=== PATIENT | female | born 1940 | race Caucasian/White ===

== ENCOUNTER → 2016-12-15 | Outpatient (CLI) | payer MEDICARE ==
[~2016-12-15] MED LIST: ALN10T PO; CALC1CAP5 PO; ENLP5T GT
--- OUTSIDE RECORDS SUMMARY | 2016-12-15 09:22 | XMS REPORT | Continuity of Care Document ---
Author Author [facility] Organization [facility] Address Unknown Phone Unavailable Allergies Active Description Code Type Severity Reaction Onset Reported/Identified Relationship to Patient Clinical Status Yes NKANo Known Allergies NKA Miscellaneous Allergy Unknown N/ A 08/23/2006 Medications Problems Date Dx Coded Attending Type Code Diagnosis Diagnosed By 09/18/2013 PAUL KNOX MD Ot 455.0 INT HEMORRHOID W/O COMPL 09/18/2013 PAUL KNOX MD Ot 562.10 DIVERTICULOSIS COLON (W/O MENT OF HEMORR 09/18/2013 PAUL KNOX MD Ot V12.72 PERSONAL HISTORY OF COLONIC POLYPS 06/11/2015 MIKE BRAN MD Ot V76.12 06/19/2015 MIKE BRAN MD Ot 793.80 06/25/2015 MIKE BRAN MD Ot 793.80 11/16/2015 Ot V76.12 11/16/2015 Ot 733.90 11/16/2015 Ot V82.81 11/16/2015 Ot V76.12 11/16/2015 Ot V76.12 11/16/2015 MIKE BRAN MD Ot 733.90 11/16/2015 PAUL KNOX MD Ot V72.84 11/16/2015 MIKE BRAN MD Ot 793.81 11/16/2015 MIKE BRAN MD Ot V76.12 11/16/2015 MIKE BRAN MD Ot 793.80 11/16/2015 MIKE BRAN MD Ot 793.89 11/16/2015 MIKE BRAN MD Ot V76.12 11/16/2015 MIKE BRAN MD Ot 793.80 02/03/2016 MIKE BRAN MD Ot R92.8 02/15/2016 MIKE BRAN MD Ot R92.8 02/17/2016 MIKE BRAN MD Ot R92.8 05/17/2016 MIKE BRAN MD Ot R92.1 MAMMOGRAPHIC CALCIFCN FOUND ON DIAGNOSTI 05/18/2016 MIKE BRAN MD Ot R92.1 MAMMOGRAPHIC CALCIFCN FOUND ON DIAGNOSTI 05/18/2016 MIKE BRAN MD Ot R92.1 MAMMOGRAPHIC CALCIFCN FOUND ON DIAGNOSTI 05/23/2016 MIKE BRAN MD Ot R92.1 MAMMOGRAPHIC CALCIFCN FOUND ON DIAGNOSTI 06/20/2016 MIKE BRAN MD Ot R92.1 MAMMOGRAPHIC CALCIFCN FOUND ON DIAGNOSTI 07/04/2016 MIKE BRAN MD Ot R92.1 MAMMOGRAPHIC CALCIFCN FOUND ON DIAGNOSTI 12/09/2016 Ot 733.90 BONE CARTILAGE DIS NOS 12/09/2016 Ot V82.81 SCREENING FOR OSTEOPOROSIS 12/09/2016 Ot V76.12 OTH SCREEN MAMMO-MALIGN NEOPLASM OF MAKSIM 12/09/2016 Ot V76.12 OTH SCREEN MAMMO-MALIGN NEOPLASM OF MAKSIM 12/09/2016 MIKE BRAN MD Ot 733.90 BONE CARTILAGE DIS NOS 12/09/2016 LISETTE SHANNON, PAUL Ot V72.84 EXAM PRE-OPERATIVE NOS 12/09/2016 MIKE BRAN MD Ot 793.81 MAMMOGRAPHIC MICROCLACIFICATION 12/09/2016 MIKE BRAN MD Ot V76.12 OTH SCREEN MAMMO-MALIGN NEOPLASM OF MAKSIM 12/09/2016 MIKE BRAN MD Ot 793.80 UNSPEC ABNORMAL MAMMOGRAM 12/09/2016 MIKE BRAN MD Ot 793.89 OTH (ABN) FINDINGS ON RADIOLOGICAL EXAMI 12/09/2016 MIKE BRAN MD Ot V76.12 OTH SCREEN MAMMO-MALIGN NEOPLASM OF MAKSIM 12/09/2016 MIKE BRAN MD Ot 793.80 UNSPEC ABNORMAL MAMMOGRAM 12/09/2016 MIKE BRAN MD Ot R92.8 OTH ABN AND INCONCLUSIVE FINDINGS ON DX 12/09/2016 MIKE BRAN MD, Ot R92.1 MAMMOGRAPHIC CALCIFCN FOUND ON DIAGNOSTI Procedures Results Encounters ACCT No. Visit Date/Time Discharge Status Pt. Type Provider Facility Loc./Unit Complaint [id number] 09/04/2015 16:38:00 2014 23:59:59 CLS Outpatient PHUONG ROSADO DO [facility] QUICK [id number] 05/28/2015 07:03:00 2014 23:59:59 CLS Outpatient MIKE BRAN MD [facility] RAD ABD MAMMO CALCIFICATIONS OF RT NIPPLE [id number] 05/21/2015 10:04:00 2014 23:59:59 CLS Outpatient MIKE BRAN MD [facility] RAD SCREENING [id number] 05/26/2014 08:20:00 2013 23:59:59 CLS Outpatient MIKE BRAN MD [facility] RAD RT BREAST DENSITY [id number] 11/26/2013 07:28:00 2013 23:59:59 CLS Outpatient MIKE BRAN MD [facility] RAD ABNORMAL MAMMO [id number] 11/13/2013 08:30:00 2013 23:59:59 CLS Outpatient MIKE BRAN MD [facility] RAD SCREENING [id number] 09/18/2013 08:50:00 2012 12:35:00 DIS Outpatient PAUL KNOX MD [facility] SDC HISTORY OF POLYPS [id number] 09/12/2013 07:17:00 2012 23:59:59 CLS Outpatient PAUL KNOX MD [facility] PREOP HISTORY OF POLYPS [id number] 08/16/2013 09:01:00 2012 23:59:59 CLS Outpatient MIKE BRAN MD [facility] RAD OSTEOPORSIS [id number] 04/01/2013 07:51:00 2012 23:59:59 CLS Outpatient [id number] 12/15/2016 10:00:00 PEN Preadmit MIKE BRAN MD [facility] RAD OSTEOPOROSIS [id number] 06/02/2016 09:42:00 ACT Outpatient NA DAVIS [facility] QUICK [id number] 05/17/2016 07:17:00 ACT Outpatient MIKE BRAN MD [facility] RAD CALCIFICATIONS R BREAST [id number] 11/16/2015 08:11:00 ACT Outpatient MIKE BRAN MD [facility] RAD ABNORMAL MAMMO [id number] 11/12/2012 11:17:00 Document Registration [id number] 11/10/2011 07:59:00 Document Registration [id number] 09/16/2011 09:45:00 Document Registration [id number] 11/10/2010 13:12:00 Document Registration
--- NOTE | 2016-12-15 14:44 | Diagnostic Imaging Report ---
EXAMINATION: DEXA scan. INDICATION: Osteopenia TECHNIQUE: Bone mineral density estimated based on dual energy radiography over the lumbar spine and femoral necks, was performed. FINDINGS: The lumbar spine T-score is -1.1. This is 4% increased density measurement compared to 2013 exam. T-score on the left femoral neck is -0.3 and on the right is -0.8, a 2.4% increased density measurement compared to 2013. IMPRESSION: Osteopenia. Dictated by: Dictated on workstation # [id number]
== END ==
LOC: RAD 09:19
PROVIDERS: ATTEND Family Medicine
DX: M81.0 Age-related osteoporosis without current pathological fracture (principal)
CPT/HCPCS: 77080

== ENCOUNTER → 2017-05-19 | Outpatient (CLI) | payer MEDICARE ==
--- NOTE | 2017-05-19 08:38 | Diagnostic Imaging Report ---
Bilateral diagnostic mammogram with 2-D and 3-D tomographic images performed. INDICATION: Followup calcifications. CAD is utilized. COMPARISON: 11/16/2015. FINDINGS: Breasts are composed of scattered fibroglandular densities, slightly more dense in the central and outer aspect of the right breast. There are benign-appearing calcifications seen including central right breast calcifications that demonstrate minimal change number operator multiple prior exams suggestive of benign etiology. No developing mass or architectural distortion is evident. Allowing for technique and positional differences, no suspicious change is seen. IMPRESSION: No significant change. ACR BI-RADS Category 2: Benign findings. Result letter will be mailed to the patient. Note: At least 10% of breast cancer is not imaged by mammography. Dictated by: Dictated on workstation # [id number]
== END ==
LOC: RAD 07:55
PROVIDERS: ATTEND Family Medicine
DX: R92.1 Mammographic calcification found on diagnostic imaging of breast (principal)
CPT/HCPCS: 77066

== ENCOUNTER → 2017-07-25 | Outpatient (CLI) | payer MEDICARE ==
--- NOTE | 2017-07-25 14:21 | Diagnostic Imaging Report ---
Three views of the lumbar spine. INDICATION: Back pain. FINDINGS: The alignment at the posterior spinal line is satisfactory. The vertebral body heights in the lumbar spine appear preserved. There is mild vertebral body height loss at the T11 vertebral body however. The disc heights are also preserved. Minimal anterior osteophytes are seen. Prominent facet arthropathy and sclerotic changes are noted in the lower lobar spine. Prominent atherosclerotic calcifications in the aorta are seen. IMPRESSION: Degenerative changes. Age-indeterminate compression fracture of T11 vertebral body. If there is history of injury and this matches the area of pain, then further evaluation with MRI of the thoracic spine would be helpful to assess if this is acute. Dictated by: Dictated on workstation # [id number]
== END ==
LOC: RAD 10:22
PROVIDERS: ATTEND Family Medicine
DX: M47.816 Spondylosis without myelopathy or radiculopathy, lumbar region (principal); M48.54XA Collapsed vertebra, not elsewhere classified, thoracic region, initial encounter for fracture
CPT/HCPCS: 72100

== ENCOUNTER → 2018-06-01 | Outpatient (CLI) | payer MEDICARE ==
--- NOTE | 2018-06-01 12:50 | Diagnostic Imaging Report ---
INDICATION: Digital mammogram bilateral screening with 3-D tomosynthesis. This study was compared to the prior exams of 05/19/17, 05/17/16 and 05/21/15. At this time, there are no current complaints. The current study was also evaluated with a Computer Aided Detection (CAD) system. FINDINGS: There are scattered fibroglandular densities in both breasts which could obscure a lesion. Overall, there does not appear to have been any significant change when compared to the prior exam. No primary or secondary sign of malignancy is noted. 3D tomographic images fail to show any sign of malignancy. IMPRESSION: There is no radiographic evidence for malignancy. ACR BI-RADS Category 1: Negative. Result letter will be mailed to the patient. Note: At least 10% of breast cancer is not imaged by mammography. Dictated by: Dictated on workstation # [id number]
== END ==
LOC: RAD 07:43
PROVIDERS: ATTEND Family Medicine
DX: Z12.31 Encounter for screening mammogram for malignant neoplasm of breast (principal)
CPT/HCPCS: 77067

== ENCOUNTER 2018-08-27 06:13 | Outpatient (CLI) | payer MEDICARE ==
[~2018-08-27] VITALS: Ht 157.5 cm; Wt 79.8 kg
[2018-08-27] MEDS ORDERED: ALEN10TA5 PO (15:33)
[2018-08-27] MEDS ORDERED: OMG1KC PO (15:33)
[2018-08-27] MEDS ORDERED: CALC-694 PO (15:33)
[2018-08-27] MEDS ORDERED: MULT-35 PO (15:33)
[2018-08-27] MEDS ORDERED: ENAL5TAB PO (15:33)
[2018-08-27] MEDS ORDERED: AMLO10TA6 PO (15:33)
== END 2018-08-27 15:37 | disposition home or self-care (01) ==
LOC: PREOP 06:13
PROVIDERS: ATTEND Surgery
DX: Z01.818 Encounter for other preprocedural examination (principal)

== ENCOUNTER 2018-08-29 09:43 | Day surgery (SDC) | payer MEDICARE ==
[~2018-08-29] VITALS: Ht 157.5 cm; Wt 79.8 kg
[~2018-08-29 09:43] MED LIST changes: +ALEN10TA5 PO; +AMLO10TA6 PO; +CALC-694 PO; +ENAL5TAB PO; +MULT-35 PO; +OMG1KC PO
[2018-08-29] MEDS ORDERED: NS IV 500 ML 500 ML ONE (09:51)
[2018-08-29] MEDS ORDERED: NS IV 500 ML 500 ML IV PRN (10:09)
[2018-08-29 10:11] VITALS: BP 179/95
[2018-08-29] MEDS ORDERED: MIDAZOLAM 2 MG/2 ML (VERSED) VIAL IVP ONE (10:15)
[2018-08-29] MEDS ORDERED: LIDOCAINE JELLY 2% 6 ML SYRINGE MM PRN (10:15)
[2018-08-29] MEDS ORDERED: fentaNYL INJECTION 100 MCG/2 ML AMP IVP ONE (10:15)
[2018-08-29] MEDS ORDERED: LIDOCAINE JELLY 2% 6 ML SYRINGE ONE (10:51)
[2018-08-29] MEDS ORDERED: MIDAZOLAM 2 MG/2 ML (VERSED) VIAL ONE ×3 (10:52)
[2018-08-29] MEDS ORDERED: fentaNYL INJECTION 100 MCG/2 ML AMP ONE ×2 (10:52)
--- NOTE | 2018-08-29 11:20 | Conscious Sedation/ASA ---
Conscious Sedation Pre-Proced Time 11:00 ASA Score 2 For ASA 3 and 4: Consider anesthesia and medical clearance. Also, for patients with a history of failed moderate sedation consider anesthesia. Airway Lungs Heart ASA score ASA 1: a normal healthy patient ASA 2: a patient with a mild systemic disease (mid diabetes, controlled hypertension, obesity ASA 3: a patient with a severe systemic disease that limits activity (angina , COPD, prior Myocardial infarction) ASA 4: a patient with an incapacitating disease that is a constant threat to life (CHF, renal failure) ASA 5: a moribund patient not expected to survive 24 hrs. (ruptured aneurysm) ASA 6: a declared brain patient whose organs are being harvested. For emergent operations, add the letter E after the classification Mallampati Classification Grade 2 Sedation Plan Analgesia, Amnesia, Plan communicated to team members, Discussed options with patient/fam, Discussed risks with patient/fam The patient is an appropriate candidate to undergo the planned procedure, sedation, and anesthesia. The patient immediately re-assessed prior to indication. PAUL KNOX MD Aug 29, 2018 11:20 am
--- NOTE | 2018-08-29 11:21 | Progress Note-Pre Operative ---
Pre-Operative Progress Note H&P Reviewed The H&P was reviewed, patient examined and no changes noted. Date Seen by Provider: Aug 29, 2018 Time Seen by Provider: 11:00 Date H&P Reviewed: Aug 29, 2018 Time H&P Reviewed: 11:00 Pre-Operative Diagnosis: hx polyp PAUL KNOX MD Aug 29, 2018 11:21 am
[2018-08-29] MEDS ORDERED: morphine INJ 10 MG/ML 1ML (SYR OR VIAL) IV PRN (11:30)
[2018-08-29] MEDS ORDERED: ACETAMINOPHEN 325 MG TABLET PO PRN (11:30)
[2018-08-29] MEDS ORDERED: HYDROcodone/APAP 5 MG/325 MG (LORTAB) TAB PO PRN (11:30)
[2018-08-29] MEDS ORDERED: ONDANSETRON 4 MG/2 ML (SDV) Z0FRAN IV PRN (11:30)
--- NOTE | 2018-08-29 12:11 | Progress Note-Post Operative ---
Post-Operative Progess Note Surgeon (s)/Apprentice Painter Hand (s) Surgeon PAUL KNOX MD Apprentice Painter Hand: none Pre-Operative Diagnosis hx polyp Post-Operative Diagnosis mild-moderate sigmoid diverticulosis, hepatic flexure polyp. Procedure & Operative Findings Date of Procedure 08/29/18 Procedure Performed/Findings Colonoscopy with bx. Anesthesia Type CS Estimated Blood Loss Estimated blood loss (mL): minimal Specimens/Packing Specimens Removed hepatic flexure polyp PAUL KNOX MD Aug 29, 2018 12:11 pm
--- NOTE | 2018-08-29 12:13 | Discharge Inst-Surgical ---
D/C Lap Instructions-LISETTE Will call for follow up Activity as tolerated High Fiber Diet 25g or more per day Avoid Alcohol, Caffeine, Spicy [place] and Acid foods. Drink 64 fluid oz or more of fluids per day. Symptoms to Report: Fever over 101 degree F, Nausea/Vomiting If any problems/questions: Contact your physician or go to Emergency Room PAUL KNOX MD Aug 29, 2018 12:13 pm
[2018-08-29 12:20] VITALS: BP 159/86
[2018-08-29 12:44] VITALS: BP 159/86
[2018-08-29 12:45] VITALS: BP 159/86
--- NOTE | 2018-08-29 15:39 | OPERATIVE REPORT ---
DATE OF SERVICE: 08/29/2018 ATTENDING PRIMARY CARE PHYSICIAN: Dr. Torres. PREOPERATIVE DIAGNOSIS: History of colon polyp. POSTOPERATIVE DIAGNOSIS: Mild sigmoid diverticulosis, small hyperplastic polyp at the hepatic flexure approximately 2 mm in size. PROCEDURE: Colonoscopy with biopsy. SURGEON: Paul Knox MD ANESTHESIA: Conscious sedation. ESTIMATED BLOOD LOSS: Minimal. FINDINGS: No significant hemorrhoids identified. Mild sigmoid diverticulosis, small hyperplastic polyp at the hepatic flexure approximately 2 mm in size. DISPOSITION: The patient tolerated the procedure well. INDICATIONS: The patient is a 78-year-old female known to us. She has had 2 colonoscopies in the past, one in 2004 as well as in 2007. In 2004, she did have 2 small descending colonic polyps, which were benign. In 2007, a rectal polyp was identified, biopsied and found to be a tubular adenoma. She was also found to have sigmoid diverticulosis. She is otherwise doing well and does not report any major issues of diarrhea nor constipation as well as no red blood per rectum nor any dark tarry stools. She also does not report any family history of colon cancer. DESCRIPTION OF PROCEDURE: The patient was brought to the endoscopy suite, laid in the left lateral decubitus position. After adequate IV pain and sedating medications and conscious sedation anesthesia, a digital rectal examination was performed. No significant hemorrhoids identified. Normal sphincter tone was felt and there are no palpable masses. The endoscope was then intubated to the anus and rectum gently insufflated. The endoscope was then advanced through the valves of Feng in the rectum with no polyps or any neoplasms identified. Through the sigmoid colon, mild to moderate sigmoid diverticulosis identified. There were no mucosal inflammatory changes to indicate any active diverticulitis. The endoscope was then advanced to the remainder of the descending and transverse colon. At the hepatic flexure, a small hyperplastic polyp identified approximately 2 mm in size. This was biopsied and destroyed using forceps and electrocautery with visualization of good hemostasis. The endoscope was then advanced through the remainder of the ascending colon into the cecum. These segments were normal. The endoscope was then slowly withdrawn while taking a second look and suctioning of residual air with no additional findings. The patient tolerated the procedure well. We will recommend a high fiber diet with at least 30 grams of fiber per day as well as copious amounts of water to promote soft stools on a daily basis. The polyp identified appears to be a benign hyperplastic polyp, which does not have any malignancy potential and if this is verified by pathology, she may wait 10 years; however, if this is an adenomatous polyp and shows any villous component, we will have her follow up in approximately 3 years. Job ID: [id number] DocumentID: [id number] Dictated Date: 08/29/2018 12:05:28 French Folder Date: 08/29/2018 15:38:12 Dictated By: PAUL KNOX MD
== END 2018-08-29 12:45 | disposition home or self-care (01) ==
LOC: ENDO 09:43
PROVIDERS: ATTEND Surgery
DX: Z12.11 Encounter for screening for malignant neoplasm of colon (principal); D12.3 Benign neoplasm of transverse colon; K57.30 Diverticulosis of large intestine without perforation or abscess without bleeding; I10 Essential (primary) hypertension; M85.80 Other specified disorders of bone density and structure, unspecified site; Z85.42 Personal history of malignant neoplasm of other parts of uterus; Z79.899 Other long term (current) drug therapy; Z90.79 Acquired absence of other genital organ(s)
CPT/HCPCS: 88305

== ENCOUNTER → 2019-06-11 | Outpatient (CLI) | payer MEDICARE ==
[~2019-06-11] MED LIST changes: -AMLO10TA6 PO; +AMLO10TA7 PO
--- NOTE | 2019-06-11 14:55 | Diagnostic Imaging Report ---
INDICATION: Routine screening. COMPARISON: 06/01/2018 and 05/19/2017. TECHNIQUE: 2D and 3D bilateral screening mammography was performed with CAD. FINDINGS: Scattered fibroglandular densities are identified bilaterally. Benign calcifications are again noted bilaterally. No mass or malignant appearing microcalcifications are seen. The axillae are unremarkable. IMPRESSION: No mammographic features suspicious for malignancy are identified. ACR BI-RADS Category 2: Benign findings. Result letter will be mailed to the patient. Note: At least 10% of breast cancer is not imaged by mammography. Dictated by: Dictated on workstation # [id number]
== END ==
LOC: RAD 09:21
PROVIDERS: ATTEND Family Medicine
DX: Z12.31 Encounter for screening mammogram for malignant neoplasm of breast (principal)
CPT/HCPCS: 77067

== ENCOUNTER 2019-08-23 09:50 | Outpatient (RCR) | payer MEDICARE ==
[2019-08-26] MEDS ORDERED: ENAL10TA PO (11:27)
[2019-08-26] MEDS ORDERED: AMLO5TAB9 PO (11:27)
[2019-08-26] MEDS ORDERED: MULT-178 PO (11:30)
[2019-08-26] MEDS ORDERED: ACET-77 PO (11:30)
[2019-08-26] MEDS ORDERED: IBUP-2185 PO (11:32)
[2019-08-27] MEDS ORDERED: AMLO5TAB9 PO (13:04)
== END 2019-08-30 13:13 | disposition home or self-care (01) ==
PROVIDERS: ATTEND Family Medicine
DX: M54.5 Low back pain (principal)

== ENCOUNTER 2019-08-25 13:31 | Inpatient (IN) | payer MEDICARE ==
[~2019-08-25] VITALS: Ht 157.5 cm; Wt 84.1 kg
[2019-08-25] MEDS ORDERED: fentaNYL INJECTION 100 MCG/2 ML AMP ONE (13:40)
--- NOTE | 2019-08-25 13:47 | ED Lower Extremity ---
General Chief Complaint: Lower Extremity Stated Complaint: FALL Source: patient, EMS Exam Limitations: no limitations History of Present Illness Date Seen by Provider: Aug 25, 2019 Time Seen by Provider: 13:45 Initial Comments This 79-year-old white female presents after she inadvertently fell sustaining an obvious closed fracture to her left femur shortly prior to presentation in the emergency department today. She is complaining of pain and deformity over t he midportion left femur. She denies loss of sensation or range of motion of the affected left lower extremity. She denies other injury or fall. Allergies and Home Medications Allergies Coded Allergies: No Known Drug Allergies (Verified , 08/29/18) Home Medications Alendronate Sodium 10 Mg Tablet, 10 MG PO DAILY, (Reported) Amlodipine Besylate 10 Mg Tablet, 10 MG PO DAILY, (Reported) Calcium Carbonate/Vitamin D3 1 Each Tablet, PO DAILY, (Reported) Enalapril Maleate 5 Mg Tablet, 5 MG PO DAILY, (Reported) Multivitamin 1 Each Tablet, 1 EACH PO DAILY, (Reported) [place] 3 Polyunsat Fatty Acids 1,000 Mg Cap, 1,000 MG PO DAILY, (Reported) Patient Home Medication List Home Medication List Reviewed: Yes Review of Systems Constitutional: No chills EENTM: No ear pain Respiratory: No cough Cardiovascular: No chest pain Gastrointestinal: No abdominal pain Genitourinary: No dysuria, No frequency Musculoskeletal: see HPI; No back pain; other (deformity of the left thigh) Skin: No change in color, No rash Psychiatric/Neurological: No Symptoms Reported Past Mwypwso-Argqmf-Mnojdy Hx Past Med/Social Hx: Reviewed Nursing Past Med/Soc Hx Patient Social History Recent Foreign Travel: No Contact w/Someone Who Travel: No Recent Hopitalizations: No Immunizations Up To Date Date of Influenza Vaccine: Aug 20, 2018 Seasonal Allergies Seasonal Allergies: Yes (MILD) Past Medical History Hysterectomy Hypertension Reproductive Disorders: No Sexually Transmitted Disease: No HIV/AIDS: No Loss of Vision: Bilateral Hearing Impairment: Denies Adverse Reaction/Blood Tranf: No (N/A) Physical Exam Vital Signs Vital Signs - First Documented 08/25/19 13:35 Temp 36.7 Pulse 94 Resp 18 B/P (MAP) 153/82 (105) Pulse Ox 98 O2 Delivery Room Air Capillary Refill : Height, Weight, BMI Height: 5'2.00" Weight: 176lbs. 0.0oz. 79.225104vx; 32.2 BMI Method: General Appearance: WD/WN, mild distress HEENT: normal ENT inspection Neck: full range of motion Cardiovascular: regular rate, rhythm Respiratory: lungs clear Gastrointestinal: normal bowel sounds Back: normal inspection Legs: left leg deformity (there is deformity of the left thigh with crepitus signifying a left femur fracture.) Progress/Results/Core Measures Results/Orders Lab Results Laboratory Tests Test 08/25/19 13:40 08/25/19 14:40 Range/Units White Blood Count 8.8 4.3-11.0 10^3/uL Red Blood Count 4.46 4.35-5.85 10^6/uL Hemoglobin 13.3 11.5-16.0 G/DL Hematocrit 41 35-52 % Mean Corpuscular Volume 92 80-99 FL Mean Corpuscular Hemoglobin 30 25-34 PG Mean Corpuscular Hemoglobin Concent 33 32-36 G/DL Red Cell Distribution Width 14.2 10.0-14.5 % Platelet Count 231 130-400 10^3/uL Mean Platelet Volume 10.2 7.4-10.4 FL Neutrophils (%) (Auto) 51 42-75 % Lymphocytes (%) (Auto) 30 12-44 % Monocytes (%) (Auto) 14 H 0-12 % Eosinophils (%) (Auto) 4 0-10 % Basophils (%) (Auto) 1 0-10 % Neutrophils # (Auto) 4.5 1.8-7.8 X 10^3 Lymphocytes # (Auto) 2.7 1.0-4.0 X 10^3 Monocytes # (Auto) 1.2 H 0.0-1.0 X 10^3 Eosinophils # (Auto) 0.4 H 0.0-0.3 10^3/uL Basophils # (Auto) 0.1 0.0-0.1 10^3/uL Sodium Level 139 135-145 MMOL/L Potassium Level 4.1 3.6-5.0 MMOL/L Chloride Level 104 98-107 MMOL/L Carbon Dioxide Level 25 21-32 MMOL/L Anion Gap 10 5-14 MMOL/L Blood Urea Nitrogen 28 H 7-18 MG/DL Creatinine 1.21 0.60-1.30 MG/DL Estimat Glomerular Filtration Rate 43 BUN/Creatinine Ratio 23 Glucose Level 119 H 70-105 MG/DL Calcium Level 9.8 8.5-10.1 MG/DL Corrected Calcium 9.9 8.5-10.1 MG/DL Total Bilirubin 0.5 0.1-1.0 MG/DL Aspartate Amino Transf (AST/SGOT) 19 5-34 U/L Alanine Aminotransferase (ALT/SGPT) 19 0-55 U/L Alkaline Phosphatase 45 40-136 U/L Total Protein 6.9 6.4-8.2 GM/DL Albumin 3.9 3.2-4.5 GM/DL My Orders Orders - VINICIO ROJAS MD Fentanyl Injection (Sublimaze Injection (08/25/19 13:40) Femur, Left, 2 Views (08/25/19 13:43) Chest 1 View, Ap/Pa Only (08/25/19 13:43) Cbc With Automated Diff (08/25/19 13:43) Comprehensive Metabolic Panel (08/25/19 13:43) Ua Culture If Indicated (08/25/19 13:43) Ekg Tracing (08/25/19 13:43) Type And Screen (08/25/19 14:02) Medications Given in ED Current Medications Medications Dose Ordered Sig/Tee Route Start Time Stop Time Status Last Admin Dose Admin Fentanyl Citrate 100 mcg STK-MED ONCE .ROUTE 08/25/19 13:40 08/25/19 13:42 DC 08/25/19 13:42 100 MCG Vital Signs/I&O 08/25/19 13:35 Temp 36.7 Pulse 94 Resp 18 B/P (MAP) 153/82 (105) Pulse Ox 98 O2 Delivery Room Air Progress Progress Note : Time: 14:48 Progress Note The patient's obvious left femur fracture was reduced and a long-leg posterior spell was applied with OCL. The patient's pain was significant improvement with 50 g of fentanyl IV. Drs. Olson and Rene were consulate and will present to evaluate the patient. Anesthesia will be prepared for the patient and at 5 p.m. today (2 hours). Preoperative labs, chest x-ray, and EKG were ordered. Departure Communication (Admissions) Time/Spoke to Admitting Phy: 14:50 Dr. Olson Time/Spoke to Consulting Phy: 14:50 Dr. López Impression Primary Impression: Fracture of left femur Disposition: 09 ADMITTED INPATIENT Condition: Improved Admissions Decision to Admit Reason: Admit from ER (Trauma) Decision to Admit/Date: Aug 25, 2019 Time/Decision to Admit Time: 14:51 Departure-Patient Inst. Referrals: MIKE BRAN MD (PCP) Primary Care Physician VINICIO ROJAS MD Aug 25, 2019 13:47
[2019-08-25 13:51] LABS: BASOPHILS # (AUTO) 0.1 10^3/uL (0.0-0.1); BASOPHILS % (AUTO) 1 % (0-10); EOSINOPHILS # (AUTO) 0.4 10^3/uL (0.0-0.3); EOSINOPHILS % (AUTO) 4 % (0-10); HEMATOCRIT 41 % (35-52); HEMOGLOBIN 13.3 G/DL (11.5-16.0); LYMPHOCYTES # (AUTO) 2.7 X 10^3 (1.0-4.0); LYMPHOCYTES % (AUTO) 30 % (12-44); MEAN CORPUSCULAR HEMOGLOBIN 30 PG (25-34); MEAN CORPUSCULAR HGB CONC 33 G/DL (32-36); MEAN CORPUSCULAR VOLUME 92 FL (80-99); MEAN PLATELET VOLUME 10.2 FL (7.4-10.4); MONOCYTES # (AUTO) 1.2 X 10^3 (0.0-1.0); MONOCYTES % (AUTO) 14 % (0-12); NEUTROPHILS # (AUTO) 4.5 X 10^3 (1.8-7.8); NEUTROPHILS % (AUTO) 51 % (42-75); PLATELET COUNT 231 10^3/uL (130-400); RED CELL DISTRIBUTION WIDTH 14.2 % (10.0-14.5); WHITE BLOOD COUNT 8.8 10^3/uL (4.3-11.0)
[2019-08-25 14:05] LABS: ALBUMIN 3.9 GM/DL (3.2-4.5); BILIRUBIN,TOTAL 0.5 MG/DL (0.1-1.0); CALCIUM 9.8 MG/DL (8.5-10.1); CREATININE SERUM 1.21 MG/DL (0.60-1.30); POTASSIUM 4.1 MMOL/L (3.6-5.0); TOTAL PROTEIN 6.9 GM/DL (6.4-8.2)
--- NOTE | 2019-08-25 14:30 | Diagnostic Imaging Report ---
EXAMINATION: Chest 1 view HISTORY: Leg pain. FINDINGS: No comparison available. The lungs are clear. No edema. No pneumonia. No pleural effusion. No pneumothorax. Heart is normal in size. IMPRESSION: 1. Clear lungs. Dictated by: Dictated on workstation # [id number]
--- NOTE | 2019-08-25 14:32 | Diagnostic Imaging Report ---
INDICATION: None given. TECHNIQUE: Four views of the left femur. FINDINGS: There is a largely transversely oriented midshaft fracture of the left femur. There is lateral apex angulation and approximately 2.7 cm of overriding of the fracture fragments. This fracture is also anteriorly angulated. There is no dislocation at the hip or malalignment at the knee. There are background features of left hip and left knee osteoarthritis. No suspicious lucencies are evident about the femoral shaft fracture to suggest a pathological fracture. IMPRESSION: 1. Overriding and angulated left femoral shaft fracture as described. There are no suspicious findings to suggest a pathological fracture. There is no dislocation at the hip or knee. Dictated by: Dictated on workstation # [id number]
--- NOTE | 2019-08-25 14:50 | NUR ---
Dr. Olson in room with pt.
[2019-08-25 14:51] LABS: BILIRUBIN,URINE NEGATIVE (NEGATIVE); CLARITY,URINE CLEAR; COLOR,URINE YELLOW; GLUCOSE, URINE (UA) NEGATIVE (NEGATIVE); KETONES,URINE NEGATIVE (NEGATIVE); LEUKOCYTE ESTERASE ,URINE NEGATIVE (NEGATIVE); NITRITE,URINE NEGATIVE (NEGATIVE); PH,URINE 5 (5-9); PROTEIN,URINE 1+ (NEGATIVE)
[2019-08-25 15:01] LABS: BACTERIA,URINE TRACE /HPF; WBC,URINE 0-2 /HPF
--- NOTE | 2019-08-25 15:01 | NUR ---
tank cleaning supervisor notified of planned surgery by Dr. López at 1700.
[2019-08-25 15:02] LABS: HYALINE CASTS, URINE 0-2 /LPF
--- NOTE | 2019-08-25 15:10 | History & Physical-Hospitalist ---
History of Present Illness HPI/Chief Complaint 79 yo wf tripped and fell striking left femur- Xray shows fracture left femur shaft. Pt without c/o other than pain Source: patient Exam Limitations: no limitations Date Seen 08/25/19 Time Seen by a Provider: 15:00 Attending Physician Adali Olson MD PCP Mike Bran MD Referring Physician Date of Admission Aug 25, 2019 at 15:01 Home Medications & Allergies Home Medications Reviewed patient Home Medication Reconciliation performed by pharmacy medication reconciliations electronic engineering technician and/or nursing. Patients Allergies have been reviewed. Allergies Allergies Coded Allergies No Known Drug Allergies ([id number]/24/18) Past [id number] Hx Past Med/Social Hx: Reviewed Nursing Past Med/Soc Hx Patient Social History Marrital Status: single Employed/Student: retired Alcohol Use: Denies Use Recreational Drug Use: No 2nd Hand Smoke Exposure: No Recent Foreign Travel: No Contact w/other who traveled: No Recent Hopitalizations: No Recent Infectious Disease Expo: No Immunizations Up To Date Date of Influenza Vaccine: Aug 20, 2018 Seasonal Allergies Seasonal Allergies: Yes (MILD) Past Medical History Surgeries: Hysterectomy Cardiac: Hypertension Reproductive: No Sexually Transmitted Disease: No HIV/AIDS: No Loss of Vision: Bilateral Hearing Impairment: Denies History of Blood Disorders: No Adverse Reaction to Blood [place]: No (N/A) Review of Systems Constitutional: no symptoms reported EENTM: no symptoms reported Respiratory: dyspnea on exertion Cardiovascular: no symptoms reported Gastrointestinal: no symptoms reported Genitourinary: no symptoms reported Musculoskeletal: other (left leg pain) Skin: no symptoms reported Psychiatric/Neurological: No Symptoms Reported Physical Exam Physical Exam Vital Signs Vital Signs - First Documented 08/25/19 13:35 Temp 36.7 Pulse 94 Resp 18 B/P (MAP) 153/82 (105) Pulse Ox 98 O2 Delivery Room Air Capillary Refill : Less Than 3 Seconds Height, Weight, BMI Height: 5'2.00" Weight: 176lbs. 0.0oz. [id number]; 30.00 BMI Method: General Appearance: No Apparent Distress, WD/WN HEENT: Normal ENT Inspection Neck: Full Range of Motion, Normal Inspection, Non Tender, Supple Respiratory: Chest Non Tender, Lungs Clear, Normal Breath Sounds, No Accessory Muscle Use, No Respiratory Distress Cardiovascular: Regular Rate, Rhythm, No Gallop, No JVD, No Murmur, Normal Peripheral Pulses Gastrointestinal: Normal Bowel Sounds, No Organomegaly, No Pulsatile Mass, Non Tender, Soft Rectal: Deferred Extremity: Normal Capillary Refill, No Calf Tenderness, No Pedal Edema, Other (left leg shortened) Neurologic/Psychiatric: Alert, Oriented x3, Normal Mood/Affect Skin: Normal Color, Warm/Dry Lymphatic: No Adenopathy Results Results/Procedures Labs Laboratory Tests 08/25/19 13:40 Patient resulted labs reviewed. Imaging: Reviewed Imaging Report Assessment/Plan Admission Diagnosis left femur shaft fracture htn - normal ekg hx of SOA - most likely secondary to deconditioning Pt need for repair outweighs small risk of cardiac event post -op. Would recommend telemetry post op , rehab after repair for strengthening Admission Status: Inpatient Order (span 2 midnights) Reason for Inpatient Admission: Surgery and PT Copy Copies To 1: MIKE BRAN MD, KATHLEEN M MD Aug 25, 2019 15:10
[2019-08-25] MEDS ORDERED: NS IV 1000 ML 1,000 ML ONE (15:59)
[2019-08-25] MEDS ORDERED: NS IV 1000 ML 1,000 ML IV SCH (16:15)
--- NOTE | 2019-08-25 16:24 | Consultation - Ortho ---
Consult - Ortho Subjective Date of Exam 08/25/19 Chief Complaint Fracture left femur HPI/Events since last exam Mrs. Newton is a 79-year-old white female who tripped when she caught her foot on a chair landing on the posterior aspect of her left side. She was brought to the emergency room and evaluated and x-rayed noted abdomen midshaft fracture left femur. She denies any previous problems with her left hip or knee. She is presently in physical therapy for strengthening due to a compression fracture and/or disc in her mid back. She has had some difficulty with ambulation due to the weakness and does use a cane and/or walker but is doing so well that she no longer needs them. She denies any other injuries. She denies any increase in back or neck pain. She states her foot and toes feel a little funny since the fall. No problems on the right side. Her only other orthopedic issue was a fracture of the left radius that required open reduction internal FIXATION by Dr. Burris [facility], Surgical History Reviewed and no additions or changes Social History Reviewed and no additions or changes. The patient does live by herself Family History Reviewed and no additions or changes Review of Systems Reviewed and no additions or changes Allergies: Coded Allergies: No Known Drug Allergies (Verified , 08/29/18) Home Meds Reported Medications Multivitamin (Daily Multiple Vitamin) 1 Each Tablet, 1 EACH PO DAILY, TAB 08/27/18 [place] 3 Polyunsat Fatty Acids (Fish Oil 1,000 mg Capsule) 1,000 Mg Cap, 1000 MG PO DAILY, CAP 08/27/18 Amlodipine Besylate (Amlodipine Besylate) 10 Mg Tablet, 10 MG PO DAILY, TAB 08/27/18 Calcium Carbonate/Vitamin D3 (Calcium 600 + Vit D Caplet) 1 Each Tablet, PO DAILY, TAB 08/27/18 Enalapril Maleate (Enalapril Maleate) 5 Mg Tablet, 5 MG PO DAILY, TAB 08/27/18 Alendronate Sodium (Alendronate Sodium) 10 Mg Tablet, 10 MG PO DAILY, TAB 08/27/18 Objective Exam Constitutional: [] HEENT: [] Neck: [No pain with palpation or range of motion] Cardiovascular: [] Respiratory: [] Gastrointestinal: [] Genitourinary: [] Skin: [] Back/Spine: No pain with palpation or range of motion [] Extremities:upper extremities-full range of motion. No crepitation. No defo rmity. Neurovascularly intact. No skin changes. Lower extremitiesfull motion of the right hip, knee and ankle without pain or deformity. No instability. She's neurovascularly intact the right lower extremity. The left lower extremity is in a posterior splint. She has no pain on palpation of the hip. No pain on palpation of the anterior knee. No pain with range of motion of the ankle. She has normal sensation to the foot and toes with good capillary refill. Her sensation is equal to the opposite side. Symmetrical pulses to the lower extremities. [] Neurologic: [] Grossly intact Psychiatric: [] Hematologic/lymphatic/immunologic: [] Vital Signs Vital Signs Date Time Temp Pulse Resp B/P (MAP) Pulse Ox O2 Delivery O2 Flow Rate FiO2 08/25/19 13:35 36.7 94 18 153/82 (105) 98 Room Air Lab Results Laboratory Tests 08/25/19 13:40: White Blood Count 8.8, Red Blood Count 4.46, Hemoglobin 13.3, Hematocrit 41, Mean Corpuscular Volume 92, Mean Corpuscular Hemoglobin 30, Mean Corpuscular Hemoglobin Concent 33, Red Cell Distribution Width 14.2, Platelet Count 231, Mean Platelet Volume 10.2, Neutrophils (%) (Auto) 51, Lymphocytes (%) (Auto) 30, Monocytes (%) (Auto) 14H, Eosinophils (%) (Auto) 4, Basophils (%) (Auto) 1, Neutrophils # (Auto) 4.5, Lymphocytes # (Auto) 2.7, Monocytes # (Auto) 1.2H, Eosinophils # (Auto) 0.4H, Basophils # (Auto) 0.1, Sodium Level 139, Potassium Level 4.1, Chloride Level 104, Carbon Dioxide Level 25, Anion Gap 10, Blood Urea Nitrogen 28H, Creatinine 1.21, Estimat Glomerular Filtration Rate 43, BUN/Creatinine Ratio 23, Glucose Level 119H, Calcium Level 9.8, Corrected Calcium 9.9, Total Bilirubin 0.5, Aspartate Amino Transf (AST/SGOT) 19, Alanine Aminotransferase (ALT/SGPT) 19, Alkaline Phosphatase 45, Total Protein 6.9, Albumin 3.9 08/25/19 14:40: Urine Color YELLOW, Urine Clarity CLEAR, Urine pH 5, Urine Specific [place] 1.025H, Urine Protein 1+H, Urine Glucose (UA) NEGATIVE, Urine Ketones NEGATIVE, Urine Nitrite NEGATIVE, Urine Bilirubin NEGATIVE, Urine Urobilinogen NORMAL, Urine Leukocyte Esterase NEGATIVE, Urine RBC (Auto) 1+H, Urine RBC NONE, Urine WBC 0-2, Urine Squamous Epithelial Cells 2-5, Urine Crystals NONE, Urine Bacteria TRACE, Urine Casts PRESENT, Urine Hyaline Casts 0-2H, Urine Mucus SM ALLH, Urine Culture Indicated NO Imaging X-rays were reviewed of the left femur which shows no fracture at the hip or knee. She has a fracture in the mid shaft left femur with no comminution. There is displacement and shortening. Assessment and Plan Assessment Midshaft fracture left femur Problem List Unchanged Plan Treatment options were discussed with the patient. Must proceed with surgery. I discussed open reduction internal fixation with an IM alida. Fixation proximally could be TFN or screws. Considering she is 79 years old it might be best to proceed with a TFN to avoid hip fracture with another injury or fall. She would like to proceed with that plan. Understands the procedure, risk complications. Blood loss and possible transfusion. Risk of thrombophlebitis and use of anti-coagulants postop. Neurovascular injury and infection. We'll use Ancef pre-and postop. He has not eaten since 9 a.m. and she is scheduled for surgery at approximately 1700 Final Diagonsis Midshaft fracture left femur-closed Level of the visit: Level 3 PEG BULLOCK MD Aug 25, 2019 16:24
[2019-08-25] MEDS ORDERED: PROPOFOL INJECTION 50 ML IV ONE (16:26)
[2019-08-25] MEDS ORDERED: ONDANSETRON 4 MG/2 ML (SDV) Z0FRAN ONE ×2 (16:26→17:36)
[2019-08-25] MEDS ORDERED: BUPIVACAINE 0.5% 30 ML (SENSORCAINE) VIAL ONE (16:26)
[2019-08-25] MEDS ORDERED: KETAMINE/NaCl 50 MG/5 ML SYRINGE ONE (16:26)
[2019-08-25] MEDS ORDERED: MIDAZOLAM 2 MG/2 ML (VERSED) VIAL ONE (16:27)
[2019-08-25] MEDS ORDERED: ceFAZolin 2 GM IV Premixed 50 ML IV ONE (16:30)
--- NOTE | 2019-08-25 16:50 | NUR ---
or to get ancef from pharmacy
[2019-08-25] MEDS ORDERED: ceFAZolin INJECTION 1,000 MG ONE ×2 (16:56→18:16)
[2019-08-25] MEDS ORDERED: morphine INJ 10 MG/ML 1ML (SYR OR VIAL) ONE (17:36)
[2019-08-25] MEDS ORDERED: LACTATED RINGERS 1,000 ML IV PRN (18:02)
[2019-08-25] MEDS ORDERED: proPOfol 200 MG/20 ML (DIPRIVAN) VIAL IV ONE (19:00)
[2019-08-25] MEDS ORDERED: NEO/POLY/BAC (NEOSPORIN) OINT 15 GM TUBE ONE (19:11)
[2019-08-25 19:37] VITALS: BP 98/46
[2019-08-25 19:50] VITALS: BP 99/60
[2019-08-25 20:00] VITALS: BP_SYST 111; BP_SYST 122; BP_DIAS 59
[2019-08-25] MEDS ORDERED: HYDROcodone/APAP 5 MG/325 MG (LORTAB) TAB PO PRN (20:00)
[2019-08-25] MEDS ORDERED: fentaNYL INJECTION 100 MCG/2 ML AMP IVP PRN ×2 (20:00)
[2019-08-25 20:10] VITALS: BP 115/62
--- NOTE | 2019-08-25 20:13 | Operative Report - Ortho ---
Operative Report Surgeon (s)/Research Associate Quality Control Qc (s) Surgeon PEG BULLOCK MD Research Associate Quality Control Qc n/a Pre-Operative Diagnosis displaced left femoral shaft fracture-closed Post-Operative Diagnosis same Operative Report Date of Procedure: Aug 25, 2019 Name of Procedure Performed: Long TFN left femoral shaft fracture 11 mm x 380 mm long femoral alida, 85 mm helical blade, 38 mm distal locking screw Description & Findings The patient was evaluated in the emergency room. The procedure, risks and complications were discussed with the patient. She would like proceed with surgical treatment. I recommended the long trochanteric fixation nail. Is given 2 g Ancef preoperatively. She was taken to the operating room and a s nikia was inserted. She was then placed on the fracture table and a peroneal post was inserted. The right leg was placed in the well-leg loera which was padded in the left foot and ankle were placed in the traction boot. The left leg was placed in adduction and internal rotation with traction bringing the fracture out to length. The fracture was reduced on AP view but still angulated on the lateral view. Timeout was then performed. The left hip and thigh and knee area were then prepped and draped in usual sterile manner. Incision was made just proximal to the tip of the greater trochanter. This was taken down through subcutaneous tissue and the gluteal fascia. The tip the greater trochanter was palpated and a guidewire was inserted just medial to the tip on the AP view and in line with the central aspect of the proximal femur in the lateral view. This was then overreamed. The guidewire was removed and a long beaded-tip guidewire was inserted into the proximal femur. Using a reduction device the guidewire was advanced across the fracture site into the distal femur. This was verified on both AP and lateral views. Guidewire was then measured and a 380 millimeter by 11 mm alida was selected. The femur was then reamed up to 12 mm. Good cortical reaming was noted proximal and distal to the fracture from about 10 mm up to 12 mm reaming in 0.5 mm increments. At this point the 380 mm x 11 mm alida was inserted over the guidewire to the fracture site. The fracture site was then held reduced as the alida was advanced distally. This was then tapped down distally to the level of the proximal patella. The fracture was anatomically reduced in both AP and lateral views. Traction was then taken off of the leg. No distraction was noted. Next the alida was aligned proximally for insertion of the helical blade. A guide wire was then placed through the lateral guide through a lateral incision with the guide down to the cortex. This was advanced to the central aspect of the neck and head in both AP and lateral views. This was then measured and an 85 mm helical blade was selected. The cortex was then opened laterally and then the helical blade was inserted over the guidewire. A helical blade was approximately 5-6 mm from the articular surface on both AP and lateral views. This was then locked into place. At this point the guide was removed. Good alignment and position was noted at the helical blade as well as the alida and again the fracture was anatomic with no distraction. At this point the leg was aligned for insertion of the distal locking screw. The image was brought in perpendicular to the leg and the lateral view and the proximal locking hole was identified. This was then drilled and measured and a 38 mm distal locking screw was inserted through the proximal round hole in the distal alida. This was verified on both AP and lateral views. This point due to the stability and orientation of fracture it was felt that no further distal locking screws were needed. all wounds were irrigated with normal saline. The fascia was closed with 0 Vicryl. The subcutaneous tissue was closed with 2-0 Vicryl. The skin was closed with skin clips. All wounds were dressed with antibiotic ointment, Adaptic and 4 x 4's and ABDs which were taped in position. The left foot and ankle were taken out of traction boot and the right leg was taken out of the well leg loera. Leg lengths were equal. Rotation was equal in external and internal rotation both legs. The patient had good capillary refill and symmetrical pulses. Anesthesia then inserted a femoral, obturator and fascial block. The patient was then transferred to her hospital bed and to recovery room in good condition, she tolerated the procedure well. n/a Anesthesia Type Spinal with 3 in 1 block Estimated Blood Loss 150 mL Replacementnone Drainsnone Packing none. Specimen(s) collected/removed none EPG BULLOCK MD Aug 25, 2019 20:13
[2019-08-25 20:20] VITALS: BP 104/62
--- NOTE | 2019-08-25 20:23 | Diagnostic Imaging Report ---
Clinical indication: Patient with fracture of the left femur. Exam: There is a total of 7 Limited intraoperative x-ray images of the left femur. Comparison: X-ray of the left femur dated 08/25/2019. Findings and impression: There is interval placement of a long intramedullary alida affixing the mid left femur fracture. Please see surgeon's report for more detail. Fluoroscopy was provided for surgeons and a total of 195.0 seconds and 26.55 mGy was provided. Dictated by: Dictated on workstation # [id number]
[2019-08-25] MEDS: LACTATED RINGERS 1,000 ML IV SCH (20:38)
[2019-08-25 21:53] VITALS: BP 122/59
[2019-08-26 00:39] VITALS: BP 153/74
[2019-08-26] MEDS: ceFAZolin 2 GM IV Premixed 50 ML IV SCH ×3 (01:56→15:30)
[2019-08-26 04:42] VITALS: BP 138/79
[2019-08-26] MEDS: LACTATED RINGERS 1,000 ML IV SCH ×3 (05:03→23:01)
--- NOTE | 2019-08-26 07:38 | Progress Note ---
Subjective Date Seen by a Provider: Aug 26, 2019 Time Seen by a Provider: 07:15 Subjective/Events-last exam Patient feeling fine. She is coherent and communicating well. No significant pain. S/P repair of mid L shaft femur fracture from 08/25. Objective Exam Vital Signs Date Time Temp Pulse Resp B/P (MAP) Pulse Ox O2 Delivery O2 Flow Rate FiO2 08/26/19 04:42 37.0 87 18 138/79 (98) 98 Room Air 08/26/19 00:39 36.4 82 20 153/74 (100) 97 Room Air 08/25/19 21:53 Room Air 08/25/19 21:53 35.5 66 18 122/59 100 Room Air 08/25/19 20:30 Room Air 08/25/19 20:20 Room Air 08/25/19 20:20 36.2 20 104/62 (76) 98 Room Air 08/25/19 20:15 Room Air 08/25/19 20:10 20 115/62 (79) 97 Room Air 08/25/19 20:00 20 111/59 (76) 99 OxyMask 3 08/25/19 20:00 OxyMask 3 08/25/19 20:00 35.5 66 18 122/59 (80) 100 Room Air 08/25/19 19:50 20 99/60 (73) 99 OxyMask 3 08/25/19 19:45 OxyMask 3 08/25/19 19:37 36.2 20 98/46 (63) 99 OxyMask 3 08/25/19 19:37 OxyMask 3 08/25/19 16:53 36.7 103 18 165/85 (105) 99 Room Air 08/25/19 13:35 36.7 94 18 153/82 (105) 98 Room Air I & O 08/26/19 07:00 Intake Total 5200 ml Output Total 1400 ml Balance 3800 ml Capillary Refill : Less Than 3 SecondsLess Than 3 Seconds General Appearance: No Apparent Distress Respiratory: Lungs Clear Cardiovascular: Regular Rate, Rhythm Extremity: Other (L thigh region wrapped) Results Lab Laboratory Tests 08/25/19 13:40: White Blood Count 8.8, Red Blood Count 4.46, Hemoglobin 13.3, Hematocrit 41, Mean Corpuscular Volume 92, Mean Corpuscular Hemoglobin 30, Mean Corpuscular Hemoglobin Concent 33, Red Cell Distribution Width 14.2, Platelet Count 231, Mean Platelet Volume 10.2, Neutrophils (%) (Auto) 51, Lymphocytes (%) (Auto) 30, Monocytes (%) (Auto) 14H, Eosinophils (%) (Auto) 4, Basophils (%) (Auto) 1, Neutrophils # (Auto) 4.5, Lymphocytes # (Auto) 2.7, Monocytes # (Auto) 1.2H, Eosinophils # (Auto) 0.4H, Basophils # (Auto) 0.1, Sodium Level 139, Potassium Level 4.1, Chloride Level 104, Carbon Dioxide Level 25, Anion Gap 10, Blood Urea Nitrogen 28H, Creatinine 1.21, Estimat Glomerular Filtration Rate 43, BUN/Creatinine Ratio 23, Glucose Level 119H, Calcium Level 9.8, Corrected Calcium 9.9, Total Bilirubin 0.5, Aspartate Amino Transf (AST/SGOT) 19, Alanine Aminotransferase (ALT/SGPT) 19, Alkaline Phosphatase 45, Total Protein 6.9, Albumin 3.9 08/25/19 14:40: Urine Color YELLOW, Urine Clarity CLEAR, Urine pH 5, Urine Specific [place] 1.025H, Urine Protein 1+H, Urine Glucose (UA) NEGATIVE, Urine Ketones NEGATIVE, Urine Nitrite NEGATIVE, Urine Bilirubin NEGATIVE, Urine Urobilinogen NORMAL, Urine Leukocyte Esterase NEGATIVE, Urine RBC (Auto) 1+H, Urine RBC NONE, Urine WBC 0-2, Urine Squamous Epithelial Cells 2-5, Urine Crystals NONE, Urine Bacteria TRACE, Urine Casts PRESENT, Urine Hyaline Casts 0-2H, Urine Mucus SMALLH, Urine Culture Indicated NO 08/26/19 05:00: Hemoglobin 11.0L, Hematocrit 34L Assessment/Plan Assessment/Plan Assess & Plan/Chief Complaint 1. L mid shaft fracture -under care of Dr López -suspect PT through 2nd floor or through [facility] 2. Hx/o hypertension -will restart her enalapril 10 -will begin amlodipine if necessary 3. Hx/o osteoporosis -She does take OTC calcium O/P. Also on fosamax. Will restart after acute care. Clinical Quality Measures DVT/VTE Risk/Contraindication: Risk Factor Score Per Nursin RFS Level Per Nursing on Admit: 4+=Very High MIKE BRAN MD Aug 26, 2019 07:38
[2019-08-26] MEDS: ENOXAPARIN 40 MG/0.4 ML (LOVENOX) SYR SC SCH (07:54)
[2019-08-26 08:00] VITALS: BP 147/78
--- NOTE | 2019-08-26 09:30 | Progress Note - Ortho ---
Progress Note Subjective Date of Exam 08/26/19 Chief Complaint POD#1 long TFN for midshaft fracture left femur HPI/Events since last exam Mrs. Newton is 1 day postop. When I saw her she was walking with a walker with therapy from her bed to the chair and putting probably about half her weight on her left leg. She stated she had a very good evening and only required IV pain medication once. He denies any nausea or vomiting. No significant pain in the left leg. She denies any numbness or tingling. Review of Systems Reviewed and no additions or changes Allergies: Coded Allergies: No Known Drug Allergies (Verified , 08/29/18) Home Meds Reported Medications Multivitamin (Daily Multiple Vitamin) 1 Each Tablet, 1 EACH PO DAILY, TAB 08/27/18 [place] 3 Polyunsat Fatty Acids (Fish Oil 1,000 mg Capsule) 1,000 Mg Cap, 1000 MG PO DAILY, CAP 08/27/18 Amlodipine Besylate (Amlodipine Besylate) 10 Mg Tablet, 10 MG PO DAILY, TAB 08/27/18 Calcium Carbonate/Vitamin D3 (Calcium 600 + Vit D Caplet) 1 Each Tablet, PO DAILY, TAB 08/27/18 Enalapril Maleate (Enalapril Maleate) 5 Mg Tablet, 5 MG PO DAILY, TAB 08/27/18 Alendronate Sodium (Alendronate Sodium) 10 Mg Tablet, 10 MG PO DAILY, TAB 08/27/18 Objective Exam Constitutional: [] HEENT: [] Neck: [] Cardiovascular: [] Respiratory: [] Gastrointestinal: [] Genitourinary: [] Skin: [] Back/Spine: [] Extremities: [] Dressings are intact to the left leg. She has mild pain with gentle range of motion of the left hip. No pain left knee. No effusion. No calf tenderness negative Homans. Neurovascularly intact left lower extremity. Neurologic: [] Psychiatric: [] Hematologic/lymphatic/immunologic: [] Vital Signs Vital Signs Date Time Temp Pulse Resp B/P (MAP) Pulse Ox O2 Delivery O2 Flow Rate FiO2 08/26/19 08:00 37.5 92 18 147/78 (101) 96 Room Air 08/26/19 04:42 37.0 87 18 138/79 (98) 98 Room Air 08/26/19 00:39 36.4 82 20 153/74 (100) 97 Room Air 08/25/19 21:53 Room Air 08/25/19 21:53 35.5 66 18 122/59 100 Room Air 08/25/19 20:30 Room Air 08/25/19 20:20 Room Air 08/25/19 20:20 36.2 20 104/62 (76) 98 Room Air 08/25/19 20:15 Room Air 08/25/19 20:10 20 115/62 (79) 97 Room Air 08/25/19 20:00 20 111/59 (76) 99 OxyMask 3 08/25/19 20:00 OxyMask 3 08/25/19 20:00 35.5 66 18 122/59 (80) 100 Room Air 08/25/19 19:50 20 99/60 (73) 99 OxyMask 3 08/25/19 19:45 OxyMask 3 08/25/19 19:37 36.2 20 98/46 (63) 99 OxyMask 3 08/25/19 19:37 OxyMask 3 08/25/19 16:53 36.7 103 18 165/85 (105) 99 Room Air 08/25/19 13:35 36.7 94 18 153/82 (105) 98 Room Air I & O 08/26/19 07:00 Intake Total 5200 ml Output Total 1400 ml Balance 3800 ml Lab Results Laboratory Tests 08/25/19 13:40: White Blood Count 8.8, Red Blood Count 4.46, Hemoglobin 13.3, Hematocrit 41, Mean Corpuscular Volume 92, Mean Corpuscular Hemoglobin 30, Mean Corpuscular Hemoglobin Concent 33, Red Cell Distribution Width 14.2, Platelet Count 231, Mean Platelet Volume 10.2, Neutrophils (%) (Auto) 51, Lymphocytes (%) (Auto) 30, Monocytes (%) (Auto) 14H, Eosinophils (%) (Auto) 4, Basophils (%) (Auto) 1, Neutrophils # (Auto) 4.5, Lymphocytes # (Auto) 2.7, Monocytes # (Auto) 1.2H, Eosinophils # (Auto) 0.4H, Basophils # (Auto) 0.1, Sodium Level 139, Potassium Level 4.1, Chloride Level 104, Carbon Dioxide Level 25, Anion Gap 10, Blood Urea Nitrogen 28H, Creatinine 1.21, Estimat Glomerular Filtration Rate 43, BUN/Creatinine Ratio 23, Glucose Level 119H, Calcium Level 9.8, Corrected Calcium 9.9, Total Bilirubin 0.5, Aspartate Amino Transf (AST/SGOT) 19, Alanine Aminotransferase (ALT/SGPT) 19, Alkaline Phosphatase 45, Total Protein 6.9, Albumin 3.9 08/25/19 14:40: Urine Color YELLOW, Urine Clarity CLEAR, Urine pH 5, Urine Specific [place] 1.025H, Urine Protein 1+H, Urine Glucose (UA) NEGATIVE, Urine Ketones NEGATIVE, Urine Nitrite NEGATIVE, Urine Bilirubin NEGATIVE, Urine Urobilinogen NORMAL, Urine Leukocyte Esterase NEGATIVE, Urine RBC (Auto) 1+H, Urine RBC NONE, Urine WBC 0-2, Urine Squamous Epithelial Cells 2-5, Urine Crystals NONE, Urine Bacteria TRACE, Urine Casts PRESENT, Urine Hyaline Casts 0-2H, Urine Mucus SMALLH, Urine Culture Indicated NO 08/26/19 05:00: Hemoglobin 11.0L, Hematocrit 34L Assessment and Plan Assessment Doing well first day postop Problem List Unchanged Plan Continue with physical therapy walker ambulation weightbearing as tolerated on the left. Probable rehabilitation in a day or 2 Final Diagonsis Midshaft fracture left femur status post long TFN Level of the visit: Level 3 Clinical Quality Measures DVT/VTE Risk/Contraindication: Risk Factor Score Per Nursin RFS Level Per Nursing on Admit: 4+=Very High PEG BULLOCK MD Aug 26, 2019 09:30
--- NOTE | 2019-08-26 09:47 | Physical Therapy Evaluation ---
PT Evaluation-General Medical Diagnosis Admission Date Aug 25, 2019 at 15:01 Medical Diagnosis: left femur fx; post repair Onset Date: Aug 25, 2019 Therapy Diagnosis Therapy Diagnosis: weakness; abn gait Height/Weight Height (Feet): 5 Height (Inches): 2.00 Weight (Pounds): 176 Weight (Ounces): 0.0 Precautions Precautions/Isolations: Fall Prevention, Standard Precautions Weight Bear Status Right Lower Extremity: Right Full Weight Bearing Left Lower Extremity: Left Weight Bearing/Tolerated WBAT Referral Physician: Emelina Reason for Referral: Evaluation/Treatment Medical History Pertinent Medical History: HTN Additional Medical History osteoporosis Current History Pt reports she was at a community event and thinks she tripped on a chair, sustaining a fall that resulted in a left hip fx; post TFN left; WBAT Reviewed History: Yes Social History Home: Single Level Current Living Status: Alone Entry Into Home: Stairs With Railing Prior Prior Level of Function SCALE: Activities may be completed with or without assistive devices. 3-Nrpfgmgsyr-jviqzbb completes the activity by him/herself with no assistance from a helper. 5-Set-up or Clean-up Assistance-helper sets up or cleans up; patient completes activity. [place] assists only prior to or following the activity. 4-Supervision or Touching Assistance-helper provides verbal cues and/or touching/steadying and/or contact guard assistance as patient completes activity. Assistance may be provided throughout the activity or intermittently. 3-Partial/Moderate Assistance-helper does LESS THAN HALF the effort. [place] lifts, holds or supports trunk or limbs, but provides less than half the effort. 2-Substantial/Maximal Assistance-helper does MORE THAN HALF the effort. [place] lifts or holds trunk or limbs and provides more than half the effort. 9-Mzegtdxfb-rshgel does ALL the effort. Patient does none of the effort to complete the activity. Or, the assistance of 2 or more helpers is required for the patient to complete the activity. If activity was not attempted, code reason: 7-Patient Refused. 9-Not Applicable-not attempted and the patient did not perform the activity before the current illness, exacerbation or injury. 10-Not Attempted due to Environmental Limitations-(lack of equipment, weather restraints, etc.). 88-Not Attempted due to Medical Conditions or Safety Concerns. Bed Mobility: 6 Transfers (B,C,W/C): 6 Gait: 6 Stairs: 6 Indoor Mobility (Ambulation): Independent Stairs: Independent Pt is indep with mobility and community ambulator; still drives; active. PT Evaluation-Current Subjective Pt agreeable to PT. Agreeable to sit up in the chair. Pain Numeric Pain Scale: 3 Location: Left Location Body Site: Hip Pain Description: Ache Pt/Family Goals Return home when able to care for herself Objective Patient Orientation: Person, Place, Time, Situation Problem Solving: Good Attachments: Mercer Catheter, IV ROM/Strength ROM Lower Extremities Right LE WFL; left LE grossly 3/5 Strength Lower Extremities WFL Integumentary/Posture Integumentary refer to nursing assessment. Bowel Incontinence: No Bladder Incontinence: No Posture normal and symmetrical Neuromuscular (Tone, Coordination, Reflexes) intact and functional Sensory Vision: Functional Hearing: Functional Hand Dominance: Right Sensation Right Lower Extremit: Intact Sensation Left Lower Extremity: Intact Transfers Roll Left to Right (QC): 3 Lying to Sitting/Side of Bed(Q: 3 Sit to Stand (QC): 3 Chair/Ucn-fc-Kemga Xfer(QC): 2 (assist of 2 for balacne and safety; difficulty wiht WB left LE with decreased quad control) Pt requires assist with all transfers and skilled cues for sequencing. Transferred bed to chair with FWW with assist of 2 for balance and safety; took a few steps Balance Sitting Static: Good Sitting Dynamic: Good Standing Static: Fair Standing Dynamic: Fair Picking up an Object (QC): 88 Treatment Sat EOB and then transferred to the chair. Up in chair post treatment with needs met. Assessment/Needs Post fall with resultant left hip fracture. She will benefit from skilled PT to address functional mobiltiy and strength to allow her to return home as before. Rehab Potential: Good PT Program Strategist Goals Program Strategist Goals PT Snf Goals Time Frame: Sep 05, 2019 Sit to Lying (QC): 6 Lying-Sitting on Side/Bed(QC): 6 Sit to Stand (QC): 6 Roll Left to Right (QC): 6 Chair/Ajh-jz-Sorql Xfer(QC): 6 Car Transfer (QC): 6 Does the Patient Walk: Yes Walk 10 feet (QC): 6 Walk 50ft with 2 Turns (QC): 6 Walk 150 ft (QC): 6 Gait Assistive Device: FWW PT Plan Problem List Problem List: Activity Tolerance, Functional Strength, Safety, Balance, Gait, Transfer, Bed Mobility Treatment/Plan Treatment Plan: Continue Plan of Care Treatment Plan: Bed Mobility, Education, Functional Activity Anand, Functional Strength, Gait, Safety, Therapeutic Exercise, Transfers Treatment Duration: Sep 05, 2019 Frequency: 11 times per week Estimated Hrs Per Day: .5 hour per day Patient and/or Family Agrees t: Yes Safety Risks/Education Patient Education: Transfer Techniques, Safety Issues Teaching Recipient: Patient Teaching Methods: Demonstration, Discussion Response to Teaching: Reinforcement Needed Discharge Recommendations Therapy Discharge Recommendati: Post Acute PT Time/GCodes Time In: 850 Time Out: 915 Total Billed Treatment Time: 25 Total Billed Treatment visit eVM 15 FA 10 JACOB BRITTON PT Aug 26, 2019 09:47
[2019-08-26] MEDS: ENALAPRIL 10 MG (VASOTEC) TAB PO SCH (09:54)
[2019-08-26] MEDS: HYDROcodone/APAP 10 MG/325 MG (LORTAB) TAB PO PRN ×2 (09:55→18:07)
[2019-08-26] MEDS ORDERED: AMLO5TAB9 PO (11:27)
[2019-08-26] MEDS ORDERED: ENAL10TA PO (11:27)
[2019-08-26] MEDS ORDERED: ACET-77 PO (11:30)
[2019-08-26] MEDS ORDERED: MULT-178 PO (11:30)
[2019-08-26] MEDS ORDERED: IBUP-2185 PO (11:32)
--- NOTE | 2019-08-26 11:32 | NUR ---
SPOKE WITH PT WELL GOING THRU THE EXT MED HISTORY TO COMPLETE THE MED REC. PT WAS ABLE TO TELL ME HOW/WHEN SHE TAKES HER MEDS AND IT MATCHES THE EXT MED HISTORY. OTC MEDS: CALCIUM WITH VIT D: 1 TID FISH OIL: 1 DAILY APAP 500M TABS Q 8 H PRN IBUPROFEN 200M TABS Q 8 H PRN MTV: 1 DAILY
--- NOTE | 2019-08-26 11:55 | NUR ---
IRF Evaluation Order received to evaluate patient for the ARU. Chart review complete and findings discussed with Dr. Saldana - patient accepted for admission. Anticipate admission, 08/27/19. Thank you for this referral.
[2019-08-26 12:00] VITALS: BP 96/64
--- NOTE | 2019-08-26 14:10 | Physical Therapy Daily Note ---
PT Daily Note-Current Subjective Pt in recliner with feet down pre-tx. Pt agrees to PT and is ready to go back to bed. Pt reports she feels like she has more pain free motion in her L LE since she has been sitting up. Pt has a friend present during tx. Appearance Pt in bed post-tx. Pt has call light, room phone, tray table in reach and all needs met at this time with ice bags on the involved L LE and B/L SCD's placed. Mental Status Patient Orientation: Person, Place, Time, Situation Attachments: SCD's, Mercer Catheter, IV Transfers SCALE: Activities may be completed with or without assistive devices. 7-Ayreszlkdl-dnbzjey completes the activity by him/herself with no assistance from a helper. 5-Set-up or Clean-up Assistance-helper sets up or cleans up; patient completes activity. [place] assists only prior to or following the activity. 4-Supervision or Touching Assistance-helper provides verbal cues and/or touching/steadying and/or contact guard assistance as patient completes activity. Assistance may be provided throughout the activity or intermittently. 3-Partial/Moderate Assistance-helper does LESS THAN HALF the effort. [place] lifts, holds or supports trunk or limbs, but provides less than half the effort. 2-Substantial/Maximal Assistance-helper does MORE THAN HALF the effort. [place] lifts or holds trunk or limbs and provides more than half the effort. 9-Tbguqqzmw-lcgsqh does ALL the effort. Patient does none of the effort to complete the activity. Or, the assistance of 2 or more helpers is required for the patient to complete the activity. If activity was not attempted, code reason: 7-Patient Refused. 9-Not Applicable-not attempted and the patient did not perform the activity before the current illness, exacerbation or injury. 10-Not Attempted due to Environmental Limitations-(lack of equipment, weather restraints, etc.). 88-Not Attempted due to Medical Conditions or Safety Concerns. Sit to Lying (QC): 3 (ModAx1 to lift legs into bed.) Sit to Stand (QC): 3 (ModAx1) Chair/Tit-na-Gvute Xfer(QC): 2 (MaxAx1 for stand pivot) Pt demonstrates L LE weakness and knee buckling with weight bearing. Pt attempted stepping for chair <-> bed but could not maintain weight on the L LE. Weight Bearing Right Lower Extremity: Right Full Weight Bearing Left Lower Extremity: Left Weight Bearing/Tolerated WBAT Gait Training Does the Patient Walk?: No and Walking Goal IS indicated Wheelchair Training Does the Pt Use a Wheelchair?: No Treatments Pt performed transfer training and education this date. Assessment Current Status: Fair Progress Pt is not able to WB through the L LE without buckling. Pt requires MaxA to maintain standing and for squat pivot transfer. Pt has decreased subjective pain from this morning. PT Wound Care Center Consultant Goals Wound Care Center Consultant Goals PT Wound Care Center Consultant Goals Time Frame: Sep 05, 2019 Sit to Lying (QC): 6 Lying-Sitting on Side/Bed(QC): 6 Sit to Stand (QC): 6 Roll Left to Right (QC): 6 Chair/Hel-jn-Forsg Xfer(QC): 6 Car Transfer (QC): 6 Does the Patient Walk: Yes Walk 10 feet (QC): 6 Walk 50ft with 2 Turns (QC): 6 Walk 150 ft (QC): 6 Gait Assistive Device: FWW PT Plan Problem List Problem List: Activity Tolerance, Functional Strength, Safety, Balance, Gait, Transfer, Bed Mobility, ROM Treatment/Plan Treatment Plan: Continue Plan of Care Treatment Plan: Bed Mobility, Education, Functional Activity Anand, Functional Strength, Gait, Safety, Therapeutic Exercise, Transfers Treatment Duration: Sep 05, 2019 Frequency: 11 times per week Estimated Hrs Per Day: .5 hour per day Patient and/or Family Agrees t: Yes Safety Risks/Education Patient Education: Gait Training, Transfer Techniques, Correct Positioning, Safety Issues Teaching Recipient: Patient Teaching Methods: Demonstration, Discussion Response to Teaching: Verbalize Understanding, Return Demonstration, Reinforcement Needed Time/GCodes Time In: 1330 Time Out: 1345 Total Billed Treatment Time: 15 Total Billed Treatment 1 visit 15' JACOB KING PT Aug 26, 2019 14:10
--- NOTE | 2019-08-26 14:49 | Anesthesia-Regional Post-Op ---
Regional Patient Condition Mental Status: Alert, Oriented x3 Circulation: Same as Pre-Op Headache: Absent Sensation: Full Recovery Motor Block: Absent Post Op Complications Complications None Follow Up Care/Instructions Patient Instructions None needed. Anesthesia/Patient Condition Patient is doing well, no complaints, stable vital signs, no apparent adverse anesthesia problems. Pain has been well controlled and motor is intact. LIZANDRO CHERRY DO Aug 26, 2019 14:49
--- NOTE | 2019-08-26 15:17 | Occupational Therapy Eval ---
OT Evaluation-General/PLF Medical Diagnosis Admission Date Aug 25, 2019 at 15:01 Medical Diagnosis: left femur fx; post repair Onset Date: Aug 25, 2019 Therapy Diagnosis Therapy Diagnosis: decr self care, weakness, decr funct mobility Height/Weight Height (Feet): 5 Height (Inches): 2.00 Weight (Pounds): 176 Weight (Ounces): 0.0 Precautions Precautions/Isolations: Fall Prevention, Standard Precautions Weight Bear Status Weight Bearing Restriction: Weight Bearing/Tolerated Location Restriction: L LE Referral Physician: Rene Referral Reason: Evaluation/Treatment Medical History Pertinent Medical History: HTN Additional Medical History Osteoporosis. Hx SOA. Compression fx or disk problems mid back. Old L shoulder injury Current History Fell at [employer] [facility]. L femur fx, with TFN nail on 08-25-19 Reviewed History: Yes Social History Home: Single Level Current Living Status: Alone Entry Into Home: Stairs With Railing ADL-Prior Level of Function SCALE: Activities may be completed with or without assistive devices. 7-Njsnsarqva-hlcqqca completes the activity by him/herself with no assistance from a helper. 5-Set-up or Clean-up Assistance-helper sets up or cleans up; patient completes activity. [place] assists only prior to or following the activity. 4-Supervision or Touching Assistance-helper provides verbal cues and/or touching/steadying and/or contact guard assistance as patient completes activity. Assistance may be provided throughout the activity or intermittently. 3-Partial/Moderate Assistance-helper does LESS THAN HALF the effort. [place] lifts, holds or supports trunk or limbs, but provides less than half the effort. 2-Substantial/Maximal Assistance-helper does MORE THAN HALF the effort. [place] lifts or holds trunk or limbs and provides more than half the effort. 3-Gmmtvezlq-kyeqkk does ALL the effort. Patient does none of the effort to complete the activity. Or, the assistance of 2 or more helpers is required for the patient to complete the activity. If activity was not attempted, code reason: 7-Patient Refused. 9-Not Applicable-not attempted and the patient did not perform the activity before the current illness, exacerbation or injury. 10-Not Attempted due to Environmental Limitations-(lack of equipment, weather restraints, etc.). 88-Not Attempted due to Medical Conditions or Safety Concerns. ADL PLOF Comments Pt reported that she was previously able to manage all of her basic self care needs, cared for her home, still drives. She was active in her community. 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 No specific pain reported. Appearance Alert, cooperative Mental Status/Objective Attachments: Mercer Catheter, IV Current Hand Dominance: Right Upper Extremity ROM Grossly WFL bilat Upper Extremity Sensation No problems reported Upper Extremity Strength Grossly 4/5 bilat ADL-Treatment ADL-Current Pt recently returned to bed after PT. Requires mod assist bed mobility but two person max assist transfer from chair to bed, with some reported difficulty with weight bearing. Pt education OT process on IRF Education OT Patient Education: Purpose of tx/functional activities, Rehab process Teaching Recipient: Patient Teaching Methods: Discussion Response to Teaching: Verbalize Understanding OT Shelter Goals Medical Office Supervisor Goals Time Frame: Sep 09, 2019 Eating (QC): 6 Oral Hygiene (QC): 6 Shower/Bathe Self (QC): 6 Upper Body Dressing (QC): 6 Lower Body Dressing (QC): 6 On/Off Footwear (QC): 6 Toileting Hygiene (QC): 6 Toilet/Commode Transfer (QC): 6 Additional Goals: 1-Demonstrate ADL Tasks, 2-Verbalize Understanding, 3-Im proveStrength/Anand 1=Demonstrate adherence to instructed precautions during ADL tasks. 2=Patient will verbalize/demonstrate understanding of assistive devices/modifications for ADL. 3=Patient will improve strength/tolerance for activity to enable patient to perform ADL's. OT Education/Plan Problem List/Assessment Assessment: Decreased UE Strength, Dependent Transfers, Impaired Self-Care Skills Pt would benefit from skilled OT to increase her independence in basic self care to allow her to safety return to her home Discharge Recommendations Plan/Recommendations: Continue POC Therapy Discharge Recommendati: Post Acute OT Treatment Plan/Plan of Care Treatment,Training & Education: Yes Patient would benefit from OT for education, treatment and training to promote independence in ADL's, mobility, safety and/or upper extremity function for ADL's. Plan of Care: ADL Retraining, Functional Mobility, UE Funct Exercise/Act, UE Neuromus Re-Ed/Coord Treatment Duration: Sep 09, 2019 Frequency: 5 times per week Estimated Hrs Per Day: .5 hour per day Agreement: Yes Rehab Potential: Good Time/GCodes Start Time: 14:50 Stop Time: 15:06 Total Time Billed (hr/min): 16 Billed Treatment Time visit, 16 minutes evaluation low intensity WES WALDEN OT Aug 26, 2019 15:17
[2019-08-26 15:53] VITALS: BP 101/63
[2019-08-26 20:00] VITALS: BP 102/49
[2019-08-27 00:25] VITALS: BP 120/57
[2019-08-27 04:20] VITALS: BP 129/70
--- NOTE | 2019-08-27 07:04 | Progress Note ---
Subjective Date Seen by a Provider: Aug 27, 2019 Time Seen by a Provider: 07:15 Subjective/Events-last exam Patient voices no significant pain. She has no new complaints today. She has been started back on her blood pressure medications. Objective Exam Vital Signs Date Time Temp Pulse Resp B/P (MAP) Pulse Ox O2 Delivery O2 Flow Rate FiO2 08/27/19 04:20 37.5 88 18 129/70 (89) 98 Room Air 08/27/19 00:25 37.3 88 20 120/57 (78) 97 Room Air 08/26/19 20:00 37.0 86 16 102/49 (66) 96 Room Air 08/26/19 19:30 Room Air 08/26/19 15:53 37.0 83 16 101/63 (76) 98 Room Air 08/26/19 12:00 37.1 98 18 96/64 (75) 96 Room Air 08/26/19 08:00 37.5 92 18 147/78 (101) 96 Room Air 08/26/19 08:00 Room Air I & O 08/27/19 07:00 Intake Total 2390 ml Output Total 1015 ml Balance 1375 ml Capillary Refill : Less Than 3 SecondsLess Than 3 Seconds General Appearance: No Apparent Distress Neck: Non Tender, Supple Respiratory: Lungs Clear Cardiovascular: Regular Rate, Rhythm Gastrointestinal: soft Extremity: Other (Dressing noted on left thigh.) Results Lab Laboratory Tests 08/27/19 06:05: Assessment/Plan Assessment/Plan Assess & Plan/Chief Complaint 1. L mid shaft fracture -under care of Dr López -suspect PT through 2nd floor or through [facility] 08/27 -S/P repair of L mid shaft femur fx day -H/H stable 2. Hx/o hypertension -will restart her enalapril 10 -will begin amlodipine if necessary 08/27 -bp under good control. Will hold on amlodipine for now 3. Hx/o osteoporosis -She does take OTC calcium O/P. Also on fosamax. Will restart after acute care. Clinical Quality Measures DVT/VTE Risk/Contraindication: Risk Factor Score Per Nursin RFS Level Per Nursing on Admit: 4+=Very High MIKE BRAN MD Aug 27, 2019 07:04
[2019-08-27 08:00] VITALS: BP 133/61
--- NOTE | 2019-08-27 08:00 | NUR ---
DEUTSCH DC. IV FLUIDS DC INSTRUCTED BY DR BRAN, DRESSING CHANGED TO LEFT HIP,NO REDNESS OR DRAINAGE
--- NOTE | 2019-08-27 09:18 | Discharge Inst-Skilled Nursing ---
Discharge Inst-Skilled NF Reconcile Patient Problems Problems Reviewed?: Yes Chief Complaint 79 yo wf tripped and fell striking left femur- Xray shows fracture left femur shaft. Pt without c/o other than pain Patient Instructions Patient Problems: S/P L midshaft femur fracture repair 08/25 Consult/Follow Up/Orders Follow Up Appt.: Dr Bran 1 week after DC from rehab Skilled NF Admit to: [facility] Certification (SNF) I certify that SNF services are required to be given on an inpatient basis because of the above named patient's need for alf care on a cont inuing basis for the conditions(s) for which he/she was receiving inpatient hospital services prior to his/her transfer to the SNF. Custodial Facility Order: Coverage Specialist Rn-Evaluate & Treat, Physical Therapy-Evaluate & Treat Oxygen Delivery Method: Room Air Discharge Diet: Regular Diet Daily Activity as Tolerated: Yes (as per rehab orders) Resuscitation Status: Full Code New & Resume Previous Orders Mike Bran Aug 27, 2019 09:16 Pneu Vac Indicated: Yes MIKE BRAN MD Aug 27, 2019 09:18
[2019-08-27] MEDS: ENALAPRIL 10 MG (VASOTEC) TAB PO SCH (09:29)
[2019-08-27] MEDS: ENOXAPARIN 40 MG/0.4 ML (LOVENOX) SYR SC SCH (09:30)
[2019-08-27] MEDS: HYDROcodone/APAP 10 MG/325 MG (LORTAB) TAB PO PRN (09:48)
--- NOTE | 2019-08-27 10:21 | Progress Note - Ortho ---
Progress Note Subjective Date of Exam 08/27/19 Chief Complaint POD#2 long TFN for left femoral shaft fracture HPI/Events since last exam Mrs. Newton is doing well. She has no pain except when she is up ambulating and moving around. He is taking minimal pain medication. She is being transferred to rehabilitation this morning. Her dressings have been changed. Review of Systems Reviewed and no additions or changes Allergies: Coded Allergies: No Known Drug Allergies (Verified , 08/29/18) Home Meds Reported Medications Ibuprofen (Ibuprofen) 200 Mg Capsule, 400 MG PO Q8H PRN for PAIN-MILD, CAP 08/26/19 Acetaminophen (ACETAMINOPHEN) 500 Mg Tablet, 1000 MG PO Q8H PRN for PAIN-MILD, TAB 08/26/19 Multivitamin (Multiple Vitamins) 1 Each Tablet, 1 TAB PO DAILY, TAB 08/26/19 Enalapril Maleate (Enalapril Maleate) 10 Mg Tablet, 10 MG PO DAILY 08/26/19 Gordon 3 Polyunsat Fatty Acids (Fish Oil 1,000 mg Capsule) 1,000 Mg Cap, 1000 MG PO DAILY, CAP 08/27/18 Calcium Carbonate/Vitamin D3 (Calcium 600 + Vit D Caplet) 1 Each Tablet, PO TID, TAB 08/27/18 Alendronate Sodium (Alendronate Sodium) 10 Mg Tablet, 10 MG PO DAILY, TAB 08/27/18 Discontinued Reported Medications Amlodipine Besylate (Amlodipine Besylate) 5 Mg Tablet, 5 MG PO DAILY 08/26/19 Amlodipine Besylate (Amlodipine Besylate) 10 Mg Tablet, 10 MG PO DAILY, TAB 08/27/18 Enalapril Maleate (Enalapril Maleate) 5 Mg Tablet, 5 MG PO DAILY, TAB 08/27/18 Objective Exam Constitutional: [] HEENT: [] Neck: [] Cardiovascular: [] Respiratory: [] Gastrointestinal: [] Genitourinary: [] Skin: [] Back/Spine: [] Extremities: [] Dressings are intact. Mild swelling left thigh. Good motion of the hip and knee without pain except over the fracture site mid femur. No calf tenderness negative Homans. Good strength on plantar and dorsiflexion of the foot and ankle. Normal sensation with good capillary refill. Neurologic: [] Psychiatric: [] Hematologic/lymphatic/immunologic: [] Vital Signs Vital Signs Date Time Temp Pulse Resp B/P (MAP) Pulse Ox O2 Delivery O2 Flow Rate FiO2 08/27/19 09:39 Room Air 08/27/19 08:00 37.0 84 18 133/61 (85) 96 Room Air 08/27/19 04:20 37.5 88 18 129/70 (89) 98 Room Air 08/27/19 00:25 37.3 88 20 120/57 (78) 97 Room Air 08/26/19 20:00 37.0 86 16 102/49 (66) 96 Room Air 08/26/19 19:30 Room Air 08/26/19 15:53 37.0 83 16 101/63 (76) 98 Room Air 08/26/19 12:00 37.1 98 18 96/64 (75) 96 Room Air I & O 08/27/19 06:59 Intake Total 2390 ml Output Total 1015 ml Balance 1375 ml Lab Results Laboratory Tests 08/27/19 06:05: Hemoglobin 10.0L, Hematocrit 32L Assessment and Plan Assessment Doing well second day postop Problem List Unchanged Plan Transfer to rehabilitation. Continue with walker ambulation weightbearing as tolerated on the left Final Diagonsis Midshaft fracture left femur status post long TFN Level of the visit: Level 3 Clinical Quality Measures DVT/VTE Risk/Contraindication: Risk Factor Score Per Nursin RFS Level Per Nursing on Admit: 4+=Very High PEG BULLOCK MD Aug 27, 2019 10:21
--- NOTE | 2019-08-27 11:15 | NUR ---
TO REHAB PER PT, DRESSING DRY AND INTACT TO LEFT HIP, SALINE LOCK WITHOUT REDNESS OR SWELLING, LORTAB GIVEN FOR C/O LEFT HIP PAIN, VOIDED 250ML CLEAR YELLOW URINE POST DEUTSCH CATH REMOVAL. REPORT CALLED TO LUIGI BELLO
[2019-08-27] MEDS ORDERED: AMLO5TAB9 PO (13:04)
== END 2019-08-27 10:17 | DRG 482 ==
LOC: EDUNIT# 13:31 → ER 13:32 → 4TH 15:01
PROVIDERS: ADMIT Internal Medicine; ATTEND Internal Medicine
PROC: 0QS936Z Reposition Left Femoral Shaft with Intramedullary Internal Fixation Device, Percutaneous Approach (ICD-10-PCS; principal; 2019-08-25 17:06)
DX: S72.322A Displaced transverse fracture of shaft of left femur, initial encounter for closed fracture (principal); I10 Essential (primary) hypertension; M81.0 Age-related osteoporosis without current pathological fracture; Z90.710 Acquired absence of both cervix and uterus; W18.09XA Striking against other object with subsequent fall, initial encounter
CPT/HCPCS: 36415; 51702; 71045; 73552; 80053; 81000; 85014; 85018; 85025; 86850; 86900; 86901; 93005; 94664; 96361; 96374

== ENCOUNTER 2019-08-27 10:09 | Inpatient (IN) | payer MEDICARE ==
[~2019-08-27] VITALS: Ht 157.5 cm; Wt 84.0 kg
--- NOTE | 2019-08-27 10:00 | NUR ---
Admitted to room 224-1, with an admitting diagnosis of debility, on 08/27/19 from 4th via , accompanied by . ANDREAS HAYS introduced to surroundings, call light, bed controls, phone, TV, temperature control, lights, meal times, smoking policy, visitor policy, side rail policy, bathrooms and showers. Patient Rights given to patient in the handbook.ANDREAS AHYS verbalizes understanding that [facility] is not responsible for the loss or damage to any personal effects or valuables that are kept in the patients posession during their hospitalization. The following Patient Care Plans were discussed with the : Discharge Planning, ,, alteration in skin integrity/comfort, and . ANDREAS HAYS verbalizes understanding of Interdisciplinary Patient Education. Patient and/or family were informed about the Rapid Response Team and its purpose. Patient received Patient Rights Booklet, which includes Privacy Act Statement and Data Collection Information Summary.
[~2019-08-27 10:09] MED LIST changes: +ACET-77 PO; +AMLO5TAB9 PO; +ENAL10TA PO; +IBUP-2185 PO; +MULT-178 PO
[2019-08-27] MEDS ORDERED: diphenhydrAMINE 25 MG TAB (BENADRYL) PO PRN (10:15)
[2019-08-27] MEDS ORDERED: ACETAMINOPHEN 500 MG TAB (TYLENOL) PO PRN (10:15)
[2019-08-27] MEDS ORDERED: ALPRAZolam 0.25 MG (XANAX) TAB PO PRN (10:15)
[2019-08-27] MEDS ORDERED: ONDANSETRON 4 MG/2 ML (SDV) Z0FRAN IVP PRN (10:15)
[2019-08-27] MEDS ORDERED: LOPERAMIDE 2 MG (IMODIUM) TABLET PO PRN (10:15)
[2019-08-27] MEDS ORDERED: ONDANSETRON 4 MG (ZOFRAN) ORAL DISSOLVE TAB PO PRN (10:15)
[2019-08-27] MEDS ORDERED: MELATONIN 3 MG TABLET PO PRN (10:15)
[2019-08-27] MEDS ORDERED: CALCIUM CARBONATE 500 MG (TUMS) TAB.CHEW PO PRN (10:15)
--- NOTE | 2019-08-27 11:07 | Physical Therapy Evaluation ---
PT Evaluation-General Medical Diagnosis Admission Date Aug 27, 2019 at 10:18 Medical Diagnosis: L femur fx Onset Date: Aug 25, 2019 Therapy Diagnosis Therapy Diagnosis: generalized weakness/debility Height/Weight Height (Feet): 5 Height (Inches): 2.00 Weight (Pounds): 176 Weight (Ounces): 0.0 Weight Bear Status Right Lower Extremity: Right Full Weight Bearing Left Lower Extremity: Left Weight Bearing/Tolerated Referral Physician: Shana Reason for Referral: Evaluation/Treatment Medical History Pertinent Medical History: HTN Current History tripped and fell resulting in left hip fracture with repair Social History Home: Single Level Current Living Status: Alone Entry Into Home: Stairs With Railing PT Steps Into Home: 1 (Rails on both sides) Prior Prior Level of Function SCALE: Activities may be completed with or without assistive devices. 0-Ulbioifovt-tetdqge completes the activity by him/herself with no assistance from a helper. 5-Set-up or Clean-up Assistance-helper sets up or cleans up; patient completes activity. [place] assists only prior to or following the activity. 4-Supervision or Touching Assistance-helper provides verbal cues and/or touching/steadying and/or contact guard assistance as patient completes activity. Assistance may be provided throughout the activity or intermittently. 3-Partial/Moderate Assistance-helper does LESS THAN HALF the effort. [place] lifts, holds or supports trunk or limbs, but provides less than half the effort. 2-Substantial/Maximal Assistance-helper does MORE THAN HALF the effort. [place] lifts or holds trunk or limbs and provides more than half the effort. 5-Enuzbbqie-dcxysj does ALL the effort. Patient does none of the effort to complete the activity. Or, the assistance of 2 or more helpers is required for the patient to complete the activity. If activity was not attempted, code reason: 7-Patient Refused. 9-Not Applicable-not attempted and the patient did not perform the activity before the current illness, exacerbation or injury. 10-Not Attempted due to Environmental Limitations-(lack of equipment, weather restraints, etc.). 88-Not Attempted due to Medical Conditions or Safety Concerns. Bed Mobility: 6 Transfers (B,C,W/C): 6 Gait: 6 Stairs: 6 Indoor Mobility (Ambulation): Independent Stairs: Independent Prior Devices Use: Other-see list below Prior Device Use: Cane PT Evaluation-Current Subjective Patient reports she is feeling pretty good now after taking pain medication and is ready to get up and be moving. Pain Numeric Pain Scale: 5-Moderate Pain Location: Left Location Body Site: Thigh Pain Description: Acute Objective Patient Orientation: Person, Place, Time, Situation Problem Solving: Good ROM/Strength ROM Lower Extremities R: WFL, L: limited hip flexion Strength Lower Extremities R hip flexion 4, L hip flexion 2+, R knee flexion/extension: 4, L knee flexion/extension: 3 Integumentary/Posture Bowel Incontinence: No Bladder Incontinence: No Posture WFL Neuromuscular (Tone, Coordination, Reflexes) Grossly intact Sensory Vision: Functional Hearing: Functional Sensation Lower Extremities Grossly intact Transfers Roll Left to Right (QC): 5 Sit to Lying (QC): 4 Lying to Sitting/Side of Bed(Q: 5 Sit to Stand (QC): 3 Chair/Fum-vl-Nqdxp Xfer(QC): 3 Car Transfer (QC): 3 Gait Does the Patient Walk?: Yes Mode of Locomotion: Both Anticipated Mode of Locomotion: Walk Distance (FIM): 6=992-14 ft Walk 10 feet (QC): 4 Walk 50 ft with 2 Turns(QC): 88 Walk 150 ft (QC): 88 Walking 10ft/uneven surface-QC: 4 Distance: 30' x 1 Gait Assistive Device: FWW Comments/Gait Description Step to pattern, antalgic gait Stairs #of Steps: 1 1 Step (curb) (QC): 4 4 Steps (QC): 88 Assistive Device: Walker 12 Steps (QC): 88 Balance Sitting Static: Normal Sitting Dynamic: Normal Standing Static: Normal Standing Dynamic: Normal Picking up an Object (QC): 88 Treatment seated ankle pumps, hip flexion, LAQ, hip abd/add: 2 sets x10 reps AROM Assessment/Needs Patient able to tolerate all PT activities well. Patient demonstrates weakness in LLE, with inability to perform full hip ROM. Patient requires mod assist to stand from sitting with cues to push off of seat, lean forward, and weight bear through LLE. Patient required assistance with bed mobility and transfers to lift LLE into and out of bed. Rehab Potential: Good PT Tile Grader Goals Tile Grader Goals PT Alf Goals Time Frame: Sep 24, 2019 Sit to Lying (QC): 6 Lying-Sitting on Side/Bed(QC): 6 Sit to Stand (QC): 6 Roll Left to Right (QC): 6 Chair/Duy-ry-Muwpi Xfer(QC): 6 Car Transfer (QC): 6 Does the Patient Walk: Yes Distance: 300' Walk 10 feet (QC): 6 Walk 10ft-Uneven Surface(QC): 6 Walk 50ft with 2 Turns (QC): 6 Walk 150 ft (QC): 6 Gait Assistive Device: FWW # of Steps: 4 1 Step (curb) (QC): 6 4 Steps (QC): 6 Picking up an Object (QC): 5 PT Plan Problem List Problem List: Activity Tolerance, Functional Strength, Safety, Balance, Gait, Transfer, Bed Mobility Treatment/Plan Treatment Plan: Continue Plan of Care Treatment Plan: Bed Mobility, Education, Functional Activity Anand, Functional Strength, Gait, Safety, Therapeutic Exercise, Transfers Treatment Duration: Sep 24, 2019 Frequency: At least 5 of 7 days/Wk (IRF) Estimated Hrs Per Day: 1.5 hours per day Patient and/or Family Agrees t: Yes Safety Risks/Education Patient Education: Gait Training, Transfer Techniques Teaching Recipient: Patient Teaching Methods: Demonstration Response to Teaching: Verbalize Understanding, Return Demonstration Time/GCodes Time In: 1000 Time Out: 1100 Total Billed Treatment Time: 60 Total Billed Treatment 1 visit EVModC 15min EX 15min FA x2 30min ADRIANA WALLACE PT Aug 27, 2019 11:07
[2019-08-27 12:00] VITALS: BP 102/63
[2019-08-27] MEDS ORDERED: ENOXAPARIN 40 MG/0.4 ML (LOVENOX) SYR SC SCH (12:30)
[2019-08-27] MEDS ORDERED: fentaNYL INJECTION 100 MCG/2 ML AMP IVP PRN (12:30)
[2019-08-27] MEDS ORDERED: AMLO5TAB9 PO (13:04)
--- NOTE | 2019-08-27 13:04 | NUR ---
REVIEWED MED REC IT WAS REPORTED UPON ADMISSION TO 4TH FLOOR. NOTE THE AMLODIPINE 5MG DAILY WAS DISCONTINUED AT DISCHARGE TO REHAB, HOWEVER I ADDED IT BACK TO THE MED REC AT THIS TIME FOR PROPER DISCHARGE TO HOME ORDERS.
--- NOTE | 2019-08-27 13:10 | Occupational Therapy Eval ---
OT Evaluation-General/PLF Medical Diagnosis Admission Date Aug 27, 2019 at 10:18 Medical Diagnosis: L femur fx Onset Date: Aug 25, 2019 Therapy Diagnosis Therapy Diagnosis: decreased self care skills Height/Weight Height (Feet): 5 Height (Inches): 2.00 Weight (Pounds): 176 Weight (Ounces): 0.0 Precautions Precautions/Isolations: Fall Prevention, Standard Precautions, Pressure Ulcer Referral Physician: Shana Medical History Pertinent Medical History: HTN Additional Medical History osteoporosis, compression fracture Current History Pt had a fall with left femur fracture. S/p TFN 08/25/19 Reviewed History: Yes Social History Home: Single Level Current Living Status: Alone Entry Into Home: Stairs With Railing Steps Into Home: 1 (Rails on both sides) ADL-Prior Level of Function SCALE: Activities may be completed with or without assistive devices. 6-Jbuaxsmrvv-difpegt completes the activity by him/herself with no assistance from a helper. 5-Set-up or Clean-up Assistance-helper sets up or cleans up; patient completes activity. [place] assists only prior to or following the activity. 4-Supervision or Touching Assistance-helper provides verbal cues and/or touching/steadying and/or contact guard assistance as patient completes activity. Assistance may be provided throughout the activity or intermittently. 3-Partial/Moderate Assistance-helper does LESS THAN HALF the effort. [place] lifts, holds or supports trunk or limbs, but provides less than half the effort. 2-Substantial/Maximal Assistance-helper does MORE THAN HALF the effort. [place] lifts or holds trunk or limbs and provides more than half the effort. 7-Alruvoyok-lkocht does ALL the effort. Patient does none of the effort to complete the activity. Or, the assistance of 2 or more helpers is required for the patient to complete the activity. If activity was not attempted, code reason: 7-Patient Refused. 9-Not Applicable-not attempted and the patient did not perform the activity before the current illness, exacerbation or injury. 10-Not Attempted due to Environmental Limitations-(lack of equipment, weather restraints, etc.). 88-Not Attempted due to Medical Conditions or Safety Concerns. ADL PLOF Comments Pt reports being independent with self care and mobility prior to admission. Has cane or walker to use for long distances or uneven surfaces. Self Care: Independent Functional Cognition: Independent DME/Equipment: Grab Bars, Shower Drive Self: Yes OT Current Status Subjective Pt sitting in chair, agrees to therapy. Pt reports 4/10 pain in left LE Mental Status/Objective Patient Orientation: Person, Place, Situation Current Glasses/Contacts: Yes (reading) Hearing Aids: No Dentures/Partials: No Hand Dominance: Left Upper Extremity ROM Grossly WFL Upper Extremity Coordination Intact Upper Extremity Sensation Intact per pt report Upper Extremity Strength Grossly 4/5 ADL-Treatment ADL-Current Pt declined shower at this time, but agrees to sponge bath. Upper body bathing completed with SBA. Pt able to wash bilateral upper legs and twin area. Assist for lower legs/feet and buttocks. Pt donned pullover shirt with SBA. Unable to doff/don socks without assist. Assist required to thread bilateral LE into underwear and pants. Stood with mod assist for pant hike. Pt combed hair with set up. Pt requires increased time for bathing and dressing tasks. Pt requests to transfer to recliner. Sit to stand with max assist. Pt has difficulty with coordinating movement to push up from chair and stand with FWW. Once standing, pt able to transfer to chair with minimal assist with FWW. Pt sitting in chair with needs met after session. Shower/Bathe Self (QC): 3 Upper Body Dressing (QC): 4 Lower Body Dressing (QC): 2 On/Off Footwear (QC): 1 Education OT Patient Education: Rehab process Teaching Recipient: Patient Teaching Methods: Discussion Response to Teaching: Verbalize Understanding OT Short Term Goals Short Term Goals Time Frame: Sep 03, 2019 Bathing(FIM): 4 Upper Body Dressing(FIM): 5 Lower Body Dressing(FIM): 3 Toileting(FIM): 4 Toilet/Commode Transfer(FIM): 4 Additional Short Term Goals: 1-Demonstrate ADL Tasks, 2-Verbalize Understanding, 3-ImproveStrength/Anand 1=Demonstrate adherence to instructed precautions during ADL tasks. 2=Patient will verbalize/demonstrate understanding of assistive devices/modifications for ADL. 3=Patient will improve strength/tolerance for activity to enable patient to perform ADL's. OT Mcfp Goals Mcfp Goals Time Frame: Sep 17, 2019 Eating (QC): 6 Oral Hygiene (QC): 6 Shower/Bathe Self (QC): 6 Upper Body Dressing (QC): 6 Lower Body Dressing (QC): 6 On/Off Footwear (QC): 6 Toileting Hygiene (QC): 6 Toilet/Commode Transfer (QC): 6 Additional Goals: 1-Demonstrate ADL Tasks, 2-Verbalize Understanding, 3- ImproveStrength/Anand 1=Demonstrate adherence to instructed precautions during ADL tasks. 2=Patient will verbalize/demonstrate understanding of assistive devices/modifications for ADL. 3=Patient will improve strength/tolerance for activity to enable patient to perform ADL's. OT Education/Plan Problem List/Assessment Assessment: Decreased Activ Tolerance, Decreased UE Strength, Dependent Transfers, Impaired Funct Balance, Impaired I ADL's, Impaired Self-Care Skills Discharge Recommendations Plan/Recommendations: Continue POC Treatment Plan/Plan of Care Treatment,Training & Education: Yes Patient would benefit from OT for education, treatment and training to promote independence in ADL's, mobility, safety and/or upper extremity function for ADL's. Plan of Care: ADL Retraining, Functional Mobility, Group Exercise/Act as Ind, UE Funct Exercise/Act Frequency: At least 5 of 7 days/Wk (IRF) Estimated Hrs Per Day: 1.5 hours per day Rehab Potential: Good Time/GCodes Start Time: 11:05 Stop Time: 12:05 Total Time Billed (hr/min): 60 Billed Treatment Time 1 visit, EVM(15minutes), ADLx3(45minutes) MARY YORK OT Aug 27, 2019 13:10
--- NOTE | 2019-08-27 13:38 | Physical Therapy Daily Note ---
PT Daily Note-Current Subjective Patient agrees to PT at this time. She reports she is feeling better than this morning. Pain increased with continued ambulation. Pain Numeric Pain Scale: 6 Location: Left Location Body Site: Hip Pain Description: Acute Mental Status Patient Orientation: Person, Place, Time, Situation Transfers SCALE: Activities may be completed with or without assistive devices. 2-Xtfhtdrbog-xsyyqru completes the activity by him/herself with no assistance from a helper. 5-Set-up or Clean-up Assistance-helper sets up or cleans up; patient completes activity. [place] assists only prior to or following the activity. 4-Supervision or Touching Assistance-helper provides verbal cues and/or touching/steadying and/or contact guard assistance as patient completes activity. Assistance may be provided throughout the activity or intermittently. 3-Partial/Moderate Assistance-helper does LESS THAN HALF the effort. [place] lifts, holds or supports trunk or limbs, but provides less than half the effort. 2-Substantial/Maximal Assistance-helper does MORE THAN HALF the effort. [place] lifts or holds trunk or limbs and provides more than half the effort. 9-Catqgreri-wkwfgc does ALL the effort. Patient does none of the effort to complete the activity. Or, the assistance of 2 or more helpers is required for the patient to complete the activity. If activity was not attempted, code reason: 7-Patient Refused. 9-Not Applicable-not attempted and the patient did not perform the activity before the current illness, exacerbation or injury. 10-Not Attempted due to Environmental Limitations-(lack of equipment, weather restraints, etc.). 88-Not Attempted due to Medical Conditions or Safety Concerns. Roll Left to Right (QC): 5 Sit to Lying (QC): 4 Sit to Stand (QC): 3 Chair/Rhh-gv-Vzxgf Xfer(QC): 3 Weight Bearing Right Lower Extremity: Right Full Weight Bearing Left Lower Extremity: Left Weight Bearing/Tolerated Gait Training Does the Patient Walk?: Yes Distance: 30' x3 Walk 10 feet (QC): 4 Gait Assistive Device: FWW Step to pattern, antalgic gait, LLE buckling d/t fatigue Exercises Supine Ex: Ankle pumps, Quad Set, Glut sets, Heel Slides, Scooting, Straight leg raise Supine Reps: 10 Assessment Patient tolerated ambulation well but showed fatigue and decreased step length and pace with prolonged ambulation. After walking from room to therapy gym with two rest breaks, patient had LLE buckling prior to sitting. Patient able to complete all supine exercises independently. Required assistance to raise and lower LLE from mat. PT Chcf Goals Direct Sales Professional Goals PT Chcf Goals Time Frame: Sep 24, 2019 Sit to Lying (QC): 6 Lying-Sitting on Side/Bed(QC): 6 Sit to Stand (QC): 6 Roll Left to Right (QC): 6 Chair/Ava-yd-Fcohg Xfer(QC): 6 Car Transfer (QC): 6 Does the Patient Walk: Yes Distance: 300' Walk 10 feet (QC): 6 Walk 10ft-Uneven Surface(QC): 6 Walk 50ft with 2 Turns (QC): 6 Walk 150 ft (QC): 6 Gait Assistive Device: FWW # of Steps: 4 1 Step (curb) (QC): 6 4 Steps (QC): 6 Picking up an Object (QC): 5 PT Plan Treatment/Plan Treatment Plan: Continue Plan of Care Treatment Plan: Bed Mobility, Education, Functional Activity Anand, Functional Strength, Gait, Safety, Therapeutic Exercise, Transfers Treatment Duration: Sep 24, 2019 Frequency: At least 5 of 7 days/Wk (IRF) Estimated Hrs Per Day: 1.5 hours per day Patient and/or Family Agrees t: Yes Time/GCodes Time In: 1255 Time Out: 1325 Total Billed Treatment Time: 30 Total Billed Treatment 1 visit EX 10min FA 20min ADRIANA WALLACE PT Aug 27, 2019 13:38
--- NOTE | 2019-08-27 14:06 | Occupational Ther Daily Note ---
OT Current Status-Daily Note Subjective Pt sitting in w/c, agrees to therapy. Pt reports 7/10 pain in left LE, requests pain meds. RN notified of request. ADL-Treatment Education was provided regarding use of adaptive equipment for LE dressing. Pt doffed socks with SBA using dressing stick. Donned socks with verbal cues using sock aid. Pt sit to stand with mod assist and cues for safety. Transfer to C with min assist using FWW. Pt declined to walk to bathroom at this time secondary to fatigue. Pt able to pull pants down, but requires assist for hygiene and to pull pants up over hips. Pt requests to return to bed after session. Transfer to EOB with min assist. Sit to supine with assist for left LE. Pt able to reposition in bed. Resting with needs met after session. Therapy Code Descriptions/Definitions Functional [place] Measure: 0=Not Assessed/NA 4=Minimal Assistance 1=Total Assistance 5=Supervision or Setup 2=Maximal Assistance 6=Modified [place] 3=Moderate Assistance 7=Complete IndependenceSCALE: Activities may be completed with or without assistive devices. 4-Ubjxfoxtpp-wxjwlth completes the activity by him/herself with no assistance from a helper. 5-Set-up or Clean-up Assistance-helper sets up or cleans up; patient completes activity. [place] assists only prior to or following the activity. 4-Supervision or Touching Assistance-helper provides verbal cues and/or touching/steadying and/or contact guard assistance as patient completes activity. Assistance may be provided throughout the activity or intermittently. 3-Partial/Moderate Assistance-helper does LESS THAN HALF the effort. [place] lifts, holds or supports trunk or limbs, but provides less than half the effort. 2-Substantial/Maximal Assistance-helper does MORE THAN HALF the effort. [place] lifts or holds trunk or limbs and provides more than half the effort. 5-Tgsymkgzn-uynfdu does ALL the effort. Patient does none of the effort to complete the activity. Or, the assistance of 2 or more helpers is required for the patient to complete the activity. If activity was not attempted, code reason: 7-Patient Refused. 9-Not Applicable-not attempted and the patient did not perform the activity before the current illness, exacerbation or injury. 10-Not Attempted due to Environmental Limitations-(lack of equipment, weather restraints, etc.). 88-Not Attempted due to Medical Conditions or Safety Concerns. Toileting Hygiene (QC): 2 Toilet Transfer (QC): 3 Education OT Patient Education: Modified ADL techniques Teaching Recipient: Patient Teaching Methods: Demonstration, Discussion Response to Teaching: Return Demonstration OT Short Term Goals Short Term Goals Time Frame: Sep 03, 2019 Bathing(FIM): 4 Upper Body Dressing(FIM): 5 Lower Body Dressing(FIM): 3 Toileting(FIM): 4 Toilet/Commode Transfer(FIM): 4 Additional Short Term Goals: 1-Demonstrate ADL Tasks, 2-Verbalize Understanding, 3-ImproveStrength/Anand 1=Demonstrate adherence to instructed precautions during ADL tasks. 2=Patient will verbalize/demonstrate understanding of assistive devices/modifications for ADL. 3=Patient will improve strength/tolerance for activity to enable patient to perform ADL's. OT Skilled Nursing Goals Rat Exterminator Goals Time Frame: Sep 17, 2019 Eating (QC): 6 Oral Hygiene (QC): 6 Shower/Bathe Self (QC): 6 Upper Body Dressing (QC): 6 Lower Body Dressing (QC): 6 On/Off Footwear (QC): 6 Toileting Hygiene (QC): 6 Toilet/Commode Transfer (QC): 6 Additional Goals: 1-Demonstrate ADL Tasks, 2-Verbalize Understanding, 3- ImproveStrength/Anand 1=Demonstrate adherence to instructed precautions during ADL tasks. 2=Patient will verbalize/demonstrate understanding of assistive devices/modifications for ADL. 3=Patient will improve strength/tolerance for activity to enable patient to perform ADL's. OT Education/Plan Discharge Recommendations Plan/Recommendations: Continue POC Treatment Plan/Plan of Care Patient would benefit from OT for education, treatment and training to promote independence in ADL's, mobility, safety and/or upper extremity function for ADL's. Plan of Care: ADL Retraining, Functional Mobility, Group Exercise/Act as Ind, UE Funct Exercise/Act Frequency: At least 5 of 7 days/Wk (IRF) Estimated Hrs Per Day: 1.5 hours per day Rehab Potential: Good Time/GCodes Start Time: 13:30 Stop Time: 14:00 Total Time Billed (hr/min): 30 Billed Treatment Time 1 visit, ADLx2(30minutes) MARY YORK OT Aug 27, 2019 14:06
--- NOTE | 2019-08-27 15:04 | ST Cognitive Linguistic Eval ---
Speech Evaluation-General Medical Diagnosis L femur fx Onset Date: Aug 25, 2019 Therapy Diagnosis Therapy Diagnosis: Cognitive-communication Precautions Precautions: Fall Precautions/Isolations: Fall Prevention, Standard Precautions Referral Referring Physician: Dr. Saldana Reason for Referral: Evaluation/Treatment Medical History Pertinent Medical History: HTN Reviewed History: Yes Social History Current Living Status: Alone Speech PLF-Current Status Prior Level of Function Patient lived at home alone where she was independent for her daily needs. Subjective Patient was pleasant with cognitive assessment. Language Eval: Auditory Comprehends Simple Yes/No Ques: Functional Indent/Objects Multiple [place]: Functional Ident/Pics in Multiple [place]: Functional Follows 1-Step Commands: Functional Follows Complex Directions: Functional Follows General Conversations: Functional Language Eval: Verbal Language Completes Spontaneous Greeting: Functional Produces Auto, Serial Info: Functional Imitates Simple Words/Phrases: Functional Word Finding: Functional Requests Basic Needs: Functional States Basic Personal Info: Functional Expresses Complex Ideas: Functional Objective Cognitive Domain Attention: WNL Memory: Mild Problem Solving: Functional Executive Functions: WNL Visuospatial Skills: WNL Composite Severity Rating: WNL Clock Drawing Severity Rating: WNL Objective Formal/Standardized Tests [facility] Mental Status ([facility]) Results 28/30, within normal range of function Oral Motor/Speech Production Within Normal Limits Impression Patient is a pleasant 79 year old female admitted to the ARU s/p femur fracture. The patient was given the SLUMS at bedside with results of 28/30 within the normal range. Speech Patient Assess Expression of Ideas/Wants: Expression (4) Understanding Verbal Content: Understands (4) Brief Interview-Mental Status: Yes Repetition of Three Words: Three (3) Temporal Orientation: Year: Correct (3) Temporal Orientation: Month: Accurate within 5 days(2) Temporal Orientation: Day: Correct (1) Recall : Wear to say "Sock": Yes, no cue required (2) Recall : Color: Yes, after cueing (1) Recall : Bed: Yes,after cueing (1) Memory/Recall Ability: Current season, Location of own room, Staff names and faces, That he or she is in a hsp/hsp unit Speech-Plan Patient/Family Goals Patient/Family Goals: Patient plans to return to her home post rehab. Treatment Plan Speech Therapy Treatment Plan: Discontinue ST Patient does not require skilled ST at this time. Treatment Duration: Aug 27, 2019 Frequency: 1 time per week Estimated Hrs Per Day: .25 hour per day Rehab Potential: Good Barriers to Learning: None identified Pt/Family Agrees to Plan: Yes Safety Risks/Education Teaching Recipient: Patient Teaching Methods: Discussion Response to Teaching: Verbalize Understanding Education Topics Provided: Safety within her room. Time Speech Therapy Time In: 14:05 Speech Therapy Time Out: 14:20 Total Billed Time: 15 Billed Treatment Time 1, ORALIA Arnold Aug 27, 2019 15:03
[2019-08-27] MEDS: HYDROcodone/APAP 10 MG/325 MG (LORTAB) TAB PO PRN (15:09)
--- NOTE | 2019-08-27 15:09 | NUR ---
RD ASSESSMENT PMHx: HTN PT INTERACTION: Pt was awake and pleasant during nutrition assessment. Pt states current appetite is good, and has been for some time. Pt states following a regular diet at home, and has no current issues with chewing/swallowing at this time. Pt states some issues with constipation and that she has a BM "every few days." Pt states no recent wt changes. Note unable to determine recent wt hx, per chart review. ABNORMAL NUTRITION-RELATED LAB VALUES: BUN 28 (H); glu 119 (H) Est. kcal needs: 0135-4977 kcal (20-25 kcal/kg) Est. Pro needs: 84-101 g Pro (1.0-1.2 g Pro/kg) PES STATEMENT: Inadequate oral intake (NI-2.1) related to loss of appetite as evidenced by <50% meals x2d INTERVENTION: Continue with current diet order of regular diet. Encouraged pt to eat when able. Pt may benefit from nutrition supplementation if poor po intake continues. MONITOR/EVALUATE: PO Intake; Plan of Care; Hydration Status; Weight Status; Lab Values Sheree West, MS, RD, LD Ext. [phone]
--- NOTE | 2019-08-27 16:17 | NUR ---
Pt is Jew. Mica Miner provided prayer and Communion.
[2019-08-27 18:00] VITALS: BP 138/76
--- NOTE | 2019-08-27 21:02 | PM&R H&P / Post Admit Assess ---
History of Present Illness HPI/Chief Complaint Chief complaint: Left femur fracture HPI: This is a 79yoWF that was independent with ADLs and ambulation who presented to [facility] after suffering a fall and subsequent left femur fracture, repaired in an uncomplicated manner by Dr. López. At this current time, her bowels are moving, carter cath was just discontinued and she is ready to be transferred to inpatient rehab to begin her recovery. She denies any chest pain or SOB, her labs remain stable, Hgb 10.0 post-op and ready to begin the intense therapy along with pain control. Currently her pain is doing well. Source: patient, RN/MD, old records Exam Limitations: no limitations Date Seen 08/27/19 Time Seen by a Provider: 11:00 Attending Physician Luz Maria Kee Daniel J MD Referring Physician Date of Admission Aug 27, 2019 at 10:18 Home Medications & Allergies Home Medications Reviewed patient Home Medication Reconciliation performed by pharmacy medication reconciliations electroencephalographic technician and/or nursing. Patients Allergies have been reviewed. Allergies Allergies Coded Allergies No Known Drug Allergies ([id number]/24/18) Past Syygkcq-Mhbfze-Ykbfml Hx Past Med/Social Hx: Reviewed Nursing Past Med/Soc Hx, Reviewed and Corrections made Patient Social History Marrital Status: single Employed/Student: retired Alcohol Use: Denies Use Recreational Drug Use: No Smoking Status: Never a Smoker 2nd Hand Smoke Exposure: No Physical Abuse Screen: No Sexual Abuse: No Recent Foreign Travel: No Contact w/other who traveled: No Recent Hopitalizations: No Recent Infectious Disease Expo: No Immunizations Up To Date Date of Influenza Vaccine: Jul 07, 2019 Seasonal Allergies Seasonal Allergies: Yes (MILD) Past Medical History Surgeries: Hysterectomy Currently Using CPAP: No Currently Using BIPAP: No Cardiac: Hypertension : No Reproductive: No Sexually Transmitted Disease: No HIV/AIDS: No Gastrointestinal: Gastroesophageal Reflux Musculoskeletal: Fractures Loss of Vision: Bilateral Hearing Impairment: Denies History of Blood Disorders: No Adverse Reaction to Blood Pittman: No (N/A) Review of Systems Constitutional: see HPI, weakness EENTM: no symptoms reported Respiratory: no symptoms reported Cardiovascular: no symptoms reported Gastrointestinal: no symptoms reported Genitourinary: no symptoms reported Musculoskeletal: joint pain Skin: no symptoms reported Psychiatric/Neurological: No Symptoms Reported All Other Systems Reviewed Negative Unless Noted: Yes Physical Exam Exam Vital Signs Vital Signs Date Time Temp Pulse Resp B/P (MAP) Pulse Ox O2 Delivery O2 Flow Rate FiO2 08/27/19 18:00 37.0 94 18 138/76 (96) 95 Room Air Capillary Refill : Less Than 3 Seconds General Appearance: No Apparent Distress, WD/WN, Chronically ill HEENT: PERRL/EOMI, Normal ENT Inspection, Pharynx Normal, Moist Mucous Membranes Neck: Full Range of Motion, Normal Inspection, Non Tender, Supple Respiratory: Chest Non Tender, Lungs Clear, Normal Breath Sounds, No Accessory Muscle Use, No Respiratory Distress Cardiovascular: Regular Rate, Rhythm, No Edema, No Gallop, No JVD, No Murmur Gastrointestinal: Normal Bowel Sounds, No Organomegaly, No Pulsatile Mass, Non Tender, Soft Back: Normal Inspection, No CVA Tenderness, No Vertebral Tenderness Extremity: Normal Capillary Refill, Normal Inspection, Normal Range of Motion (except left leg), Non Tender, No Calf Tenderness, No Pedal Edema Neurologic/Psychiatric: Alert, Oriented x3, No Motor/Sensory Deficits, Normal Mood/Affect Skin: Normal Color, Warm/Dry Lymphatic: No Adenopathy Results Results/Procedures Labs Patient resulted labs reviewed. Assessment/Plan Assessment and Plan Assess & Plan/Chief Complaint Assessment: Left femur fracture Post op anemia HTN? Plan: IRF protocol Lovenox Monitor pain (1) Fracture of left femur Status: Acute (2) Postoperative anemia Status: Acute (3) Hypertension Status: Chronic Qualifiers: Hypertension type: essential hypertension Qualified Codes: I10 - Essential (primary) hypertension Post Admission Physician Asses Date seen by provider: Aug 27, 2019 Time seen by provider: 11:00 Admisison Dx: (1) Fracture of left femur Status: Acute The preadmission screen agrees with the post admission assessment that the patient is a good candidate for inpatient rehabilitation. The patient will have a comprehensive program of inpatient rehabilitation with a goal of maximizing level of functional independence prior to discharge home with family. The patient will have PT/OT ninety minutes per day, each discipline, five days a week for gait, strengthening, conditioning, balance, ADLs, any patient/family/caregiver training as necessary. Speech therapy to do cognitive assessment and treat as indicated. Rehabilitation nursing to assist with bowel, bladder, skin, wound care, medication administration, pain management. Shellacker to assist with discharge planning, community reentry. SCD's for DVT prophylaxis. She appears to be well motivated to participate in three hours of therapy a day. She should be able to tolerate three hours of therapy a day from a medical standpoint. She should benefit from the three hours of therapy a day. She has a reasonable discharge plan, reasonable discharge rehabilitation goals and a supportive family. She has various comorbidities that need to be closely monitored with medications and treatments adjusted on a daily basis as needed. These include: see list Barriers to discharge for this patient who had been independent prior to this are for her to be modified independent to supervision for ADLs and mobility skills prior to discharge home with family, so as to lessen the burden of the c aregivers. Risks for this patient include: 1. Fall 2. Fracture 3. DVT 4. Pulmonary embolism 5. Wound infection 6. Skin breakdown 7. Contractures 8. Poorly controlled pain 9. Urinary retention 10. UTI 11. Respiratory infection 12. Aspiration Estimated Length of Stay: 14 days Prognosis: Rehab prognosis appears good for goal of discharge home with family modified independent to supervision for ADLs and mobility skills. LUZ MARIA KEE DO Aug 27, 2019 21:02
[2019-08-27] MEDS: SENNA W/DOCUSATE (SENOKOT S) TABLET PO SCH (21:21)
[2019-08-28 05:03] VITALS: BP 151/74
[2019-08-28] MEDS: HYDROcodone/APAP 10 MG/325 MG (LORTAB) TAB PO PRN ×2 (08:46→23:25)
--- NOTE | 2019-08-28 09:31 | Physical Therapy Daily Note ---
PT Daily Note-Current Subjective Pt sitting in recliner upon arrival. Pt agrees to PT, reporting feeling better today than yesterday. Pain Numeric Pain Scale: 6 Location: Left Location Body Site: Thigh Pain Description: Ache, Tightness Mental Status Patient Orientation: Person, Place, Time, Situation Transfers SCALE: Activities may be completed with or without assistive devices. 7-Ecskypcuyv-igcdemt completes the activity by him/herself with no assistance from a helper. 5-Set-up or Clean-up Assistance-helper sets up or cleans up; patient completes activity. [place] assists only prior to or following the activity. 4-Supervision or Touching Assistance-helper provides verbal cues and/or touching/steadying and/or contact guard assistance as patient completes activity. Assistance may be provided throughout the activity or intermittently. 3-Partial/Moderate Assistance-helper does LESS THAN HALF the effort. [place] lifts, holds or supports trunk or limbs, but provides less than half the effort. 2-Substantial/Maximal Assistance-helper does MORE THAN HALF the effort. [place] lifts or holds trunk or limbs and provides more than half the effort. 7-Exmsldgng-nhcfoa does ALL the effort. Patient does none of the effort to complete the activity. Or, the assistance of 2 or more helpers is required for the patient to complete the activity. If activity was not attempted, code reason: 7-Patient Refused. 9-Not Applicable-not attempted and the patient did not perform the activity before the current illness, exacerbation or injury. 10-Not Attempted due to Environmental Limitations-(lack of equipment, weather restraints, etc.). 88-Not Attempted due to Medical Conditions or Safety Concerns. Sit to Stand (QC): 3 Weight Bearing Right Lower Extremity: Right Full Weight Bearing Left Lower Extremity: Left Weight Bearing/Tolerated Gait Training Does the Patient Walk?: Yes Gait: 4 Distance: 100' x2 Walk 10 feet (QC): 4 Walk 50 ft with 2 Turns(QC): 4 Walk 150 ft (QC): 4 Gait Persons Needed: 1 Gait Assistive Device: FWW Pt fatigues by end of walk, demonstrating muscle fatigue in stability of L LE. Pt takes standing RB as needed. Exercises Seated Therapy Exercises: Ankle pumps, Long arc quads, Hip flexion, Kicking activity, Hamstring Curls Seated Reps: 20 Treatments Pt transfers from recliner to use BSC. Pt then ambulates in hallway and to Therapy Gym. Pt completes Seated EX in chair with RB as needed. Dr Saldana & Rene both check on pt. Pt returns to room at end of tx to rest before OT arrives. Pt has all needs met, call light in hand. Assessment Current Status: Good Progress Pt continues to stay motivated to push self to improve for improved strength for better D/C. Pt demonstrates weakness at times especially while ambulating, fatiguing easily. PT Fci Goals Irrigationist Goals PT Fci Goals Time Frame: Sep 24, 2019 Sit to Lying (QC): 6 Lying-Sitting on Side/Bed(QC): 6 Sit to Stand (QC): 6 Roll Left to Right (QC): 6 Chair/Yva-sq-Uszbg Xfer(QC): 6 Car Transfer (QC): 6 Does the Patient Walk: Yes Distance: 300' Walk 10 feet (QC): 6 Walk 10ft-Uneven Surface(QC): 6 Walk 50ft with 2 Turns (QC): 6 Walk 150 ft (QC): 6 Gait Assistive Device: FWW # of Steps: 4 1 Step (curb) (QC): 6 4 Steps (QC): 6 Picking up an Object (QC): 5 PT Plan Problem List Problem List: Activity Tolerance, Functional Strength, Safety, Balance, Gait, Transfer Treatment/Plan Treatment Plan: Continue Plan of Care Treatment Plan: Bed Mobility, Education, Functional Activity Anand, Functional Strength, Gait, Safety, Therapeutic Exercise, Transfers Treatment Duration: Sep 24, 2019 Frequency: At least 5 of 7 days/Wk (IRF) Estimated Hrs Per Day: 1.5 hours per day Patient and/or Family Agrees t: Yes Safety Risks/Education Patient Education: Gait Training, Transfer Techniques, Correct Positioning, Safety Issues Teaching Recipient: Patient Teaching Methods: Discussion Response to Teaching: Verbalize Understanding Time/GCodes Time In: 815 Time Out: 915 Total Billed Treatment Time: 60 Total Billed Treatment 1, GT x2 (25m), FA (15m) & EX (20m) LORENA HANSON FAST FOOD TEAM MEMBER Aug 28, 2019 09:31
--- NOTE | 2019-08-28 10:06 | PM&R Progress Note ---
Subjective HPI/CC On Admission Date Seen by Provider: Aug 28, 2019 Time Seen by Provider: 08:30 Chief complaint: Left femur fracture HPI: This is a 79yoWF that was independent with ADLs and ambulation who presented to [facility] after suffering a fall and subsequent left femur fracture, repaired in an uncomplicated manner by Dr. López. At this current time, her bowels are moving, carter cath was just discontinued and she is ready to be campos sferred to inpatient rehab to begin her recovery. She denies any chest pain or SOB, her labs remain stable, Hgb 10.0 post-op and ready to begin the intense therapy along with pain control. Currently her pain is doing well. Subjective/Events-last exam Pt doing. very well No issues Minimal pain medications Slept well Lives alone at home BM was last on 08/25 so will initiate meds for that Conferred with RN Reviewed therapy notes Checked meds and labs Review of Systems General: Fatigue Musculoskeletal: leg pain Objective Exam Vital Signs Vital Signs Date Time Temp Pulse Resp B/P (MAP) Pulse Ox O2 Delivery O2 Flow Rate FiO2 08/28/19 20:20 Room Air 08/28/19 18:00 37.1 101 20 159/69 (99) 100 Capillary Refill : Less Than 3 Seconds General Appearance: No Apparent Distress, WD/WN, Chronically ill HEENT: PERRL/EOMI, Normal ENT Inspection, Pharynx Normal, Moist Mucous Membranes Neck: Full Range of Motion, Normal Inspection, Non Tender, Supple Respiratory: Chest Non Tender, Lungs Clear, Normal Breath Sounds, No Accessory Muscle Use, No Respiratory Distress Cardiovascular: Regular Rate, Rhythm, No Edema, No Gallop, No JVD, No Murmur Gastrointestinal: Normal Bowel Sounds, No Organomegaly, No Pulsatile Mass, Non Tender, Soft Back: Normal Inspection, No CVA Tenderness, No Vertebral Tenderness Extremity: Normal Capillary Refill, Normal Inspection, Normal Range of Motion (except left leg), Non Tender, No Calf Tenderness, No Pedal Edema Neurologic/Psychiatric: Alert, Oriented x3, No Motor/Sensory Deficits, Normal Mood/Affect Skin: Normal Color, Warm/Dry Lymphatic: No Adenopathy Results/Procedures Lab Patient resulted labs reviewed. FIM Transfers Therapy Code Descriptions/Definitions Functional Edwards Measure: 0=Not Assessed/NA 4=Minimal Assistance 1=Total Assistance 5=Supervision or Setup 2=Maximal Assistance 6=Modified Edwards 3=Moderate Assistance 7=Complete IndependenceSCALE: Activities may be completed with or without assistive devices. 6-Jvpfaeblum-bgxanrn completes the activity by him/herself with no assistance from a helper. 5-Set-up or Clean-up Assistance-helper sets up or cleans up; patient completes activity. [employer] assists only prior to or following the activity. 4-Supervision or Touching Assistance-helper provides verbal cues and/or touching/steadying and/or contact guard assistance as patient completes activity. Assistance may be provided throughout the activity or intermittently. 3-Partial/Moderate Assistance-helper does LESS THAN HALF the effort. [employer] lifts, holds or supports trunk or limbs, but provides less than half the effort. 2-Substantial/Maximal Assistance-helper does MORE THAN HALF the effort. [employer] lifts or holds trunk or limbs and provides more than half the effort. 5-Kjzxcqfrs-owaxqs does ALL the effort. Patient does none of the effort to complete the activity. Or, the assistance of 2 or more helpers is required for the patient to complete the activity. If activity was not attempted, code reason: 7-Patient Refused. 9-Not Applicable-not attempted and the patient did not perform the activity before the current illness, exacerbation or injury. 10-Not Attempted due to Environmental Limitations-(lack of equipment, weather restraints, etc.). 88-Not Attempted due to Medical Conditions or Safety Concerns. Roll Left to Right (QC): 5 Sit to Lying (QC): 4 Sit to Stand (QC): 3 Chair/Zgc-sh-Lcfzv Xfer(QC): 3 Car Transfer (QC): 3 Gait Training Does the Patient Walk?: Yes Gait (FIM): 4 Distance (FIM): 7=088-96 ft Distance: 100' x2 Walk 10 feet (QC): 4 Walk 50 ft with 2 Turns(QC): 4 Walk 150 ft (QC): 4 Walking 10ft/uneven surface-QC: 4 Gait Persons Needed: 1 Gait Assistive Device: FWW Stair Training #of Steps: 1 1 Step (curb) (QC): 4 4 Steps (QC): 88 12 Steps (QC): 88 Balance Picking up an Object (QC): 88 ADL-Treatment Shower/Bathe Self (QC): 3 Upper Body Dressing (QC): 4 Lower Body Dressing (QC): 2 On/Off Footwear (QC): 1 Toileting Hygiene (QC): 2 Toilet Transfer (QC): 3 Assessment/Plan Assessment and Plan Assess & Plan/Chief Complaint Assessment: Left femur fracture Post op anemia HTN? Post op constipation Plan: IRF protocol Lovenox Monitor pain BM regimen (1) Fracture of left femur Status: Acute (2) Constipation (3) Hypertension Status: Chronic Qualifiers: Hypertension type: essential hypertension Qualified Codes: I10 - Essential (primary) hypertension (4) Postoperative anemia Status: Acute REGIS KEE DO Aug 28, 2019 10:06
--- NOTE | 2019-08-28 10:07 | Individualized Plan of Care ---
Individualized Plan of Care Rehab Nursing IPOC Order Admission Date Aug 27, 2019 at 10:18 Current Orders Orders Admission Order(Inpt,Obs,Sdc) (08/27/19 10:15) Vital Signs: Per Unit Policy ( 08,16,00 (08/27/19 10:15) Technology Adoption Manager-Inpt Rehab Con (08/27/19 10:15) Rehab Nursing Orders-Ipoc (08/27/19 10:15) Physical Therapy Rehab Orders (08/27/19 10:15) Occupational Therapy Rehab Ord (08/27/19 10:15) Speech Therapy Rehab Orders (08/27/19 10:15) General/Regular (08/27/19 Dinner) Intake & Output (08/27/19 10:15) Precautions (Aru) (08/27/19 10:15) Weekly Weight WEEK (08/27/19 10:15) Rehab-Intensity Of Therapy (08/27/19 10:15) Initiate Admission Nursing Pro .admission (08/27/19 10:15) Initiate Admission Nursing Pro .admission (08/27/19 10:15) Acetaminophen Tablet (Tylenol Tablet) (08/27/19 10:15) Alprazolam Tablet (Xanax Tablet) (08/27/19 10:15) Calcium Carbonate Chew Tablet (Antacid C (08/27/19 10:15) Diphenhydramine Tablet (Benadryl Tablet) (08/27/19 10:15) Loperamide Tablet (Imodium Tablet) (08/27/19 10:15) Melatonin Tablet (Melatonin Tablet) (08/27/19 10:15) Ondansetron Oral Dissolve Tab (Zofran (08/27/19 10:15) Ondansetron Injection (Zofran Injectio (08/27/19 10:15) Senna S Tablet (Senokot S Tablet) (08/27/19 21:00) Admission Arrival Bed Request (08/27/19 10:18) Code/Resuscitation (08/27/19 12:16) Ice: Apply To Affected Area (08/27/19 12:16) Incentive Spirometry (Nursing) Q2H (08/27/19 12:16) Enalapril Tablet (Vasotec Tablet) (08/28/19 09:00) Hydrocodone/Apap 10/325 Tablet (Lortab 1 (08/27/19 12:30) Enoxaparin Injection (Lovenox Injection) (08/27/19 12:30) Fentanyl Injection (Sublimaze Injection (08/27/19 12:30) Rt Request For Service (08/27/19 12:16) Enoxaparin Injection (Lovenox Injection) (08/28/19 08:00) Patient Visit (08/27/19 ) Pt Eval Low Complexity (08/27/19 ) Exercise Therap, Ea 15 Min (08/27/19 ) Functional Activities, Ea 15 (08/27/19 ) Patient Visit (08/27/19 ) Speech Sound Lang Comp (08/27/19 ) Patient Visit (08/28/19 ) Gait Training, Ea 15 Min (08/28/19 ) Functional Activities, Ea 15 (08/28/19 ) Exercise Therap, Ea 15 Min (08/28/19 ) Rehab Nursing Orders: Ongoing Assess. of Cognitive Status, Ongoing Assess. of Function Status, Bladder Management, Bladder Scan, Bladder Training, Bowel Management, Bowel Training, Disease Management & Educaiton, DVT Prophylaxis, Fall Prevention, Fluid/Electrolyte/Nutrition Mgmt, Infection Prevention, Medication Management & Education, Management of Risks & Complications, M anagement of Skin Intergrity, Nutrition Management, Pain Management, Patient/Family Support, Safety Management Intensity of Therapy to be met Patient to be seen: Min.3h per day/5 of 7d PT IPOC Problem List: Activity Tolerance, Functional Strength, Safety, Balance, Gait, Transfer, Bed Mobility Treatment Plan: Continue Plan of Care Bed Mobility, Education, Functional Activity Anand, Functional Strength, Gait, Safety, Therapeutic Exercise, Transfers Treatment Duration: Sep 24, 2019 Frequency: At least 5 of 7 days/Wk (IRF) Estimated Hrs Per Day: 1.5 hours per day OT IPOC Problems: Decreased Activ Tolerance, Decreased UE Strength, Dependent Transfers, Impaired Funct Balance, Impaired I ADL's, Impaired Self-Care Skills OT Treatment, Training and Edu: Yes Plan of Care: ADL Retraining, Functional Mobility, Group Exercise/Act as Ind, UE Funct Exercise/Act Treatment Duration: Aug 29, 2019 Frequency: At least 5 of 7 days/Wk (IRF) Estimated Hrs Per Day: 1.[address] IPOC Speech Therapy Treatment Plan: Discontinue ST Treatment Duration: Aug 27, 2019 Frequency: 1 time per week Estimated Hrs Per Day: .25 hour per day Technology Adoption Manager/Case Mgmt Technology Adoption Manager/Case Managemen: Discharge Planning Dietitian/Doctor Naturopathic Dietitian/Doctor Naturopathic to monitor nutritional status and make changes and/or recommendations as needed and work with speech pathology on dietary upgrades as the occur. Physician IPOC Medical Issues being managed closely and that require the 24 hour availability of a physician: Recent hip fracture from fall with subsequent post op anemia with bowel dysfunction will require close monitoring for decompensation Medical Issues: Bowel/Bladder Function, DVT Prophylaxis, Falls Precautions, Fluid/Electrolyte/Nutrition Balance, Infection Protection, Pain Management Brief Synthesis of Preadmission Screen, Post-Admission Evaluation, and Therapy Evaluations: PT will focus on ambulation with assistive devices and fall prevention OT will focus on ADL independence Medical Prognosis: Good Anticipated Length of Stay: 7 days REGIS KEE DO Aug 28, 2019 10:07
--- NOTE | 2019-08-28 10:29 | Occupational Ther Daily Note ---
OT Current Status-Daily Note Subjective Pt sitting in chair, agrees to treatment. Pt reports 4/10 left LE pain, states she recently had a pain pill. ADL-Treatment Pt declined shower today secondary to fatigue, but agrees to sponge bath. Doff shirt without assist. Pt completed upper body bathing with set up. Sit to stand with min assist and able to pull pants down with min assist for balance. Used powerhouse operator to doff underwear and pants over feet. Pt used long handled sponge to wash lower legs and feet. Education provided regarding use of adaptive equipment for LE dressing. Used powerhouse operator to start underwear and pants over feet. Stood with min assist, able to complete pant hike with min assist for balance. Pt donned bilateral socks with set up using sock aid. Grooming tasks completed while seated. Pt brushed teeth and combed hair with set up. Increased time for ADL tasks. Therapy Code Descriptions/Definitions Functional [place] Measure: 0=Not Assessed/NA 4=Minimal Assistance 1=Total Assistance 5=Supervision or Setup 2=Maximal Assistance 6=Modified [place] 3=Moderate Assistance 7=Complete IndependenceSCALE: Activities may be completed with or without assistive devices. 5-Eglcjyjwst-skumwhd completes the activity by him/herself with no assistance from a helper. 5-Set-up or Clean-up Assistance-helper sets up or cleans up; patient completes activity. [place] assists only prior to or following the activity. 4-Supervision or Touching Assistance-helper provides verbal cues and/or touc tylor/steadying and/or contact guard assistance as patient completes activity. Assistance may be provided throughout the activity or intermittently. 3-Partial/Moderate Assistance-helper does LESS THAN HALF the effort. [place] lifts, holds or supports trunk or limbs, but provides less than half the effort. 2-Substantial/Maximal Assistance-helper does MORE THAN HALF the effort. [place] lifts or holds trunk or limbs and provides more than half the effort. 5-Mzuiirjyx-lbtypx does ALL the effort. Patient does none of the effort to complete the activity. Or, the assistance of 2 or more helpers is required for the patient to complete the activity. If activity was not attempted, code reason: 7-Patient Refused. 9-Not Applicable-not attempted and the patient did not perform the activity before the current illness, exacerbation or injury. 10-Not Attempted due to Environmental Limitations-(lack of equipment, weather restraints, etc.). 88-Not Attempted due to Medical Conditions or Safety Concerns. Oral Hygiene (QC): 5 Shower/Bathe Self (QC): 3 Upper Body Dressing (QC): 5 Lower Body Dressing (QC): 3 Other Treatment Pt performed gait with FWW from room to commons area. Pt reports fatigue and requests to rest. To therapy gym via w/c. Pt performed bilateral UE exercises to increase strength needed for ADLs and transfers. Pt completed three exercises x10 reps with mild resistance (yellow) theraband. Rest breaks between exercises. Arm bike x10 minutes to increase overall strength and activity tolerance for functional task completion. Pt performed task with minimal resistance and steady pace. No rest breaks needed. Pt returned to room via w/c, transferred to bed w ith min assist with FWW. Sit to supine with assist for left LE. Pt resting in bed with needs met after session. Education OT Patient Education: Modified ADL techniques Teaching Recipient: Patient Teaching Methods: Demonstration, Discussion Response to Teaching: Verbalize Understanding OT Short Term Goals Short Term Goals Time Frame: Sep 03, 2019 Bathing(FIM): 4 Upper Body Dressing(FIM): 5 Lower Body Dressing(FIM): 3 Toileting(FIM): 4 Toilet/Commode Transfer(FIM): 4 Additional Short Term Goals: 1-Demonstrate ADL Tasks, 2-Verbalize Understanding, 3-ImproveStrength/Anand 1=Demonstrate adherence to instructed precautions during ADL tasks. 2=Patient will verbalize/demonstrate understanding of assistive devices/modifications for ADL. 3=Patient will improve strength/tolerance for activity to enable patient to perform ADL's. OT Detention Goals Detention Goals Time Frame: Sep 17, 2019 Eating (QC): 6 Oral Hygiene (QC): 6 Shower/Bathe Self (QC): 6 Upper Body Dressing (QC): 6 Lower Body Dressing (QC): 6 On/Off Footwear (QC): 6 Toileting Hygiene (QC): 6 Toilet/Commode Transfer (QC): 6 Additional Goals: 1-Demonstrate ADL Tasks, 2-Verbalize Understanding, 3- ImproveStrength/Anand 1=Demonstrate adherence to instructed precautions during ADL tasks. 2=Patient will verbalize/demonstrate understanding of assistive devices/modifications for ADL. 3=Patient will improve strength/tolerance for activity to enable patient to perform ADL's. OT Education/Plan Discharge Recommendations Plan/Recommendations: Continue POC Treatment Plan/Plan of Care Patient would benefit from OT for education, treatment and training to promote independence in ADL's, mobility, safety and/or upper extremity function for ADL's. Plan of Care: ADL Retraining, Functional Mobility, Group Exercise/Act as Ind, UE Funct Exercise/Act Frequency: At least 5 of 7 days/Wk (IRF) Estimated Hrs Per Day: 1.5 hours per day Rehab Potential: Good Time/GCodes Start Time: 09:15 Stop Time: 10:45 Total Time Billed (hr/min): 90 Billed Treatment Time 1 visit, ADLx4(60minutes), EXx2(30minutes) MARY YORK OT Aug 28, 2019 10:29
[2019-08-28 11:00] VITALS: BP 148/76
[2019-08-28] MEDS: ENOXAPARIN 40 MG/0.4 ML (LOVENOX) SYR SC SCH (11:00)
[2019-08-28] MEDS: SENNA W/DOCUSATE (SENOKOT S) TABLET PO SCH ×2 (11:00→20:36)
[2019-08-28] MEDS: ENALAPRIL 10 MG (VASOTEC) TAB PO SCH (11:46)
--- NOTE | 2019-08-28 13:35 | NUR ---
provided prayer and Communion.
--- NOTE | 2019-08-28 14:08 | Physical Therapy Daily Note ---
PT Daily Note-Current Subjective Pt sitting in recliner upon arrival. Pt agrees to PT. Pt asks to return to bed at end of Rx. Pain Numeric Pain Scale: 4 Location: Left Location Body Site: Thigh Pain Description: Ache, Tightness Mental Status Patient Orientation: Person, Place, Time, Situation Transfers SCALE: Activities may be completed with or without assistive devices. 1-Wnvfcsokhp-xjvkwwn completes the activity by him/herself with no assistance from a helper. 5-Set-up or Clean-up Assistance-helper sets up or cleans up; patient completes activity. [place] assists only prior to or following the activity. 4-Supervision or Touching Assistance-helper provides verbal cues and/or touching/steadying and/or contact guard assistance as patient completes activity. Assistance may be provided throughout the activity or intermittently. 3-Partial/Moderate Assistance-helper does LESS THAN HALF the effort. [place] l ifts, holds or supports trunk or limbs, but provides less than half the effort. 2-Substantial/Maximal Assistance-helper does MORE THAN HALF the effort. [place] lifts or holds trunk or limbs and provides more than half the effort. 2-Jokyncxrr-xbmurl does ALL the effort. Patient does none of the effort to complete the activity. Or, the assistance of 2 or more helpers is required for t he patient to complete the activity. If activity was not attempted, code reason: 7-Patient Refused. 9-Not Applicable-not attempted and the patient did not perform the activity before the current illness, exacerbation or injury. 10-Not Attempted due to Environmental Limitations-(lack of equipment, weather restraints, etc.). 88-Not Attempted due to Medical Conditions or Safety Concerns. Sit to Lying (QC): 3 Sit to Stand (QC): 3 Weight Bearing Right Lower Extremity: Right Full Weight Bearing Left Lower Extremity: Left Weight Bearing/Tolerated Gait Training Does the Patient Walk?: Yes Gait: 4 Distance: 100'x2 Walk 10 feet (QC): 4 Walk 50 ft with 2 Turns(QC): 4 Gait Persons Needed: 1 Gait Assistive Device: FWW Pt fatigues quickly, needing standing RB. Pt Exercises Supine Ex: Ankle pumps, Quad Set, Glut sets, Heel Slides, Straight leg raise, Hip abd/add Supine Reps: 15 Treatments Pt transfers from recliner to standing. Pt ambulates in hallway then returns to room to rest at EOB. Pt transfers to Supine in bed with assistance from EXCHANGE TROUBLE SHOOTER to lift L LE into bed. Pt completes Supine Ex in bed then resting at end of Rx. Pt has all needs met, call light in hand. Assessment Current Status: Good Progress Pt fatigues quickly. PT will continue to work on activity tolerance. PT Detention Goals Qc Scientist Goals PT Qc Scientist Goals Time Frame: Sep 24, 2019 Sit to Lying (QC): 6 Lying-Sitting on Side/Bed(QC): 6 Sit to Stand (QC): 6 Roll Left to Right (QC): 6 Chair/Nic-ey-Aorvi Xfer(QC): 6 Car Transfer (QC): 6 Does the Patient Walk: Yes Distance: 300' Walk 10 feet (QC): 6 Walk 10ft-Uneven Surface(QC): 6 Walk 50ft with 2 Turns (QC): 6 Walk 150 ft (QC): 6 Gait Assistive Device: FWW # of Steps: 4 1 Step (curb) (QC): 6 4 Steps (QC): 6 Picking up an Object (QC): 5 PT Plan Problem List Problem List: Activity Tolerance, Functional Strength, Safety, Balance, Gait, Transfer Treatment/Plan Treatment Plan: Continue Plan of Care Treatment Plan: Bed Mobility, Education, Functional Activity Anand, Functional Strength, Gait, Safety, Therapeutic Exercise, Transfers Treatment Duration: Sep 24, 2019 Frequency: At least 5 of 7 days/Wk (IRF) Estimated Hrs Per Day: 1.5 hours per day Patient and/or Family Agrees t: Yes Safety Risks/Education Patient Education: Gait Training, Transfer Techniques, Correct Positioning, Safety Issues Teaching Recipient: Patient Teaching Methods: Discussion Response to Teaching: Verbalize Understanding Time/GCodes Time In: 1300 Time Out: 1330 Total Billed Treatment Time: 30 Total Billed Treatment 1, GT (15m) & EX (15m) LORENA HANSON PTA Aug 28, 2019 14:08
[2019-08-28 18:00] VITALS: BP 159/69
[2019-08-29 06:30] VITALS: BP 142/83
--- NOTE | 2019-08-29 07:05 | Occupational Ther Daily Note ---
OT Current Status-Daily Note Subjective Pt alert, in bathroom. Pt agrees to therapy. Mental Status/Objective Patient Orientation: Person, Place, Time, Situation ADL-Treatment Pt required mod A for sit to stand using grabbars and FWW for sit to stand from toilet. CGA in standing to complete hygiene, pt requested assist to make sure if cleansing was thorough. CGA to hike pants over hips. CGA using FWW to ambulate to sink to wash hands with close SBA. Pt able to open containers/packages and use regular utensils to eat. Pt ambulated to shower, transferred with CGA using FWW, shower bench and grabbars. Pt completed shower using grabbars, hand held shower, shower bench and long handle sponge with supervision. After set up, pt complete upper body by self, lower body and foot wear with AE and CGA in standing to hike pants over hips. Pt sat at sink to complete own grooming. After therapy, pt sitting in recliner with call light/phone in reach. All needs met in room. Therapy Code Descriptions/Definitions Functional [place] Measure: 0=Not Assessed/NA 4=Minimal Assistance 1=Total Assistance 5=Supervision or Setup 2=Maximal Assistance 6=Modified [place] 3=Moderate Assistance 7=Complete IndependenceSCALE: Activities may be completed with or without assistive devices. 5-Recjqbobzd-bsorqhl completes the activity by him/herself with no assistance from a helper. 5-Set-up or Clean-up Assistance-helper sets up or cleans up; patient completes activity. [place] assists only prior to or following the activity. 4-Supervision or Touching Assistance-helper provides verbal cues and/or touching/steadying and/or contact guard assistance as patient completes activity. Assistance may be provided throughout the activity or intermittently. 3-Partial/Moderate Assistance-helper does LESS THAN HALF the effort. [place] lifts, holds or supports trunk or limbs, but provides less than half the effort. 2-Substantial/Maximal Assistance-helper does MORE THAN HALF the effort. [place] lifts or holds trunk or limbs and provides more than half the effort. 7-Ivuifgwui-zhzyzb does ALL the effort. Patient does none of the effort to complete the activity. Or, the assistance of 2 or more helpers is required for the patient to complete the activity. If activity was not attempted, code reason: 7-Patient Refused. 9-Not Applicable-not attempted and the patient did not perform the activity before the current illness, exacerbation or injury. 10-Not Attempted due to Environmental Limitations-(lack of equipment, weather restraints, etc.). 88-Not Attempted due to Medical Conditions or Safety Concerns. Eating (QC): 6 Oral Hygiene (QC): 6 Bathing Location: L Arm, R Arm, L Upper Leg, R Upper Leg, L Lower Leg (including foot), R Lower Leg (including foot), Chest, Abdomen, Buttocks, Perineal Area Shower/Bathe Self (QC): 4 Upper Body Dressing (QC): 5 Lower Body Dressing (QC): 4 Toileting Hygiene (QC): 4 Toilet Transfer (QC): 4 OT Short Term Goals Short Term Goals Time Frame: Sep 03, 2019 Bathing(FIM): 4 Upper Body Dressing(FIM): 5 Lower Body Dressing(FIM): 3 Toileting(FIM): 4 Toilet/Commode Transfer(FIM): 4 Additional Short Term Goals: 1-Demonstrate ADL Tasks, 2-Verbalize Understanding, 3-ImproveStrength/Anand 1=Demonstrate adherence to instructed precautions during ADL tasks. 2=Patient will verbalize/demonstrate understanding of assistive devices/modifications for ADL. 3=Patient will improve strength/tolerance for activity to enable patient to perform ADL's. OT [facility] Goals [facility] Goals Time Frame: Sep 17, 2019 Eating (QC): 6 Oral Hygiene (QC): 6 Shower/Bathe Self (QC): 6 Upper Body Dressing (QC): 6 Lower Body Dressing (QC): 6 On/Off Footwear (QC): 6 Toileting Hygiene (QC): 6 Toilet/Commode Transfer (QC): 6 Additional Goals: 1-Demonstrate ADL Tasks, 2-Verbalize Understanding, 3- ImproveStrength/Anand 1=Demonstrate adherence to instructed precautions during ADL tasks. 2=Patient will verbalize/demonstrate understanding of assistive devices/modifications for ADL. 3=Patient will improve strength/tolerance for activity to enable patient to perform ADL's. OT Education/Plan Problem List/Assessment Assessment: Decreased Activ Tolerance, Impaired Coordination, Impaired Funct Balance, Impaired Self-Care Skills Discharge Recommendations Plan/Recommendations: Continue POC Treatment Plan/Plan of Care Patient would benefit from OT for education, treatment and training to promote independence in ADL's, mobility, safety and/or upper extremity function for ADL's. Plan of Care: ADL Retraining, Functional Mobility, Group Exercise/Act as Ind, UE Funct Exercise/Act Treatment Duration: Aug 29, 2019 Frequency: At least 5 of 7 days/Wk (IRF) Estimated Hrs Per Day: 1.5 hours per day Rehab Potential: Good Time/GCodes Start Time: 07:00 Stop Time: 08:30 Total Time Billed (hr/min): 90 Billed Treatment Time 1 visit-ADL 6 (90 min) JACOB CEE Aug 29, 2019 07:05
[2019-08-29] MEDS: ENOXAPARIN 40 MG/0.4 ML (LOVENOX) SYR SC SCH (08:10)
[2019-08-29] MEDS: SENNA W/DOCUSATE (SENOKOT S) TABLET PO SCH ×2 (08:10→20:49)
[2019-08-29] MEDS: ENALAPRIL 10 MG (VASOTEC) TAB PO SCH (08:24)
--- NOTE | 2019-08-29 09:38 | PM&R Progress Note ---
Subjective HPI/CC On Admission Date Seen by Provider: Aug 29, 2019 Time Seen by Provider: 08:30 Chief complaint: Left femur fracture HPI: This is a 79yoWF that was independent with ADLs and ambulation who presented to [facility] after suffering a fall and subsequent left femur fracture, repaired in an uncomplicated manner by Dr. López. At this current time, her bowels are moving, carter cath was just discontinued and she is ready to be campos sferred to inpatient rehab to begin her recovery. She denies any chest pain or SOB, her labs remain stable, Hgb 10.0 post-op and ready to begin the intense therapy along with pain control. Currently her pain is doing well. Subjective/Events-last exam Had a BM last night after multiple meds. Pain is tolerated. Participating in all therapy. Doing very well overall. Conferred with RN Reviewed therapy notes Checked meds and labs Review of Systems General: Fatigue Musculoskeletal: leg pain Objective Exam Vital Signs Vital Signs Date Time Temp Pulse Resp B/P (MAP) Pulse Ox O2 Delivery O2 Flow Rate FiO2 08/29/19 17:29 37.6 100 20 159/83 (108) 98 Room Air Capillary Refill : Less Than 3 Seconds General Appearance: No Apparent Distress, WD/WN, Chronically ill HEENT: PERRL/EOMI, Normal ENT Inspection, Pharynx Normal, Moist Mucous Me mbranes Neck: Full Range of Motion, Normal Inspection, Non Tender, Supple Respiratory: Chest Non Tender, Lungs Clear, Normal Breath Sounds, No Accessory Muscle Use, No Respiratory Distress Cardiovascular: Regular Rate, Rhythm, No Edema, No Gallop, No JVD, No Murmur Gastrointestinal: Normal Bowel Sounds, No Organomegaly, No Pulsatile Mass, Non Tender, Soft Back: Normal Inspection, No CVA Tenderness, No Vertebral Tenderness Extremity: Normal Capillary Refill, Normal Inspection, Normal Range of Motion (except left leg), Non Tender, No Calf Tenderness, No Pedal Edema Neurologic/Psychiatric: Alert, Oriented x3, No Motor/Sensory Deficits, Normal Mood/Affect Skin: Normal Color, Warm/Dry Lymphatic: No Adenopathy Results/Procedures Lab Patient resulted labs reviewed. FIM Transfers Therapy Code Descriptions/Definitions Functional [place] Measure: 0=Not Assessed/NA 4=Minimal Assistance 1=Total Assistance 5=Supervision or Setup 2=Maximal Assistance 6=Modified [place] 3=Moderate Assistance 7=Complete IndependenceSCALE: Activities may be completed with or without assistive devices. 4-Fblpzwayxx-wmsncuw completes the activity by him/herself with no assistance from a helper. 5-Set-up or Clean-up Assistance-helper sets up or cleans up; patient completes activity. [place] assists only prior to or following the activity. 4-Supervision or Touching Assistance-helper provides verbal cues and/or touching/steadying and/or contact guard assistance as patient completes activity. Assistance may be provided throughout the activity or intermittently. 3-Partial/Moderate Assistance-helper does LESS THAN HALF the effort. [place] lifts, holds or supports trunk or limbs, but provides less than half the effort. 2-Substantial/Maximal Assistance-helper does MORE THAN HALF the effort. [place] lifts or holds trunk or limbs and provides more than half the effort. 4-Hojhsibgm-tysuut does ALL the effort. Patient does none of the effort to complete the activity. Or, the assistance of 2 or more helpers is required for the patient to complete the activity. If activity was not attempted, code reason: 7-Patient Refused. 9-Not Applicable-not attempted and the patient did not perform the activity before the current illness, exacerbation or injury. 10-Not Attempted due to Environmental Limitations-(lack of equipment, weather restraints, etc.). 88-Not Attempted due to Medical Conditions or Safety Concerns. Roll Left to Right (QC): 5 Sit to Lying (QC): 3 Sit to Stand (QC): 3 Chair/Hmi-yo-Xypmh Xfer(QC): 3 Car Transfer (QC): 3 Gait Training Does the Patient Walk?: Yes Gait (FIM): 4 Distance (FIM): 5=148-84 ft Distance: 100'x2 Walk 10 feet (QC): 4 Walk 50 ft with 2 Turns(QC): 4 Walk 150 ft (QC): 4 Walking 10ft/uneven surface-QC: 4 Gait Persons Needed: 1 Gait Assistive Device: FWW Wheelchair Training Does the Pt Use a Wheelchair?: No Stair Training #of Steps: 1 1 Step (curb) (QC): 4 4 Steps (QC): 88 12 Steps (QC): 88 Balance Picking up an Object (QC): 88 ADL-Treatment Oral Hygiene (QC): 5 Shower/Bathe Self (QC): 3 Upper Body Dressing (QC): 5 Lower Body Dressing (QC): 3 On/Off Footwear (QC): 1 Toileting Hygiene (QC): 2 Toilet Transfer (QC): 3 Assessment/Plan Assessment and Plan Assess & Plan/Chief Complaint Assessment: Left femur fracture Post op anemia HTN? Post op constipation now resolved 08/29/19 Plan: IRF protocol Lovenox Monitor pain BM regimen to continue Pain control (1) Fracture of left femur Status: Acute (2) Constipation (3) Hypertension Status: Chronic Qualifiers: Hypertension type: essential hypertension Qualified Codes: I10 - Essential (primary) hypertension (4) Postoperative anemia Status: Acute REGIS KEE DO Aug 29, 2019 09:38
--- NOTE | 2019-08-29 10:28 | Physical Therapy Daily Note ---
PT Daily Note-Current Subjective Pt sitting in recliner upon arrival. Pt agrees to PT. Pain Numeric Pain Scale: 4 Location: Left Location Body Site: Thigh Pain Description: Ache, Tightness Mental Status Patient Orientation: Person, Place, Time, Situation Transfers SCALE: Activities may be completed with or without assistive devices. 5-Vnnsfixeus-apstwnb completes the activity by him/herself with no assistance fr om a helper. 5-Set-up or Clean-up Assistance-helper sets up or cleans up; patient completes activity. [place] assists only prior to or following the activity. 4-Supervision or Touching Assistance-helper provides verbal cues and/or touching/steadying and/or contact guard assistance as patient completes activity. Assistance may be provided throughout the activity or intermittently. 3-Partial/Moderate Assistance-helper does LESS THAN HALF the effort. [place] lifts, holds or supports trunk or limbs, but provides less than half the effort. 2-Substantial/Maximal Assistance-helper does MORE THAN HALF the effort. [place] lifts or holds trunk or limbs and provides more than half the effort. 0-Tjidpqgbn-gxpquo does ALL the effort. Patient does none of the effort to complete the activity. Or, the assistance of 2 or more helpers is required for the patient to complete the activity. If activity was not attempted, code reason: 7-Patient Refused. 9-Not Applicable-not attempted and the patient did not perform the activity before the current illness, exacerbation or injury. 10-Not Attempted due to Environmental Limitations-(lack of equipment, weather restraints, etc.). 88-Not Attempted due to Medical Conditions or Safety Concerns. Roll Left to Right (QC): 5 Sit to Lying (QC): 4 Sit to Stand (QC): 4 Weight Bearing Right Lower Extremity: Right Full Weight Bearing Left Lower Extremity: Left Weight Bearing/Tolerated Gait Training Does the Patient Walk?: Yes Gait: 4 Distance: 150' Walk 10 feet (QC): 4 Walk 50 ft with 2 Turns(QC): 4 Walk 150 ft (QC): 4 Gait Persons Needed: 1 Gait Assistive Device: FWW Pt walks with antalgic gait pattern. Pt fatigues and needs standing RB at times. Wheelchair Training Does the Pt Use a Wheelchair?: Yes Wheelchair Distance: 3=150 ft Distance: 150' Wheel 50 ft with 2 turns (QC): 5 Wheel 150 ft (QC): 5 Type of Wheelchair: Manual Exercises Supine Ex: Ankle pumps, Quad Set, Glut sets, Heel Slides, Hip abd/add Supine Reps: 15 Treatments Pt transfers to standing then ambulates in hallway. Pt transfers to Supine on Therapy mat and completes Supine EX. Pt then returns to room via W/C due to report of nausea and fatigue. Pt propels W/C then transfers to Supine in bed at end of tx with assistance to lift L LE into bed. Pt resting with all needs met, call light in hand. Assessment Current Status: Fair Progress Pt fatigues easier this morning than yesterday. Pt reports having a long and feeling fatigued at beginning of Rx. PT Residential Goals Residential Goals PT Hr Representative Goals Time Frame: Sep 24, 2019 Sit to Lying (QC): 6 Lying-Sitting on Side/Bed(QC): 6 Sit to Stand (QC): 6 Roll Left to Right (QC): 6 Chair/Ift-nt-Rriiq Xfer(QC): 6 Car Transfer (QC): 6 Does the Patient Walk: Yes Distance: 300' Walk 10 feet (QC): 6 Walk 10ft-Uneven Surface(QC): 6 Walk 50ft with 2 Turns (QC): 6 Walk 150 ft (QC): 6 Gait Assistive Device: FWW # of Steps: 4 1 Step (curb) (QC): 6 4 Steps (QC): 6 Picking up an Object (QC): 5 PT Plan Problem List Problem List: Activity Tolerance, Functional Strength, Gait Treatment/Plan Treatment Plan: Continue Plan of Care Treatment Plan: Bed Mobility, Education, Functional Activity Anand, Functional Strength, Gait, Safety, Therapeutic Exercise, Transfers Treatment Duration: Sep 24, 2019 Frequency: At least 5 of 7 days/Wk (IRF) Estimated Hrs Per Day: 1.5 hours per day Patient and/or Family Agrees t: Yes Safety Risks/Education Patient Education: Gait Training, Transfer Techniques, Correct Positioning, W/C Management, Safety Issues Teaching Recipient: Patient Teaching Methods: Discussion Response to Teaching: Verbalize Understanding Time/GCodes Time In: 900 Time Out: 945 Total Billed Treatment Time: 45 Total Billed Treatment 1, GT (15m), EX (15m) & FA (15m) LORENA HANSON PTA Aug 29, 2019 10:28
--- NOTE | 2019-08-29 10:50 | NUR ---
Saline lock infiltrated, unable to flush. Lock removed per Dr Genao. Removed without issue, catheter intact. 4x4 sterile gauze applied with pressure. No complaints of noted.
[2019-08-29] MEDS: HYDROcodone/APAP 10 MG/325 MG (LORTAB) TAB PO PRN ×2 (13:49→23:00)
--- NOTE | 2019-08-29 14:04 | Physical Therapy Daily Note ---
PT Daily Note-Current Subjective Pt laying Supine in bed. Pt agrees to PT although reports fatigued in afternoon. Mental Status Patient Orientation: Person, Place, Time, Situation Transfers SCALE: Activities may be completed with or without assistive devices. 2-Hxbfrebuyb-lsqzoal completes the activity by him/herself with no assistance from a helper. 5-Set-up or Clean-up Assistance-helper sets up or cleans up; patient completes activity. [place] assists only prior to or following the activity. 4-Supervision or Touching Assistance-helper provides verbal cues and/or touching/steadying and/or contact guard assistance as patient completes activity. Assistance may be provided throughout the activity or intermittently. 3-Partial/Moderate Assistance-helper does LESS THAN HALF the effort. [place] lifts, holds or supports trunk or limbs, but provides less than half the effort. 2-Substantial/Maximal Assistance-helper does MORE THAN HALF the effort. [place] lifts or holds trunk or limbs and provides more than half the effort. 4-Hvmkkzivv-bohiwg does ALL the effort. Patient does none of the effort to complete the activity. Or, the assistance of 2 or more helpers is required for the patient to complete the activity. If activity was not attempted, code reason: 7-Patient Refused. 9-Not Applicable-not attempted and the patient did not perform the activity before the current illness, exacerbation or injury. 10-Not Attempted due to Environmental Limitations-(lack of equipment, weather restraints, etc.). 88-Not Attempted due to Medical Conditions or Safety Concerns. Sit to Lying (QC): 4 Sit to Stand (QC): 4 (With bed elevated) Weight Bearing Right Lower Extremity: Right Full Weight Bearing Left Lower Extremity: Left Weight Bearing/Tolerated Gait Training Does the Patient Walk?: Yes Gait: 4 Distance: 200' Walk 10 feet (QC): 4 Walk 50 ft with 2 Turns(QC): 4 Walk 150 ft (QC): 4 Gait Persons Needed: 1 Gait Assistive Device: FWW Exercises Supine Ex: Ankle pumps, Quad Set, Glut sets, Heel Slides, Hip abd/add Supine Reps: 15 Treatments Pt transfers from bed to use restroom. Pt then ambulates in hallway. Pt returns to room to rest in bed. CRITICAL POWER INSTALL TECHNICIAN gives HEP for both Supine & Seated EX for pt to practice. Pt completes Supine Ex in bed. Pt has all needs met, call light in hand. Assessment Current Status: Fair Progress Pt demonstrates more fatigue than previous Rx. PT Short Term Goals Short Term Goals Wheelchair Distance: 150' PT Business Records Manager Goals Business Records Manager Goals PT Business Records Manager Goals Time Frame: Sep 24, 2019 Sit to Lying (QC): 6 Lying-Sitting on Side/Bed(QC): 6 Sit to Stand (QC): 6 Roll Left to Right (QC): 6 Chair/Kmy-zz-Gllta Xfer(QC): 6 Car Transfer (QC): 6 Does the Patient Walk: Yes Distance: 300' Walk 10 feet (QC): 6 Walk 10ft-Uneven Surface(QC): 6 Walk 50ft with 2 Turns (QC): 6 Walk 150 ft (QC): 6 Gait Assistive Device: FWW # of Steps: 4 1 Step (curb) (QC): 6 4 Steps (QC): 6 Picking up an Object (QC): 5 PT Plan Problem List Problem List: Activity Tolerance, Functional Strength Treatment/Plan Treatment Plan: Continue Plan of Care Treatment Plan: Bed Mobility, Education, Functional Activity Anand, Functional Strength, Gait, Safety, Therapeutic Exercise, Transfers Treatment Duration: Sep 24, 2019 Frequency: At least 5 of 7 days/Wk (IRF) Estimated Hrs Per Day: 1.5 hours per day Patient and/or Family Agrees t: Yes Safety Risks/Education Patient Education: Gait Training, Transfer Techniques, Issued Written HEP, Correct Positioning, Safety Issues Teaching Recipient: Patient Teaching Methods: Discussion Response to Teaching: Verbalize Understanding Time/GCodes Time In: 1315 Time Out: 1400 Total Billed Treatment Time: 45 Total Billed Treatment 1, GT (15m), FA (15m) & EX (15m) LORENA HANSON CRITICAL POWER INSTALL TECHNICIAN Aug 29, 2019 14:04
--- NOTE | 2019-08-29 16:32 | NUR ---
Attempted, twice, to meet with patient to complete initial assessment and review weekly Care Team Conference; however, patient had two separate visitors, each time this worker attempted to complete. Will follow-up. Addendum: 08/30/19 at 1135 by FEBRUARY Sarah SAHU Attempted to meet with patient, again; however, she had a visitor. Will re-attempt.
[2019-08-29 17:29] VITALS: BP 159/83
[2019-08-30 05:30] VITALS: BP 165/79
[2019-08-30 06:01] LABS: BASOPHILS % (AUTO) 1 % (0-10); EOSINOPHILS # (AUTO) 0.3 10^3/uL (0.0-0.3); EOSINOPHILS % (AUTO) 4 % (0-10); HEMATOCRIT 32 % (35-52); HEMOGLOBIN 10.2 G/DL (11.5-16.0); LYMPHOCYTES # (AUTO) 1.7 X 10^3 (1.0-4.0); LYMPHOCYTES % (AUTO) 24 % (12-44); MEAN CORPUSCULAR HEMOGLOBIN 30 PG (25-34); MEAN CORPUSCULAR HGB CONC 32 G/DL (32-36); MEAN CORPUSCULAR VOLUME 94 FL (80-99); MEAN PLATELET VOLUME 10.4 FL (7.4-10.4); MONOCYTES % (AUTO) 14 % (0-12); NEUTROPHILS # (AUTO) 4.1 X 10^3 (1.8-7.8); NEUTROPHILS % (AUTO) 58 % (42-75); PLATELET COUNT 243 10^3/uL (130-400); RED CELL DISTRIBUTION WIDTH 14.2 % (10.0-14.5); WHITE BLOOD COUNT 7.1 10^3/uL (4.3-11.0)
[2019-08-30 06:20] LABS: ALBUMIN 3.3 GM/DL (3.2-4.5); BILIRUBIN,TOTAL 0.8 MG/DL (0.1-1.0); CALCIUM 8.4 MG/DL (8.5-10.1); CREATININE SERUM 1.01 MG/DL (0.60-1.30); POTASSIUM 4.2 MMOL/L (3.6-5.0); TOTAL PROTEIN 6.1 GM/DL (6.4-8.2)
[2019-08-30 08:13] VITALS: BP 153/77
[2019-08-30] MEDS: ENOXAPARIN 40 MG/0.4 ML (LOVENOX) SYR SC SCH (08:14)
[2019-08-30] MEDS: HYDROcodone/APAP 10 MG/325 MG (LORTAB) TAB PO PRN ×2 (08:14→23:30)
[2019-08-30] MEDS: SENNA W/DOCUSATE (SENOKOT S) TABLET PO SCH ×2 (08:14→20:37)
[2019-08-30] MEDS: ENALAPRIL 10 MG (VASOTEC) TAB PO SCH (08:14)
--- NOTE | 2019-08-30 08:50 | Progress Note - Ortho ---
Progress Note Subjective Date of Exam 08/30/19 Chief Complaint POD#5 long TFN midshaft fracture left femur HPI/Events since last exam He patient is doing well, she is up ambulating in her room with a walker pretty much full weightbearing on the left with minimal pain Review of Systems Reviewed and no additions or changes Allergies: Coded Allergies: No Known Drug Allergies (Verified , 08/29/18) Home Meds Reported Medications Amlodipine Besylate (Amlodipine Besylate) 5 Mg Tablet, 5 MG PO DAILY, TAB 08/27/19 Ibuprofen (Ibuprofen) 200 Mg Capsule, 400 MG PO Q8H PRN for PAIN-MILD, CAP 08/26/19 Acetaminophen (ACETAMINOPHEN) 500 Mg Tablet, 1000 MG PO Q8H PRN for PAIN-MILD, TAB 08/26/19 Multivitamin (Multiple Vitamins) 1 Each Tablet, 1 TAB PO DAILY, TAB 08/26/19 Enalapril Maleate (Enalapril Maleate) 10 Mg Tablet, 10 MG PO DAILY 08/26/19 [place] 3 Polyunsat Fatty Acids (Fish Oil 1,000 mg Capsule) 1,000 Mg Cap, 1000 MG PO DAILY, CAP 08/27/18 Calcium Carbonate/Vitamin D3 (Calcium 600 + Vit D Caplet) 1 Each Tablet, PO TID, TAB 08/27/18 Alendronate Sodium (Alendronate Sodium) 10 Mg Tablet, 10 MG PO DAILY, TAB 08/27/18 Discontinued Reported Medications Amlodipine Besylate (Amlodipine Besylate) 5 Mg Tablet, 5 MG PO DAILY 08/26/19 Amlodipine Besylate (Amlodipine Besylate) 10 Mg Tablet, 10 MG PO DAILY, TAB 08/27/18 Enalapril Maleate (Enalapril Maleate) 5 Mg Tablet, 5 MG PO DAILY, TAB 08/27/18 Objective Exam Constitutional: [] HEENT: [] Neck: [] Cardiovascular: [] Respiratory: [] Gastrointestinal: [] Genitourinary: [] Skin: [] Back/Spine: [] Extremities: [] Good motion left hip and knee without pain. Mild swelling left thigh. Tenderness negative Homans. Good strength on plantar dorsiflexion of the foot and ankle Neurologic: [] Psychiatric: [] Hematologic/lymphatic/immunologic: [] Vital Signs Vital Signs Date Time Temp Pulse Resp B/P (MAP) Pulse Ox O2 Delivery O2 Flow Rate FiO2 08/30/19 08:13 102 153/77 (102) 08/30/19 05:30 36.6 89 20 165/79 (107) 97 Room Air 08/29/19 20:50 Room Air 08/29/19 17:29 37.6 100 20 159/83 (108) 98 Room Air 08/29/19 09:00 Room Air I & O 08/30/19 06:59 Intake Total 1150 ml Balance 1150 ml Lab Results Laboratory Tests 08/30/19 05:39: White Blood Count 7.1, Red Blood Count 3.40L, Hemoglobin 10.2L, Hematocrit 32L, Mean Corpuscular Volume 94, Mean Corpuscular Hemoglobin 30, Mean Corpuscular Hemoglobin Concent 32, Red Cell Distribution Width 14.2, Platelet Count 243, Mean Platelet Volume 10.4, Neutrophils (%) (Auto) 58, Lymphocytes (%) (Auto) 24, Monocytes (%) (Auto) 14H, Eosinophils (%) (Auto) 4, Basophils (%) (Auto) 1, Neutrophils # (Auto) 4.1, Lymphocytes # (Auto) 1.7, Monocytes # (Auto) 1.0, Eosinophils # (Auto) 0.3, Basophils # (Auto) 0.0, Sodium Level 139, Potassium Level 4.2, Chloride Level 107, Carbon Dioxide Level 24, Anion Gap 8, Blood Urea Nitrogen 20H, Creatinine 1.01, Estimat Glomerular Filtration Rate 53, BUN/Creatinine Ratio 20, Glucose Level 94, Calcium Level 8.4L, Corrected Calcium 9.0, Total Bilirubin 0.8, Aspartate Amino Transf (AST/SGOT) 43H, Alanine Aminotransferase (ALT/SGPT) 22, Alkaline Phosphatase 41, Total Protein 6.1L, Albumin 3.3 Assessment and Plan Assessment Doing well 5 days postop Problem List Unchanged Plan Continue walker ambulation, full weightbearing left leg. Strengthening left lower extremity Final Diagonsis Midshaft fracture left femur status post long TFN Level of the visit: Level 3 Clinical Quality Measures DVT/VTE Risk/Contraindication: Risk Factor Score Per Nursin RFS Level Per Nursing on Admit: 4+=Very High PEG BULLOCK MD Aug 30, 2019 08:50
--- NOTE | 2019-08-30 09:04 | Occupational Ther Daily Note ---
OT Current Status-Daily Note Subjective Pt in bed, agrees to therapy. Pt reports 4/10 pain in left LE. RN present and provides pain medication. ADL-Treatment Pt supine to sit with SBA and increased time. Sit to stand with supervision with bed raised. Gait to restroom with FWW. [place] [facility] [place]. Pt able to complete hygiene, requires CGA for balance when standing to complete pant hike. Min assist to stand from toilet. Pt declined shower, but agrees to sponge bath while seated. Doff clothing with SBA. Uses dressing stick to doff socks. Upper body bathing completed with set up. Pt able to wash twin area and bilateral upper legs. Uses long handled sponge to wash lower legs and feet. Don pullover shirt with set up. Pt able to thread right LE into underwear and pants. Uses entry level chemist to thread left LE. Stood with min assist for balance during pant hike. Pt donned socks with set up using sock aid. Pt donned right shoe with set up. Elastic shoe lace placed in left shoe. Pt then able to don shoe with min assist. Grooming tasks completed standing at sink. Pt brushed teeth and combed hair with set up. Therapy Code Descriptions/Definitions Functional [place] Measure: 0=Not Assessed/NA 4=Minimal Assistance 1=Total Assistance 5=Supervision or Setup 2=Maximal Assistance 6=Modified [place] 3=Moderate Assistance 7=Complete IndependenceSCALE: Activities may be completed with or without assistive devices. 4-Utghwazbsq-bhayohg completes the activity by him/herself with no assistance from a helper. 5-Set-up or Clean-up Assistance-helper sets up or cleans up; patient completes activity. [place] assists only prior to or following the activity. 4-Supervision or Touching Assistance-helper provides verbal cues and/or touching/steadying and/or contact guard assistance as patient completes activity. Assistance may be provided throughout the activity or intermittently. 3-Partial/Moderate Assistance-helper does LESS THAN HALF the effort. [place] lifts, holds or supports trunk or limbs, but provides less than half the effort. 2-Substantial/Maximal Assistance-helper does MORE THAN HALF the effort. [place] lifts or holds trunk or limbs and provides more than half the effort. 2-Qxcnsoyje-rhowbe does ALL the effort. Patient does none of the effort to complete the activity. Or, the assistance of 2 or more helpers is required for the patient to complete the activity. If activity was not attempted, code reason: 7-Patient Refused. 9-Not Applicable-not attempted and the patient did not perform the activity before the current illness, exacerbation or injury. 10-Not Attempted due to Environmental Limitations-(lack of equipment, weather restraints, etc.). 88-Not Attempted due to Medical Conditions or Safety Concerns. Oral Hygiene (QC): 5 Shower/Bathe Self (QC): 4 Upper Body Dressing (QC): 5 Lower Body Dressing (QC): 3 Toileting Hygiene (QC): 4 Other Treatment Pt completed bilateral UE exercises to increase strength needed for ADLs and transfers. Pt performed three exercises x10 reps using mild resistance (yellow) theraband. Rest breaks between exercises. Cues to for proper exercise technique. Pt sitting in chair with needs met after session. Education OT Patient Education: Modified ADL techniques Teaching Recipient: Patient Teaching Methods: Discussion Response to Teaching: Verbalize Understanding OT Short Term Goals Short Term Goals Time Frame: Sep 03, 2019 Bathing(FIM): 4 Upper Body Dressing(FIM): 5 Lower Body Dressing(FIM): 3 Toileting(FIM): 4 Toilet/Commode Transfer(FIM): 4 Additional Short Term Goals: 1-Demonstrate ADL Tasks, 2-Verbalize Understanding, 3-ImproveStrength/Anand 1=Demonstrate adherence to instructed precautions during ADL tasks. 2=Patient will verbalize/demonstrate understanding of assistive devices/ modifications for ADL. 3=Patient will improve strength/tolerance for activity to enable patient to perform ADL's. OT [facility] Goals Manual Plate Filler Goals Time Frame: Sep 17, 2019 Eating (QC): 6 Oral Hygiene (QC): 6 Shower/Bathe Self (QC): 6 Upper Body Dressing (QC): 6 Lower Body Dressing (QC): 6 On/Off Footwear (QC): 6 Toileting Hygiene (QC): 6 Toilet/Commode Transfer (QC): 6 Additional Goals: 1-Demonstrate ADL Tasks, 2-Verbalize Understanding, 3- ImproveStrength/Anand 1=Demonstrate adherence to instructed precautions during ADL tasks. 2=Patient will verbalize/demonstrate understanding of assistive devices/modifications for ADL. 3=Patient will improve strength/tolerance for activity to enable patient to perform ADL's. OT Education/Plan Discharge Recommendations Plan/Recommendations: Continue POC Treatment Plan/Plan of Care Patient would benefit from OT for education, treatment and training to promote independence in ADL's, mobility, safety and/or upper extremity function for ADL's. Plan of Care: ADL Retraining, Functional Mobility, Group Exercise/Act as Ind, UE Funct Exercise/Act Treatment Duration: Aug 29, 2019 Frequency: At least 5 of 7 days/Wk (IRF) Estimated Hrs Per Day: 1.5 hours per day Rehab Potential: Good Time/GCodes Start Time: 08:00 Stop Time: 09:00 Total Time Billed (hr/min): 60 Billed Treatment Time 1 visit, ADLx3(50minutes), EX(10minutes) MARY YORK OT Aug 30, 2019 09:04
--- NOTE | 2019-08-30 09:05 | PM&R Progress Note ---
Subjective HPI/CC On Admission Date Seen by Provider: Aug 30, 2019 Time Seen by Provider: 09:15 Chief complaint: Left femur fracture HPI: This is a 79yoWF that was independent with ADLs and ambulation who presented to [facility] after suffering a fall and subsequent left femur fracture, repaired in an uncomplicated manner by Dr. López. At this current time, her bowels are moving, carter cath was just discontinued and she is ready to be transferred to inpatient rehab to begin her recovery. She denies any chest pain or SOB, her labs remain stable, Hgb 10.0 post-op and ready to begin the intense therapy along with pain control. Currently her pain is doing well. Subjective/Events-last exam Bowels moving very well now Pain is tolerated. Participating in all therapy. Doing very well overall. Check labs today and everything within normal limits Blood pressure more elevated so we'll restart home medication blood pressure Conferred with RN Reviewed therapy notes Checked meds and labs Review of Systems General: Fatigue Musculoskeletal: leg pain Objective Exam Vital Signs Vital Signs Date Time Temp Pulse Resp B/P (MAP) Pulse Ox O2 Delivery O2 Flow Rate FiO2 08/30/19 09:00 Room Air 08/30/19 08:13 102 153/77 (102) 08/30/19 05:30 36.6 20 97 Capillary Refill : Less Than 3 Seconds General Appearance: No Apparent Distress, WD/WN, Chronically ill HEENT: PERRL/EOMI, Normal ENT Inspection, Pharynx Normal, Moist Mucous Membranes Neck: Full Range of Motion, Normal Inspection, Non Tender, Supple Respiratory: Chest Non Tender, Lungs Clear, Normal Breath Sounds, No Accessory Muscle Use, No Respiratory Distress Cardiovascular: Regular Rate, Rhythm, No Edema, No Gallop, No JVD, No Murmur Gastrointestinal: Normal Bowel Sounds, No Organomegaly, No Pulsatile Mass, Non Tender, Soft Back: Normal Inspection, No CVA Tenderness, No Vertebral Tenderness Extremity: Normal Capillary Refill, Normal Inspection, Normal Range of Motion (except left leg), Non Tender, No Calf Tenderness, No Pedal Edema Neurologic/Psychiatric: Alert, Oriented x3, No Motor/Sensory Deficits, Normal Mood/Affect Skin: Normal Color, Warm/Dry Lymphatic: No Adenopathy Results/Procedures Lab Laboratory Tests 08/30/19 05:39 Patient resulted labs reviewed. FIM Transfers Therapy Code Descriptions/Definitions Functional [place] Measure: 0=Not Assessed/NA 4=Minimal Assistance 1=Total Assistance 5=Supervision or Setup 2=Maximal Assistance 6=Modified [place] 3=Moderate Assistance 7=Complete IndependenceSCALE: Activities may be completed with or without assistive devices. 5-Rmpwhwtgny-jakslpe completes the activity by him/herself with no assistance from a helper. 5-Set-up or Clean-up Assistance-helper sets up or cleans up; patient completes activity. [place] assists only prior to or following the activity. 4-Supervision or Touching Assistance-helper provides verbal cues and/or touching/steadying and/or contact guard assistance as patient completes activity. Assistance may be provided throughout the activity or intermittently. 3-Partial/Moderate Assistance-helper does LESS THAN HALF the effort. [place] lifts, holds or supports trunk or limbs, but provides less than half the effort. 2-Substantial/Maximal Assistance-helper does MORE THAN HALF the effort. [place] l ifts or holds trunk or limbs and provides more than half the effort. 9-Salnjzyue-htzrvx does ALL the effort. Patient does none of the effort to complete the activity. Or, the assistance of 2 or more helpers is required for the patient to complete the activity. If activity was not attempted, code reason: 7-Patient Refused. 9-Not Applicable-not attempted and the patient did not perform the activity before the current illness, exacerbation or injury. 10-Not Attempted due to Environmental Limitations-(lack of equipment, weather restraints, etc.). 88-Not Attempted due to Medical Conditions or Safety Concerns. Roll Left to Right (QC): 5 Sit to Lying (QC): 4 Sit to Stand (QC): 4 (With bed elevated) Chair/Joj-nk-Wahrl Xfer(QC): 3 Car Transfer (QC): 3 Gait Training Does the Patient Walk?: Yes Gait (FIM): 4 Distance (FIM): 1=733-68 ft Distance: 200' Walk 10 feet (QC): 4 Walk 50 ft with 2 Turns(QC): 4 Walk 150 ft (QC): 4 Walking 10ft/uneven surface-QC: 4 Gait Persons Needed: 1 Gait Assistive Device: FWW Wheelchair Training Does the Pt Use a Wheelchair?: Yes Wheelchair Distance: 3=150 ft Distance: 150' Wheel 50 ft with 2 turns (QC): 5 Wheel 150 ft (QC): 5 Type of Wheelchair: Manual Stair Training #of Steps: 1 1 Step (curb) (QC): 4 4 Steps (QC): 88 12 Steps (QC): 88 Balance Picking up an Object (QC): 88 ADL-Treatment Eating (QC): 6 Oral Hygiene (QC): 6 Bathing Location: L Arm, R Arm, L Upper Leg, R Upper Leg, L Lower Leg (including foot), R Lower Leg (including foot), Chest, Abdomen, Buttocks, Perineal Area Shower/Bathe Self (QC): 4 Upper Body Dressing (QC): 5 Lower Body Dressing (QC): 4 On/Off Footwear (QC): 1 Toileting Hygiene (QC): 4 Toilet Transfer (QC): 4 Assessment/Plan Assessment and Plan Assess & Plan/Chief Complaint Assessment: Left femur fracture Post op anemia HTN we'll restart rest of home meds Post op constipation now resolved 08/29/19 Plan: IRF protocol Lovenox Monitor pain BM regimen to continue Pain control (1) Fracture of left femur Status: Acute (2) Constipation (3) Hypertension Status: Chronic Qualifiers: Hypertension type: essential hypertension Qualified Codes: I10 - Essential (primary) hypertension (4) Postoperative anemia Status: Acute REGIS KEE DO Aug 30, 2019 09:04
--- NOTE | 2019-08-30 10:02 | Physical Therapy Daily Note ---
PT Daily Note-Current Subjective Pt. agrees to Rx. Pleasant conversation etc. No c/o pain Pain Location: No Pain Reported Mental Status Patient Orientation: Normal For Age Transfers SCALE: Activities may be completed with or without assistive devices. 8-Xqdyfuldud-yosfoss completes the activity by him/herself with no assistance from a helper. 5-Set-up or Clean-up Assistance-helper sets up or cleans up; patient completes activity. [place] assists only prior to or following the activity. 4-Supervision or Touching Assistance-helper provides verbal cues and/or touching/steadying and/or contact guard assistance as patient completes activity. Assistance may be provided throughout the activity or intermittently. 3-Partial/Moderate Assistance-helper does LESS THAN HALF the effort. [place] lifts, holds or supports trunk or limbs, but provides less than half the effort. 2-Substantial/Maximal Assistance-helper does MORE THAN HALF the effort. [place] lifts or holds trunk or limbs and provides more than half the effort. 7-Etqnsjncp-hglpxg does ALL the effort. Patient does none of the effort to complete the activity. Or, the assistance of 2 or more helpers is required for the patient to complete the activity. If activity was not attempted, code reason: 7-Patient Refused. 9-Not Applicable-not attempted and the patient did not perform the activity before the current illness, exacerbation or injury. 10-Not Attempted due to Environmental Limitations-(lack of equipment, weather restraints, etc.). 88-Not Attempted due to Medical Conditions or Safety Concerns. Transfers (B, C, W/C): 5 Roll Left to Right (QC): 6 Sit to Lying (QC): 6 Sit to Stand (QC): 6 Chair/Bak-np-Jguqh Xfer(QC): 6 Bed to/from Chair: 6 Car Transfer (QC): 5 pt requires SBA entering bed going in bed toward affected LE but Mod I entering unaffected LE in first Weight Bearing Right Lower Extremity: Right Full Weight Bearing Left Lower Extremity: Left Weight Bearing/Tolerated Gait Training Does the Patient Walk?: Yes Gait: 5 Walk 10 feet (QC): 5 Walk 50 ft with 2 Turns(QC): 5 Walk 150 ft (QC): 5 Gait Persons Needed: 1 Gait Assistive Device: FWW slow, antalgic Stair Training Stair Training: Handrails/: 2 handrails #of Steps: 4 4 Steps (QC): 4 Stairs: Pattern: Step to Level of Assist: 4 instructed in sequence and weight bearing on rails Exercises Supine Ex: Ankle pumps, Quad Set, Rolling, Glut sets, Heel Slides, Short Arc Quads, Scooting, Hip abd/add Supine Reps: 20 Seated Therapy Exercises: Ankle pumps, Sit to stand, Long arc quads, Hip flexion, Hip abd/add Seated Reps: 20 NuStep Minutes: 9 NuStep Workload: 3 Treatments toileted indep/SBA Assessment Current Status: Good Progress gives full effort PT Short Term Goals Short Term Goals Wheelchair Distance: 150' PT Publications Designer Goals Custodial Goals PT Publications Designer Goals Time Frame: Sep 24, 2019 Sit to Lying (QC): 6 Lying-Sitting on Side/Bed(QC): 6 Sit to Stand (QC): 6 Roll Left to Right (QC): 6 Chair/Ucx-nh-Bzcva Xfer(QC): 6 Car Transfer (QC): 6 Does the Patient Walk: Yes Distance: 300' Walk 10 feet (QC): 6 Walk 10ft-Uneven Surface(QC): 6 Walk 50ft with 2 Turns (QC): 6 Walk 150 ft (QC): 6 Gait Assistive Device: FWW # of Steps: 4 1 Step (curb) (QC): 6 4 Steps (QC): 6 Picking up an Object (QC): 5 PT Plan Treatment/Plan Treatment Plan: Continue Plan of Care Treatment Plan: Bed Mobility, Education, Functional Activity Anand, Functional Strength, Gait, Safety, Therapeutic Exercise, Transfers Treatment Duration: Sep 24, 2019 Frequency: At least 5 of 7 days/Wk (IRF) Estimated Hrs Per Day: 1.5 hours per day Patient and/or Family Agrees t: Yes Safety Risks/Education Patient Education: Gait Training, Transfer Techniques, Steps, Correct Positioning, Disease Process, Safety Issues Teaching Recipient: Patient Teaching Methods: Demonstration, Discussion Response to Teaching: Verbalize Understanding, Return Demonstration, Reinforcement Needed Time/GCodes Time In: 900 Time Out: 1000 Total Billed Treatment Time: 60 Total Billed Treatment 1,GT30m,FA10m,EX20m RYDER SILVER PTA Aug 30, 2019 10:02
--- NOTE | 2019-08-30 11:43 | NUR ---
provided prayer and Communion.
--- NOTE | 2019-08-30 14:50 | Therapy Group Daily Note ---
Therapy Daily Group Note Patient Education Topic Other List Below (gait and device demonstration, rehab requirements and expectations) Exercises LE Seated Exercise, UE Exercise Session Ratio (pt:therapist): 3:1 Goal of Session: Education on ARU Expectations, UE/LE Strengthing, Other (list) (gait and device education demonstrated, U&L exercises, rehab expectations) Goal Met for this Session: Yes Pt Benefit of Group: Contributions to Others, Increased Functional Strength, Recognition of Peers, Socialization Other/Notes Pt participated in group PT OT session this date. Pt ambulated to from with CGA to SBA Pts were social and shared names and hometowns as well as a joke they may recall. Pts. all participated in group U&L extremity exercises and were educated with demonstration of proper gait patterns, gait dysfunction as well as various devices . Pt. back to room after group in bed, light close by. Start Time: 13:00 Stop Time: 14:15 Total Billed Treatment Time: 75 Total Billed Treatment 1,GRP RYDER SILVER PTA Aug 30, 2019 14:50 JACOB CEE Aug 30, 2019 14:58
--- NOTE | 2019-08-30 15:42 | NUR ---
Met with patient to complete initial assessment. Patient admitted to the ARU, 08/27/19 with a L Femur Fx. Prior to hospitalization the patient was reportedly independent with ADLs and functionally mobile without an AD. She was driving, managing basic self care needs, and cared for her home. She has grab bars and a tall toilet. Patient identifies her primary contact as friend, Era Summers. She can be reached at . Patient states her PCP is Dr. Torres. Patient confirms her primary insurance provider is [facility], with supplemental coverage provided by [facility]. Patient's preferred pharmacy is [facility]. The purpose of weekly Care Team Conference discussed, patient agreeable with no concerns. Will continue to follow for discharge planning needs.
--- NOTE | 2019-08-30 15:48 | NUR ---
Reviewed weekly Care Team Conference with patient. She was agreeable to information discussed, as well as agreeable to a continued stay with review on Monday, September 04. Will continue to follow.
[2019-08-30 18:08] VITALS: BP 159/81
[2019-08-31 05:02] VITALS: BP 157/78
[2019-08-31 08:00] VITALS: BP 148/69
[2019-08-31] MEDS: amLODIPine 5 MG (NORVASC) TAB PO SCH (08:28)
[2019-08-31] MEDS: ENALAPRIL 10 MG (VASOTEC) TAB PO SCH (08:28)
[2019-08-31] MEDS: ENOXAPARIN 40 MG/0.4 ML (LOVENOX) SYR SC SCH (08:30)
[2019-08-31] MEDS: SENNA W/DOCUSATE (SENOKOT S) TABLET PO SCH ×2 (08:33→20:58)
--- NOTE | 2019-08-31 11:00 | NUR ---
INCREASED SWELLING LEFT LEG AND STARTED ON VENANCIO HOSE AND AGREEABLE TO SCD WHILE IN BED. USUALLY RATES PAIN A "2" AND NO OTHER COMPLAINTS. BP STABLE WITH ADDITION OF SECOND ANTIHYPERTENSIVE.
--- NOTE | 2019-08-31 11:40 | Physical Therapy Daily Note ---
PT Daily Note-Current Subjective Patient agrees to PT. No c/o. Pain Numeric Pain Scale: 5-Moderate Pain Location: Left Location Body Site: Hip Pain Description: Acute Mental Status Patient Orientation: Normal For Age Transfers SCALE: Activities may be completed with or without assistive devices. 9-Oemuhpjtft-fptwpeo completes the activity by him/herself with no assistance from a helper. 5-Set-up or Clean-up Assistance-helper sets up or cleans up; patient completes activity. [place] assists only prior to or following the activity. 4-Supervision or Touching Assistance-helper provides verbal cues and/or touching/steadying and/or contact guard assistance as patient completes activity. Assistance may be provided throughout the activity or intermittently. 3-Partial/Moderate Assistance-helper does LESS THAN HALF the effort. [place] lifts, holds or supports trunk or limbs, but provides less than half the effort. 2-Substantial/Maximal Assistance-helper does MORE THAN HALF the effort. [place] lifts or holds trunk or limbs and provides more than half the effort. 3-Bkjnatlad-agdhmm does ALL the effort. Patient does none of the effort to complete the activity. Or, the assistance of 2 or more helpers is required for the patient to complete the activity. If activity was not attempted, code reason: 7-Patient Refused. 9-Not Applicable-not attempted and the patient did not perform the activity before the current illness, exacerbation or injury. 10-Not Attempted due to Environmental Limitations-(lack of equipment, weather restraints, etc.). 88-Not Attempted due to Medical Conditions or Safety Concerns. Sit to Stand (QC): 5 Weight Bearing Right Lower Extremity: Right Full Weight Bearing Left Lower Extremity: Left Weight Bearing/Tolerated Gait Training Does the Patient Walk?: Yes Distance: 150' x 2 Walk 10 feet (QC): 5 Walk 50 ft with 2 Turns(QC): 5 Walk 150 ft (QC): 5 Gait Assistive Device: FWW slow, antalgic, functional gait sequence Exercises NuStep Minutes: 10 NuStep Workload: 5 (to increase and mobility) Assessment Patient progressing with treatment plan. PT to increase activity as tolerate by patient. PT Short Term Goals Short Term Goals Wheelchair Distance: 150' PT Cleaner Carpet And Upholstery Goals Cleaner Carpet And Upholstery Goals PT Cleaner Carpet And Upholstery Goals Time Frame: Sep 24, 2019 Sit to Lying (QC): 6 Lying-Sitting on Side/Bed(QC): 6 Sit to Stand (QC): 6 Roll Left to Right (QC): 6 Chair/Zfn-wy-Pntat Xfer(QC): 6 Car Transfer (QC): 6 Does the Patient Walk: Yes Distance: 300' Walk 10 feet (QC): 6 Walk 10ft-Uneven Surface(QC): 6 Walk 50ft with 2 Turns (QC): 6 Walk 150 ft (QC): 6 Gait Assistive Device: FWW # of Steps: 4 1 Step (curb) (QC): 6 4 Steps (QC): 6 Picking up an Object (QC): 5 PT Plan Treatment/Plan Treatment Plan: Continue Plan of Care Treatment Plan: Bed Mobility, Education, Functional Activity Anand, Functional Strength, Gait, Safety, Therapeutic Exercise, Transfers Treatment Duration: Sep 24, 2019 Frequency: At least 5 of 7 days/Wk (IRF) Estimated Hrs Per Day: 1.5 hours per day Patient and/or Family Agrees t: Yes Time/GCodes Time In: 1115 Time Out: 1138 Total Billed Treatment Time: 23 Total Billed Treatment 1 visit FA 13 min EX 10 min ADRIANA WALLACE PT Aug 31, 2019 11:40
--- NOTE | 2019-08-31 14:54 | PM&R Progress Note ---
Subjective HPI/CC On Admission Date Seen by Provider: Aug 31, 2019 Time Seen by Provider: 13:30 Chief complaint: Left femur fracture HPI: This is a 79yoWF that was independent with ADLs and ambulation who presented to [facility] after suffering a fall and subsequent left femur fracture, repaired in an uncomplicated manner by Dr. López. At this current time, her bowels are moving, carter cath was just discontinued and she is ready to be campos sferred to inpatient rehab to begin her recovery. She denies any chest pain or SOB, her labs remain stable, Hgb 10.0 post-op and ready to begin the intense therapy along with pain control. Currently her pain is doing well. Subjective/Events-last exam Bowels moving very well now with meds on board Pain is tolerated. Lortab taken sparingly Participating in all therapy. Doing very well overall. Visitors in room currently BP meds are back on board as home meds SCD's on and VENANCIO's knee high helping with the left lower extremity edema Conferred with RN Reviewed therapy notes Checked meds and labs Review of Systems General: Fatigue Musculoskeletal: leg pain Objective Exam Vital Signs Vital Signs Date Time Temp Pulse Resp B/P (MAP) Pulse Ox O2 Delivery O2 Flow Rate FiO2 08/31/19 09:00 Room Air 08/31/19 05:02 36.5 92 18 157/78 (104) 98 Capillary Refill : Less Than 3 Seconds General Appearance: No Apparent Distress, WD/WN, Chronically ill HEENT: PERRL/EOMI, Normal ENT Inspection, Pharynx Normal, Moist Mucous Membranes Neck: Full Range of Motion, Normal Inspection, Non Tender, Supple Respiratory: Chest Non Tender, Lungs Clear, Normal Breath Sounds, No Accessory Muscle Use, No Respiratory Distress Cardiovascular: Regular Rate, Rhythm, No Edema, No Gallop, No JVD, No Murmur Gastrointestinal: Normal Bowel Sounds, No Organomegaly, No Pulsatile Mass, Non Tender, Soft Back: Normal Inspection, No CVA Tenderness, No Vertebral Tenderness Extremity: Normal Capillary Refill, Normal Inspection, Normal Range of Motion (except left leg), Non Tender, No Calf Tenderness, Pedal Edema (left leg subtle) Neurologic/Psychiatric: Alert, Oriented x3, No Motor/Sensory Deficits, Normal Mood/Affect Skin: Normal Color, Warm/Dry Lymphatic: No Adenopathy Results/Procedures Lab Patient resulted labs reviewed. FIM Transfers Therapy Code Descriptions/Definitions Functional [place] Measure: 0=Not Assessed/NA 4=Minimal Assistance 1=Total Assistance 5=Supervision or Setup 2=Maximal Assistance 6=Modified [place] 3=Moderate Assistance 7=Complete IndependenceSCALE: Activities may be completed with or without assistive devices. 2-Bzgwneqgyq-hnjvoyx completes the activity by him/herself with no assistance from a helper. 5-Set-up or Clean-up Assistance-helper sets up or cleans up; patient completes activity. [place] assists only prior to or following the activity. 4-Supervision or Touching Assistance-helper provides verbal cues and/or touching/steadying and/or contact guard assistance as patient completes acti vity. Assistance may be provided throughout the activity or intermittently. 3-Partial/Moderate Assistance-helper does LESS THAN HALF the effort. [place] lifts, holds or supports trunk or limbs, but provides less than half the effort. 2-Substantial/Maximal Assistance-helper does MORE THAN HALF the effort. [place] lifts or holds trunk or limbs and provides more than half the effort. 3-Gmxsdtbyi-iigoat does ALL the effort. Patient does none of the effort to complete the activity. Or, the assistance of 2 or more helpers is required for the patient to complete the activity. If activity was not attempted, code reason: 7-Patient Refused. 9-Not Applicable-not attempted and the patient did not perform the activity before the current illness, exacerbation or injury. 10-Not Attempted due to Environmental Limitations-(lack of equipment, weather restraints, etc.). 88-Not Attempted due to Medical Conditions or Safety Concerns. Transfers (B, C, W/C) (FIM): 5 Roll Left to Right (QC): 6 Sit to Lying (QC): 6 Sit to Stand (QC): 5 Chair/Sxm-ju-Palct Xfer(QC): 6 Bed to/from Chair: 6 Car Transfer (QC): 5 Gait Training Does the Patient Walk?: Yes Gait (FIM): 5 Distance (FIM): 2=423-51 ft Distance: 150' x 2 Walk 10 feet (QC): 5 Walk 50 ft with 2 Turns(QC): 5 Walk 150 ft (QC): 5 Walking 10ft/uneven surface-QC: 4 Gait Persons Needed: 1 Gait Assistive Device: FWW Wheelchair Training Does the Pt Use a Wheelchair?: Yes Wheelchair Distance: 3=150 ft Distance: 150' Wheel 50 ft with 2 turns (QC): 5 Wheel 150 ft (QC): 5 Type of Wheelchair: Manual Stair Training Stair Training: Handrails/: 2 handrails #of Steps: 4 1 Step (curb) (QC): 4 4 Steps (QC): 4 12 Steps (QC): 88 Stairs: Pattern: Step to Level of Assist: 4 Balance Picking up an Object (QC): 88 ADL-Treatment Eating (QC): 6 Oral Hygiene (QC): 5 Bathing Location: L Arm, R Arm, L Upper Leg, R Upper Leg, L Lower Leg ( including foot), R Lower Leg (including foot), Chest, Abdomen, Buttocks, Perineal Area Shower/Bathe Self (QC): 4 Upper Body Dressing (QC): 5 Lower Body Dressing (QC): 3 On/Off Footwear (QC): 1 Toileting Hygiene (QC): 4 Toilet Transfer (QC): 4 Assessment/Plan Assessment and Plan Assess & Plan/Chief Complaint Assessment: Left femur fracture Post op anemia HTN restarted home meds Post op constipation now resolved 08/29/19 Left leg edema placed VENANCIO's Plan: IRF protocol Lovenox Monitor pain BM regimen to continue Pain control VENANCIO's (1) Fracture of left femur Status: Acute (2) Constipation (3) Hypertension Status: Chronic Qualifiers: Hypertension type: essential hypertension Qualified Codes: I10 - Essential (primary) hypertension (4) Postoperative anemia Status: Acute REGIS KEE DO Aug 31, 2019 14:54
[2019-08-31] MEDS: HYDROcodone/APAP 10 MG/325 MG (LORTAB) TAB PO PRN ×2 (16:14→22:25)
[2019-08-31 17:25] VITALS: BP 125/67
[2019-09-01 05:12] VITALS: BP 147/80
[2019-09-01 08:00] VITALS: BP 144/76
[2019-09-01] MEDS: amLODIPine 5 MG (NORVASC) TAB PO SCH (08:39)
[2019-09-01] MEDS: ENALAPRIL 10 MG (VASOTEC) TAB PO SCH (08:39)
[2019-09-01] MEDS: SENNA W/DOCUSATE (SENOKOT S) TABLET PO SCH ×3 (08:40→20:48)
[2019-09-01] MEDS: ENOXAPARIN 40 MG/0.4 ML (LOVENOX) SYR SC SCH (08:40)
--- NOTE | 2019-09-01 09:00 | NUR ---
LEFT LEG EDEMA MUCH IMPROVED WITH VENANCIO HOSE. STILL HAS 1+ IN LEFT FOOT. KEEPING LEGS ELEVATED. TOLERATING ACTIVITY WELL. STILL HAS DIFFICULTY IN GETTING UP FROM TOILET.
--- NOTE | 2019-09-01 09:11 | PM&R Progress Note ---
Subjective HPI/CC On Admission Date Seen by Provider: Sep 01, 2019 Time Seen by Provider: 09:15 Chief complaint: Left femur fracture HPI: This is a 79yoWF that was independent with ADLs and ambulation who presented to [facility] after suffering a fall and subsequent left femur fracture, repaired in an uncomplicated manner by Dr. López. At this current time, her bowels are moving, carter cath was just discontinued and she is ready to be campos sferred to inpatient rehab to begin her recovery. She denies any chest pain or SOB, her labs remain stable, Hgb 10.0 post-op and ready to begin the intense therapy along with pain control. Currently her pain is doing well. Subjective/Events-last exam Bowels moving very well now with meds on board Pain is tolerated. Lortab taken sparingly Participating in all therapy. Doing very well overall. BP meds are back on board as home meds Needs more work on toilet transfers and getting OOB SCD's on and VENANCIO's knee high helping with the left lower extremity edema Conferred with RN Reviewed therapy notes Checked meds and labs Review of Systems Musculoskeletal: leg pain Objective Exam Vital Signs Vital Signs Date Time Temp Pulse Resp B/P (MAP) Pulse Ox O2 Delivery O2 Flow Rate FiO2 09/01/19 05:12 36.4 81 18 147/80 (102) 98 Room Air Capillary Refill : Less Than 3 Seconds General Appearance: No Apparent Distress, WD/WN, Chronically ill HEENT: PERRL/EOMI, Normal ENT Inspection, Pharynx Normal, Moist Mucous Membranes Neck: Full Range of Motion, Normal Inspection, Non Tender, Supple Respiratory: Chest Non Tender, Lungs Clear, Normal Breath Sounds, No Accessory Muscle Use, No Respiratory Distress Cardiovascular: Regular Rate, Rhythm, No Edema, No Gallop, No JVD, No Murmur Gastrointestinal: Normal Bowel Sounds, No Organomegaly, No Pulsatile Mass, Non Tender, Soft Back: Normal Inspection, No CVA Tenderness, No Vertebral Tenderness Extremity: Normal Capillary Refill, Normal Inspection, Normal Range of Motion (except left leg), Non Tender, No Calf Tenderness, Pedal Edema (left leg subtle) Neurologic/Psychiatric: Alert, Oriented x3, No Motor/Sensory Deficits, Normal Mood/Affect Skin: Normal Color, Warm/Dry Lymphatic: No Adenopathy Results/Procedures Lab Patient resulted labs reviewed. FIM Transfers Therapy Code Descriptions/Definitions Functional [place] Measure: 0=Not Assessed/NA 4=Minimal Assistance 1=Total Assistance 5=Supervision or Setup 2=Maximal Assistance 6=Modified [place] 3=Moderate Assistance 7=Complete IndependenceSCALE: Activities may be completed with or without assistive devices. 9-Uvvuxutvgl-cfjvkps completes the activity by him/herself with no assistance from a helper. 5-Set-up or Clean-up Assistance-helper sets up or cleans up; patient completes activity. [place] assists only prior to or following the activity. 4-Supervision or Touching Assistance-helper provides verbal cues and/or touching/steadying and/or contact guard assistance as patient completes activity. Assistance may be provided throughout the activity or intermittently. 3-Partial/Moderate Assistance-helper does LESS THAN HALF the effort. [place] lifts, holds or supports trunk or limbs, but provides less than half the effort. 2-Substantial/Maximal Assistance-helper does MORE THAN HALF the effort. [place] lifts or holds trunk or limbs and provides more than half the effort. 5-Sdjjzpkzt-pergbd does ALL the effort. Patient does none of the effort to complete the activity. Or, the assistance of 2 or more helpers is required for the patient to complete the activity. If activity was not attempted, code reason: 7-Patient Refused. 9-Not Applicable-not attempted and the patient did not perform the activity before the current illness, exacerbation or injury. 10-Not Attempted due to Environmental Limitations-(lack of equipment, weather restraints, etc.). 88-Not Attempted due to Medical Conditions or Safety Concerns. Transfers (B, C, W/C) (FIM): 5 Roll Left to Right (QC): 6 Sit to Lying (QC): 6 Sit to Stand (QC): 5 Chair/Msx-yp-Nlmdp Xfer(QC): 6 Bed to/from Chair: 6 Car Transfer (QC): 5 Gait Training Does the Patient Walk?: Yes Gait (FIM): 5 Distance (FIM): 7=025-36 ft Distance: 150' x 2 Walk 10 feet (QC): 5 Walk 50 ft with 2 Turns(QC): 5 Walk 150 ft (QC): 5 Walking 10ft/uneven surface-QC: 4 Gait Persons Needed: 1 Gait Assistive Device: FWW Wheelchair Training Does the Pt Use a Wheelchair?: Yes Wheelchair Distance: 3=150 ft Distance: 150' Wheel 50 ft with 2 turns (QC): 5 Wheel 150 ft (QC): 5 Type of Wheelchair: Manual Stair Training Stair Training: Handrails/: 2 handrails #of Steps: 4 1 Step (curb) (QC): 4 4 Steps (QC): 4 12 Steps (QC): 88 Stairs: Pattern: Step to Level of Assist: 4 Balance Picking up an Object (QC): 88 ADL-Treatment Eating (QC): 6 Oral Hygiene (QC): 5 Bathing Location: L Arm, R Arm, L Upper Leg, R Upper Leg, L Lower Leg (including foot), R Lower Leg (including foot), Chest, Abdomen, Buttocks, Perineal Area Shower/Bathe Self (QC): 4 Upper Body Dressing (QC): 5 Lower Body Dressing (QC): 3 On/Off Footwear (QC): 1 Toileting Hygiene (QC): 4 Toilet Transfer (QC): 4 Assessment/Plan Assessment and Plan Assess & Plan/Chief Complaint Assessment: Left femur fracture Post op anemia HTN restarted home meds Post op constipation now resolved 08/29/19 Left leg edema placed VENANCIO's Plan: IRF protocol Lovenox Monitor pain BM regimen to continue Pain control VENANCIO's (1) Fracture of left femur Status: Acute (2) Constipation (3) Hypertension Status: Chronic Qualifiers: Hypertension type: essential hypertension Qualified Codes: I10 - Essential (primary) hypertension (4) Postoperative anemia Status: Acute REGIS KEE DO Sep 01, 2019 09:11
[2019-09-01] MEDS: HYDROcodone/APAP 10 MG/325 MG (LORTAB) TAB PO PRN ×2 (09:56→20:48)
[2019-09-01 17:10] VITALS: BP 146/76
[2019-09-02] MEDS: HYDROcodone/APAP 10 MG/325 MG (LORTAB) TAB PO PRN ×3 (03:57→20:08)
[2019-09-02 05:06] VITALS: BP 175/73
[2019-09-02 05:33] LABS: BASOPHILS # (AUTO) 0.1 10^3/uL (0.0-0.1); BASOPHILS % (AUTO) 1 % (0-10); EOSINOPHILS # (AUTO) 0.3 10^3/uL (0.0-0.3); EOSINOPHILS % (AUTO) 4 % (0-10); HEMATOCRIT 32 % (35-52); HEMOGLOBIN 10.3 G/DL (11.5-16.0); LYMPHOCYTES # (AUTO) 1.7 X 10^3 (1.0-4.0); LYMPHOCYTES % (AUTO) 23 % (12-44); MEAN CORPUSCULAR HEMOGLOBIN 30 PG (25-34); MEAN CORPUSCULAR HGB CONC 32 G/DL (32-36); MEAN CORPUSCULAR VOLUME 94 FL (80-99); MEAN PLATELET VOLUME 9.8 FL (7.4-10.4); MONOCYTES % (AUTO) 13 % (0-12); NEUTROPHILS # (AUTO) 4.3 X 10^3 (1.8-7.8); NEUTROPHILS % (AUTO) 59 % (42-75); PLATELET COUNT 316 10^3/uL (130-400); RED CELL DISTRIBUTION WIDTH 14.8 % (10.0-14.5); WHITE BLOOD COUNT 7.4 10^3/uL (4.3-11.0)
[2019-09-02 06:01] LABS: ALBUMIN 3.2 GM/DL (3.2-4.5); BILIRUBIN,TOTAL 0.6 MG/DL (0.1-1.0); CALCIUM 8.7 MG/DL (8.5-10.1); CREATININE SERUM 1.1 MG/DL (0.60-1.30); POTASSIUM 4.5 MMOL/L (3.6-5.0); TOTAL PROTEIN 5.8 GM/DL (6.4-8.2)
[2019-09-02] MEDS: amLODIPine 5 MG (NORVASC) TAB PO SCH (08:02)
[2019-09-02] MEDS: ENALAPRIL 10 MG (VASOTEC) TAB PO SCH (08:02)
[2019-09-02] MEDS: ENOXAPARIN 40 MG/0.4 ML (LOVENOX) SYR SC SCH (08:02)
--- NOTE | 2019-09-02 09:00 | NUR ---
Pt has been up for hygeine/bed changed/working with PT and walking in hallway. Pt cooperative/friendly. Incision dressing changed. No drainage/no swelling/no redness to incision on left thigh/hip. Pt did take pain medication for pain prior to PT activity. Pt tolerating well.
--- NOTE | 2019-09-02 09:01 | PM&R Progress Note ---
Subjective HPI/CC On Admission Date Seen by Provider: Sep 02, 2019 Time Seen by Provider: 08:30 Chief complaint: Left femur fracture HPI: This is a 79yoWF that was independent with ADLs and ambulation who presented to [facility] after suffering a fall and subsequent left femur fracture, repaired in an uncomplicated manner by Dr. López. At this current time, her bowels are moving, carter cath was just discontinued and she is ready to be transferred to inpatient rehab to begin her recovery. She denies any chest pain or SOB, her labs remain stable, Hgb 10.0 post-op and ready to begin the intense therapy along with pain control. Currently her pain is doing well. Subjective/Events-last exam No significant issues Venancio hose tolerated well and edema from the left leg from fracture is much improved BP is in the 150s before home BP medications given Denies any significant concerns Conferred with RN Reviewed therapy notes Checked meds and labs Review of Systems General: Fatigue Musculoskeletal: leg pain Objective Exam Vital Signs Vital Signs Date Time Temp Pulse Resp B/P (MAP) Pulse Ox O2 Delivery O2 Flow Rate FiO2 09/02/19 20:12 Room Air 09/02/19 18:15 37.0 85 18 137/74 (95) 95 Capillary Refill : Less Than 3 Seconds General Appearance: No Apparent Distress, WD/WN, Chronically ill HEENT: PERRL/EOMI, Normal ENT Inspection, Pharynx Normal, Moist Mucous Membranes Neck: Full Range of Motion, Normal Inspection, Non Tender, Supple Respiratory: Chest Non Tender, Lungs Clear, Normal Breath Sounds, No Accessory Muscle Use, No Respiratory Distress Cardiovascular: Regular Rate, Rhythm, No Edema, No Gallop, No JVD, No Murmur Gastrointestinal: Normal Bowel Sounds, No Organomegaly, No Pulsatile Mass, Non Tender, Soft Back: Normal Inspection, No CVA Tenderness, No Vertebral Tenderness Extremity: Normal Capillary Refill, Normal Inspection, Normal Range of Motion (except left leg), Non Tender, No Calf Tenderness, Pedal Edema (left leg subtle) Neurologic/Psychiatric: Alert, Oriented x3, No Motor/Sensory Deficits, Normal Mood/Affect Skin: Normal Color, Warm/Dry Lymphatic: No Adenopathy Results/Procedures Lab Laboratory Tests 09/02/19 04:40 09/02/19 04:45 Patient resulted labs reviewed. FIM Transfers Therapy Code Descriptions/Definitions Functional [place] Measure: 0=Not Assessed/NA 4=Minimal Assistance 1=Total Assistance 5=Supervision or Setup 2=Maximal Assistance 6=Modified [place] 3=Moderate Assistance 7=Complete IndependenceSCALE: Activities may be completed with or without assistive devices. 0-Eprppwrpxy-pbojyba completes the activity by him/herself with no assistance from a helper. 5-Set-up or Clean-up Assistance-helper sets up or cleans up; patient completes activity. [place] assists only prior to or following the activity. 4-Supervision or Touching Assistance-helper provides verbal cues and/or touching/steadying and/or contact guard assistance as patient completes activity. Assistance may be provided throughout the activity or intermittently. 3-Partial/Moderate Assistance-helper does LESS THAN HALF the effort. [place] lifts, holds or supports trunk or limbs, but provides less than half the effort. 2-Substantial/Maximal Assistance-helper does MORE THAN HALF the effort. [place] lifts or holds trunk or limbs and provides more than half the effort. 3-Gouoyhfyv-inkjag does ALL the effort. Patient does none of the effort to complete the activity. Or, the assistance of 2 or more helpers is required for the patient to complete the activity. If activity was not attempted, code reason: 7-Patient Refused. 9-Not Applicable-not attempted and the patient did not perform the activity before the current illness, exacerbation or injury. 10-Not Attempted due to Environmental Limitations-(lack of equipment, weather restraints, etc.). 88-Not Attempted due to Medical Conditions or Safety Concerns. Transfers (B, C, W/C) (FIM): 5 Roll Left to Right (QC): 6 Sit to Lying (QC): 6 Sit to Stand (QC): 5 Chair/[place] Xfer(QC): 6 Bed to/from Chair: 6 Car Transfer (QC): 5 Gait Training Does the Patient Walk?: Yes Gait (FIM): 5 Distance (FIM): 8=367-68 ft Distance: 150' x 2 Walk 10 feet (QC): 5 Walk 50 ft with 2 Turns(QC): 5 Walk 150 ft (QC): 5 Walking 10ft/uneven surface-QC: 4 Gait Persons Needed: 1 Gait Assistive Device: FWW Wheelchair Training Does the Pt Use a Wheelchair?: Yes Wheelchair Distance: 3=150 ft Distance: 150' Wheel 50 ft with 2 turns (QC): 5 Wheel 150 ft (QC): 5 Type of Wheelchair: Manual Stair Training Stair Training: Handrails/: 2 handrails #of Steps: 4 1 Step (curb) (QC): 4 4 Steps (QC): 4 12 Steps (QC): 88 Stairs: Pattern: Step to Level of Assist: 4 Balance Picking up an Object (QC): 88 ADL-Treatment Eating (QC): 6 Oral Hygiene (QC): 5 Bathing Location: L Arm, R Arm, L Upper Leg, R Upper Leg, L Lower Leg (including foot), R Lower Leg (including foot), Chest, Abdomen, Buttocks, Perineal Area Shower/Bathe Self (QC): 4 Upper Body Dressing (QC): 5 Lower Body Dressing (QC): 3 On/Off Footwear (QC): 1 Toileting Hygiene (QC): 4 Toilet Transfer (QC): 4 Assessment/Plan Assessment and Plan Assess & Plan/Chief Complaint Assessment: Left femur fracture Post op anemia HTN restarted home meds Post op constipation now resolved 08/29/19 Left leg edema placed VENANCIO's Plan: IRF protocol Lovenox Monitor pain BM regimen to continue Pain control VENANCIO's Labs normal (1) Fracture of left femur Status: Acute (2) Constipation (3) Hypertension Status: Chronic Qualifiers: Hypertension type: essential hypertension Qualified Codes: I10 - Essential (primary) hypertension (4) Postoperative anemia Status: Acute REGIS KEE DO Sep 02, 2019 09:01 POS
--- NOTE | 2019-09-02 09:49 | Progress Note ---
CLARISA LU MED STUDENT 09/02/19 0949: Progress Note Barriers to discharge/Estimated discharge date: * Vitals: HR 95, RR 20, BP 156/81 * Abnormal labs: Hct 32, BUN 21, glucose 107 * s/p L femur fracture repair * HTN * When seen today, her only complaint was of left leg swelling over the weekend, which improved with compression stockings and elevation. * She has had constipation which resolved with stool softeners * Her main concerns for rehab are her ability to move herself off the bed and to the bathroom on her own * PT/OT reports good progress, she is able to walk without much need for assistance, can tolerate some weight bearing on her left leg. Needs assistance with self-care ADLs * Prior to injury was independent, capable of performing all ADLs, and has accommodations at home such as tall toilet * Estimated date of discharge: September 11 LUZ MARIA KEE DO 09/02/192028: Supervisory-Addendum Brief Verification & Attestation Participated in pt care: history, MDM, physical Personally performed: exam, history, MDM, supervision of care Care discussed with: Medical Student Procedures: n/a Results interpretation: Verified all documentation Verification and Attestation of Medical Student E/M Service A medical student performed and documented this service in my presence. I reviewed and verified all information documented by the medical student and made modifications to such information, when appropriate. I personally performed the physical exam and medical decision making. Luz Maria Kee, Sep 02, 2019,20:29 CLARISA LU MED STUDENT Sep 02, 2019 09:49 LUZ MARIA VILLARREAL DO Sep 02, 2019 20:29 POS
--- NOTE | 2019-09-02 10:07 | Physical Therapy Daily Note ---
PT Daily Note-Current Subjective Pt laying Supine in bed upon arrival. Pt agrees to PT. Pain Numeric Pain Scale: 2 Location: Left Location Body Site: Thigh Pain Description: Ache Mental Status Patient Orientation: Person, Place, Time, Situation Attachments: SCD's Transfers SCALE: Activities may be completed with or without assistive devices. 4-Drfffdferl-ilxxmhf completes the activity by him/herself with no assistance from a helper. 5-Set-up or Clean-up Assistance-helper sets up or cleans up; patient completes activity. [place] assists only prior to or following the activity. 4-Supervision or Touching Assistance-helper provides verbal cues and/or touching/steadying and/or contact guard assistance as patient completes activity. Assistance may be provided throughout the activity or intermittently. 3-Partial/Moderate Assistance-helper does LESS THAN HALF the effort. [place] lifts, holds or supports trunk or limbs, but provides less than half the effort. 2-Substantial/Maximal Assistance-helper does MORE THAN HALF the effort. [place] lifts or holds trunk or limbs and provides more than half the effort. 9-Zfuikpnpb-fvstam does ALL the effort. Patient does none of the effort to complete the activity. Or, the assistance of 2 or more helpers is required for the patient to complete the activity. If activity was not attempted, code reason: 7-Patient Refused. 9-Not Applicable-not attempted and the patient did not perform the activity before the current illness, exacerbation or injury. 10-Not Attempted due to Environmental Limitations-(lack of equipment, weather restraints, etc.). 88-Not Attempted due to Medical Conditions or Safety Concerns. Roll Left to Right (QC): 5 Sit to Lying (QC): 5 Sit to Stand (QC): 4 Weight Bearing Right Lower Extremity: Right Full Weight Bearing Left Lower Extremity: Left Weight Bearing/Tolerated Gait Training Does the Patient Walk?: Yes Gait: 5 Distance: 150' x2 Walk 10 feet (QC): 5 Walk 50 ft with 2 Turns(QC): 5 Walk 150 ft (QC): 5 Gait Persons Needed: 1 Gait Assistive Device: FWW Pt walks with a slight antalgic gait but normalizing more and more with each Rx. Wheelchair Training Does the Pt Use a Wheelchair?: No Exercises Seated Therapy Exercises: Ankle pumps, Long arc quads, Hip flexion, Kicking activity, Glut set Seated Reps: 20 NuStep Minutes: 16 NuStep Workload: 3 Treatments Pt transfers from Supine to EOB at SBA then EOB to standing at [facility]. Pt ambulates in hallway using FWW at SBA. Pt uses NuStep for 16m at WL 3 then completes Seated Ex. After short RB, pt ambulates in hallway then returns to EOB to rest. Nurse takes vitals then pt transfers back to Supine in bed. Pt has all needs met, call light in hand. Assessment Pt tolerates Rx well. PT Short Term Goals Short Term Goals Wheelchair Distance: 150' PT Tumbling And Rolling Supervisor Goals [facility] Goals PT Tumbling And Rolling Supervisor Goals Time Frame: Sep 24, 2019 Sit to Lying (QC): 6 Lying-Sitting on Side/Bed(QC): 6 Sit to Stand (QC): 6 Roll Left to Right (QC): 6 Chair/Pno-yb-Lgifm Xfer(QC): 6 Car Transfer (QC): 6 Does the Patient Walk: Yes Distance: 300' Walk 10 feet (QC): 6 Walk 10ft-Uneven Surface(QC): 6 Walk 50ft with 2 Turns (QC): 6 Walk 150 ft (QC): 6 Gait Assistive Device: FWW # of Steps: 4 1 Step (curb) (QC): 6 4 Steps (QC): 6 Picking up an Object (QC): 5 PT Plan Problem List Problem List: Activity Tolerance Treatment/Plan Treatment Plan: Continue Plan of Care Treatment Plan: Bed Mobility, Education, Functional Activity Anand, Functional Strength, Gait, Safety, Therapeutic Exercise, Transfers Treatment Duration: Sep 24, 2019 Frequency: At least 5 of 7 days/Wk (IRF) Estimated Hrs Per Day: 1.5 hours per day Patient and/or Family Agrees t: Yes Safety Risks/Education Patient Education: Gait Training, Transfer Techniques, Correct Positioning, Safety Issues Teaching Recipient: Patient Teaching Methods: Discussion Response to Teaching: Verbalize Understanding Time/GCodes Time In: 900 Time Out: 1000 Total Billed Treatment Time: 60 Total Billed Treatment 1, GT (15m), FA (15m) & EX x2 (30m) LORENA HANSON SAP DATA ARCHITECT Sep 02, 2019 10:07
--- NOTE | 2019-09-02 10:11 | Occupational Ther Daily Note ---
OT Current Status-Daily Note Subjective Pt alert, lying in bed. Pt agrees to therapy. Pt stated that she had pain pills around 4am, SIMMONS checked with nrsg if it was time for her medication. Mental Status/Objective Patient Orientation: Person, Place, Time, Situation Attachments: SCD's ADL-Treatment Pt agrees to shower. Pt eating breakfast in bed, independently. Supine to EOB by self with HOB raised using bedrails. CGA for sit to stand with bed slightly elevated. Pt ambulated to bathroom using FWW with CGA. Transferred to toilet using FWW with CGA. Close SBA to complete clothing manipulation and pt sat to cleanse self. Transferred into shower using shower bench, grabbars and FWW with CGA then mod A for sit to stand from shower bench. Pt needs higher surface for easy transfers. Pt completed shower using long handle sponge, shower bench, grabbars and hand held shower, supervision. Pt leaned side to side to complete buttocks and twin area. After set up, pt able to complete upper body dressing by self. Assist to doff/don VENANCIO hose. Pt using AE to complete lower body dressing with close SBA in standing while pt hiked pants over hips. Pt sat at sink to complete oral care and grooming by self. Then ambulated around [facility] 2x's with close SBA for safety. After therapy, pt lying in bed with call light/phone in reach. All needs met in room. Therapy Code Descriptions/Definitions Functional [place] Measure: 0=Not Assessed/NA 4=Minimal Assistance 1=Total Assistance 5=Supervision or Setup 2=Maximal Assistance 6=Modified [place] 3=Moderate Assistance 7=Complete IndependenceSCALE: Activities may be completed with or without assistive devices. 2-Gvatvuxzht-xddekjw completes the activity by him/herself with no assistance from a helper. 5-Set-up or Clean-up Assistance-helper sets up or cleans up; patient completes activity. [place] assists only prior to or following the activity. 4-Supervision or Touching Assistance-helper provides verbal cues and/or touching/steadying and/or contact guard assistance as patient completes activity. Assistance may be provided throughout the activity or intermittently. 3-Partial/Moderate Assistance-helper does LESS THAN HALF the effort. [place] lifts, holds or supports trunk or limbs, but provides less than half the effort. 2-Substantial/Maximal Assistance-helper does MORE THAN HALF the effort. [place] lifts or holds trunk or limbs and provides more than half the effort. 9-Xhsmfckup-pjbnda does ALL the effort. Patient does none of the effort to complete the activity. Or, the assistance of 2 or more helpers is required for the patient to complete the activity. If activity was not attempted, code reason: 7-Patient Refused. 9-Not Applicable-not attempted and the patient did not perform the activity before the current illness, exacerbation or injury. 10-Not Attempted due to Environmental Limitations-(lack of equipment, weather restraints, etc.). 88-Not Attempted due to Medical Conditions or Safety Concerns. Eating (QC): 6 Oral Hygiene (QC): 6 Bathing Location: L Arm, R Arm, L Upper Leg, R Upper Leg, L Lower Leg (including foot), R Lower Leg (including foot), Chest, Abdomen, Buttocks, Perineal Area Shower/Bathe Self (QC): 4 Upper Body Dressing (QC): 5 Lower Body Dressing (QC): 4 Toileting Hygiene (QC): 4 Toilet Transfer (QC): 4 OT Short Term Goals Short Term Goals Time Frame: Sep 03, 2019 Bathing(FIM): 4 Upper Body Dressing(FIM): 5 Lower Body Dressing(FIM): 3 Toileting(FIM): 4 Toilet/Commode Transfer(FIM): 4 Additional Short Term Goals: 1-Demonstrate ADL Tasks, 2-Verbalize Understanding, 3-ImproveStrength/Anand 1=Demonstrate adherence to instructed precautions during ADL tasks. 2=Patient will verbalize/demonstrate understanding of assistive devices/modifications for ADL. 3=Patient will improve strength/tolerance for activity to enable patient to perform ADL's. OT Wholesaler Goals Assisted Goals Time Frame: Sep 17, 2019 Eating (QC): 6 Oral Hygiene (QC): 6 Shower/Bathe Self (QC): 6 Upper Body Dressing (QC): 6 Lower Body Dressing (QC): 6 On/Off Footwear (QC): 6 Toileting Hygiene (QC): 6 Toilet/Commode Transfer (QC): 6 Additional Goals: 1-Demonstrate ADL Tasks, 2-Verbalize Understanding, 3- ImproveStrength/Anand 1=Demonstrate adherence to instructed precautions during ADL tasks. 2=Patient will verbalize/demonstrate understanding of assistive devices/modifications for ADL. 3=Patient will improve strength/tolerance for activity to enable patient to perform ADL's. OT Education/Plan Problem List/Assessment Assessment: Decreased Activ Tolerance, Impaired Funct Balance, Impaired Self- Care Skills Discharge Recommendations Plan/Recommendations: Continue POC Treatment Plan/Plan of Care Patient would benefit from OT for education, treatment and training to promote independence in ADL's, mobility, safety and/or upper extremity function for ADL's. Plan of Care: ADL Retraining, Functional Mobility, Group Exercise/Act as Ind, UE Funct Exercise/Act Treatment Duration: Aug 29, 2019 Frequency: At least 5 of 7 days/Wk (IRF) Estimated Hrs Per Day: 1.5 hours per day Rehab Potential: Good Time/GCodes Start Time: 07:00 Stop Time: 08:30 Total Time Billed (hr/min): 90 Billed Treatment Time 1 visit-ADL 6 (90 min) JACOB CEE Sep 02, 2019 10:11
--- NOTE | 2019-09-02 13:38 | Physical Therapy Daily Note ---
PT Daily Note-Current Subjective Pt laying Supine in bed upon arrival. Pt agrees to PT. Pain Location: No Pain Reported Mental Status Patient Orientation: Person, Place, Time, Situation Transfers SCALE: Activities may be completed with or without assistive devices. 4-Uejtfaiwpi-hqnxwoj completes the activity by him/herself with no assistance from a helper. 5-Set-up or Clean-up Assistance-helper sets up or cleans up; patient completes activity. [place] assists only prior to or following the activity. 4-Supervision or Touching Assistance-helper provides verbal cues and/or touching/steadying and/or contact guard assistance as patient completes activity. Assistance may be provided throughout the activity or intermittently. 3-Partial/Moderate Assistance-helper does LESS THAN HALF the effort. [place] lifts, holds or supports trunk or limbs, but provides less than half the effort. 2-Substantial/Maximal Assistance-helper does MORE THAN HALF the effort. [place] lifts or holds trunk or limbs and provides more than half the effort. 2-Rmformhvc-tudtpe does ALL the effort. Patient does none of the effort to complete the activity. Or, the assistance of 2 or more helpers is required for the patient to complete the activity. If activity was not attempted, code reason: 7-Patient Refused. 9-Not Applicable-not attempted and the patient did not perform the activity be fore the current illness, exacerbation or injury. 10-Not Attempted due to Environmental Limitations-(lack of equipment, weather restraints, etc.). 88-Not Attempted due to Medical Conditions or Safety Concerns. Roll Left to Right (QC): 5 Sit to Lying (QC): 5 Sit to Stand (QC): 5 Weight Bearing Right Lower Extremity: Right Full Weight Bearing Left Lower Extremity: Left Weight Bearing/Tolerated Gait Training Does the Patient Walk?: Yes Gait: 5 Distance: 150' x2 Walk 10 feet (QC): 5 Walk 50 ft with 2 Turns(QC): 5 Walk 150 ft (QC): 5 Gait Persons Needed: 1 Gait Assistive Device: FWW Wheelchair Training Does the Pt Use a Wheelchair?: No Stair Training Stair Training: Handrails/: 2 handrails #of Steps: 4 1 Step (curb) (QC): 5 4 Steps (QC): 5 Stairs: Pattern: Step to Level of Assist: 5 Treatments Pt transfers from supine to standing. Pt uses restroom then ambulates in hallway. Pt ambulates 1 set of 4 steps then ambulates back to room after short RB. Pt transfers back to Supine in bed with all needs met, call light in hand. Assessment Current Status: Good Progress Pt continues to gain strength and independence of tasks. Pt still needs occasional assistance with sit to stand as fatigue sets in. PT Short Term Goals Short Term Goals Wheelchair Distance: 150' PT Costing Manager Goals Costing Manager Goals PT Halfway Goals Time Frame: Sep 24, 2019 Sit to Lying (QC): 6 Lying-Sitting on Side/Bed(QC): 6 Sit to Stand (QC): 6 Roll Left to Right (QC): 6 Chair/Nzl-rg-Ypbmv Xfer(QC): 6 Car Transfer (QC): 6 Does the Patient Walk: Yes Distance: 300' Walk 10 feet (QC): 6 Walk 10ft-Uneven Surface(QC): 6 Walk 50ft with 2 Turns (QC): 6 Walk 150 ft (QC): 6 Gait Assistive Device: FWW # of Steps: 4 1 Step (curb) (QC): 6 4 Steps (QC): 6 Picking up an Object (QC): 5 PT Plan Problem List Problem List: Activity Tolerance, Functional Strength Treatment/Plan Treatment Plan: Continue Plan of Care Treatment Plan: Bed Mobility, Education, Functional Activity Anand, Functional Strength, Gait, Safety, Therapeutic Exercise, Transfers Treatment Duration: Sep 24, 2019 Frequency: At least 5 of 7 days/Wk (IRF) Estimated Hrs Per Day: 1.5 hours per day Patient and/or Family Agrees t: Yes Safety Risks/Education Patient Education: Gait Training, Transfer Techniques, Steps, Correct Positioning, Safety Issues Teaching Recipient: Patient Teaching Methods: Discussion Response to Teaching: Verbalize Understanding Time/GCodes Time In: 1300 Time Out: 1330 Total Billed Treatment Time: 30 Total Billed Treatment 1, GT (15m) & FA (15m) LORENA HANSON NIGHT COURT MAGISTRATE Sep 02, 2019 13:38 POS
--- NOTE | 2019-09-02 13:46 | NUR ---
provided prayer and Communion.
[2019-09-02 18:15] VITALS: BP 137/74
[2019-09-02] MEDS: SENNA W/DOCUSATE (SENOKOT S) TABLET PO SCH (20:08)
--- NOTE | 2019-09-02 21:00 | NUR ---
PLEASANT AND COOPERATIVE. ONLY TRACE EDEMA IN LEFT FOOT NOW. VENANCIO HOSE WILL CONTINUE TO BE USED. LORTAB CONTROLLING LEFT HIP PAIN WELL.
[2019-09-03 05:22] VITALS: BP 142/76
[2019-09-03] MEDS: amLODIPine 5 MG (NORVASC) TAB PO SCH (07:59)
[2019-09-03] MEDS: ENALAPRIL 10 MG (VASOTEC) TAB PO SCH (07:59)
[2019-09-03] MEDS: HYDROcodone/APAP 10 MG/325 MG (LORTAB) TAB PO PRN ×2 (07:59→22:06)
[2019-09-03] MEDS: ENOXAPARIN 40 MG/0.4 ML (LOVENOX) SYR SC SCH (08:02)
[2019-09-03 08:29] VITALS: BP 146/78
[2019-09-03] MEDS: SENNA W/DOCUSATE (SENOKOT S) TABLET PO SCH ×2 (08:33→20:34)
--- NOTE | 2019-09-03 08:35 | PM&R Progress Note ---
Subjective HPI/CC On Admission Date Seen by Provider: Sep 03, 2019 Time Seen by Provider: 08:30 Chief complaint: Left femur fracture HPI: This is a 79yoWF that was independent with ADLs and ambulation who presented to [facility] after suffering a fall and subsequent left femur fracture, repaired in an uncomplicated manner by Dr. López. At this current time, her bowels are moving, carter cath was just discontinued and she is ready to be campos sferred to inpatient rehab to begin her recovery. She denies any chest pain or SOB, her labs remain stable, Hgb 10.0 post-op and ready to begin the intense therapy along with pain control. Currently her pain is doing well. Subjective/Events-last exam Moving around a lot better Feels like she is plateaued but I told her to take one day at a time line pain is well-controlled with pain medication Bowels are moving very well on stool softeners Using incentive spirometer Conferred with RN Reviewed therapy notes Checked meds and labs Review of Systems Musculoskeletal: leg pain Objective Exam Vital Signs Vital Signs Date Time Temp Pulse Resp B/P (MAP) Pulse Ox O2 Delivery O2 Flow Rate FiO2 09/03/19 08:29 92 146/78 (100) 97 Room Air 09/03/19 05:22 36.6 18 Capillary Refill : Less Than 3 Seconds General Appearance: No Apparent Distress, WD/WN, Chronically ill HEENT: PERRL/EOMI, Normal ENT Inspection, Pharynx Normal, Moist Mucous Membranes Neck: Full Range of Motion, Normal Inspection, Non Tender, Supple Respiratory: Chest Non Tender, Lungs Clear, Normal Breath Sounds, No Accessory Muscle Use, No Respiratory Distress Cardiovascular: Regular Rate, Rhythm, No Edema, No Gallop, No JVD, No Murmur Gastrointestinal: Normal Bowel Sounds, No Organomegaly, No Pulsatile Mass, Non Tender, Soft Back: Normal Inspection, No CVA Tenderness, No Vertebral Tenderness Extremity: Normal Capillary Refill, Normal Inspection, Normal Range of Motion (except left leg), Non Tender, No Calf Tenderness, Pedal Edema (left leg subtle) Neurologic/Psychiatric: Alert, Oriented x3, No Motor/Sensory Deficits, Normal Mood/Affect Skin: Normal Color, Warm/Dry Lymphatic: No Adenopathy Results/Procedures Lab Patient resulted labs reviewed. FIM Transfers Therapy Code Descriptions/Definitions Functional [place] Measure: 0=Not Assessed/NA 4=Minimal Assistance 1=Total Assistance 5=Supervision or Setup 2=Maximal Assistance 6=Modified [place] 3=Moderate Assistance 7=Complete IndependenceSCALE: Activities may be completed with or without assistive devices. 7-Ufppfmnwyt-aqfoyvk completes the activity by him/herself with no assistance from a helper. 5-Set-up or Clean-up Assistance-helper sets up or cleans up; patient completes activity. [place] assists only prior to or following the activity. 4-Supervision or Touching Assistance-helper provides verbal cues and/or touching/steadying and/or contact guard assistance as patient completes activity. Assistance may be provided throughout the activity or intermittently. 3-Partial/Moderate Assistance-helper does LESS THAN HALF the effort. [place] lifts, holds or supports trunk or limbs, but provides less than half the effort. 2-Substantial/Maximal Assistance-helper does MORE THAN HALF the effort. [place] lifts or holds trunk or limbs and provides more than half the effort. 3-Rwfzvsjwd-naorcq does ALL the effort. Patient does none of the effort to complete the activity. Or, the assistance of 2 or more helpers is required for the patient to complete the activity. If activity was not attempted, code reason: 7-Patient Refused. 9-Not Applicable-not attempted and the patient did not perform the activity before the current illness, exacerbation or injury. 10-Not Attempted due to Environmental Limitations-(lack of equipment, weather restraints, etc.). 88-Not Attempted due to Medical Conditions or Safety Concerns. Transfers (B, C, W/C) (FIM): 5 Roll Left to Right (QC): 5 Sit to Lying (QC): 5 Sit to Stand (QC): 5 Chair/Pqy-ys-Bblac Xfer(QC): 6 Bed to/from Chair: 6 Car Transfer (QC): 5 Gait Training Does the Patient Walk?: Yes Gait (FIM): 5 Distance (FIM): 7=602-64 ft Distance: 150' x2 Walk 10 feet (QC): 5 Walk 50 ft with 2 Turns(QC): 5 Walk 150 ft (QC): 5 Walking 10ft/uneven surface-QC: 4 Gait Persons Needed: 1 Gait Assistive Device: FWW Wheelchair Training Does the Pt Use a Wheelchair?: No Wheelchair Distance: 3=150 ft Distance: 150' Wheel 50 ft with 2 turns (QC): 5 Wheel 150 ft (QC): 5 Type of Wheelchair: Manual Stair Training Stair Training: Handrails/: 2 handrails #of Steps: 4 1 Step (curb) (QC): 5 4 Steps (QC): 5 12 Steps (QC): 88 Stairs: Pattern: Step to Level of Assist: 5 Balance Picking up an Object (QC): 88 ADL-Treatment Eating (QC): 6 Oral Hygiene (QC): 6 Bathing Location: L Arm, R Arm, L Upper Leg, R Upper Leg, L Lower Leg (including foot), R Lower Leg (including foot), Chest, Abdomen, Buttocks, Perineal Area Shower/Bathe Self (QC): 4 Upper Body Dressing (QC): 5 Lower Body Dressing (QC): 4 On/Off Footwear (QC): 1 Toileting Hygiene (QC): 4 Toilet Transfer (QC): 4 Assessment/Plan Assessment and Plan Assess & Plan/Chief Complaint Assessment: Left femur fracture Post op anemia HTN restarted home meds Post op constipation now resolved 08/29/19 Left leg edema placed VENANCIO's Plan: IRF protocol Lovenox Monitor pain BM regimen to continue Pain control VENANCIO's Labs normal Continue using incentive spirometer (1) Fracture of left femur Status: Acute (2) Constipation (3) Hypertension Status: Chronic Qualifiers: Hypertension type: essential hypertension Qualified Codes: I10 - Essential (primary) hypertension (4) Postoperative anemia Status: Acute REGIS KEE DO Sep 03, 2019 08:35 POS
--- NOTE | 2019-09-03 09:19 | Progress Note ---
CLARISA LU MED STUDENT 09/03/19918: Progress Note CC: s/p L femur fracture repair * Vitals: HR 84, RR 18, BP 142/76 * No new complaints today. L leg swelling improved, still some swelling in L thigh. * Did not have BM yesterday, took stool softeners and has had BM today. * Slightly frustrated by slow progress in therapy, concerned about her ability to get out of bed and off of toilet on her own. * Wants to feel confident before going home, states she will go to [facility] before going home if she isn't comfortable when discharged from here. * On auscultation, lungs CTAB, heart RRR, no murmur or gallops * 2+ pedal pulses bilaterally, no tenderness to palpation of LE LUZ MARIA KEE DO 09/03/19920: Supervisory-Addendum Brief Verification & Attestation Participated in pt care: history, MDM, physical Personally performed: exam, history, MDM, supervision of care Care discussed with: Medical Student Procedures: n/a Results interpretation: Verified all documentation Verification and Attestation of Medical Student E/M Service A medical student performed and documented this service in my presence. I reviewed and verified all information documented by the medical student and made modifications to such information, when appropriate. I personally performed the physical exam and medical decision making. Luz Maria Kee, Sep 03, 2019,09:21 CLARISA LU MED STUDENT Sep 03, 2019 09:19 LUZ MARIA VILLARREAL DO Sep 03, 2019 09:21 POS
--- NOTE | 2019-09-03 09:54 | Occupational Ther Daily Note ---
OT Current Status-Daily Note Subjective Pt in bed, agrees to therapy. Pt reports 4/10 pain in left LE. ADL-Treatment Supine to sit with SBA. Pt sit to stand with supervision from raised bed. Gait to restroom with FWW. Transfer to [facility] over toilet with close supervision. Pt able to complete hygiene, requires CGA for balance during clothing management. Pt requires min assist to stand from toilet. Transfer to walk in shower with min assist for safety. Seated bathing completed using hand held shower and long handled sponge. Pt able to wash all areas with SBA. Min assist to stand from shower bench and transfer to chair to complete dressing. Don pullover shirt with set up. Pt used educational interpreter to thread LE into underwear and pants. Min assist for sit to stand to complete pant hike. Pt donned bilateral socks with set up using sock aid. Grooming tasks completed seated at sink. Pt brushed teeth and combed hair with modified independence. Therapy Code Descriptions/Definitions Functional [place] Measure: 0=Not Assessed/NA 4=Minimal Assistance 1=Total Assistance 5=Supervision or Setup 2=Maximal Assistance 6=Modified [place] 3=Moderate Assistance 7=Complete IndependenceSCALE: Activities may be completed with or without assistive devices. 8-Dsgqgijukc-aovjncb completes the activity by him/herself with no assistance from a helper. 5-Set-up or Clean-up Assistance-helper sets up or cleans up; patient completes activity. [place] assists only prior to or following the activity. 4-Supervision or Touching Assistance-helper provides verbal cues and/or touching/steadying and/or contact guard assistance as patient completes activity. Assistance may be provided throughout the activity or intermittently. 3-Partial/Moderate Assistance-helper does LESS THAN HALF the effort. [place] lifts, holds or supports trunk or limbs, but provides less than half the effort. 2-Substantial/Maximal Assistance-helper does MORE THAN HALF the effort. [place] lifts or holds trunk or limbs and provides more than half the effort. 1-Ebewhtazt-bxgxvy does ALL the effort. Patient does none of the effort to complete the activity. Or, the assistance of 2 or more helpers is required for the patient to complete the activity. If activity was not attempted, code reason: 7-Patient Refused. 9-Not Applicable-not attempted and the patient did not perform the activity before the current illness, exacerbation or injury. 10-Not Attempted due to Environmental Limitations-(lack of equipment, weather restraints, etc.). 88-Not Attempted due to Medical Conditions or Safety Concerns. Oral Hygiene (QC): 6 Shower/Bathe Self (QC): 4 Upper Body Dressing (QC): 5 Lower Body Dressing (QC): 3 Toileting Hygiene (QC): 3 Toilet Transfer (QC): 3 Footwear QC: 5 Other Treatment Pt performed gait to therapy gym with FWW, slow pace. No LOB noted. Arm bike x12 minutes to increase overall strength and activity tolerance needed for functional task completion. Pt performed task with minimal resistance and stead pace. One brief rest break taken during task. Pt performed bilateral UE exercises to increase strength for ADLs and transfers. Pt completed four exercis es x10 reps with 2# dowel alida. Rest breaks between exercises. Graded clothespins with bilateral UE to increase riveting machine operator automatic/pinch strength. Pt returned to room and transferred to bed with supervision. Pt resting in bed with needs met after session. OT Short Term Goals Short Term Goals Time Frame: Sep 03, 2019 Bathing(FIM): 4 Upper Body Dressing(FIM): 5 Lower Body Dressing(FIM): 3 Toileting(FIM): 4 Toilet/Commode Transfer(FIM): 4 Additional Short Term Goals: 1-Demonstrate ADL Tasks, 2-Verbalize Understanding, 3-ImproveStrength/Anand 1=Demonstrate adherence to instructed precautions during ADL tasks. 2=Patient will verbalize/demonstrate understanding of assistive devices/modifications for ADL. 3=Patient will improve strength/tolerance for activity to enable patient to perform ADL's. OT Shelter Goals Supervisor Post [place] Goals Time Frame: Sep 17, 2019 Eating (QC): 6 Oral Hygiene (QC): 6 Shower/Bathe Self (QC): 6 Upper Body Dressing (QC): 6 Lower Body Dressing (QC): 6 On/Off Footwear (QC): 6 Toileting Hygiene (QC): 6 Toilet/Commode Transfer (QC): 6 Additional Goals: 1-Demonstrate ADL Tasks, 2-Verbalize Understanding, 3- ImproveStrength/Anand 1=Demonstrate adherence to instructed precautions during ADL tasks. 2=Patient will verbalize/demonstrate understanding of assistive devices/modifications for ADL. 3=Patient will improve strength/tolerance for activity to enable patient to perform ADL's. OT Education/Plan Discharge Recommendations Plan/Recommendations: Continue POC Treatment Plan/Plan of Care Patient would benefit from OT for education, treatment and training to promote independence in ADL's, mobility, safety and/or upper extremity function for ADL's. Plan of Care: ADL Retraining, Functional Mobility, Group Exercise/Act as Ind, UE Funct Exercise/Act Treatment Duration: Aug 29, 2019 Frequency: At least 5 of 7 days/Wk (IRF) Estimated Hrs Per Day: 1.5 hours per day Rehab Potential: Good Time/GCodes Start Time: 08:15 Stop Time: 09:45 Total Time Billed (hr/min): 90 Billed Treatment Time 1 visit, ADLx3(50minutes), EXx3(40minutes) MARY YORK OT Sep 03, 2019 09:54 POS
--- NOTE | 2019-09-03 11:15 | NUR ---
provided prayer and Communion.
--- NOTE | 2019-09-03 12:19 | Physical Therapy Daily Note ---
PT Daily Note-Current Subjective Pt. states at rest she has 1/10 pain but after Rx she has 5/10 pain with TRFs and gait Pain Numeric Pain Scale: 5-Moderate Pain Location: Left Location Body Site: Hip Pain Description: Ache Mental Status Patient Orientation: Normal For Age Transfers SCALE: Activities may be completed with or without assistive devices. 7-Qosgtdvxkp-eyrpoxe completes the activity by him/herself with no assistance from a helper. 5-Set-up or Clean-up Assistance-helper sets up or cleans up; patient completes activity. [place] assists only prior to or following the activity. 4-Supervision or Touching Assistance-helper provides verbal cues and/or jose brittney/steadying and/or contact guard assistance as patient completes activity. Assistance may be provided throughout the activity or intermittently. 3-Partial/Moderate Assistance-helper does LESS THAN HALF the effort. [place] lifts, holds or supports trunk or limbs, but provides less than half the effort. 2-Substantial/Maximal Assistance-helper does MORE THAN HALF the effort. [place] lifts or holds trunk or limbs and provides more than half the effort. 4-Nsidnhrkg-ztugbw does ALL the effort. Patient does none of the effort to complete the activity. Or, the assistance of 2 or more helpers is required for the patient to complete the activity. If activity was not attempted, code reason: 7-Patient Refused. 9-Not Applicable-not attempted and the patient did not perform the activity before the current illness, exacerbation or injury. 10-Not Attempted due to Environmental Limitations-(lack of equipment, weather restraints, etc.). 88-Not Attempted due to Medical Conditions or Safety Concerns. Transfers (B, C, W/C): 4 Roll Left to Right (QC): 6 Sit to Lying (QC): 6 Sit to Stand (QC): 6 Chair/Toi-tx-Bovtm Xfer(QC): 6 Bed to/from Chair: 6 Car Transfer (QC): 4 Weight Bearing Right Lower Extremity: Right Full Weight Bearing Left Lower Extremity: Left Weight Bearing/Tolerated Gait Training Does the Patient Walk?: Yes Gait: 5 Walk 10 feet (QC): 5 Walk 50 ft with 2 Turns(QC): 5 Walk 150 ft (QC): 5 Gait Persons Needed: 1 Gait Assistive Device: FWW heavy weight bearing on FWW Stair Training Stair Training: Handrails/: 2 handrails #of Steps: 4 4 Steps (QC): 4 Stairs: Pattern: Step to Level of Assist: 4 pt. demonstrated good sequence, very careful with wt bearing etc Exercises Supine Ex: Ankle pumps, Quad Set, Rolling, Glut sets, Heel Slides, Short Arc Quads, Scooting, Straight leg raise (assist Left), Hip abd/add Supine Reps: 12 (x2) Seated Therapy Exercises: Ankle pumps, Sit to stand, Long arc quads, Hip flexion, Hip abd/add Seated Reps: 15 NuStep Minutes: 15 NuStep Workload: 3 (also leg presses on Nustep x 12) Treatments toileted indep with clothing and clean up Assessment Current Status: Good Progress PT Short Term Goals Short Term Goals Wheelchair Distance: 150' PT Nursing Home Goals Nursing Home Goals PT Nursing Home Goals Time Frame: Sep 24, 2019 Sit to Lying (QC): 6 Lying-Sitting on Side/Bed(QC): 6 Sit to Stand (QC): 6 Roll Left to Right (QC): 6 Chair/Btc-in-Zmxzt Xfer(QC): 6 Car Transfer (QC): 6 Does the Patient Walk: Yes Distance: 300' Walk 10 feet (QC): 6 Walk 10ft-Uneven Surface(QC): 6 Walk 50ft with 2 Turns (QC): 6 Walk 150 ft (QC): 6 Gait Assistive Device: FWW # of Steps: 4 1 Step (curb) (QC): 6 4 Steps (QC): 6 Picking up an Object (QC): 5 PT Plan Treatment/Plan Treatment Plan: Continue Plan of Care Treatment Plan: Bed Mobility, Education, Functional Activity Anand, Functional Strength, Gait, Safety, Therapeutic Exercise, Transfers Treatment Duration: Sep 24, 2019 Frequency: At least 5 of 7 days/Wk (IRF) Estimated Hrs Per Day: 1.5 hours per day Patient and/or Family Agrees t: Yes Safety Risks/Education Patient Education: Gait Training, Transfer Techniques, Steps, Correct Positioning, Disease Process, Safety Issues Teaching Recipient: Patient Teaching Methods: Demonstration, Discussion Response to Teaching: Verbalize Understanding, Return Demonstration, Rein forcement Needed Time/GCodes Time In: 1100 Time Out: 1230 Total Billed Treatment Time: 90 Total Billed Treatment 1,GT25m,EX35m,FA30m RYDER SILVER SUPERVISING EDITOR TRAILER Sep 03, 2019 12:19 POS
--- NOTE | 2019-09-03 15:53 | NUR ---
RD FOLLOW-UP PMHx: HTN PT INTERACTION: Pt was awake and pleasant during nutrition follow-up. Pt states current appetite is good and has been eating well since last assessment. Note PO intake of >75% meals x3d, per chart review. Pt states no recent issues with n/v/d since last assessment. Pt states some issues with constipation. Note pt currently on bowel regimen of senna. ABNORMAL NUTRITION-RELATED LAB VALUES: BUN 21 (H); glu 107 (H); AST 41 (H); Pro 5.8 (L) Est. kcal needs: 3399-1818 kcal (20-25 kcal/kg) Est. Pro needs: 84-103 g Pro (1.0-1.2 g Pro/kg) PES STATEMENT: Given pt PO intake and assessment, no nutrition diagnosis at this time (NO-1.1) INTERVENTION: Continue with current diet order of Regular diet. From nutrition standpoint, pt is ready for discharge. MONITOR/EVALUATE: PO Intake; Plan of Care; Hydration Status; Weight Status; Lab Values Sheree West, MS, RD, LD Ext. [phone]
[2019-09-03 17:24] VITALS: BP 142/80
[2019-09-04 05:45] VITALS: BP 145/75
[2019-09-04] MEDS: SENNA W/DOCUSATE (SENOKOT S) TABLET PO SCH ×2 (08:05→20:12)
[2019-09-04] MEDS: ENOXAPARIN 40 MG/0.4 ML (LOVENOX) SYR SC SCH (08:05)
[2019-09-04] MEDS: ENALAPRIL 10 MG (VASOTEC) TAB PO SCH (08:05)
[2019-09-04] MEDS: amLODIPine 5 MG (NORVASC) TAB PO SCH (08:05)
[2019-09-04] MEDS: HYDROcodone/APAP 10 MG/325 MG (LORTAB) TAB PO PRN ×3 (08:42→22:27)
--- NOTE | 2019-09-04 09:06 | PM&R Progress Note ---
Subjective HPI/CC On Admission Date Seen by Provider: Sep 04, 2019 Time Seen by Provider: 08:30 Chief complaint: Left femur fracture HPI: This is a 79yoWF that was independent with ADLs and ambulation who presented to [facility] after suffering a fall and subsequent left femur fracture, repaired in an uncomplicated manner by Dr. López. At this current time, her bowels are moving, carter cath was just discontinued and she is ready to be campos sferred to inpatient rehab to begin her recovery. She denies any chest pain or SOB, her labs remain stable, Hgb 10.0 post-op and ready to begin the intense therapy along with pain control. Currently her pain is doing well. Subjective/Events-last exam She needs strength so we will be working on thighstrengthening in order to get off of the toilet, out of the shower and out of bed Pain medication is helping withthe pain Bowels are moving and already had a BM this morning Denies any other significant concerns She will definitelybe a DC home candidate as long as confidence is built Conferred with RN Reviewed therapy notes Checked meds and labs Review of Systems General: Fatigue Musculoskeletal: leg pain Objective Exam Vital Signs Vital Signs Date Time Temp Pulse Resp B/P (MAP) Pulse Ox O2 Delivery O2 Flow Rate FiO2 09/04/19 09:00 Room Air 09/04/19 05:45 36.4 89 20 145/75 (98) 96 Capillary Refill : Less Than 3 Seconds General Appearance: No Apparent Distress, WD/WN, Chronically ill HEENT: PERRL/EOMI, Normal ENT Inspection, Pharynx Normal, Moist Mucous Membranes Neck: Full Range of Motion, Normal Inspection, Non Tender, Supple Respiratory: Chest Non Tender, Lungs Clear, Normal Breath Sounds, No Accessory Muscle Use, No Respiratory Distress Cardiovascular: Regular Rate, Rhythm, No Edema, No Gallop, No JVD, No Murmur Gastrointestinal: Normal Bowel Sounds, No Organomegaly, No Pulsatile Mass, Non Tender, Soft Back: Normal Inspection, No CVA Tenderness, No Vertebral Tenderness Extremity: Normal Capillary Refill, Normal Inspection, Normal Range of Motion (except left leg), Non Tender, No Calf Tenderness, Pedal Edema (left leg subtle) Neurologic/Psychiatric: Alert, Oriented x3, No Motor/Sensory Deficits, Normal Mood/Affect Skin: Normal Color, Warm/Dry Lymphatic: No Adenopathy Results/Procedures Lab Patient resulted labs reviewed. FIM Transfers Therapy Code Descriptions/Definitions Functional [place] Measure: 0=Not Assessed/NA 4=Minimal Assistance 1=Total Assistance 5=Supervision or Setup 2=Maximal Assistance 6=Modified [place] 3=Moderate Assistance 7=Complete IndependenceSCALE: Activities may be completed with or without assistive devices. 3-Exctvgspbv-kwyeqrb completes the activity by him/herself with no assistance from a helper. 5-Set-up or Clean-up Assistance-helper sets up or cleans up; patient completes activity. [place] assists only prior to or following the activity. 4-Supervision or Touching Assistance-helper provides verbal cues and/or touching/steadying and/or contact guard assistance as patient completes activity. Assistance may be provided throughout the activity or intermittently. 3-Partial/Moderate Assistance-helper does LESS THAN HALF the effort. [place] lifts, holds or supports trunk or limbs, but provides less than half the effort. 2-Substantial/Maximal Assistance-helper does MORE THAN HALF the effort. [place] lifts or holds trunk or limbs and provides more than half the effort. 8-Vigiojdkq-fgexlz does ALL the effort. Patient does none of the effort to complete the activity. Or, the assistance of 2 or more helpers is required for the patient to complete the activity. If activity was not attempted, code reason: 7-Patient Refused. 9-Not Applicable-not attempted and the patient did not perform the activity before the current illness, exacerbation or injury. 10-Not Attempted due to Environmental Limitations-(lack of equipment, weather restraints, etc.). 88-Not Attempted due to Medical Conditions or Safety Concerns. Transfers (B, C, W/C) (FIM): 4 Roll Left to Right (QC): 6 Sit to Lying (QC): 6 Sit to Stand (QC): 6 Chair/Hcl-kt-Vzumi Xfer(QC): 6 Bed to/from Chair: 6 Car Transfer (QC): 4 Gait Training Does the Patient Walk?: Yes Gait (FIM): 5 Distance (FIM): 1=008-22 ft Distance: 150' x2 Walk 10 feet (QC): 5 Walk 50 ft with 2 Turns(QC): 5 Walk 150 ft (QC): 5 Walking 10ft/uneven surface-QC: 4 Gait Persons Needed: 1 Gait Assistive Device: FWW Wheelchair Training Does the Pt Use a Wheelchair?: No Wheelchair Distance: 3=150 ft Distance: 150' Wheel 50 ft with 2 turns (QC): 5 Wheel 150 ft (QC): 5 Type of Wheelchair: Manual Stair Training Stair Training: Handrails/: 2 handrails #of Steps: 4 1 Step (curb) (QC): 5 4 Steps (QC): 4 12 Steps (QC): 88 Stairs: Pattern: Step to Level of Assist: 4 Balance Picking up an Object (QC): 88 ADL-Treatment Eating (QC): 6 Oral Hygiene (QC): 6 Bathing Location: L Arm, R Arm, L Upper Leg, R Upper Leg, L Lower Leg (including foot), R Lower Leg (including foot), Chest, Abdomen, Buttocks, Perin eal Area Shower/Bathe Self (QC): 4 Upper Body Dressing (QC): 5 Lower Body Dressing (QC): 3 On/Off Footwear (QC): 1 Toileting Hygiene (QC): 3 Toilet Transfer (QC): 3 Assessment/Plan Assessment and Plan Assess & Plan/Chief Complaint Assessment: Left femur fracture Post op anemia HTN restarted home meds Post op constipation now resolved 08/29/19 Left leg edema placed VENANCIO's Plan: IRF protocol Lovenox Monitor pain BM regimen to continue Pain control VENANCIO's Increase confidence each day and utilize day pass Continue using incentive spirometer (1) Fracture of left femur Status: Acute (2) Constipation (3) Hypertension Status: Chronic Qualifiers: Hypertension type: essential hypertension Qualified Codes: I10 - Essential (primary) hypertension (4) Postoperative anemia Status: Acute REGIS KEE DO Sep 04, 2019 09:06 POS
--- NOTE | 2019-09-04 09:52 | Progress Note ---
CLARISA LU MED STUDENT 09/04/19 0952: Progress Note CC: s/p L femur fracture repair * Vitals: HR 89, RR 20, BP 145/75 * No new complaints today. She reports her left leg swelling has resolved completely, I did not note any on exam * Still frustrated by slow progress in gaining strength, and still apprehensive about her ability to go home. * Has sinus drainage, reports having this most mornings * Denies fevers/chills, headaches, congestion, cough, SOB, CP, palpitations, N/V, abdominal pain, constipation, diarrhea, dysuria, hematuria, paresthesias, numbness or tingling * On auscultation, lungs CTAB, heart RRR, no murmur or gallops * 2+ pedal pulses bilaterally, no tenderness to palpation of LE, no pedal edema LUZ MARIA KEE DO 09/04/19 1636: Supervisory-Addendum Brief Verification & Attestation Participated in pt care: history, MDM, physical Personally performed: exam, history, MDM, supervision of care Care discussed with: Medical Student Procedures: n/a Results interpretation: Verified all documentation Verification and Attestation of Medical Student E/M Service A medical student performed and documented this service in my presence. I reviewed and verified all information documented by the medical student and made modifications to such information, when appropriate. I personally performed the physical exam and medical decision making. Luz Maria Kee, Sep 04, 2019,16:36 CLARISA LU MED STUDENT Sep 04, 2019 09:52 LUZ MARIA VILLARREAL DO Sep 04, 2019 16:36 POS
--- NOTE | 2019-09-04 10:18 | Occupational Ther Daily Note ---
OT Current Status-Daily Note Subjective Pt in bed, agrees to therapy. Pt reports 3/10 pain in left LE. ADL-Treatment Pt supine to sit with supervision. Sit to stand with SBA with bed raised. Gait to restroom with FWW. Transfer to [facility] over toilet with SBA. Pt able to complete toileting hygiene, CGA for clothing management. Pt able to complete sit to stand from toilet with CGA and cues for hand placement and technique. Transfer to walk in shower with min assist using grab bars. Doff shirt without assist. Pt doffed lower body clothing using dressing stick. Pt completed seated bathing using hand held shower and long handled sponge for lower legs and feet. Pt able to wash all areas. Weight shifts left and right to wash buttocks. Pt requires mod assist for sit to stand from shower bench, transfers to chair with min assist. Upper body bathing completed with set up. Pt used adz worker to start underwear and pants over feet. Stood with CGA for balance during pant hike. Pt donned socks with set up using sock aid. Grooming tasks completed seated at sink with modified independence. Therapy Code Descriptions/Definitions Functional [place] Measure: 0=Not Assessed/NA 4=Minimal Assistance 1=Total Assistance 5=Supervision or Setup 2=Maximal Assistance 6=Modified [place] 3=Moderate Assistance 7=Complete IndependenceSCALE: Activities may be completed with or without assistive devices. 1-Hjwgbdsgiq-aizovdi completes the activity by him/herself with no assistance from a helper. 5-Set-up or Clean-up Assistance-helper sets up or cleans up; patient completes activity. [place] assists only prior to or following the activity. 4-Supervision or Touching Assistance-helper provides verbal cues and/or touching/steadying and/or contact guard assistance as patient completes activity. Assistance may be provided throughout the activity or intermittently. 3-Partial/Moderate Assistance-helper does LESS THAN HALF the effort. [place] lifts, holds or supports trunk or limbs, but provides less than half the effort. 2-Substantial/Maximal Assistance-helper does MORE THAN HALF the effort. [place] lifts or holds trunk or limbs and provides more than half the effort. 0-Zrrwpdlnx-udvyfj does ALL the effort. Patient does none of the effort to complete the activity. Or, the assistance of 2 or more helpers is required for the patient to complete the activity. If activity was not attempted, code reason: 7-Patient Refused. 9-Not Applicable-not attempted and the patient did not perform the activity before the current illness, exacerbation or injury. 10-Not Attempted due to Environmental Limitations-(lack of equipment, weather restraints, etc.). 88-Not Attempted due to Medical Conditions or Safety Concerns. Oral Hygiene (QC): 6 Shower/Bathe Self (QC): 4 Upper Body Dressing (QC): 5 Lower Body Dressing (QC): 4 Toileting Hygiene (QC): 4 Toilet Transfer (QC): 3 Other Treatment Pt completed bilateral UE exercises to increase strength needed for ADLs and transfers. Pt performed three exercises x10 reps with mild resistance (yellow) theraband. Rest breaks between exercises. Occasional cues required for proper exercise technique. Pt sitting in chair with needs met after session. OT Short Term Goals Short Term Goals Time Frame: Sep 03, 2019 Bathing(FIM): 4 Upper Body Dressing(FIM): 5 Lower Body Dressing(FIM): 3 Toileting(FIM): 4 Toilet/Commode Transfer(FIM): 4 Additional Short Term Goals: 1-Demonstrate ADL Tasks, 2-Verbalize Understanding, 3-ImproveStrength/Anand 1=Demonstrate adherence to instructed precautions during ADL tasks. 2=Patient will verbalize/demonstrate understanding of assistive devices/modifications for ADL. 3=Patient will improve strength/tolerance for activity to enable patient to perform ADL's. OT Medical Parasitologist Goals [facility] Goals Time Frame: Sep 17, 2019 Eating (QC): 6 Oral Hygiene (QC): 6 Shower/Bathe Self (QC): 6 Upper Body Dressing (QC): 6 Lower Body Dressing (QC): 6 On/Off Footwear (QC): 6 Toileting Hygiene (QC): 6 Toilet/Commode Transfer (QC): 6 Additional Goals: 1-Demonstrate ADL Tasks, 2-Verbalize Understanding, 3- ImproveStrength/Anand 1=Demonstrate adherence to instructed precautions during ADL tasks. 2=Patient will verbalize/demonstrate understanding of assistive devices/modifications for ADL. 3=Patient will improve strength/tolerance for activity to enable patient to perform ADL's. OT Education/Plan Discharge Recommendations Plan/Recommendations: Continue POC Treatment Plan/Plan of Care Patient would benefit from OT for education, treatment and training to promote independence in ADL's, mobility, safety and/or upper extremity function for ADL's. Plan of Care: ADL Retraining, Functional Mobility, Group Exercise/Act as Ind, UE Funct Exercise/Act Treatment Duration: Aug 29, 2019 Frequency: At least 5 of 7 days/Wk (IRF) Estimated Hrs Per Day: 1.5 hours per day Rehab Potential: Good Time/GCodes Start Time: 08:00 Stop Time: 09:00 Total Time Billed (hr/min): 60 Billed Treatment Time 1 visit, ADLx3(50minutes), EX(10minutes) MARY YORK OT Sep 04, 2019 10:18 POS
--- NOTE | 2019-09-04 11:55 | Physical Therapy Daily Note ---
PT Daily Note-Current Subjective Pt. agreeable to Rx. States she wants to stay 10 more days so she can" build her confidence". Pt. c/o 04/15 pain in Left thigh area Pain Numeric Pain Scale: 6 Location: Left Location Body Site: Thigh Pain Description: Ache Mental Status Patient Orientation: Normal For Age Transfers SCALE: Activities may be completed with or without assistive devices. 6-Ewqkqsmkri-pfjcolz completes the activity by him/herself with no assistance from a helper. 5-Set-up or Clean-up Assistance-helper sets up or cleans up; patient completes activity. [place] assists only prior to or following the activity. 4-Supervision or Touching Assistance-helper provides verbal cues and/or touching/steadying and/or contact guard assistance as patient completes activity. Assistance may be provided throughout the activity or intermittently. 3-Partial/Moderate Assistance-helper does LESS THAN HALF the effort. [place] lifts, holds or supports trunk or limbs, but provides less than half the effort. 2-Substantial/Maximal Assistance-helper does MORE THAN HALF the effort. [place] lifts or holds trunk or limbs and provides more than half the effort. 0-Nidqmxbuc-fdpnat does ALL the effort. Patient does none of the effort to complete the activity. Or, the assistance of 2 or more helpers is required for the patient to complete the activity. If activity was not attempted, code reason: 7-Patient Refused. 9-Not Applicable-not attempted and the patient did not perform the activity before the current illness, exacerbation or injury. 10-Not Attempted due to Environmental Limitations-(lack of equipment, weather restraints, etc.). 88-Not Attempted due to Medical Conditions or Safety Concerns. Roll Left to Right (QC): 6 Sit to Lying (QC): 6 Sit to Stand (QC): 6 Patient required some assistance to stand towards end of treatment as LE fatigued. Weight Bearing Right Lower Extremity: Right Full Weight Bearing Left Lower Extremity: Left Weight Bearing/Tolerated Gait Training Does the Patient Walk?: Yes Gait: 5 Distance: 150' x2 Walk 10 feet (QC): 5 Walk 50 ft with 2 Turns(QC): 5 Walk 150 ft (QC): 5 Gait Assistive Device: FWW Step through pattern, antalgic gait, weight bearing through UEs on walker. Stair Training Stair Training: Handrails/: 2 handrails #of Steps: 4 1 Step (curb) (QC): 4 Stairs: Pattern: Step to Patient hesitant to weight bear fully on affect LE during stairs Exercises Supine Ex: Ankle pumps, Pelvic tilt, Quad Set, Glut sets, Heel Slides, Straight leg raise, Hip abd/add Supine Reps: 10 Standing: Hamstring curls, Heel/toe raises, 3 way Ex=Flex, Abd, Ext, Marching Standing Reps: 10 (2 sets) NuStep Minutes: 15 NuStep Workload: 4 Assessment Patient was able to remember and perform all mat level exercises without reminders, except SLR, and did not require assistance to perform exercises. Patient performed one set of 4 stairs with a step to pattern and only minimal assistance and guarding. Patient demonstrated hesitancy to fully weight bear on affected extremity with ascending and descending stairs. Patient performed walker mobility with sidestepping, backwards walking, and turning independently. PT Short Term Goals Short Term Goals Wheelchair Distance: 150' PT Fdc Goals Data Processing Mechanic Goals PT Fdc Goals Time Frame: Sep 24, 2019 Sit to Lying (QC): 6 Lying-Sitting on Side/Bed(QC): 6 Sit to Stand (QC): 6 Roll Left to Right (QC): 6 Chair/Jgw-lk-Nmtuf Xfer(QC): 6 Car Transfer (QC): 6 Does the Patient Walk: Yes Distance: 300' Walk 10 feet (QC): 6 Walk 10ft-Uneven Surface(QC): 6 Walk 50ft with 2 Turns (QC): 6 Walk 150 ft (QC): 6 Gait Assistive Device: FWW # of Steps: 4 1 Step (curb) (QC): 6 4 Steps (QC): 6 Picking up an Object (QC): 5 PT Plan Treatment/Plan Treatment Plan: Continue Plan of Care Treatment Plan: Bed Mobility, Education, Functional Activity Anand, Functional Strength, Gait, Safety, Therapeutic Exercise, Transfers Treatment Duration: Sep 24, 2019 Frequency: At least 5 of 7 days/Wk (IRF) Estimated Hrs Per Day: 1.5 hours per day Patient and/or Family Agrees t: Yes Safety Risks/Education Patient Education: Gait Training, Steps, Disease Process, Safety Issues Teaching Recipient: Patient Teaching Methods: Demonstration, Discussion Response to Teaching: Verbalize Understanding, Return Demonstration Time/GCodes Time In: 1100 Time Out: 1200 Total Billed Treatment Time: 60 Total Billed Treatment 1 visit EX x2 30min FA 15min GT 15min RYDER SILVER CLOTH MEASURER Sep 04, 2019 11:55 POS
[2019-09-04] MEDS ORDERED: MICONAZOLE 2% POWDER (DESENEX AF) 90 GM TOP SCH (13:45)
--- NOTE | 2019-09-04 14:44 | Therapy Group Daily Note ---
Therapy Daily Group Note Patient Education Topic Other List Below (memory, ARU description) Exercises LE Seated Exercise, UE Exercise Session Ratio (pt:therapist): 3:1 Goal of Session: Education on ARU Expectations, Memory Strategies, UE/LE Strengthing Goal Met for this Session: Yes Pt Benefit of Group: Contributions to Others, Increased Functional Strength, Improved Cognition, Recognition of Peers, Socialization Other/Notes Pt ambulated using FWW to ARU [facility] area for OT/PT group. Group consisted of introductions (name, place living, favorite article of clothing), memory education, memory tasks, peer led UE/LE seated exercises and ARU description. Pt introduced self appropriately then listened to peers' introduction. Pt acknowledged understanding of educational topics by giving personal strategies. Pt led UE/LE seated exercises by using card prompts and directing peers on correct technique and amount of reps. Pt was able to complete all exercises. Pt was able to complete memory task appropriately. Start Time: 13:00 Stop Time: 14:15 Total Billed Treatment Time: 75 Total Billed Treatment 1-GRP JACOB CEE Sep 04, 2019 14:43 POS
[2019-09-04 18:00] VITALS: BP 153/67
[2019-09-05 05:44] VITALS: BP 168/73
--- NOTE | 2019-09-05 07:37 | Occupational Ther Daily Note ---
OT Current Status-Daily Note Subjective Pt alert, lying in bed. Pt agrees to therapy. Pt does not c/o pain, does ask for pain meds from nrsg when in room. Mental Status/Objective Patient Orientation: Person, Place, Time, Situation ADL-Treatment Pt agrees to shower. Supine to EOB with HOB raised, modified independent. With raised surface pt min A for sit <--> stand, mod A for low surface. Pt ambulated to bathroom and transferred to toilet with supervision, min A to [place] [facility] Pt complete toileting and clothing manipulation with CGA using FWW and grabbars. Using AE to doff/don socks over feet. Pt completed shower with supervision, leaning side to side to cleanse buttocks and cleansing all other areas in sitting. Mod A to stand from shower bench. SPT using grabbars and w/c, CGA. Pt completed upper body dressing after set up, lower body dressing with AE and SBA to hike pants over hips in standing. Modified independence to complete oral care and grooming sitting at sink. After therapy, pt left in care of PT. All needs met. Therapy Code Descriptions/Definitions Functional [place] Measure: 0=Not Assessed/NA 4=Minimal Assistance 1=Total Assistance 5=Supervision or Setup 2=Maximal Assistance 6=Modified [place] 3=Moderate Assistance 7=Complete IndependenceSCALE: Activities may be completed with or without assistive devices. 6-Nygmqhmjaw-bzjjjjr completes the activity by him/herself with no assistance from a helper. 5-Set-up or Clean-up Assistance-helper sets up or cleans up; patient completes activity. [place] assists only prior to or following the activity. 4-Supervision or Touching Assistance-helper provides verbal cues and/or touching/steadying and/or contact guard assistance as patient completes activity. Assistance may be provided throughout the activity or intermittently. 3-Partial/Moderate Assistance-helper does LESS THAN HALF the effort. [place] lifts, holds or supports trunk or limbs, but provides less than half the effort. 2-Substantial/Maximal Assistance-helper does MORE THAN HALF the effort. [place] lifts or holds trunk or limbs and provides more than half the effort. 9-Ktrvfiakg-fppmaf does ALL the effort. Patient does none of the effort to complete the activity. Or, the assistance of 2 or more helpers is required for the patient to complete the activity. If activity was not attempted, code reason: 7-Patient Refused. 9-Not Applicable-not attempted and the patient did not perform the activity before the current illness, exacerbation or injury. 10-Not Attempted due to Environmental Limitations-(lack of equipment, weather restraints, etc.). 88-Not Attempted due to Medical Conditions or Safety Concerns. Oral Hygiene (QC): 6 Shower/Bathe Self (QC): 4 Upper Body Dressing (QC): 5 Lower Body Dressing (QC): 4 Toileting Hygiene (QC): 4 Toilet Transfer (QC): 3 Footwear (QC) 5 OT Short Term Goals Short Term Goals Time Frame: Sep 03, 2019 Bathing(FIM): 4 Upper Body Dressing(FIM): 5 Lower Body Dressing(FIM): 3 Toileting(FIM): 4 Toilet/Commode Transfer(FIM): 4 Additional Short Term Goals: 1-Demonstrate ADL Tasks, 2-Verbalize Understanding, 3-ImproveStrength/Anand 1=Demonstrate adherence to instructed precautions during ADL tasks. 2=Patient will verbalize/demonstrate understanding of assistive devices/modifications for ADL. 3=Patient will improve strength/tolerance for activity to enable patient to perform ADL's. OT Electrician Machine Shop Goals Electrician Machine Shop Goals Time Frame: Sep 17, 2019 Eating (QC): 6 Oral Hygiene (QC): 6 Shower/Bathe Self (QC): 6 Upper Body Dressing (QC): 6 Lower Body Dressing (QC): 6 On/Off Footwear (QC): 6 Toileting Hygiene (QC): 6 Toilet/Commode Transfer (QC): 6 Additional Goals: 1-Demonstrate ADL Tasks, 2-Verbalize Understanding, 3- ImproveStrength/Anand 1=Demonstrate adherence to instructed precautions during ADL tasks. 2=Patient will verbalize/demonstrate understanding of assistive devices/modifications for ADL. 3=Patient will improve strength/tolerance for activity to enable patient to perform ADL's. OT Education/Plan Problem List/Assessment Assessment: Impaired Self-Care Skills, Restricted Funct UE ROM Discharge Recommendations Plan/Recommendations: Continue POC Treatment Plan/Plan of Care Patient would benefit from OT for education, treatment and training to promote independence in ADL's, mobility, safety and/or upper extremity function for ADL's. Plan of Care: ADL Retraining, Functional Mobility, Group Exercise/Act as Ind, UE Funct Exercise/Act Treatment Duration: Aug 29, 2019 Frequency: At least 5 of 7 days/Wk (IRF) Estimated Hrs Per Day: 1.5 hours per day Rehab Potential: Good Time/GCodes Start Time: 07:00 Stop Time: 08:00 Total Time Billed (hr/min): 60 Billed Treatment Time 1 visit-ADL 4 (60 min) JACOB CEE Sep 05, 2019 07:37 POS
[2019-09-05] MEDS: HYDROcodone/APAP 10 MG/325 MG (LORTAB) TAB PO PRN ×2 (08:13→23:23)
[2019-09-05] MEDS: SENNA W/DOCUSATE (SENOKOT S) TABLET PO SCH ×2 (09:07→21:13)
[2019-09-05] MEDS: ENALAPRIL 10 MG (VASOTEC) TAB PO SCH (09:13)
[2019-09-05] MEDS: amLODIPine 5 MG (NORVASC) TAB PO SCH (09:13)
[2019-09-05] MEDS: ENOXAPARIN 40 MG/0.4 ML (LOVENOX) SYR SC SCH (09:14)
--- NOTE | 2019-09-05 09:26 | Physical Therapy Daily Note ---
PT Daily Note-Current Subjective Pt laying Supine in bed upon arrival. Pt agrees to PT. Pain Numeric Pain Scale: 3 Location: Left Location Body Site: Thigh Pain Description: Ache Mental Status Patient Orientation: Person, Place, Time, Situation Transfers SCALE: Activities may be completed with or without assistive devices. 4-Daujcveozd-hmqjfwr completes the activity by him/herself with no assistance from a helper. 5-Set-up or Clean-up Assistance-helper sets up or cleans up; patient completes activity. [place] assists only prior to or following the activity. 4-Supervision or Touching Assistance-helper provides verbal cues and/or touching/steadying and/or contact guard assistance as patient completes activity. Assistance may be provided throughout the activity or intermittently. 3-Partial/Moderate Assistance-helper does LESS THAN HALF the effort. [place] lifts, holds or supports trunk or limbs, but provides less than half the effort. 2-Substantial/Maximal Assistance-helper does MORE THAN HALF the effort. [place] lifts or holds trunk or limbs and provides more than half the effort. 7-Obwusqkxl-ldvmwc does ALL the effort. Patient does none of the effort to co mplete the activity. Or, the assistance of 2 or more helpers is required for the patient to complete the activity. If activity was not attempted, code reason: 7-Patient Refused. 9-Not Applicable-not attempted and the patient did not perform the activity before the current illness, exacerbation or injury. 10-Not Attempted due to Environmental Limitations-(lack of equipment, weather restraints, etc.). 88-Not Attempted due to Medical Conditions or Safety Concerns. Roll Left to Right (QC): 5 Sit to Lying (QC): 5 Sit to Stand (QC): 4 Weight Bearing Right Lower Extremity: Right Full Weight Bearing Left Lower Extremity: Left Weight Bearing/Tolerated Gait Training Does the Patient Walk?: Yes Gait: 5 Distance: 150' Walk 10 feet (QC): 5 Walk 50 ft with 2 Turns(QC): 5 Walk 150 ft (QC): 5 Gait Persons Needed: 1 Gait Assistive Device: FWW Pt walks gingerly and is encouraged to WBAT. Wheelchair Training Does the Pt Use a Wheelchair?: No Exercises Supine Ex: Ankle pumps, Quad Set, Glut sets, Heel Slides, Short Arc Quads, St raight leg raise, Hip abd/add Supine Reps: 20 NuStep Minutes: 15 NuStep Workload: 6 Treatments Pt transfers to standing then ambulates in hallway. Pt uses NuStep for 15m at WL 6 then completes Supine Ex on mat. Pt completes 1 set of 4 steps then takes RB before returning to room to rest at end of Rx. Pt has all needs met, call light in hand. Assessment Current Status: Good Progress Pt still reporting pain and walks gingerly at times. Pt is gaining strength and activity tolerance for improved performance during Rx. PT Short Term Goals Short Term Goals Wheelchair Distance: 150' PT Assisted Goals Manager Inpatient Goals PT Assisted Goals Time Frame: Sep 24, 2019 Sit to Lying (QC): 6 Lying-Sitting on Side/Bed(QC): 6 Sit to Stand (QC): 6 Roll Left to Right (QC): 6 Chair/Ald-bl-Pkfbj Xfer(QC): 6 Car Transfer (QC): 6 Does the Patient Walk: Yes Distance: 300' Walk 10 feet (QC): 6 Walk 10ft-Uneven Surface(QC): 6 Walk 50ft with 2 Turns (QC): 6 Walk 150 ft (QC): 6 Gait Assistive Device: FWW # of Steps: 4 1 Step (curb) (QC): 6 4 Steps (QC): 6 Picking up an Object (QC): 5 PT Plan Problem List Problem List: Activity Tolerance, Functional Strength, Gait Treatment/Plan Treatment Plan: Continue Plan of Care Treatment Plan: Bed Mobility, Education, Functional Activity Anand, Functional Strength, Gait, Safety, Therapeutic Exercise, Transfers Treatment Duration: Sep 24, 2019 Frequency: At least 5 of 7 days/Wk (IRF) Estimated Hrs Per Day: 1.5 hours per day Patient and/or Family Agrees t: Yes Safety Risks/Education Patient Education: Gait Training, Transfer Techniques, Steps, Correct Positioning, Safety Issues Teaching Recipient: Patient Teaching Methods: Discussion Response to Teaching: Verbalize Understanding Time/GCodes Time In: 800 Time Out: 900 Total Billed Treatment Time: 60 Total Billed Treatment 1, GT (15m), EX x2 (30m) & FA (15m) LORENA HANSON LEAD PROCESS ENGINEER Sep 05, 2019 09:26 POS
--- NOTE | 2019-09-05 10:01 | Progress Note ---
CLARISA LU MED STUDENT 09/05/19 1001: Progress Note CC: s/p L femur fracture repair * Vitals: HR 91, RR 18, BP 168/73 * No new complaints today. * Still somewhat frustrated by slow progress in gaining strength, but seems to be becoming more optimistic. * Continues to have sinus drainage that sometimes causes cough, reports having this most mornings. * Has a wedding she could attend this weekend, apprehensive about going, will be encouraged to attend. * Denies fevers/chills, headaches, congestion, SOB, CP, N/V, abdominal pain, constipation, diarrhea, dysuria, frequency, paresthesias, numbness, or tingl ing. * On auscultation, lungs CTAB, heart RRR, no murmur or gallops. * 2+ pedal pulses bilaterally, no tenderness to palpation of LE, no LE edema. LUZ MARIA KEE DO 09/06/19 0827: Supervisory-Addendum Brief Verification & Attestation Participated in pt care: history, MDM, physical Personally performed: exam, history, MDM, supervision of care Care discussed with: Medical Student Procedures: n/a Results interpretation: Verified all documentation Verification and Attestation of Medical Student E/M Service A medical student performed and documented this service in my presence. I reviewed and verified all information documented by the medical student and made modifications to such information, when appropriate. I personally performed the physical exam and medical decision making. Luz Maria Kee, Sep 06, 2019,08:27 CLARISA LU MED STUDENT Sep 05, 2019 10:01 LUZ MARIA VILLARREAL DO Sep 06, 2019 08:27 POS
--- NOTE | 2019-09-05 11:55 | NUR ---
Reviewed weekly Care Team Conference with patient. She was agreeable to information discussed, as well as agreeable to discharge date of September 10. Patient does state she is working on her confidence when being mobile and/or working with therapy. Discussed the possibility of taking a day pass, either Monday or Monday. Patient undecided, at this time. Will check back with patient, prior to the weekend, to see if she has chosen to proceed with a day pass. Offered patient to move to Independent Living Room, she is agreeable. Patient agreeable to recommendation of hip kit; states she will have friend purchase it for her, prior to dismissal. Patient states she would like the hip kit to be purchased from [facility]. Patient agreeable to [facility] PT/OT; however, she is unsure as to which provider she would like to utilize. This worker to provide her with a choice list. Will continue to follow for discharge planning.
--- NOTE | 2019-09-05 13:31 | PM&R Progress Note ---
Subjective HPI/CC On Admission Date Seen by Provider: Sep 05, 2019 Time Seen by Provider: 09:00 Chief complaint: Left femur fracture HPI: This is a 79yoWF that was independent with ADLs and ambulation who presented to [facility] after suffering a fall and subsequent left femur fracture, repaired in an uncomplicated manner by Dr. López. At this current time, her bowels are moving, carter cath was just discontinued and she is ready to be campos sferred to inpatient rehab to begin her recovery. She denies any chest pain or SOB, her labs remain stable, Hgb 10.0 post-op and ready to begin the intense therapy along with pain control. Currently her pain is doing well. Subjective/Events-last exam Pt doing very well. Gaining more confidence. Had a BM yesterday. Pain is good. Day pass will be discussed with the Pt, that would help her confidence. Conferred with RN Reviewed therapy notes Checked meds and labs Review of Systems General: Fatigue Musculoskeletal: leg pain Objective Exam Vital Signs Vital Signs Date Time Temp Pulse Resp B/P (MAP) Pulse Ox O2 Delivery O2 Flow Rate FiO2 09/06/19 05:16 36.6 85 18 152/86 (108) 96 Room Air Capillary Refill : Less Than 3 Seconds General Appearance: No Apparent Distress, WD/WN, Chronically ill HEENT: PERRL/EOMI, Normal ENT Inspection, Pharynx Normal, Moist Mucous Membranes Neck: Full Range of Motion, Normal Inspection, Non Tender, Supple Respiratory: Chest Non Tender, Lungs Clear, Normal Breath Sounds, No Accessory Muscle Use, No Respiratory Distress Cardiovascular: Regular Rate, Rhythm, No Edema, No Gallop, No JVD, No Murmur Gastrointestinal: Normal Bowel Sounds, No Organomegaly, No Pulsatile Mass, Non Tender, Soft Back: Normal Inspection, No CVA Tenderness, No Vertebral Tenderness Extremity: Normal Capillary Refill, Normal Inspection, Normal Range of Motion (except left leg), Non Tender, No Calf Tenderness, Pedal Edema (left leg subtle) Neurologic/Psychiatric: Alert, Oriented x3, No Motor/Sensory Deficits, Normal Mood/Affect Skin: Normal Color, Warm/Dry Lymphatic: No Adenopathy Results/Procedures Lab Patient resulted labs reviewed. FIM Transfers Therapy Code Descriptions/Definitions Functional [place] Measure: 0=Not Assessed/NA 4=Minimal Assistance 1=Total Assistance 5=Supervision or Setup 2=Maximal Assistance 6=Modified [place] 3=Moderate Assistance 7=Complete IndependenceSCALE: Activities may be completed with or without assistive devices. 0-Gxnligorio-iewwnio completes the activity by him/herself with no assistance from a helper. 5-Set-up or Clean-up Assistance-helper sets up or cleans up; patient completes activity. [place] assists only prior to or following the activity. 4-Supervision or Touching Assistance-helper provides verbal cues and/or touching/steadying and/or contact guard assistance as patient completes activity. Assistance may be provided throughout the activity or intermittently. 3-Partial/Moderate Assistance-helper does LESS THAN HALF the effort. [place] lifts, holds or supports trunk or limbs, but provides less than half the effort. 2-Substantial/Maximal Assistance-helper does MORE THAN HALF the effort. [place] lifts or holds trunk or limbs and provides more than half the effort. 7-Fvrlmdztb-uwpgjq does ALL the effort. Patient does none of the effort to complete the activity. Or, the assistance of 2 or more helpers is required for the patient to complete the activity. If activity was not attempted, code reason: 7-Patient Refused. 9-Not Applicable-not attempted and the patient did not perform the activity before the current illness, exacerbation or injury. 10-Not Attempted due to Environmental Limitations-(lack of equipment, weather restraints, etc.). 88-Not Attempted due to Medical Conditions or Safety Concerns. Transfers (B, C, W/C) (FIM): 4 Roll Left to Right (QC): 6 Sit to Lying (QC): 6 Sit to Stand (QC): 6 Chair/Jbn-vg-Gfxhs Xfer(QC): 6 Bed to/from Chair: 6 Car Transfer (QC): 4 Gait Training Does the Patient Walk?: Yes Gait (FIM): 5 Distance (FIM): 9=164-32 ft Distance: 150' x2 Walk 10 feet (QC): 5 Walk 50 ft with 2 Turns(QC): 5 Walk 150 ft (QC): 5 Walking 10ft/uneven surface-QC: 4 Gait Persons Needed: 1 Gait Assistive Device: FWW Wheelchair Training Does the Pt Use a Wheelchair?: Yes Wheelchair Distance: 3=150 ft Distance: 150' Wheel 50 ft with 2 turns (QC): 5 Wheel 150 ft (QC): 5 Type of Wheelchair: Manual Stair Training Stair Training: Handrails/: 2 handrails #of Steps: 4 1 Step (curb) (QC): 4 4 Steps (QC): 4 12 Steps (QC): 88 Stairs: Pattern: Step to Level of Assist: 4 Balance Picking up an Object (QC): 88 ADL-Treatment Eating (QC): 6 Oral Hygiene (QC): 6 Bathing Location: L Arm, R Arm, L Upper Leg, R Upper Leg, L Lower Leg (including foot), R Lower Leg (including foot), Chest, Abdomen, Buttocks, Perineal Area Shower/Bathe Self (QC): 4 Upper Body Dressing (QC): 5 Lower Body Dressing (QC): 4 On/Off Footwear (QC): 1 Toileting Hygiene (QC): 4 Toilet Transfer (QC): 3 Assessment/Plan Assessment and Plan Assess & Plan/Chief Complaint Assessment: Left femur fracture Post op anemia HTN restarted home meds Post op constipation now resolved 08/29/19 Left leg edema placed VENANCIO's Plan: IRF protocol Lovenox Monitor pain BM regimen to continue Pain control VENANCIO's Increase confidence each day and utilize day pass Continue using incentive spirometer (1) Fracture of left femur Status: Acute (2) Constipation (3) Hypertension Status: Chronic Qualifiers: Hypertension type: essential hypertension Qualified Codes: I10 - Essential (primary) hypertension (4) Postoperative anemia Status: Acute REGIS KEE DO Sep 05, 2019 13:31 POS
--- NOTE | 2019-09-05 13:33 | Occupational Ther Daily Note ---
OT Current Status-Daily Note Subjective Pt alert, sitting in recliner. Pt agrees to therapy. No c/o pain at this time. Mental Status/Objective Patient Orientation: Person, Place, Time, Situation ADL-Treatment Sit to stand from recliner, SBA. Pt ambulated to bathroom and completed toileting with supervision. Min A to stand from toilet using BSC, grabbars and FWW. Pt then ambulated to therapy gym. Therapy Code Descriptions/Definitions Functional [place] Measure: 0=Not Assessed/NA 4=Minimal Assistance 1=Total Assistance 5=Supervision or Setup 2=Maximal Assistance 6=Modified [place] 3=Moderate Assistance 7=Complete IndependenceSCALE: Activities may be completed with or without assistive devices. 8-Sodwpztafk-blbvyec completes the activity by him/herself with no assistance from a helper. 5-Set-up or Clean-up Assistance-helper sets up or cleans up; patient completes activity. [place] assists only prior to or following the activity. 4-Supervision or Touching Assistance-helper provides verbal cues and/or touching/steadying and/or contact guard assistance as patient completes activity. Assistance may be provided throughout the activity or intermittently. 3-Partial/Moderate Assistance-helper does LESS THAN HALF the effort. [place] lifts, holds or supports trunk or limbs, but provides less than half the effort. 2-Substantial/Maximal Assistance-helper does MORE THAN HALF the effort. [place] lifts or holds trunk or limbs and provides more than half the effort. 2-Zedyqakhc-mbkmvs does ALL the effort. Patient does none of the effort to complete the activity. Or, the assistance of 2 or more helpers is required for the patient to complete the activity. If activity was not attempted, code reason: 7-Patient Refused. 9-Not Applicable-not attempted and the patient did not perform the activity before the current illness, exacerbation or injury. 10-Not Attempted due to Environmental Limitations-(lack of equipment, weather restraints, etc.). 88-Not Attempted due to Medical Conditions or Safety Concerns. Toileting Hygiene (QC): 4 Toilet Transfer (QC): 3 Other Treatment Pt completed arm bike 10 min at 20 diallo resistance to increase strength and activity tolerance for daily functional tasks. Hand wts completed for UE strength exercises, 2# wt with R UE and 1# wt with L UE due to decreased strength and ROM of L shldr, 1 set 10 reps. Pt then ambulated back to room and laid in bed. Call light/phone in reach. All needs met in room. OT Short Term Goals Short Term Goals Time Frame: Sep 03, 2019 Bathing(FIM): 4 Upper Body Dressing(FIM): 5 Lower Body Dressing(FIM): 3 Toileting(FIM): 4 Toilet/Commode Transfer(FIM): 4 Additional Short Term Goals: 1-Demonstrate ADL Tasks, 2-Verbalize Understanding, 3-ImproveStrength/Anand 1=Demonstrate adherence to instructed precautions during ADL tasks. 2=Patient will verbalize/demonstrate understanding of assistive devices/modifications for ADL. 3=Patient will improve strength/tolerance for activity to enable patient to perform ADL's. OT Intermediate Goals Check Processing Clerk Goals Time Frame: Sep 17, 2019 Eating (QC): 6 Oral Hygiene (QC): 6 Shower/Bathe Self (QC): 6 Upper Body Dressing (QC): 6 Lower Body Dressing (QC): 6 On/Off Footwear (QC): 6 Toileting Hygiene (QC): 6 Toilet/Commode Transfer (QC): 6 Additional Goals: 1-Demonstrate ADL Tasks, 2-Verbalize Understanding, 3- ImproveStrength/Anand 1=Demonstrate adherence to instructed precautions during ADL tasks. 2=Patient will verbalize/demonstrate understanding of assistive devices/modifications for ADL. 3=Patient will improve strength/tolerance for activity to enable patient to perform ADL's. OT Education/Plan Problem List/Assessment Assessment: Decreased UE Strength Discharge Recommendations Plan/Recommendations: Continue POC Treatment Plan/Plan of Care Patient would benefit from OT for education, treatment and training to promote independence in ADL's, mobility, safety and/or upper extremity function for ADL's. Plan of Care: ADL Retraining, Functional Mobility, Group Exercise/Act as Ind, UE Funct Exercise/Act Treatment Duration: Aug 29, 2019 Frequency: At least 5 of 7 days/Wk (IRF) Estimated Hrs Per Day: 1.5 hours per day Rehab Potential: Good Time/GCodes Start Time: 10:10 Stop Time: 10:40 Total Time Billed (hr/min): 30 Billed Treatment Time 1 visit-ADL 1 (15 min) EX 1 (15 min) JACOB CEE Sep 05, 2019 13:33 POS
--- NOTE | 2019-09-05 14:48 | Physical Therapy Daily Note ---
PT Daily Note-Current Subjective Pt sitting in chair in Therapy Commons area. Pt agrees to PT but request to use restroom before leaving for Therapy Gym. Pain Numeric Pain Scale: 4 Location: Right Location Body Site: Hip Pain Description: Ache, Tightness Mental Status Patient Orientation: Person, Place, Time, Situation Transfers SCALE: Activities may be completed with or without assistive devices. 1-Xaptftkmcl-qpkxkqx completes the activity by him/herself with no assistance from a helper. 5-Set-up or Clean-up Assistance-helper sets up or cleans up; patient completes activity. [place] assists only prior to or following the activity. 4-Supervision or Touching Assistance-helper provides verbal cues and/or touching/steadying and/or contact guard assistance as patient completes activity. Assistance may be provided throughout the activity or intermittently. 3-Partial/Moderate Assistance-helper does LESS THAN HALF the effort. [place] lifts, holds or supports trunk or limbs, but provides less than half the effort. 2-Substantial/Maximal Assistance-helper does MORE THAN HALF the effort. [place] lifts or holds trunk or limbs and provides more than half the effort. 8-Hvlgstcuo-jvglbl does ALL the effort. Patient does none of the effort to complete the activity. Or, the assistance of 2 or more helpers is required for the patient to complete the activity. If activity was not attempted, code reason: 7-Patient Refused. 9-Not Applicable-not attempted and the patient did not perform the activity before the current illness, exacerbation or injury. 10-Not Attempted due to Environmental Limitations-(lack of equipment, weather restraints, etc.). 88-Not Attempted due to Medical Conditions or Safety Concerns. Roll Left to Right (QC): 5 Sit to Lying (QC): 5 Sit to Stand (QC): 5 Weight Bearing Right Lower Extremity: Right Full Weight Bearing Left Lower Extremity: Left Weight Bearing/Tolerated Gait Training Does the Patient Walk?: Yes Gait: 5 Distance: 150', 150' Walk 10 feet (QC): 5 Walk 50 ft with 2 Turns(QC): 5 Walk 150 ft (QC): 5 Gait Persons Needed: 1 Gait Assistive Device: FWW Wheelchair Training Does the Pt Use a Wheelchair?: No Exercises Seated Therapy Exercises: Ankle pumps, Long arc quads, Hip flexion, Kicking activity, Hamstring Curls Seated Reps: 20 Treatments Pt trasnfers from chair to standing then ambualtes back to room to use restroom. After finishing, pt ambualtes in hallway and to Therapy Gym. Pt completes Seated Ex before again ambulating in hallway to room to rest Supine in bed. Pt has all needs met, call light in hand. Assessment Current Status: Good Progress Pt tolerates Rx well. PT Short Term Goals Short Term Goals Wheelchair Distance: 150' PT Lab Rn Goals Retirement Goals PT Lab Rn Goals Time Frame: Sep 24, 2019 Sit to Lying (QC): 6 Lying-Sitting on Side/Bed(QC): 6 Sit to Stand (QC): 6 Roll Left to Right (QC): 6 Chair/Zvf-hw-Jizow Xfer(QC): 6 Car Transfer (QC): 6 Does the Patient Walk: Yes Distance: 300' Walk 10 feet (QC): 6 Walk 10ft-Uneven Surface(QC): 6 Walk 50ft with 2 Turns (QC): 6 Walk 150 ft (QC): 6 Gait Assistive Device: FWW # of Steps: 4 1 Step (curb) (QC): 6 4 Steps (QC): 6 Picking up an Object (QC): 5 PT Plan Problem List Problem List: Activity Tolerance Treatment/Plan Treatment Plan: Continue Plan of Care Treatment Plan: Bed Mobility, Education, Functional Activity Anand, Functional Strength, Gait, Safety, Therapeutic Exercise, Transfers Treatment Duration: Sep 24, 2019 Frequency: At least 5 of 7 days/Wk (IRF) Estimated Hrs Per Day: 1.5 hours per day Patient and/or Family Agrees t: Yes Safety Risks/Education Patient Education: Gait Training, Transfer Techniques, Correct Positioning, Safety Issues Teaching Recipient: Patient Teaching Methods: Discussion Response to Teaching: Verbalize Understanding Time/GCodes Time In: 1300 Time Out: 1330 Total Billed Treatment Time: 30 Total Billed Treatment 1, GT (15m) & EX (15m) LORENA HANSON TANKAGE SUPERVISOR Sep 05, 2019 14:48 POS
[2019-09-05 18:00] VITALS: BP 151/74
--- NOTE | 2019-09-05 19:14 | NUR ---
bedside report received from LEONCIO BELLO, assume care of pt
--- NOTE | 2019-09-05 21:25 | NUR ---
up with 1 person assist & walker to bathroom
--- NOTE | 2019-09-05 23:23 | NUR ---
c/o lt hip pain level 7/10 on numeric scale, Lortab 10325 1 tab given
--- NOTE | 2019-09-06 | NUR ---
resting quietly in bed, pain level 0/10 on flacc scale
[2019-09-06 05:16] VITALS: BP 152/86
--- NOTE | 2019-09-06 07:18 | NUR ---
BEDSIDE REPORT GIVEN TO YAKOV BELLO
[2019-09-06 08:00] VITALS: BP 161/77
[2019-09-06] MEDS: ENALAPRIL 10 MG (VASOTEC) TAB PO SCH (08:12)
[2019-09-06] MEDS: amLODIPine 5 MG (NORVASC) TAB PO SCH (08:12)
[2019-09-06] MEDS: ENOXAPARIN 40 MG/0.4 ML (LOVENOX) SYR SC SCH (08:12)
[2019-09-06] MEDS: SENNA W/DOCUSATE (SENOKOT S) TABLET PO SCH ×2 (08:13→21:26)
[2019-09-06] MEDS: HYDROcodone/APAP 10 MG/325 MG (LORTAB) TAB PO PRN ×2 (08:55→21:27)
--- NOTE | 2019-09-06 09:00 | NUR ---
DR. BRAN (pcp) NOTIFIED OF SBP 150-16O'S WHILE BEING ON VASOTEC AND NORVASC. HEART RATE 80-90'S. NORVASC DOSE INCREASED TO 10 MG.
[2019-09-06] MEDS ORDERED: amLODIPine 5 MG (NORVASC) TAB PO NR (09:15)
--- NOTE | 2019-09-06 10:06 | Occupational Ther Daily Note ---
OT Current Status-Daily Note Subjective Pt sitting in chair, agrees to therapy. Pt reports 2/10 pain in left hip. ADL-Treatment Pt declined shower this morning, requests sponge bath. Pt doffed shirt without assist. Doffed lower body clothing using dressing stick. Upper body bathing completed with set up. Pt able to wash bilateral upper legs and twin area. Used long handled sponge to wash lower legs and feet. Don pullover shirt with set up. Pt used staffing branch manager to thread LE into underwear and pants. Stood with CGA for balance during pant hike. Pt donned bilateral socks with set up using sock aid. Sit to stand with supervision. Gait to restroom with FWW. Pt stood at sink to brush teeth and comb hair with modified independence. Occasional rest breaks taken throughout ADL tasks. Therapy Code Descriptions/Definitions Functional [place] Measure: 0=Not Assessed/NA 4=Minimal Assistance 1=Total Assistance 5=Supervision or Setup 2=Maximal Assistance 6=Modified [place] 3=Moderate Assistance 7=Complete IndependenceSCALE: Activities may be completed with or without assistive devices. 7-Pzwzcctcfe-zakrrjz completes the activity by him/herself with no assistance from a helper. 5-Set-up or Clean-up Assistance-helper sets up or cleans up; patient completes activity. [place] assists only prior to or following the activity. 4-Supervision or Touching Assistance-helper provides verbal cues and/or touching/steadying and/or contact guard assistance as patient completes activity. Assistance may be provided throughout the activity or intermittently. 3-Partial/Moderate Assistance-helper does LESS THAN HALF the effort. [place] lifts, holds or supports trunk or limbs, but provides less than half the effort. 2-Substantial/Maximal Assistance-helper does MORE THAN HALF the effort. [place] lifts or holds trunk or limbs and provides more than half the effort. 0-Pshhhzidf-zwpqcv does ALL the effort. Patient does none of the effort to complete the activity. Or, the assistance of 2 or more helpers is required for the patient to complete the activity. If activity was not attempted, code reason: 7-Patient Refused. 9-Not Applicable-not attempted and the patient did not perform the activity before the current illness, exacerbation or injury. 10-Not Attempted due to Environmental Limitations-(lack of equipment, weather restraints, etc.). 88-Not Attempted due to Medical Conditions or Safety Concerns. Oral Hygiene (QC): 6 Shower/Bathe Self (QC): 4 Upper Body Dressing (QC): 5 Lower Body Dressing (QC): 4 Other Treatment Gait to therapy gym with FWW, rest break taken upon arrival to gym. Pt completed fine motor task with nuts and bolts with bilateral UE with 1# weights in place to increase strength, activity tolerance, and coordination/manipulation skills. Pt completed task without assist, steady pace. Pt returned to room, sitting in chair with needs met after session. OT Short Term Goals Short Term Goals Time Frame: Sep 03, 2019 Bathing(FIM): 4 Upper Body Dressing(FIM): 5 Lower Body Dressing(FIM): 3 Toileting(FIM): 4 Toilet/Commode Transfer(FIM): 4 Additional Short Term Goals: 1-Demonstrate ADL Tasks, 2-Verbalize Understanding, 3-ImproveStrength/Anand 1=Demonstrate adherence to instructed precautions during ADL tasks. 2=Patient will verbalize/demonstrate understanding of assistive devices/modifications for ADL. 3=Patient will improve strength/tolerance for activity to enable patient to perform ADL's. OT Residential Goals Residential Goals Time Frame: Sep 17, 2019 Eating (QC): 6 Oral Hygiene (QC): 6 Shower/Bathe Self (QC): 6 Upper Body Dressing (QC): 6 Lower Body Dressing (QC): 6 On/Off Footwear (QC): 6 Toileting Hygiene (QC): 6 Toilet/Commode Transfer (QC): 6 Additional Goals: 1-Demonstrate ADL Tasks, 2-Verbalize Understanding, 3-ImproveStrength/Anand 1=Demonstrate adherence to instructed precautions during ADL tasks. 2=Patient will verbalize/demonstrate understanding of assistive devices/modifications for ADL. 3=Patient will improve strength/tolerance for activity to enable patient to perform ADL's. OT Education/Plan Discharge Recommendations Plan/Recommendations: Continue POC Treatment Plan/Plan of Care Patient would benefit from OT for education, treatment and training to promote independence in ADL's, mobility, safety and/or upper extremity function for ADL's. Plan of Care: ADL Retraining, Functional Mobility, Group Exercise/Act as Ind, UE Funct Exercise/Act Treatment Duration: Aug 29, 2019 Frequency: At least 5 of 7 days/Wk (IRF) Estimated Hrs Per Day: 1.5 hours per day Rehab Potential: Good Time/GCodes Start Time: 08:00 Stop Time: 09:00 Total Time Billed (hr/min): 60 Billed Treatment Time 1 visit, ADLx3(45minutes), EX(15minutes) MARY YORK OT Sep 06, 2019 10:06 POS
--- NOTE | 2019-09-06 10:47 | PM&R Progress Note ---
Subjective HPI/CC On Admission Date Seen by Provider: Sep 06, 2019 Time Seen by Provider: 08:45 Chief complaint: Left femur fracture HPI: This is a 79yoWF that was independent with ADLs and ambulation who presented to [facility] after suffering a fall and subsequent left femur fracture, repaired in an uncomplicated manner by Dr. López. At this current time, her bowels are moving, carter cath was just discontinued and she is ready to be trans ferred to inpatient rehab to begin her recovery. She denies any chest pain or SOB, her labs remain stable, Hgb 10.0 post-op and ready to begin the intense therapy along with pain control. Currently her pain is doing well. Subjective/Events-last exam Dr. López will be contacted regarding staple removal since it will be 2 weeks this Monday Slept in the independent room last night in the bed of which caused a lot more pain but she now has that under control Getting out of bed and off the toilet much better Discharge is planned for Monday Will utilize a day pass on Monday or Monday Conferred with RN Reviewed therapy notes Checked meds and labs Review of Systems General: Fatigue Musculoskeletal: leg pain Objective Exam Vital Signs Vital Signs Date Time Temp Pulse Resp B/P (MAP) Pulse Ox O2 Delivery O2 Flow Rate FiO2 09/06/19 09:00 Room Air 09/06/19 05:16 36.6 85 18 152/86 (108) 96 Capillary Refill : Less Than 3 Seconds General Appearance: No Apparent Distress, WD/WN, Chronically ill HEENT: PERRL/EOMI, Normal ENT Inspection, Pharynx Normal, Moist Mucous Membranes Neck: Full Range of Motion, Normal Inspection, Non Tender, Supple Respiratory: Chest Non Tender, Lungs Clear, Normal Breath Sounds, No Accessory Muscle Use, No Respiratory Distress Cardiovascular: Regular Rate, Rhythm, No Edema, No Gallop, No JVD, No Murmur Gastrointestinal: Normal Bowel Sounds, No Organomegaly, No Pulsatile Mass, Non Tender, Soft Back: Normal Inspection, No CVA Tenderness, No Vertebral Tenderness Extremity: Normal Capillary Refill, Normal Inspection, Normal Range of Motion (except left leg), Non Tender, No Calf Tenderness, Pedal Edema (left leg subtle) Neurologic/Psychiatric: Alert, Oriented x3, No Motor/Sensory Deficits, Normal Mood/Affect Skin: Normal Color, Warm/Dry Lymphatic: No Adenopathy Results/Procedures Lab Patient resulted labs reviewed. FIM Transfers Therapy Code Descriptions/Definitions Functional [place] Measure: 0=Not Assessed/NA 4=Minimal Assistance 1=Total Assistance 5=Supervision or Setup 2=Maximal Assistance 6=Modified [place] 3=Moderate Assistance 7=Complete IndependenceSCALE: Activities may be completed with or without assistive devices. 1-Flmdmgylba-itkkiwb completes the activity by him/herself with no assistance from a helper. 5-Set-up or Clean-up Assistance-helper sets up or cleans up; patient completes activity. [place] assists only prior to or following the activity. 4-Supervision or Touching Assistance-helper provides verbal cues and/or touching/steadying and/or contact guard assistance as patient completes activity. Assistance may be provided throughout the activity or intermittently. 3-Partial/Moderate Assistance-helper does LESS THAN HALF the effort. [place] lifts, holds or supports trunk or limbs, but provides less than half the effort. 2-Substantial/Maximal Assistance-helper does MORE THAN HALF the effort. [place] lifts or holds trunk or limbs and provides more than half the effort. 8-Ftrjkhwjd-vlwjef does ALL the effort. Patient does none of the effort to complete the activity. Or, the assistance of 2 or more helpers is required for the patient to complete the activity. If activity was not attempted, code reason: 7-Patient Refused. 9-Not Applicable-not attempted and the patient did not perform the activity before the current illness, exacerbation or injury. 10-Not Attempted due to Environmental Limitations-(lack of equipment, weather restraints, etc.). 88-Not Attempted due to Medical Conditions or Safety Concerns. Transfers (B, C, W/C) (FIM): 4 Roll Left to Right (QC): 5 Sit to Lying (QC): 5 Sit to Stand (QC): 5 Chair/Wzr-se-Jwcve Xfer(QC): 6 Bed to/from Chair: 6 Car Transfer (QC): 4 Gait Training Does the Patient Walk?: Yes Gait (FIM): 5 Distance (FIM): 7=022-31 ft Distance: 150', 150' Walk 10 feet (QC): 5 Walk 50 ft with 2 Turns(QC): 5 Walk 150 ft (QC): 5 Walking 10ft/uneven surface-QC: 4 Gait Persons Needed: 1 Gait Assistive Device: FWW Wheelchair Training Does the Pt Use a Wheelchair?: No Wheelchair Distance: 3=150 ft Distance: 150' Wheel 50 ft with 2 turns (QC): 5 Wheel 150 ft (QC): 5 Type of Wheelchair: Manual Stair Training Stair Training: Handrails/: 2 handrails #of Steps: 4 1 Step (curb) (QC): 4 4 Steps (QC): 4 12 Steps (QC): 88 Stairs: Pattern: Step to Level of Assist: 4 Balance Picking up an Object (QC): 88 ADL-Treatment Eating (QC): 6 Oral Hygiene (QC): 6 Bathing Location: L Arm, R Arm, L Upper Leg, R Upper Leg, L Lower Leg (including foot), R Lower Leg (including foot), Chest, Abdomen, Buttocks, Pe rineal Area Shower/Bathe Self (QC): 4 Upper Body Dressing (QC): 5 Lower Body Dressing (QC): 4 On/Off Footwear (QC): 1 Toileting Hygiene (QC): 4 Toilet Transfer (QC): 3 Assessment/Plan Assessment and Plan Assess & Plan/Chief Complaint Assessment: Left femur fracture Post op anemia HTN restarted home meds Post op constipation now resolved 08/29/19 Left leg edema placed VENANCIO's Plan: IRF protocol Lovenox Monitor pain BM regimen to continue Pain control VENANCIO's Increase confidence each day and utilize day pass Continue using incentive spirometer Discharge plan on Monday (1) Fracture of left femur Status: Acute (2) Constipation (3) Hypertension Status: Chronic Qualifiers: Hypertension type: essential hypertension Qualified Codes: I10 - Essential (primary) hypertension (4) Postoperative anemia Status: Acute REGIS KEE DO Sep 06, 2019 10:46 POS
--- NOTE | 2019-09-06 12:06 | Physical Therapy Daily Note ---
PT Daily Note-Current Subjective Pt agreeable to PT session. States she just took her pain med. Pain Numeric Pain Scale: 4 Comment: L hip, just received pain med Appearance Upon arrival, pt sitting up in recliner awake and alert. At end of session, pt requesting and assisted to bathroom. At end of session, pt sitting up in recliner with phone, call light and bedside table within reach Mental Status Patient Orientation: Person, Place, Time, Eyes Open, Situation Transfers SCALE: Activities may be completed with or without assistive devices. 1-Vrtwdmlnxd-vcrxlmn completes the activity by him/herself with no assistance from a helper. 5-Set-up or Clean-up Assistance-helper sets up or cleans up; patient completes activity. [place] assists only prior to or following the activity. 4-Supervision or Touching Assistance-helper provides verbal cues and/or touching/steadying and/or contact guard assistance as patient completes activity. Assistance may be provided throughout the activity or intermittently. 3-Partial/Moderate Assistance-helper does LESS THAN HALF the effort. [place] lifts, holds or supports trunk or limbs, but provides less than half the effort. 2-Substantial/Maximal Assistance-helper does MORE THAN HALF the effort. [place] lifts or holds trunk or limbs and provides more than half the effort. 6-Hfystpuav-cubjja does ALL the effort. Patient does none of the effort to complete the activity. Or, the assistance of 2 or more helpers is required for the patient to complete the activity. If activity was not attempted, code reason: 7-Patient Refused. 9-Not Applicable-not attempted and the patient did not perform the activity before the current illness, exacerbation or injury. 10-Not Attempted due to Environmental Limitations-(lack of equipment, weather restraints, etc.). 88-Not Attempted due to Medical Conditions or Safety Concerns. Transfers (B, C, W/C): 3 Sit to Stand (QC): 3 (CGA x2, min A required to stand from lower surfaces 5 episodes) Weight Bearing Right Lower Extremity: Right Full Weight Bearing Left Lower Extremity: Left Weight Bearing/Tolerated Gait Training Does the Patient Walk?: Yes Distance: 240 x2 Walk 10 feet (QC): 4 Walk 50 ft with 2 Turns(QC): 4 Walk 150 ft (QC): 4 Gait Persons Needed: 1 Gait Assistive Device: FWW CGA to SBA provided for safety, slow pace, antalgic with decreased stance time LLE, decreased step height LLE Stair Training 1 Step (curb) (QC): 4 (CGA with min skilled inst for technique) Stairs: Pattern: Step to step ups x5 with B handrails, ascend with RLE, descend with LLE Exercises Standing: Sit to Stand (x9), Step-ups (x5) NuStep Minutes: 25 NuStep Workload: 3 (Seat 8, Arms 7) Treatments education, safety, transfers, gait, strength, balance, activity tolerance, functional mobility Assessment Current Status: Good Progress PT Short Term Goals Short Term Goals Wheelchair Distance: 150' PT Fci Goals Fci Goals PT Head Turbine Operator Goals Time Frame: Sep 24, 2019 Sit to Lying (QC): 6 Lying-Sitting on Side/Bed(QC): 6 Sit to Stand (QC): 6 Roll Left to Right (QC): 6 Chair/Ieu-ge-Vevxw Xfer(QC): 6 Car Transfer (QC): 6 Does the Patient Walk: Yes Distance: 300' Walk 10 feet (QC): 6 Walk 10ft-Uneven Surface(QC): 6 Walk 50ft with 2 Turns (QC): 6 Walk 150 ft (QC): 6 Gait Assistive Device: FWW # of Steps: 4 1 Step (curb) (QC): 6 4 Steps (QC): 6 Picking up an Object (QC): 5 PT Plan Treatment/Plan Treatment Plan: Continue Plan of Care Treatment Plan: Bed Mobility, Education, Functional Activity Anand, Functional Strength, Gait, Safety, Therapeutic Exercise, Transfers Treatment Duration: Sep 24, 2019 Frequency: At least 5 of 7 days/Wk (IRF) Estimated Hrs Per Day: 1.5 hours per day Patient and/or Family Agrees t: Yes Safety Risks/Education Patient Education: Gait Training, Transfer Techniques, Steps, Safety Issues Teaching Recipient: Patient Teaching Methods: Demonstration, Discussion Response to Teaching: Verbalize Understanding, Return Demonstration Time/GCodes Time In: 900 Time Out: 1000 Total Billed Treatment Time: 60 Total Billed Treatment 1, GT x30, EX x30 NIKOLAI GAY JIVE DEVELOPER Sep 06, 2019 12:06 POS
--- NOTE | 2019-09-06 13:30 | NUR ---
DR. BULLOCK HERE TO SEE PATIENT. BARRY IN RIGHT HIP INCISIONS TO BE REMOVED ON MONDAY. PATIENT STILL HESITANT TO GO HOME MONDAY, BUT HOPES TO FEEL READY. PLANS TO GO HOME ON DAY PASS TOMORROW OR MONDAY. STATES SLEPT GOOD IN FULL SIZE BED LAST NIGHT AFTER TOOK A LORTAB AND "SETTLED DOWN". STILL HAVING DIFFICULTY IN GETTING UP OFF TOILET.
--- NOTE | 2019-09-06 14:02 | Progress Note - Ortho ---
Progress Note Subjective Date of Exam 09/06/19 Chief Complaint 12 days postop long TFN for midshaft fracture left femur HPI/Events since last exam Mrs. Newton is doing very well 12 days postop. She is ambulating with a walker basically full weightbearing with mild pain at most. Denies numbness or t ingling. Plan is for her to be discharged on Monday. Review of Systems Reviewed and no additions or changes Allergies: Coded Allergies: No Known Drug Allergies (Verified , 08/29/18) Home Meds Reported Medications Amlodipine Besylate (Amlodipine Besylate) 5 Mg Tablet, 5 MG PO DAILY, TAB 08/27/19 Ibuprofen (Ibuprofen) 200 Mg Capsule, 400 MG PO Q8H PRN for PAIN-MILD, CAP 08/26/19 Acetaminophen (ACETAMINOPHEN) 500 Mg Tablet, 1000 MG PO Q8H PRN for PAIN-MILD, TAB 08/26/19 Multivitamin (Multiple Vitamins) 1 Each Tablet, 1 TAB PO DAILY, TAB 08/26/19 Enalapril Maleate (Enalapril Maleate) 10 Mg Tablet, 10 MG PO DAILY 08/26/19 Paguate 3 Polyunsat Fatty Acids (Fish Oil 1,000 mg Capsule) 1,000 Mg Cap, 1000 MG PO DAILY, CAP 08/27/18 Calcium Carbonate/Vitamin D3 (Calcium 600 + Vit D Caplet) 1 Each Tablet, PO TID, TAB 08/27/18 Alendronate Sodium (Alendronate Sodium) 10 Mg Tablet, 10 MG PO DAILY, TAB 08/27/18 Objective Exam Constitutional: [] HEENT: [] Neck: [] Cardiovascular: [] Respiratory: [] Gastrointestinal: [] Genitourinary: [] Skin: [] Back/Spine: [] Extremities: [] Mild swelling left thigh. Good motion of the hip and knee with pain over the fracture site but no pain at the hip or knee. She is neurovascularly intact left lower extremity. Dressings are being changed and no wound problems are reported Neurologic: [] Psychiatric: [] Hematologic/lymphatic/immunologic: [] Vital Signs Vital Signs Date Time Temp Pulse Resp B/P (MAP) Pulse Ox O2 Delivery O2 Flow Rate FiO2 09/06/19 09:00 Room Air 09/06/19 05:16 36.6 85 18 152/86 (108) 96 Room Air 10/31/19 21:15 Room Air 09/05/19 18:00 36.6 87 18 151/74 (99) 98 Simple Mask I & O 09/06/19 07:00 Intake Total 600 ml Balance 600 ml Assessment and Plan Assessment Doing well postop long TFN left femur Problem List No additions or changes Plan Continue rehabilitation with probable discharge on Monday. Staple removal on Monday and repeat x-rays on Monday prior to discharge on Monday Final Diagonsis Status post long TFN for her femoral shaft fracture left Level of the visit: Level 3 Clinical Quality Measures DVT/VTE Risk/Contraindication: Risk Factor Score Per Nursin RFS Level Per Nursing on Admit: 4+=Very High PEG BULLOCK MD Sep 06, 2019 14:01 POS
--- NOTE | 2019-09-06 15:05 | Therapy Group Daily Note ---
Therapy Daily Group Note Patient Education Topic Home Safety, Other List Below (handwashing) Exercises LE Seated Exercise, UE Exercise Session Ratio (pt:therapist): 7:2 Goal of Session: Home Safety Strategies, UE/LE Strengthing Goal Met for this Session: Yes Pt Benefit of Group: Contributions to Others, F/U Use of Strategies @Home, Increased Functional Safety, Increased Functional Strength, Improved Cognition, Recognition of Peers, Socialization Other/Notes Pt ambulated to [facility] for OT/PT group. Group consisted of introductions (name, place born, favorite fall food), socialization, UE/LE seated exercises, educational topics of hand washing and home safety. Pt able to introduce self appropriately and actively listened to peers. Pt was able to complete exercises and tolerated well. Pt acknowledge understanding of educational topics by giving own personal strategies and stories pertaining to topic. After therapy, pt lying in bed with call light/phone in reach. All needs met in room. Start Time: 13:00 Stop Time: 14:10 Total Billed Treatment Time: 70 Total Billed Treatment 1-GRP JACOB CEE Sep 06, 2019 15:05 POS
--- NOTE | 2019-09-06 16:16 | NUR ---
Provided patient with a MCR list of [facility] providers. Patient states she has chosen to proceed with a day pass, this Monday. RN notified. Will follow-up with patient on Monday.
[2019-09-06 18:00] VITALS: BP 143/78
[2019-09-07 06:00] VITALS: BP 167/88
[2019-09-07] MEDS: amLODIPine 10 MG (NORVASC) TAB PO SCH (08:25)
[2019-09-07] MEDS: ENALAPRIL 10 MG (VASOTEC) TAB PO SCH (08:25)
[2019-09-07] MEDS: ENOXAPARIN 40 MG/0.4 ML (LOVENOX) SYR SC SCH (08:25)
[2019-09-07] MEDS: SENNA W/DOCUSATE (SENOKOT S) TABLET PO SCH ×2 (08:26→20:30)
--- NOTE | 2019-09-07 11:48 | PM&R Progress Note ---
Subjective HPI/CC On Admission Date Seen by Provider: Sep 07, 2019 Time Seen by Provider: 11:30 Chief complaint: Left femur fracture HPI: This is a 79yoWF that was independent with ADLs and ambulation who presented to [facility] after suffering a fall and subsequent left femur fracture, repaired in an uncomplicated manner by Dr. López. At this current time, her bowels are moving, carter cath was just discontinued and she is ready to be trans ferred to inpatient rehab to begin her recovery. She denies any chest pain or SOB, her labs remain stable, Hgb 10.0 post-op and ready to begin the intense therapy along with pain control. Currently her pain is doing well. Subjective/Events-last exam Date pass will be completed today at 1230 Has a walker at home and will bring it back for physical therapy to set it up Increasing confidence Planning for discharge on Monday Conferred with RN Reviewed therapy notes Checked meds and labs Review of Systems General: Fatigue Musculoskeletal: leg pain Objective Exam Vital Signs Vital Signs Date Time Temp Pulse Resp B/P (MAP) Pulse Ox O2 Delivery O2 Flow Rate FiO2 09/07/19 06:00 36.6 90 20 167/88 (114) 98 Room Air Capillary Refill : Less Than 3 Seconds General Appearance: No Apparent Distress, WD/WN, Chronically ill HEENT: PERRL/EOMI, Normal ENT Inspection, Pharynx Normal, Moist Mucous Membranes Neck: Full Range of Motion, Normal Inspection, Non Tender, Supple Respiratory: Chest Non Tender, Lungs Clear, Normal Breath Sounds, No Accessory Muscle Use, No Respiratory Distress Cardiovascular: Regular Rate, Rhythm, No Edema, No Gallop, No JVD, No Murmur Gastrointestinal: Normal Bowel Sounds, No Organomegaly, No Pulsatile Mass, Non Tender, Soft Back: Normal Inspection, No CVA Tenderness, No Vertebral Tenderness Extremity: Normal Capillary Refill, Normal Inspection, Normal Range of Motion (except left leg), Non Tender, No Calf Tenderness, Pedal Edema (left leg subtle) Neurologic/Psychiatric: Alert, Oriented x3, No Motor/Sensory Deficits, Normal Mood/Affect Skin: Normal Color, Warm/Dry Lymphatic: No Adenopathy Results/Procedures Lab Patient resulted labs reviewed. FIM Transfers Therapy Code Descriptions/Definitions Functional [place] Measure: 0=Not Assessed/NA 4=Minimal Assistance 1=Total Assistance 5=Supervision or Setup 2=Maximal Assistance 6=Modified [place] 3=Moderate Assistance 7=Complete IndependenceSCALE: Activities may be completed with or without assistive devices. 2-Ptrtlmmqhy-qllyejv completes the activity by him/herself with no assistance from a helper. 5-Set-up or Clean-up Assistance-helper sets up or cleans up; patient completes activity. [place] assists only prior to or following the activity. 4-Supervision or Touching Assistance-helper provides verbal cues and/or touching/steadying and/or contact guard assistance as patient completes activity. Assistance may be provided throughout the activity or intermittently. 3-Partial/Moderate Assistance-helper does LESS THAN HALF the effort. [place] lifts, holds or supports trunk or limbs, but provides less than half the effort. 2-Substantial/Maximal Assistance-helper does MORE THAN HALF the effort. [place] lifts or holds trunk or limbs and provides more than half the effort. 3-Zqvixkwlo-gciaqn does ALL the effort. Patient does none of the effort to complete the activity. Or, the assistance of 2 or more helpers is required for the patient to complete the activity. If activity was not attempted, code reason: 7-Patient Refused. 9-Not Applicable-not attempted and the patient did not perform the activity before the current illness, exacerbation or injury. 10-Not Attempted due to Environmental Limitations-(lack of equipment, weather restraints, etc.). 88-Not Attempted due to Medical Conditions or Safety Concerns. Transfers (B, C, W/C) (FIM): 3 Roll Left to Right (QC): 5 Sit to Lying (QC): 5 Sit to Stand (QC): 3 (CGA x2, min A required to stand from lower surfaces 5 episodes) Chair/Zjr-ar-Hguem Xfer(QC): 6 Bed to/from Chair: 6 Car Transfer (QC): 4 Gait Training Does the Patient Walk?: Yes Gait (FIM): 5 Distance (FIM): 0=538-23 ft Distance: 240 x2 Walk 10 feet (QC): 4 Walk 50 ft with 2 Turns(QC): 4 Walk 150 ft (QC): 4 Walking 10ft/uneven surface-QC: 4 Gait Persons Needed: 1 Gait Assistive Device: FWW Wheelchair Training Does the Pt Use a Wheelchair?: No Wheelchair Distance: 3=150 ft Distance: 150' Wheel 50 ft with 2 turns (QC): 5 Wheel 150 ft (QC): 5 Type of Wheelchair: Manual Stair Training Stair Training: Handrails/: 2 handrails #of Steps: 4 1 Step (curb) (QC): 4 (CGA with min skilled inst for technique) 4 Steps (QC): 4 12 Steps (QC): 88 Stairs: Pattern: Step to Level of Assist: 4 Balance Picking up an Object (QC): 88 ADL-Treatment Eating (QC): 6 Oral Hygiene (QC): 6 Bathing Location: L Arm, R Arm, L Upper Leg, R Upper Leg, L Lower Leg (including foot), R Lower Leg (including foot), Chest, Abdomen, Buttocks, Perineal Area Shower/Bathe Self (QC): 4 Upper Body Dressing (QC): 5 Lower Body Dressing (QC): 4 On/Off Footwear (QC): 1 Toileting Hygiene (QC): 4 Toilet Transfer (QC): 3 Assessment/Plan Assessment and Plan Assess & Plan/Chief Complaint Assessment: Left femur fracture Post op anemia HTN restarted home meds Post op constipation now resolved 08/29/19 Left leg edema placed VENANCIO's Plan: IRF protocol Lovenox Monitor pain BM regimen to continue Pain control VENANCIO's Date pass today Continue using incentive spirometer Discharge plan on Monday (1) Fracture of left femur Status: Acute (2) Constipation (3) Hypertension Status: Chronic Qualifiers: Hypertension type: essential hypertension Qualified Codes: I10 - Essential (primary) hypertension (4) Postoperative anemia Status: Acute REGIS KEE DO Sep 07, 2019 11:47 POS
[2019-09-07] MEDS: HYDROcodone/APAP 10 MG/325 MG (LORTAB) TAB PO PRN ×2 (11:49→20:30)
--- NOTE | 2019-09-07 12:24 | Physical Therapy Daily Note ---
PT Daily Note-Current Subjective Pain rated 3-4/10 (L) thigh. Pt reports she is getting stronger and doing better every day. Mental Status Patient Orientation: Person, Place, Situation Transfers SCALE: Activities may be completed with or without assistive devices. 4-Cpiuryuexc-wbohyuv completes the activity by him/herself with no assistance from a helper. 5-Set-up or Clean-up Assistance-helper sets up or cleans up; patient completes activity. [place] assists only prior to or following the activity. 4-Supervision or Touching Assistance-helper provides verbal cues and/or touching/steadying and/or contact guard assistance as patient completes activity. Assistance may be provided throughout the activity or intermittently. 3-Partial/Moderate Assistance-helper does LESS THAN HALF the effort. [place] lifts, holds or supports trunk or limbs, but provides less than half the effort. 2-Substantial/Maximal Assistance-helper does MORE THAN HALF the effort. [place] lifts or holds trunk or limbs and provides more than half the effort. 7-Utdrgesaw-irgeya does ALL the effort. Patient does none of the effort to complete the activity. Or, the assistance of 2 or more helpers is required for the patient to complete the activity. If activity was not attempted, code reason: 7-Patient Refused. 9-Not Applicable-not attempted and the patient did not perform the activity before the current illness, exacerbation or injury. 10-Not Attempted due to Environmental Limitations-(lack of equipment, weather restraints, etc.). 88-Not Attempted due to Medical Conditions or Safety Concerns. Weight Bearing Right Lower Extremity: Right Full Weight Bearing Left Lower Extremity: Left Weight Bearing/Tolerated Exercises Supine Ex: LE Protocol Supine Reps: 15 Seated Therapy Exercises: LE Protocol Seated Reps: 15 Treatments Pt ambulated with FWW and SBA-CGA to and from gym. Pt stopped and practiced sit- stand from standard chair with arm rests, Mod (I). Pt practiced car transfer in/out Mod (I). Pt practiced up/down steps of 4 with SBA-CGA. Pt had perfect recall of technique and sequence for all. Pt back to room, seated in bedside chair with call light and all needs met. Assessment Current Status: Good Progress Pt demonstrated safe mobility throughout. Functioanl mobility slow but steady. Pt resting comfortably in bedside chair with call light and all needs met. PT Short Term Goals Short Term Goals Wheelchair Distance: 150' PT [facility] Goals Dispensary Clerk Goals PT [facility] Goals Time Frame: Sep 24, 2019 Sit to Lying (QC): 6 Lying-Sitting on Side/Bed(QC): 6 Sit to Stand (QC): 6 Roll Left to Right (QC): 6 Chair/Rep-nd-Eckqj Xfer(QC): 6 Car Transfer (QC): 6 Does the Patient Walk: Yes Distance: 300' Walk 10 feet (QC): 6 Walk 10ft-Uneven Surface(QC): 6 Walk 50ft with 2 Turns (QC): 6 Walk 150 ft (QC): 6 Gait Assistive Device: FWW # of Steps: 4 1 Step (curb) (QC): 6 4 Steps (QC): 6 Picking up an Object (QC): 5 PT Plan Treatment/Plan Treatment Plan: Continue Plan of Care Treatment Plan: Bed Mobility, Education, Functional Activity Anand, Functional Strength, Gait, Safety, Therapeutic Exercise, Transfers Treatment Duration: Sep 24, 2019 Frequency: At least 5 of 7 days/Wk (IRF) Estimated Hrs Per Day: 1.5 hours per day Patient and/or Family Agrees t: Yes Time/GCodes Time In: 900 Time Out: 925 Total Billed Treatment Time: 25 Total Billed Treatment ther ex 15', gait 10' NOELLE CHIANG CPTA Sep 07, 2019 12:24 POS
--- NOTE | 2019-09-07 14:15 | NUR ---
pt returns from day pass visit. Patient is concerned that she will not be able to get onto and off of her toilet. Suggested a built up seat with handles or bar on wall. she is also concerned that she will need a lift chair, as her chair sits low and is 'too squishy' to push up from. Explained, will pass information along.
[2019-09-07 17:22] VITALS: BP 136/75
--- NOTE | 2019-09-07 21:00 | NUR ---
VOICING CONCERNS ABOUT EQUIPMENT NEEDED AT HOME. STATES HAD NO TROUBLE GETTING INTO HOUSE. WAS UNABLE TO GET OFF TOILET AND UP FROM RECLINER WITHOUT ASSISTANCE. LOWER EXTREMITY EDEMA GONE AFTER WEARING VENANCIO HOSE FOR 2 DAYS.
--- NOTE | 2019-09-08 02:00 | NUR ---
DAYLIGHT SAVINGS TIME - TIME ADJUSTMENT.
[2019-09-08] MEDS: HYDROcodone/APAP 10 MG/325 MG (LORTAB) TAB PO PRN ×2 (05:40→22:09)
[2019-09-08 05:43] VITALS: BP 146/80
[2019-09-08 08:30] VITALS: BP 129/75
[2019-09-08] MEDS: ENOXAPARIN 40 MG/0.4 ML (LOVENOX) SYR SC SCH (08:42)
[2019-09-08] MEDS: SENNA W/DOCUSATE (SENOKOT S) TABLET PO SCH ×3 (08:43→22:08)
[2019-09-08] MEDS: amLODIPine 10 MG (NORVASC) TAB PO SCH (08:43)
[2019-09-08] MEDS: ENALAPRIL 10 MG (VASOTEC) TAB PO SCH (08:43)
--- NOTE | 2019-09-08 14:01 | PM&R Progress Note ---
Subjective HPI/CC On Admission Date Seen by Provider: Sep 08, 2019 Time Seen by Provider: 13:30 Chief complaint: Left femur fracture HPI: This is a 79yoWF that was independent with ADLs and ambulation who presented to [facility] after suffering a fall and subsequent left femur fracture, repaired in an uncomplicated manner by Dr. López. At this current time, her bowels are moving, carter cath was just discontinued and she is ready to be trans ferred to inpatient rehab to begin her recovery. She denies any chest pain or SOB, her labs remain stable, Hgb 10.0 post-op and ready to begin the intense therapy along with pain control. Currently her pain is doing well. Subjective/Events-last exam Patient did not think the day past went really too well Still having difficulty getting off the toilet and out of bed in the recliner so we will work on that before discharge Overall doing pretty well otherwise No constipation issues No shortness of breath Conferred with RN Reviewed therapy notes Checked meds and labs Review of Systems Musculoskeletal: leg pain Objective Exam Vital Signs Vital Signs Date Time Temp Pulse Resp B/P (MAP) Pulse Ox O2 Delivery O2 Flow Rate FiO2 09/08/19 09:00 Room Air 09/08/19 08:30 86 129/75 (93) 09/08/19 05:43 37.0 18 97 Capillary Refill : Less Than 3 Seconds General Appearance: No Apparent Distress, WD/WN, Chronically ill HEENT: PERRL/EOMI, Normal ENT Inspection, Pharynx Normal, Moist Mucous Membranes Neck: Full Range of Motion, Normal Inspection, Non Tender, Supple Respiratory: Chest Non Tender, Lungs Clear, Normal Breath Sounds, No Accessory Muscle Use, No Respiratory Distress Cardiovascular: Regular Rate, Rhythm, No Edema, No Gallop, No JVD, No Murmur Gastrointestinal: Normal Bowel Sounds, No Organomegaly, No Pulsatile Mass, Non Tender, Soft Back: Normal Inspection, No CVA Tenderness, No Vertebral Tenderness Extremity: Normal Capillary Refill, Normal Inspection, Normal Range of Motion (except left leg), Non Tender, No Calf Tenderness, Pedal Edema (left leg subtle) Neurologic/Psychiatric: Alert, Oriented x3, No Motor/Sensory Deficits, Normal Mood/Affect Skin: Normal Color, Warm/Dry Lymphatic: No Adenopathy Results/Procedures Lab Patient resulted labs reviewed. FIM Transfers Therapy Code Descriptions/Definitions Functional [place] Measure: 0=Not Assessed/NA 4=Minimal Assistance 1=Total Assistance 5=Supervision or Setup 2=Maximal Assistance 6=Modified [place] 3=Moderate Assistance 7=Complete IndependenceSCALE: Activities may be completed with or without assistive devices. 8-Uiirocflwb-ujfmjds completes the activity by him/herself with no assistance from a helper. 5-Set-up or Clean-up Assistance-helper sets up or cleans up; patient completes activity. [place] assists only prior to or following the activity. 4-Supervision or Touching Assistance-helper provides verbal cues and/or touching/steadying and/or contact guard assistance as patient completes activity. Assistance may be provided throughout the activity or intermittently. 3-Partial/Moderate Assistance-helper does LESS THAN HALF the effort. [place] lifts, holds or supports trunk or limbs, but provides less than half the effort. 2-Substantial/Maximal Assistance-helper does MORE THAN HALF the effort. [place] lifts or holds trunk or limbs and provides more than half the effort. 5-Rzbcjitam-srfwgs does ALL the effort. Patient does none of the effort to complete the activity. Or, the assistance of 2 or more helpers is required for the patient to complete the activity. If activity was not attempted, code reason: 7-Patient Refused. 9-Not Applicable-not attempted and the patient did not perform the activity before the current illness, exacerbation or injury. 10-Not Attempted due to Environmental Limitations-(lack of equipment, weather restraints, etc.). 88-Not Attempted due to Medical Conditions or Safety Concerns. Transfers (B, C, W/C) (FIM): 3 Roll Left to Right (QC): 5 Sit to Lying (QC): 5 Sit to Stand (QC): 3 (CGA x2, min A required to stand from lower surfaces 5 episodes) Chair/Nbl-xg-Zyhio Xfer(QC): 6 Bed to/from Chair: 6 Car Transfer (QC): 4 Gait Training Does the Patient Walk?: Yes Gait (FIM): 5 Distance (FIM): 0=621-88 ft Distance: 240 x2 Walk 10 feet (QC): 4 Walk 50 ft with 2 Turns(QC): 4 Walk 150 ft (QC): 4 Walking 10ft/uneven surface-QC: 4 Gait Persons Needed: 1 Gait Assistive Device: FWW Wheelchair Training Does the Pt Use a Wheelchair?: No Wheelchair Distance: 3=150 ft Distance: 150' Wheel 50 ft with 2 turns (QC): 5 Wheel 150 ft (QC): 5 Type of Wheelchair: Manual Stair Training Stair Training: Handrails/: 2 handrails #of Steps: 4 1 Step (curb) (QC): 4 (CGA with min skilled inst for technique) 4 Steps (QC): 4 12 Steps (QC): 88 Stairs: Pattern: Step to Level of Assist: 4 Balance Picking up an Object (QC): 88 ADL-Treatment Eating (QC): 6 Oral Hygiene (QC): 6 Bathing Location: L Arm, R Arm, L Upper Leg, R Upper Leg, L Lower Leg (including foot), R Lower Leg (including foot), Chest, Abdomen, Buttocks, Perineal Area Shower/Bathe Self (QC): 4 Upper Body Dressing (QC): 5 Lower Body Dressing (QC): 4 On/Off Footwear (QC): 1 Toileting Hygiene (QC): 4 Toilet Transfer (QC): 3 Assessment/Plan Assessment and Plan Assess & Plan/Chief Complaint Assessment: Left femur fracture Post op anemia HTN restarted home meds Post op constipation now resolved 08/29/19 Left leg edema placed VENANCIO's Plan: IRF protocol Lovenox Monitor pain BM regimen to continue Pain control VENANCIO's Continue using incentive spirometer Discharge plan on Monday (1) Fracture of left femur Status: Acute (2) Constipation (3) Hypertension Status: Chronic Qualifiers: Hypertension type: essential hypertension Qualified Codes: I10 - Essential (primary) hypertension (4) Postoperative anemia Status: Acute REGIS KEE DO Sep 08, 2019 14:01 POS
--- NOTE | 2019-09-08 15:00 | NUR ---
[place] removed from three left leg incisions per order. Mastisol applied to wound margins and steri strips applied to continue incision closure. No drainage noted and incision left open to air. Patient tolerated procedure well.
[2019-09-08 17:03] VITALS: BP 134/81
[2019-09-09 06:00] VITALS: BP 145/74
[2019-09-09 06:16] LABS: BASOPHILS % (AUTO) 1 % (0-10); EOSINOPHILS # (AUTO) 0.1 10^3/uL (0.0-0.3); EOSINOPHILS % (AUTO) 2 % (0-10); HEMATOCRIT 35 % (35-52); HEMOGLOBIN 11.1 G/DL (11.5-16.0); LYMPHOCYTES # (AUTO) 1.2 X 10^3 (1.0-4.0); LYMPHOCYTES % (AUTO) 20 % (12-44); MEAN CORPUSCULAR HEMOGLOBIN 30 PG (25-34); MEAN CORPUSCULAR HGB CONC 32 G/DL (32-36); MEAN CORPUSCULAR VOLUME 96 FL (80-99); MONOCYTES # (AUTO) 0.9 X 10^3 (0.0-1.0); MONOCYTES % (AUTO) 15 % (0-12); NEUTROPHILS # (AUTO) 3.7 X 10^3 (1.8-7.8); NEUTROPHILS % (AUTO) 63 % (42-75); PLATELET COUNT 365 10^3/uL (130-400); RED CELL DISTRIBUTION WIDTH 15.5 % (10.0-14.5)
[2019-09-09 06:29] LABS: ALBUMIN 3.3 GM/DL (3.2-4.5); BILIRUBIN,TOTAL 0.4 MG/DL (0.1-1.0); CALCIUM 8.3 MG/DL (8.5-10.1); CREATININE SERUM 0.96 MG/DL (0.60-1.30); POTASSIUM 4.8 MMOL/L (3.6-5.0); TOTAL PROTEIN 5.9 GM/DL (6.4-8.2)
[2019-09-09 08:00] VITALS: BP 151/65
--- NOTE | 2019-09-09 08:58 | PM&R Progress Note ---
Subjective HPI/CC On Admission Date Seen by Provider: Sep 09, 2019 Time Seen by Provider: 08:30 Chief complaint: Left femur fracture HPI: This is a 79yoWF that was independent with ADLs and ambulation who presented to [facility] after suffering a fall and subsequent left femur fracture, repaired in an uncomplicated manner by Dr. López. At this current time, her bowels are moving, carter cath was just discontinued and she is ready to be transferred to inpatient rehab to begin her recovery. She denies any chest pain or SOB, her labs remain stable, Hgb 10.0 post-op and ready to begin the intense therapy along with pain control. Currently her pain is doing well. Subjective/Events-last exam Getting DME set up in order for her to DC home because she is still having difficulty getting off the toilet and out of bed Femur x ray will be checked Swelling is much improved with the compression stockings Sally were removed per Dr. Lópze orders Conferred with RN Reviewed therapy notes Checked meds and labs Review of Systems General: Fatigue Musculoskeletal: leg pain Objective Exam Vital Signs Vital Signs Date Time Temp Pulse Resp B/P (MAP) Pulse Ox O2 Delivery O2 Flow Rate FiO2 09/09/19 17:26 Room Air 09/09/19 16:08 36.8 81 16 129/76 (93) 98 Capillary Refill : Less Than 3 Seconds General Appearance: No Apparent Distress, WD/WN, Chronically ill HEENT: PERRL/EOMI, Normal ENT Inspection, Pharynx Normal, Moist Mucous Membranes Neck: Full Range of Motion, Normal Inspection, Non Tender, Supple Respiratory: Chest Non Tender, Lungs Clear, Normal Breath Sounds, No Accessory Muscle Use, No Respiratory Distress Cardiovascular: Regular Rate, Rhythm, No Edema, No Gallop, No JVD, No Murmur Gastrointestinal: Normal Bowel Sounds, No Organomegaly, No Pulsatile Mass, Non Tender, Soft Back: Normal Inspection, No CVA Tenderness, No Vertebral Tenderness Extremity: Normal Capillary Refill, Normal Inspection, Normal Range of Motion (except left leg), Non Tender, No Calf Tenderness, Pedal Edema (left leg subtle) Neurologic/Psychiatric: Alert, Oriented x3, No Motor/Sensory Deficits, Normal Mood/Affect Skin: Normal Color, Warm/Dry Lymphatic: No Adenopathy Results/Procedures Lab Laboratory Tests 09/09/19 05:25 Patient resulted labs reviewed. FIM Transfers Therapy Code Descriptions/Definitions Functional [place] Measure: 0=Not Assessed/NA 4=Minimal Assistance 1=Total Assistance 5=Supervision or Setup 2=Maximal Assistance 6=Modified [place] 3=Moderate Assistance 7=Complete IndependenceSCALE: Activities may be completed with or without assistive devices. 3-Iamesphlxn-bviyjzc completes the activity by him/herself with no assistance from a helper. 5-Set-up or Clean-up Assistance-helper sets up or cleans up; patient completes activity. [place] assists only prior to or following the activity. 4-Supervision or Touching Assistance-helper provides verbal cues and/or touching/steadying and/or contact guard assistance as patient completes activity. Assistance may be provided throughout the activity or intermittently. 3-Partial/Moderate Assistance-helper does LESS THAN HALF the effort. [place] lifts, holds or supports trunk or limbs, but provides less than half the effort. 2-Substantial/Maximal Assistance-helper does MORE THAN HALF the effort. [place] lifts or holds trunk or limbs and provides more than half the effort. 8-Obapckuax-rjrzii does ALL the effort. Patient does none of the effort to complete the activity. Or, the assistance of 2 or more helpers is required for the patient to complete the activity. If activity was not attempted, code reason: 7-Patient Refused. 9-Not Applicable-not attempted and the patient did not perform the activity before the current illness, exacerbation or injury. 10-Not Attempted due to Environmental Limitations-(lack of equipment, weather restraints, etc.). 88-Not Attempted due to Medical Conditions or Safety Concerns. Transfers (B, C, W/C) (FIM): 3 Roll Left to Right (QC): 5 Sit to Lying (QC): 5 Sit to Stand (QC): 3 (CGA x2, min A required to stand from lower surfaces 5 episodes) Chair/Uer-nd-Nucks Xfer(QC): 6 Bed to/from Chair: 6 Car Transfer (QC): 4 Gait Training Does the Patient Walk?: Yes Gait (FIM): 5 Distance (FIM): 7=570-84 ft Distance: 240 x2 Walk 10 feet (QC): 4 Walk 50 ft with 2 Turns(QC): 4 Walk 150 ft (QC): 4 Walking 10ft/uneven surface-QC: 4 Gait Persons Needed: 1 Gait Assistive Device: FWW Wheelchair Training Does the Pt Use a Wheelchair?: No Wheelchair Distance: 3=150 ft Distance: 150' Wheel 50 ft with 2 turns (QC): 5 Wheel 150 ft (QC): 5 Type of Wheelchair: Manual Stair Training Stair Training: Handrails/: 2 handrails #of Steps: 4 1 Step (curb) (QC): 4 (CGA with min skilled inst for technique) 4 Steps (QC): 4 12 Steps (QC): 88 Stairs: Pattern: Step to Level of Assist: 4 Balance Picking up an Object (QC): 88 ADL-Treatment Eating (QC): 6 Oral Hygiene (QC): 6 Bathing Location: L Arm, R Arm, L Upper Leg, R Upper Leg, L Lower Leg (including foot), R Lower Leg (including foot), Chest, Abdomen, Buttocks, Perineal Area Shower/Bathe Self (QC): 4 Upper Body Dressing (QC): 5 Lower Body Dressing (QC): 4 On/Off Footwear (QC): 1 Toileting Hygiene (QC): 4 Toilet Transfer (QC): 3 Assessment/Plan Assessment and Plan Assess & Plan/Chief Complaint Assessment: Left femur fracture Post op anemia HTN restarted home meds Post op constipation now resolved 08/29/19 Left leg edema placed VENANCIO's Plan: IRF protocol Lovenox Monitor pain BM regimen to continue Pain control VENANCIO's Continue using incentive spirometer Discharge plan on Monday if DME in place (1) Fracture of left femur Status: Acute (2) Constipation (3) Hypertension Status: Chronic Qualifiers: Hypertension type: essential hypertension Qualified Codes: I10 - Essential (primary) hypertension (4) Postoperative anemia Status: Acute REGIS KEE DO Sep 09, 2019 08:58 POS
[2019-09-09] MEDS: amLODIPine 10 MG (NORVASC) TAB PO SCH (09:16)
[2019-09-09] MEDS: ENALAPRIL 10 MG (VASOTEC) TAB PO SCH (09:16)
[2019-09-09] MEDS: ENOXAPARIN 40 MG/0.4 ML (LOVENOX) SYR SC SCH (09:17)
[2019-09-09] MEDS: SENNA W/DOCUSATE (SENOKOT S) TABLET PO SCH ×2 (09:18→21:40)
--- NOTE | 2019-09-09 09:28 | Diagnostic Imaging Report ---
INDICATION: Postoperative, fracture. COMPARISON: 08/25/2019 TECHNIQUE: Four radiographs of the left femur dated 09/09/2019. FINDINGS: Longstem gamma nail is identified transfixing previously noted left mid shaft femoral fracture. Alignment appears improved and essentially anatomic. No evidence of hardware complication. Minimal if any periosteal reaction is present. No new fracture or dislocation. No destructive osseous process. Mild degenerative changes involving the left knee. IMPRESSION: 1. Interval internal fixation of previously noted left femoral shaft fracture with alignment appearing near anatomic without evidence of hardware complication. Minimal if any healing is noted. Recommend continued radiographic follow-up. 2. No new acute osseous abnormality. Dictated by: Dictated on workstation # [id number]
[2019-09-09] MEDS: HYDROcodone/APAP 10 MG/325 MG (LORTAB) TAB PO PRN ×2 (09:31→21:41)
--- NOTE | 2019-09-09 09:31 | Occupational Ther Daily Note ---
OT Current Status-Daily Note Subjective Pt alert and willing to participate with OT ADL's this morning. Pt complaining of 3/10 pain. ADL-Treatment Therapy Code Descriptions/Definitions Functional [place] Measure: 0=Not Assessed/NA 4=Minimal Assistance 1=Total Assistance 5=Supervision or Setup 2=Maximal Assistance 6=Modified [place] 3=Moderate Assistance 7=Complete IndependenceSCALE: Activities may be completed with or without assistive devices. 9-Voohofiyqv-vkxkpaq completes the activity by him/herself with no assistance from a helper. 5-Set-up or Clean-up Assistance-helper sets up or cleans up; patient completes activity. [place] assists only prior to or following the activity. 4-Supervision or Touching Assistance-helper provides verbal cues and/or touching/steadying and/or contact guard assistance as patient completes activity. Assistance may be provided throughout the activity or intermittently. 3-Partial/Moderate Assistance-helper does LESS THAN HALF the effort. [place] lifts, holds or supports trunk or limbs, but provides less than half the effort. 2-Substantial/Maximal Assistance-helper does MORE THAN HALF the effort. [place] lifts or holds trunk or limbs and provides more than half the effort. 6-Wnxvthzqm-ovcddy does ALL the effort. Patient does none of the effort to complete the activity. Or, the assistance of 2 or more helpers is required for the patient to complete the activity. If activity was not attempted, code reason: 7-Patient Refused. 9-Not Applicable-not attempted and the patient did not perform the activity before the current illness, exacerbation or injury. 10-Not Attempted due to Environmental Limitations-(lack of equipment, weather restraints, etc.). 88-Not Attempted due to Medical Conditions or Safety Concerns. Eating (QC): 6 Oral Hygiene (QC): 6 Shower/Bathe Self (QC): 3 (Pt required Tanner to swing LLE over tub lip using transfer tub bench.) Upper Body Dressing (QC): 5 Lower Body Dressing (QC): 3 (Pt required Tanner to vanda shoe of LLE, requiring assistance with use of shoe horn. ) Toileting Hygiene (QC): 4 (Pt required CGA for toileting transfer. ) Toilet Transfer (QC): 4 Pt participated in functional ambulation throughout her environment, with use of FWW, requiring CGA for steadying assistance as pt was complaining of fatigue through LLE. Education OT Patient Education: Modified ADL techniques, Reviewed precautions, Safety issues, Transfer techniques, Use of adapted equipment Teaching Recipient: Patient Teaching Methods: Demonstration, Discussion Response to Teaching: Verbalize Understanding, Return Demonstration OT Short Term Goals Short Term Goals Time Frame: Sep 03, 2019 Bathing(FIM): 4 Upper Body Dressing(FIM): 5 Lower Body Dressing(FIM): 3 Toileting(FIM): 4 Toilet/Commode Transfer(FIM): 4 Additional Short Term Goals: 1-Demonstrate ADL Tasks, 2-Verbalize Understanding, 3-ImproveStrength/Anand 1=Demonstrate adherence to instructed precautions during ADL tasks. 2=Patient will verbalize/demonstrate understanding of assistive devices/modifications for ADL. 3=Patient will improve strength/tolerance for activity to enable patient to perform ADL's. OT Workers Compensation Claims Analyst Goals Workers Compensation Claims Analyst Goals Time Frame: Sep 17, 2019 Eating (QC): 6 Oral Hygiene (QC): 6 Shower/Bathe Self (QC): 6 Upper Body Dressing (QC): 6 Lower Body Dressing (QC): 6 On/Off Footwear (QC): 6 Toileting Hygiene (QC): 6 Toilet/Commode Transfer (QC): 6 Additional Goals: 1-Demonstrate ADL Tasks, 2-Verbalize Understanding, 3- ImproveStrength/Anand 1=Demonstrate adherence to instructed precautions during ADL tasks. 2=Patient will verbalize/demonstrate understanding of assistive devices/modifications for ADL. 3=Patient will improve strength/tolerance for activity to enable patient to perform ADL's. OT Education/Plan Discharge Recommendations Plan/Recommendations: Continue POC Treatment Plan/Plan of Care Patient would benefit from OT for education, treatment and training to promote independence in ADL's, mobility, safety and/or upper extremity function for ADL's. Plan of Care: ADL Retraining, Functional Mobility, Group Exercise/Act as Ind, UE Funct Exercise/Act Treatment Duration: Aug 29, 2019 Frequency: At least 5 of 7 days/Wk (IRF) Estimated Hrs Per Day: 1.5 hours per day Rehab Potential: Good Time/GCodes Start Time: 08:00 Stop Time: 09:00 Total Time Billed (hr/min): 60 Billed Treatment Time 1, ADL 3, TA1 POLO JO OT Sep 09, 2019 09:31 POS
--- NOTE | 2019-09-09 10:17 | Physical Therapy Daily Note ---
PT Daily Note-Current Subjective Pt. agrees to Rx. States she felt her visit at home this weekend went well but she would like a BSC for over her toilet and a lift recline chair . This was forwarded to SW to assist pt with Drs orders etc Pain Numeric Pain Scale: 4 Location: Left Location Body Site: Hip Pain Description: Ache Mental Status Patient Orientation: Normal For Age Transfers SCALE: Activities may be completed with or without assistive devices. 5-Llbziqnqur-ghwalzp completes the activity by him/herself with no assistance from a helper. 5-Set-up or Clean-up Assistance-helper sets up or cleans up; patient completes activity. [place] assists only prior to or following the activity. 4-Supervision or Touching Assistance-helper provides verbal cues and/or touching/steadying and/or contact guard assistance as patient completes activity. Assistance may be provided throughout the activity or intermittently. 3-Partial/Moderate Assistance-helper does LESS THAN HALF the effort. [place] lifts, holds or supports trunk or limbs, but provides less than half the effort. 2-Substantial/Maximal Assistance-helper does MORE THAN HALF the effort. [place] lifts or holds trunk or limbs and provides more than half the effort. 3-Faqnbfllj-yawbry does ALL the effort. Patient does none of the effort to complete the activity. Or, the assistance of 2 or more helpers is required for the patient to complete the activity. If activity was not attempted, code reason: 7-Patient Refused. 9-Not Applicable-not attempted and the patient did not perform the activity before the current illness, exacerbation or injury. 10-Not Attempted due to Environmental Limitations-(lack of equipment, weather restraints, etc.). 88-Not Attempted due to Medical Conditions or Safety Concerns. Transfers (B, C, W/C): 6 Roll Left to Right (QC): 6 Sit to Lying (QC): 6 Sit to Stand (QC): 6 Chair/Dkb-po-Bxpwm Xfer(QC): 6 Bed to/from Chair: 6 Car Transfer (QC): 6 Pt. was mod I sit to stand while utilizing bilat arms of chairs therefore BSC or stool riser is recommended for pt. Weight Bearing Right Lower Extremity: Right Full Weight Bearing Left Lower Extremity: Left Weight Bearing/Tolerated Gait Training Does the Patient Walk?: Yes Gait: 6 Walk 10 feet (QC): 6 Walk 50 ft with 2 Turns(QC): 6 Walk 150 ft (QC): 6 Walking 10ft/uneven surface-QC: 6 Gait Persons Needed: 0 Gait Assistive Device: FWW pt. had device brought in from home and it was adjusted to her Stair Training Stair Training: Handrails/: 2 handrails #of Steps: 4 1 Step (curb) (QC): 5 4 Steps (QC): 5 Stairs: Pattern: Step to Level of Assist: 5 SBA and assist to bring AD up down steps only Balance Special Test Comments contraindicated for reaching for item on floor Exercises Seated Therapy Exercises: Ankle pumps, Sit to stand, Long arc quads Seated Reps: 10 Treatments trialed sit to online advertising director bthrm . Pt. manages well with C bilat arms on BSC Assessment Current Status: Good Progress PT Short Term Goals Short Term Goals Wheelchair Distance: 150' PT Boxcar Weigher Goals Care Home Goals PT Boxcar Weigher Goals Time Frame: Sep 24, 2019 Sit to Lying (QC): 6 Lying-Sitting on Side/Bed(QC): 6 Sit to Stand (QC): 6 Roll Left to Right (QC): 6 Chair/Iti-gz-Whlum Xfer(QC): 6 Car Transfer (QC): 6 Does the Patient Walk: Yes Distance: 300' Walk 10 feet (QC): 6 Walk 10ft-Uneven Surface(QC): 6 Walk 50ft with 2 Turns (QC): 6 Walk 150 ft (QC): 6 Gait Assistive Device: FWW # of Steps: 4 1 Step (curb) (QC): 6 4 Steps (QC): 6 Picking up an Object (QC): 5 PT Plan Treatment/Plan Treatment Plan: Continue Plan of Care Treatment Plan: Bed Mobility, Education, Functional Activity Anand, Functional Strength, Gait, Safety, Therapeutic Exercise, Transfers Treatment Duration: Sep 24, 2019 Frequency: At least 5 of 7 days/Wk (IRF) Estimated Hrs Per Day: 1.5 hours per day Patient and/or Family Agrees t: Yes Safety Risks/Education Patient Education: Gait Training, Transfer Techniques, Steps, Correct Positioning, Disease Process, Safety Issues Teaching Recipient: Patient Teaching Methods: Demonstration, Discussion Response to Teaching: Verbalize Understanding, Return Demonstration, Reinforcement Needed Time/GCodes Time In: 930 Time Out: 1015 Total Billed Treatment Time: 45 Total Billed Treatment 1,GT20m,FA25m RYDER SILVER NUTRITIONALIST Sep 09, 2019 10:17 POS
--- NOTE | 2019-09-09 11:52 | Progress Note - Ortho ---
Progress Note Subjective Date of Exam 09/09/19 Chief Complaint 15 days postop long TFN left femoral shaft HPI/Events since last exam Doing well postop. Sally removed yesterday. X-rays taken today Review of Systems Unchanged Allergies: Coded Allergies: No Known Drug Allergies (Verified , 08/29/18) Home Meds Reported Medications Amlodipine Besylate (Amlodipine Besylate) 5 Mg Tablet, 5 MG PO DAILY, TAB 08/27/19 Ibuprofen (Ibuprofen) 200 Mg Capsule, 400 MG PO Q8H PRN for PAIN-MILD, CAP 08/26/19 Acetaminophen (ACETAMINOPHEN) 500 Mg Tablet, 1000 MG PO Q8H PRN for PAIN-MILD, TAB 08/26/19 Multivitamin (Multiple Vitamins) 1 Each Tablet, 1 TAB PO DAILY, TAB 08/26/19 Enalapril Maleate (Enalapril Maleate) 10 Mg Tablet, 10 MG PO DAILY 08/26/19 [place] 3 Polyunsat Fatty Acids (Fish Oil 1,000 mg Capsule) 1,000 Mg Cap, 1000 MG PO DAILY, CAP 08/27/18 Calcium Carbonate/Vitamin D3 (Calcium 600 + Vit D Caplet) 1 Each Tablet, PO TID, TAB 08/27/18 Alendronate Sodium (Alendronate Sodium) 10 Mg Tablet, 10 MG PO DAILY, TAB 08/27/18 Objective Exam Constitutional: [] HEENT: [] Neck: [] Cardiovascular: [] Respiratory: [] Gastrointestinal: [] Genitourinary: [] Skin: [] Back/Spine: [] Extremities: [. Motion left hip and knee with mid shaft femur/thigh pain] Neurologic: [] Psychiatric: [] Hematologic/lymphatic/immunologic: [] Vital Signs Vital Signs Date Time Temp Pulse Resp B/P (MAP) Pulse Ox O2 Delivery O2 Flow Rate FiO2 09/09/19 06:00 36.8 85 18 145/74 (97) 96 Room Air 09/08/19 21:00 Room Air 09/08/19 17:03 37.0 82 18 134/81 (98) 98 Room Air I & O 09/09/19 07:00 Intake Total 2380 ml Balance 2380 ml Lab Results Laboratory Tests 09/09/19 05:25: White Blood Count 6.0, Red Blood Count 3.65L, Hemoglobin 11.1L, Hematocrit 35, Mean Corpuscular Volume 96, Mean Corpuscular Hemoglobin 30, Mean Corpuscular Hemoglobin Concent 32, Red Cell Distribution Width 15.5H, Platelet Count 365, Mean Platelet Volume 10.0, Neutrophils (%) (Auto) 63, Lymphocytes (%) (Auto) 20, Monocytes (%) (Auto) 15H, Eosinophils (%) (Auto) 2, Basophils (%) (Auto) 1, Neutrophils # (Auto) 3.7, Lymphocytes # (Auto) 1.2, Monocytes # (Auto) 0.9, Eosinophils # (Auto) 0.1, Basophils # (Auto) 0.0, Sodium Level 141, Potassium Level 4.8, Chloride Level 109H, Carbon Dioxide Level 22, Anion Gap 10, Blood Urea Nitrogen 19H, Creatinine 0.96, Estimat Glomerular Filtration Rate 56, BUN/C reatinine Ratio 20, Glucose Level 107H, Calcium Level 8.3L, Corrected Calcium 8.9, Total Bilirubin 0.4, Aspartate Amino Transf (AST/SGOT) 18, Alanine Aminotransferase (ALT/SGPT) 22, Alkaline Phosphatase 353H, Total Protein 5.9L, Albumin 3.3 Imaging X-rays of the femur taken today show good position of the long TFN as well as anatomic reduction of the fracture Assessment and Plan Assessment Doing well postop Problem List Unchanged Plan Continuing rehabilitation Final Diagonsis Midshaft fracture left femur status post long TFN Level of the visit: Level 3 Clinical Quality Measures DVT/VTE Risk/Contraindication: Risk Factor Score Per Nursin RFS Level Per Nursing on Admit: 4+=Very High PEG BULLOCK MD Sep 09, 2019 11:52 POS
--- NOTE | 2019-09-09 14:44 | Therapy Group Daily Note ---
Therapy Daily Group Note Patient Education Topic Other List Below (pain management , bed mob and TRF skills) Exercises LE Seated Exercise, Sit to/from Stand Session Ratio (pt:therapist): 4:1 Goal of Session: Home Safety Strategies, Safety with Transfers, Other (list) (understanding pain and the brain, TRF and bed mob skills) Goal Met for this Session: Yes Pt Benefit of Group: F/U Use of Strategies @Home, Increased Functional Safety, Socialization Other/Notes Pt. participated in group PT OT session this date. Pt. came and went via ambulation with CGA . Pt. was pleasant and social, sharing her name and her favorite place she has traveled. Education focused on bed mobility , sup to side to sit TRFs, sit to stand TRFs, car TRFs and tub bench TRFs all demonstrated with equipment and explanation. Pts. participated, shared their experiences and asked pertinent questions. Pts participated in group exercises sharing the seated exercises they could recall and demonstrating them for others . Sit to stand was broken down and practiced by each participant. Pain management strategies were discussed as well as information derived from "explain pain" topics. Pt. to room after group, in bed with alexander at hand, needs met Start Time: 13:00 Stop Time: 14:15 Total Billed Treatment Time: 75 Total Billed Treatment 1,GRP RYDER SILVER DRAFTER HEATING AND VENTILATING Sep 09, 2019 14:44 POS
--- NOTE | 2019-09-09 15:10 | NUR ---
Patient states her day pass home, this weekend went well. She states she will need a toilet riser, hip kit and lift chair. She was informed that [facility] does not cover a toilet riser or hip kit. Patient informed of local DME providers, i.e., [facility]. Patient states she would like to purchase equipment from [facility] as she has purchased items from them in the past. Upon reviewing [facility] choice list of [facility] providers, patient has chosen to proceed with [facility]. Patient states she would like to have med alert installed, as well. Will continue to follow for discharge planning. Addendum: 09/09/19 at 1558 by GIA AHUJA Patient provided local providers of med alert; however, patient states she has chosen to proceed with purchasing one from [facility]. Patient also informed of information specific to lift chair, i.e., [facility] only covers the lifting mechanism of chair ($175) and she would be responsible for the remaining portion, which is $600 or more. It was also explained to patient that specific documentation has to be provided in order for [facility] to consider covering the mechanism fee, i.e., dx of severe osteoarthritis of LE or neuro muscular disorder, for which she has neither. Additionally, it is recommended the patient be physically present for the purchase of the chair as it comes with various options; therefore, not being an item that can be purchased and delivered, prior to discharge. Patient states she may explore purchasing a lift chair from [facility], [place]. It was reiterated that it is recommended she be present for the purchase of this chair. Worker reassured patient the toilet riser and hip kit will be waiting for her to shrimp picker on her way home, as well as home health care services will arranged for her dismissal, tomorrow. Patient continues to prefer a Monday vs discharge as she feels that provides more time for the lift chair and med alert to be arranged.
[2019-09-09 16:08] VITALS: BP 129/76
--- NOTE | 2019-09-09 18:00 | NUR ---
HAS HAD A GOOD DAY. HOPES DISCHARGE WILL BE POSTPONED UNTIL MONDAY OF MONDAY. WAS ABLE TO PUSH SELF UP FROM TOILET FOR THE FIRST TIME TODAY AND PROGRESSING WELL.
--- NOTE | 2019-09-09 19:25 | NUR ---
bedside report received from YAKOV BELLO, assume care of pt
--- NOTE | 2019-09-09 21:41 | NUR ---
c/o pain to lt hip, pain level 6/10 on numeric scale, Lortab 10/325 1 tab given
--- NOTE | 2019-09-09 22:15 | NUR ---
rates pain level 3/10 on numeric scale
[2019-09-10 05:48] VITALS: BP 154/81
--- NOTE | 2019-09-10 07:20 | NUR ---
BEDSIDE REPORT GIVEN TO RISSA BELLO
[2019-09-10 08:10] VITALS: BP 145/77
[2019-09-10] MEDS: ENOXAPARIN 40 MG/0.4 ML (LOVENOX) SYR SC SCH (08:31)
[2019-09-10] MEDS: ENALAPRIL 10 MG (VASOTEC) TAB PO SCH (08:31)
[2019-09-10] MEDS: amLODIPine 10 MG (NORVASC) TAB PO SCH (08:31)
[2019-09-10] MEDS: SENNA W/DOCUSATE (SENOKOT S) TABLET PO SCH ×2 (08:31→21:21)
--- NOTE | 2019-09-10 08:39 | NUR ---
Patient states her friend, Era is to stop at [facility] either last evening or today to take pictures of their available lift chairs, and then patient will make a decision based on the pictures. Patient is hopeful the chair can be delivered tomorrow, 09/11. When asked about the status of the med alert, patient replied by saying it is not a primary concern of hers, but that she rather ensure the lift chair is in place, instead. Will continue to follow.
--- NOTE | 2019-09-10 09:55 | Physical Therapy Daily Note ---
PT Daily Note-Current Subjective pt in chair pre-tx with friend in the room. Pt reports pain 3/10 pre-tx. pt agrees to PT this morning. Appearance pt in chair post-tx with feet elevated. Pt with call light, room phone, tray table in reach with all needs met at this time. Mental Status Patient Orientation: Person, Place, Time, Situation Transfers SCALE: Activities may be completed with or without assistive devices. 7-Bwdegvltgh-iebxrej completes the activity by him/herself with no assistance from a helper. 5-Set-up or Clean-up Assistance-helper sets up or cleans up; patient completes activity. [place] assists only prior to or following the activity. 4-Supervision or Touching Assistance-helper provides verbal cues and/or touching/steadying and/or contact guard assistance as patient completes activity. Assistance may be provided throughout the activity or intermittently. 3-Partial/Moderate Assistance-helper does LESS THAN HALF the effort. [place] lifts, holds or supports trunk or limbs, but provides less than half the effort. 2-Substantial/Maximal Assistance-helper does MORE THAN HALF the effort. [place] lifts or holds trunk or limbs and provides more than half the effort. 8-Xmtiqtnzz-oabofr does ALL the effort. Patient does none of the effort to complete the activity. Or, the assistance of 2 or more helpers is required for the patient to complete the activity. If activity was not attempted, code reason: 7-Patient Refused. 9-Not Applicable-not attempted and the patient did not perform the activity before the current illness, exacerbation or injury. 10-Not Attempted due to Environmental Limitations-(lack of equipment, weather restraints, etc.). 88-Not Attempted due to Medical Conditions or Safety Concerns. Roll Left to Right (QC): 6 Sit to Lying (QC): 6 Sit to Stand (QC): 6 Chair/Ode-fi-Xbqcr Xfer(QC): 6 Car Transfer (QC): 6 Weight Bearing Right Lower Extremity: Right Full Weight Bearing Left Lower Extremity: Left Weight Bearing/Tolerated Gait Training Distance: 300' Walk 10 feet (QC): 6 Walk 50 ft with 2 Turns(QC): 6 Walk 150 ft (QC): 6 Walking 10ft/uneven surface-QC: 6 Gait Assistive Device: FWW pt continues to demonstrate hip hike on the R LE during ambulation with decreased stance time on the L LE. Wheelchair Training Does the Pt Use a Wheelchair?: No Stair Training Stair Training: Handrails/: 2 handrails #of Steps: 4 1 Step (curb) (QC): 5 4 Steps (QC): 5 12 Steps (QC): 9 Stairs: Pattern: Step to Balance Picking up an Object (QC): 4 (SBA) Exercises Seated Therapy Exercises: Ankle pumps, Long arc quads, Hip flexion Seated Reps: 40 (2sets 20 reps) NuStep Minutes: 15 NuStep Workload: 3 Treatments pt performed bed mobility training, transfer training, skilled ambulation training, stair training, and education this date. Assessment Current Status: Good Progress Pt reports she thinks she will be going home tomorrow. Pt is indep for all transfers, and ambulation, pt is mod indep for stairs at this time. Pt continues to be limited in ambulation distance by increasing pain in the L LE. PT Short Term Goals Short Term Goals Wheelchair Distance: 150' PT Fdc Goals Resistance [place] Goals PT Fdc Goals Time Frame: Sep 24, 2019 Sit to Lying (QC): 6 Lying-Sitting on Side/Bed(QC): 6 Sit to Stand (QC): 6 Roll Left to Right (QC): 6 Chair/Jkt-gj-Mcicw Xfer(QC): 6 Car Transfer (QC): 6 Does the Patient Walk: Yes Distance: 300' Walk 10 feet (QC): 6 Walk 10ft-Uneven Surface(QC): 6 Walk 50ft with 2 Turns (QC): 6 Walk 150 ft (QC): 6 Gait Assistive Device: FWW # of Steps: 4 1 Step (curb) (QC): 6 4 Steps (QC): 6 Picking up an Object (QC): 5 PT Plan Problem List Problem List: Activity Tolerance, Functional Strength, Safety, Balance, Gait, Transfer, Bed Mobility Treatment/Plan Treatment Plan: Continue Plan of Care Treatment Plan: Bed Mobility, Education, Functional Activity Anand, Functional Strength, Gait, Safety, Therapeutic Exercise, Transfers Treatment Duration: Sep 24, 2019 Frequency: At least 5 of 7 days/Wk (IRF) Estimated Hrs Per Day: 1.5 hours per day Patient and/or Family Agrees t: Yes Safety Risks/Education Patient Education: Gait Training, Transfer Techniques, Steps, Correct Positioning, Safety Issues Teaching Recipient: Patient Teaching Methods: Demonstration, Discussion Response to Teaching: Return Demonstration, Reinforcement Needed Time/GCodes Time In: 900 Time Out: 1000 Total Billed Treatment Time: 60 Total Billed Treatment 1 visit 45' FA 15' GT RAFAEL CASTANO PT Sep 10, 2019 09:55 POS
[2019-09-10] MEDS: HYDROcodone/APAP 10 MG/325 MG (LORTAB) TAB PO PRN ×2 (11:26→22:29)
--- NOTE | 2019-09-10 11:59 | NUR ---
provided prayer and Communion.
--- NOTE | 2019-09-10 12:00 | PM&R Progress Note ---
Subjective HPI/CC On Admission Date Seen by Provider: Sep 10, 2019 Time Seen by Provider: 07:30 Chief complaint: Left femur fracture HPI: This is a 79yoWF that was independent with ADLs and ambulation who presented to [facility] after suffering a fall and subsequent left femur fracture, repaired in an uncomplicated manner by Dr. López. At this current time, her bowels are moving, carter cath was just discontinued and she is ready to be trans ferred to inpatient rehab to begin her recovery. She denies any chest pain or SOB, her labs remain stable, Hgb 10.0 post-op and ready to begin the intense therapy along with pain control. Currently her pain is doing well. Subjective/Events-last exam Discharge is on hold until her lift chair is delivered and she has the ability to pull herself up off the toilet with additional devices. Bowels are moving. Pain is well controlled. Conferred with RN Reviewed therapy notes Checked meds and labs Review of Systems General: Fatigue Musculoskeletal: leg pain Objective Exam Vital Signs Vital Signs Date Time Temp Pulse Resp B/P (MAP) Pulse Ox O2 Delivery O2 Flow Rate FiO2 09/10/19 18:02 37.0 88 18 147/79 (101) 97 Room Air Capillary Refill : Less Than 3 Seconds General Appearance: No Apparent Distress, WD/WN, Chronically ill HEENT: PERRL/EOMI, Normal ENT Inspection, Pharynx Normal, Moist Mucous Membranes Neck: Full Range of Motion, Normal Inspection, Non Tender, Supple Respiratory: Chest Non Tender, Lungs Clear, Normal Breath Sounds, No Accessory Muscle Use, No Respiratory Distress Cardiovascular: Regular Rate, Rhythm, No Edema, No Gallop, No JVD, No Murmur Gastrointestinal: Normal Bowel Sounds, No Organomegaly, No Pulsatile Mass, Non Tender, Soft Back: Normal Inspection, No CVA Tenderness, No Vertebral Tenderness Extremity: Normal Capillary Refill, Normal Inspection, Normal Range of Motion (except left leg), Non Tender, No Calf Tenderness, Pedal Edema (left leg subtle) Neurologic/Psychiatric: Alert, Oriented x3, No Motor/Sensory Deficits, Normal Mood/Affect Skin: Normal Color, Warm/Dry Lymphatic: No Adenopathy Results/Procedures Lab Patient resulted labs reviewed. FIM Transfers Therapy Code Descriptions/Definitions Functional [place] Measure: 0=Not Assessed/NA 4=Minimal Assistance 1=Total Assistance 5=Supervision or Setup 2=Maximal Assistance 6=Modified [place] 3=Moderate Assistance 7=Complete IndependenceSCALE: Activities may be completed with or without assistive devices. 8-Scmvfwfsht-uhdxhgd completes the activity by him/herself with no assistance from a helper. 5-Set-up or Clean-up Assistance-helper sets up or cleans up; patient completes activity. [place] assists only prior to or following the activity. 4-Supervision or Touching Assistance-helper provides verbal cues and/or touching/steadying and/or contact guard assistance as patient completes act ivity. Assistance may be provided throughout the activity or intermittently. 3-Partial/Moderate Assistance-helper does LESS THAN HALF the effort. [place] lifts, holds or supports trunk or limbs, but provides less than half the effort. 2-Substantial/Maximal Assistance-helper does MORE THAN HALF the effort. [place] lifts or holds trunk or limbs and provides more than half the effort. 0-Uxbcztbtj-pdblfe does ALL the effort. Patient does none of the effort to complete the activity. Or, the assistance of 2 or more helpers is required for the patient to complete the activity. If activity was not attempted, code reason: 7-Patient Refused. 9-Not Applicable-not attempted and the patient did not perform the activity before the current illness, exacerbation or injury. 10-Not Attempted due to Environmental Limitations-(lack of equipment, weather restraints, etc.). 88-Not Attempted due to Medical Conditions or Safety Concerns. Transfers (B, C, W/C) (FIM): 6 Roll Left to Right (QC): 6 Sit to Lying (QC): 6 Sit to Stand (QC): 6 Chair/Jlc-iv-Dopbb Xfer(QC): 6 Bed to/from Chair: 6 Car Transfer (QC): 6 Gait Training Does the Patient Walk?: Yes Gait (FIM): 6 Distance (FIM): 1=959-06 ft Distance: 300' Walk 10 feet (QC): 6 Walk 50 ft with 2 Turns(QC): 6 Walk 150 ft (QC): 6 Walking 10ft/uneven surface-QC: 6 Gait Persons Needed: 0 Gait Assistive Device: FWW Wheelchair Training Does the Pt Use a Wheelchair?: No Wheelchair Distance: 3=150 ft Distance: 150' Wheel 50 ft with 2 turns (QC): 5 Wheel 150 ft (QC): 5 Type of Wheelchair: Manual Stair Training Stair Training: Handrails/: 2 handrails #of Steps: 4 1 Step (curb) (QC): 5 4 Steps (QC): 5 12 Steps (QC): 9 Stairs: Pattern: Step to Level of Assist: 5 Balance Picking up an Object (QC): 4 (SBA) ADL-Treatment Eating (QC): 6 Oral Hygiene (QC): 6 Bathing Location: L Arm, R Arm, L Upper Leg, R Upper Leg, L Lower Leg ( including foot), R Lower Leg (including foot), Chest, Abdomen, Buttocks, Perineal Area Shower/Bathe Self (QC): 3 (Pt required Tanner to swing LLE over tub lip using transfer tub bench.) Upper Body Dressing (QC): 5 Lower Body Dressing (QC): 3 (Pt required Tanner to vanda shoe of LLE, requiring assistance with use of shoe horn. ) On/Off Footwear (QC): 1 Toileting Hygiene (QC): 4 (Pt required CGA for toileting transfer. ) Toilet Transfer (QC): 4 Assessment/Plan Assessment and Plan Assess & Plan/Chief Complaint Assessment: Left femur fracture Post op anemia HTN restarted home meds Post op constipation now resolved 08/29/19 Left leg edema placed VENANCIO's Plan: IRF protocol Lovenox Monitor pain BM regimen to continue Pain control VENANCIO's Continue using incentive spirometer Discharge plan on Monday if DME in place (1) Fracture of left femur Status: Acute (2) Constipation (3) Hypertension Status: Chronic Qualifiers: Hypertension type: essential hypertension Qualified Codes: I10 - Essential (primary) hypertension (4) Postoperative anemia Status: Acute REGIS KEE DO Sep 10, 2019 12:00 POS
--- NOTE | 2019-09-10 12:36 | Occupational Ther Daily Note ---
OT Current Status-Daily Note Subjective Pt sitting in chair, agrees to therapy. Pt reports 3/10 pain in left LE. ADL-Treatment Pt sit to stand without assist. Gait to restroom with FWW. Transfer to extended tub bench with supervision. Pt able to complete tub transfer with SBA. Seated bathing completed with set up. Pt able to wash/dry all areas using long handled sponge for LE. Don pullover shirt with set up. Pt donned underwear and pants with set up using adaptive equipment. Don socks with set up using sock aid. Pt stood at sink to brush teeth and comb hair with modified independence. Therapy Code Descriptions/Definitions Functional [place] Measure: 0=Not Assessed/NA 4=Minimal Assistance 1=Total Assistance 5=Supervision or Setup 2=Maximal Assistance 6=Modified [place] 3=Moderate Assistance 7=Complete IndependenceSCALE: Activities may be completed with or without assistive devices. 9-Rkuwkneyut-gasjear completes the activity by him/herself with no assistance from a helper. 5-Set-up or Clean-up Assistance-helper sets up or cleans up; patient completes activity. [place] assists only prior to or following the activity. 4-Supervision or Touching Assistance-helper provides verbal cues and/or touching/steadying and/or contact guard assistance as patient completes activity. Assistance may be provided throughout the activity or intermittently. 3-Partial/Moderate Assistance-helper does LESS THAN HALF the effort. [place] lifts, holds or supports trunk or limbs, but provides less than half the effort. 2-Substantial/Maximal Assistance-helper does MORE THAN HALF the effort. [place] lifts or holds trunk or limbs and provides more than half the effort. 2-Zrvkhlymu-urbznf does ALL the effort. Patient does none of the effort to compl ete the activity. Or, the assistance of 2 or more helpers is required for the patient to complete the activity. If activity was not attempted, code reason: 7-Patient Refused. 9-Not Applicable-not attempted and the patient did not perform the activity before the current illness, exacerbation or injury. 10-Not Attempted due to Environmental Limitations-(lack of equipment, weather restraints, etc.). 88-Not Attempted due to Medical Conditions or Safety Concerns. Oral Hygiene (QC): 6 Shower/Bathe Self (QC): 5 Upper Body Dressing (QC): 5 Lower Body Dressing (QC): 5 Other Treatment Pt performed gait to therapy gym with FWW, no LOB noted. Arm bike x12 minutes to increase overall strength and activity tolerance needed for functional task completion. Pt completed activity with minimal resistance and steady pace. One break taken during task. Pt completed graded clothespin activity with bilateral UE with 1# weights in place to increase strength and cook camp/pinch strength. Pt performed fine motor task with nuts and bolts with 1# weights in place on bilateral UE to increase strength, activity tolerance and coordination/manipulation skills. Pt ambulated to commons area with FWW, sitting at table to eat lunch after session. OT Short Term Goals Short Term Goals Time Frame: Sep 03, 2019 Bathing(FIM): 4 Upper Body Dressing(FIM): 5 Lower Body Dressing(FIM): 3 Toileting(FIM): 4 Toilet/Commode Transfer(FIM): 4 Additional Short Term Goals: 1-Demonstrate ADL Tasks, 2-Verbalize Understanding, 3-ImproveStrength/Anand 1=Demonstrate adherence to instructed precautions during ADL tasks. 2=Patient will verbalize/demonstrate understanding of assistive devices/modifications for ADL. 3=Patient will improve strength/tolerance for activity to enable patient to p erform ADL's. OT Senior Living Goals Senior Living Goals Time Frame: Sep 17, 2019 Eating (QC): 6 Oral Hygiene (QC): 6 Shower/Bathe Self (QC): 6 Upper Body Dressing (QC): 6 Lower Body Dressing (QC): 6 On/Off Footwear (QC): 6 Toileting Hygiene (QC): 6 Toilet/Commode Transfer (QC): 6 Additional Goals: 1-Demonstrate ADL Tasks, 2-Verbalize Understanding, 3- ImproveStrength/Anand 1=Demonstrate adherence to instructed precautions during ADL tasks. 2=Patient will verbalize/demonstrate understanding of assistive devices/modifications for ADL. 3=Patient will improve strength/tolerance for activity to enable patient to perform ADL's. OT Education/Plan Discharge Recommendations Plan/Recommendations: Continue POC Treatment Plan/Plan of Care Patient would benefit from OT for education, treatment and training to promote independence in ADL's, mobility, safety and/or upper extremity function for ADL's. Plan of Care: ADL Retraining, Functional Mobility, Group Exercise/Act as Ind, UE Funct Exercise/Act Treatment Duration: Aug 29, 2019 Frequency: At least 5 of 7 days/Wk (IRF) Estimated Hrs Per Day: 1.5 hours per day Rehab Potential: Good Time/GCodes Start Time: 10:45 Stop Time: 12:00 Total Time Billed (hr/min): 75 Billed Treatment Time 1 visit, ADLx3(45minutes), EXx2(30minutes) MARY YORK OT Sep 10, 2019 12:36 POS
--- NOTE | 2019-09-10 14:58 | Occupational Ther Daily Note ---
OT Current Status-Daily Note Subjective Pt sitting in commons area after finishing lunch, agrees to therapy. ADL-Treatment Therapy Code Descriptions/Definitions Functional [place] Measure: 0=Not Assessed/NA 4=Minimal Assistance 1=Total Assistance 5=Supervision or Setup 2=Maximal Assistance 6=Modified [place] 3=Moderate Assistance 7=Complete IndependenceSCALE: Activities may be completed with or without assistive devices. 8-Yekvlldwbv-yhtcufj completes the activity by him/herself with no assistance from a helper. 5-Set-up or Clean-up Assistance-helper sets up or cleans up; patient completes activity. [place] assists only prior to or following the activity. 4-Supervision or Touching Assistance-helper provides verbal cues and/or touching/steadying and/or contact guard assistance as patient completes activity. Assistance may be provided throughout the activity or intermittently. 3-Partial/Moderate Assistance-helper does LESS THAN HALF the effort. [place] lifts, holds or supports trunk or limbs, but provides less than half the effort. 2-Substantial/Maximal Assistance-helper does MORE THAN HALF the effort. [place] lifts or holds trunk or limbs and provides more than half the effort. 5-Raghvfaog-xtagon does ALL the effort. Patient does none of the effort to complete the activity. Or, the assistance of 2 or more helpers is required for the patient to complete the activity. If activity was not attempted, code reason: 7-Patient Refused. 9-Not Applicable-not attempted and the patient did not perform the activity before the current illness, exacerbation or injury. 10-Not Attempted due to Environmental Limitations-(lack of equipment, weather restraints, etc.). 88-Not Attempted due to Medical Conditions or Safety Concerns. Other Treatment Pt sit to stand from chair without assist. Gait to room with FWW. Pt transferred to chair without assist. Pt completed bilateral UE exercises to increase overall strength needed for ADLs and transfers. Pt performed four exercises x10 reps with mild resistance (yellow) theraband. Rest breaks taken between exercises. Skilled cues for proper exercise technique. Pt sitting in chair with needs met after session. OT Short Term Goals Short Term Goals Time Frame: Sep 03, 2019 Bathing(FIM): 4 Upper Body Dressing(FIM): 5 Lower Body Dressing(FIM): 3 Toileting(FIM): 4 Toilet/Commode Transfer(FIM): 4 Additional Short Term Goals: 1-Demonstrate ADL Tasks, 2-Verbalize Understanding, 3-ImproveStrength/Anand 1=Demonstrate adherence to instructed precautions during ADL tasks. 2=Patient will verbalize/demonstrate understanding of assistive devices/modifications for ADL. 3=Patient will improve strength/tolerance for activity to enable patient to perform ADL's. OT Snf Goals Snf Goals Time Frame: Sep 17, 2019 Eating (QC): 6 Oral Hygiene (QC): 6 Shower/Bathe Self (QC): 6 Upper Body Dressing (QC): 6 Lower Body Dressing (QC): 6 On/Off Footwear (QC): 6 Toileting Hygiene (QC): 6 Toilet/Commode Transfer (QC): 6 Additional Goals: 1-Demonstrate ADL Tasks, 2-Verbalize Understanding, 3- ImproveStrength/Anand 1=Demonstrate adherence to instructed precautions during ADL tasks. 2=Patient will verbalize/demonstrate understanding of assistive devices/modifications for ADL. 3=Patient will improve strength/tolerance for activity to enable patient to perform ADL's. OT Education/Plan Discharge Recommendations Plan/Recommendations: Continue POC Treatment Plan/Plan of Care Patient would benefit from OT for education, treatment and training to promote independence in ADL's, mobility, safety and/or upper extremity function for ADL's. Plan of Care: ADL Retraining, Functional Mobility, Group Exercise/Act as Ind, UE Funct Exercise/Act Treatment Duration: Aug 29, 2019 Frequency: At least 5 of 7 days/Wk (IRF) Estimated Hrs Per Day: 1.5 hours per day Rehab Potential: Good Time/GCodes Start Time: 13:00 Stop Time: 13:15 Total Time Billed (hr/min): 15 Billed Treatment Time 1 visit, EX(15minutes) MARY YORK OT Sep 10, 2019 14:58 POS
--- NOTE | 2019-09-10 15:04 | Physical Therapy Daily Note ---
PT Daily Note-Current Subjective pt in recliner pre-tx. pt agrees to PT this afternoon. pt denies any pain at this time. Appearance pt in recliner post-tx. pt with call light, room phone, and tray table in reach with all needs met at this time. Mental Status Patient Orientation: Person, Place, Time, Situation Transfers SCALE: Activities may be completed with or without assistive devices. 4-Esyorlvjaz-cughdzw completes the activity by him/herself with no assistance from a helper. 5-Set-up or Clean-up Assistance-helper sets up or cleans up; patient completes activity. [place] assists only prior to or following the activity. 4-Supervision or Touching Assistance-helper provides verbal cues and/or touching/steadying and/or contact guard assistance as patient completes activity. Assistance may be provided throughout the activity or intermittently. 3-Partial/Moderate Assistance-helper does LESS THAN HALF the effort. [place] lifts, holds or supports trunk or limbs, but provides less than half the effort. 2-Substantial/Maximal Assistance-helper does MORE THAN HALF the effort. [place] lifts or holds trunk or limbs and provides more than half the effort. 5-Blmvvzbtm-fdkqkr does ALL the effort. Patient does none of the effort to complete the activity. Or, the assistance of 2 or more helpers is required for the patient to complete the activity. If activity was not attempted, code reason: 7-Patient Refused. 9-Not Applicable-not attempted and the patient did not perform the activity before the current illness, exacerbation or injury. 10-Not Attempted due to Environmental Limitations-(lack of equipment, weather restraints, etc.). 88-Not Attempted due to Medical Conditions or Safety Concerns. Sit to Stand (QC): 6 Weight Bearing Right Lower Extremity: Right Full Weight Bearing Left Lower Extremity: Left Weight Bearing/Tolerated Gait Training Does the Patient Walk?: Yes Distance: 400' Walk 10 feet (QC): 6 Walk 50 ft with 2 Turns(QC): 6 Walk 150 ft (QC): 6 Gait Assistive Device: FWW pt is independent with ambulation including walking 10 feet over an uneven surface and 50 feet with atleast 2 turns. Exercises Seated Therapy Exercises: Long arc quads, Hip flexion Seated Reps: 30 (15 reps 2 sets) Standing: Heel/toe raises, 3 way Ex=Flex, Abd, Ext Standing Reps: 30 (15reps 2 sets) Treatments pt performed transfer training, skilled ambulation training, functional LE strengthening exercises, and education. Assessment Current Status: Good Progress pt is independent with ambulation, and transfers this date. Pt reports she feels like she is ready to go home as soon as she has her lift chair moved in which should be by tomorrow. pt reports she has a friend coming to stay with her at home the next 2 nights. PT Short Term Goals Short Term Goals Wheelchair Distance: 150' PT Assisted Goals Echo Technologist Goals PT Assisted Goals Time Frame: Sep 24, 2019 Sit to Lying (QC): 6 Lying-Sitting on Side/Bed(QC): 6 Sit to Stand (QC): 6 Roll Left to Right (QC): 6 Chair/Jcv-to-Ncktw Xfer(QC): 6 Car Transfer (QC): 6 Does the Patient Walk: Yes Distance: 300' Walk 10 feet (QC): 6 Walk 10ft-Uneven Surface(QC): 6 Walk 50ft with 2 Turns (QC): 6 Walk 150 ft (QC): 6 Gait Assistive Device: FWW # of Steps: 4 1 Step (curb) (QC): 6 4 Steps (QC): 6 Picking up an Object (QC): 5 PT Plan Problem List Problem List: Activity Tolerance, Functional Strength, Safety, Balance, Gait, Transfer, Bed Mobility Treatment/Plan Treatment Plan: Continue Plan of Care Treatment Plan: Bed Mobility, Education, Functional Activity Anand, Functional Strength, Gait, Safety, Therapeutic Exercise, Transfers Treatment Duration: Sep 24, 2019 Frequency: At least 5 of 7 days/Wk (IRF) Estimated Hrs Per Day: 1.5 hours per day Patient and/or Family Agrees t: Yes Safety Risks/Education Patient Education: Gait Training, Transfer Techniques, Correct Positioning, Safety Issues Teaching Recipient: Patient Teaching Methods: Demonstration, Discussion Response to Teaching: Return Demonstration, Reinforcement Needed Time/GCodes Time In: 1335 Time Out: 1405 Total Billed Treatment Time: 30 Total Billed Treatment 1 visit EX 15' GT 15' RAFAEL CASTANO PT Sep 10, 2019 15:04 POS
--- NOTE | 2019-09-10 17:44 | NUR ---
RD ASSESSMENT PMHx: HTN PT INTERACTION: Pt was awake and pleasant during nutrition follow-up. Pt states current appetite is good. Note pt avg PO intake 100% x3d. Pt states no issues with n/v/c/d at this time. ABNORMAL NUTRITION-RELATED LAB VALUES: CL 109 (H); glu 107 (H); alkphos 353 (H); Pro 5.9 (L); Ca 8.3 (L) Est. kcal needs: 9965-9260 kcal (20-25 kcal/kg) Est. Pro needs: 67-80 g Pro (0.8-1.0 g Pro/kg) PES STATEMENT: Given pt's PO intake, no nutrition diagnosis at this time (NO-1.1) INTERVENTION: Continue with current diet order of Regular diet. From nutrition standpoint, pt is eating very well and ready for discharge. MONITOR/EVALUATE: PO Intake; Plan of Care; Hydration Status; Weight Status; Lab Values Sheree West, MS, RD, LD Ext. [phone]
[2019-09-10 18:02] VITALS: BP 147/79
[2019-09-11 06:00] VITALS: BP 133/80
[2019-09-11] MEDS: SENNA W/DOCUSATE (SENOKOT S) TABLET PO SCH (08:29)
[2019-09-11] MEDS: amLODIPine 10 MG (NORVASC) TAB PO SCH (08:29)
[2019-09-11] MEDS: ENOXAPARIN 40 MG/0.4 ML (LOVENOX) SYR SC SCH (08:29)
[2019-09-11] MEDS: ENALAPRIL 10 MG (VASOTEC) TAB PO SCH (08:29)
[2019-09-11] MEDS ORDERED: HYDR-3820 PO (08:47)
[2019-09-11] MEDS ORDERED: AMLO10TA7 PO (08:47)
[2019-09-11] MEDS ORDERED: SENN-20 PO (08:47)
[2019-09-11] MEDS ORDERED: ALPR0.254 PO (08:47)
--- NOTE | 2019-09-11 08:49 | D/C HH Face to Face Order ---
D/C Face to Face Orders Reconcile Patient Problems Problems Reviewed?: Yes Instructions for Patient Via [facility], Patient Instructions/FollowUp: DR Torres and Dr López f/u appts as scheduled Physician to follow Patient: Dr Torres Discharge Diet for Home: No Restrictions Patient Problems: Left femur fracture HTN Goals for Patient: Return to independent living Patient Data-Allergies,Ht & Wt Patient Allergies: Coded Allergies: No Known Drug Allergies (Verified , 08/29/18) Height (Feet): 5 Height (Inches): 2.00 Weight (Pounds): 176 Weight (Ounces): 0.0 Home Health Need/Face to Face Date of Face to Face: Sep 11, 2019 Clinical Findings: Generalized weakness and fatigue, Muscle weakness, Pain with ambulation, Unsteady gait I have seen Pt [id number]: Yes Discharged To: Home Diagnosis/Conditions: Left femur fracture HTN Patient is Homebound due to: Monica fall risk due to instabilty, Muscle weakness, Pain w/ambulation Homebound Status Due to the above stated illness, injury or surgical procedure (medical condition or diagnosis) and associated clinical findings, the patient is homebound because of his/her inability to leave home except with aid of a supportive device and/or person AND leaving the home requires a considerable and taxing effort or is medically contraindicated. Pt req the following assistanc: [facility] Nursing Orders Home Health Services Order: Nursing Services, Second Hand Paper Machine-Evaluate & Treat, Physical Therapy-Evaluate & Treat Certify Stmt I certify that this patient is under my care and that I, a nurse practitioner or a physician; a baking assistant working with me, had a face to face encounter that - meets the physician face to face encounter requirements with this patient as dated. REGIS KEE DO Sep 11, 2019 08:49 POS
--- NOTE | 2019-09-11 08:49 | Discharge Summary ---
Diagnosis/Chief Complaint Date of Admission Aug 27, 2019 at 10:18 Date of Discharge Discharge Date: Sep 11, 2019 Discharge Diagnosis Assessment: Left femur fracture Post op anemia HTN restarted home meds Post op constipation now resolved 08/29/19 Left leg edema placed VENANCIO's Plan: IRF protocol Lovenox Monitor pain BM regimen to continue Pain control VENANCIO's Continue using incentive spirometer Discharge plan on Monday if DME in place (1) Fracture of left femur Status: Acute (2) Constipation (3) Hypertension Status: Chronic Qualifiers: Hypertension type: essential hypertension Qualified Codes: I10 - Essential (primary) hypertension (4) Postoperative anemia Status: Acute Discharge Summary Discharge Physical Examination Allergies: Coded Allergies: No Known Drug Allergies (Verified , 08/29/18) Vitals & I&Os Vital Signs Date Time Temp Pulse Resp B/P (MAP) Pulse Ox O2 Delivery O2 Flow Rate FiO2 09/11/19 11:00 36.4 92 18 134/76 96 Room Air General Appearance: Alert, Oriented X3, Cooperative Respiratory: Clear to Auscultation Cardiovascular: Regular Rate, Normal S1, Normal S2 Psych/Mental Status: Mental Status NL, Mood NL Hospital Course Was the Problem List Reviewed?: Yes Hospital Course: Pt had an uneventfultwo week hospitalcourse after she was admitted after sustaininga left femur fracture after a fall. She was able to participate in aggressive therapy. Labs remained stable, BP required restating of home medication and overall she was able to improveupon her strengthening exercises and be able to go home with a lift chair and bars to help her get off of the toiled. She was deemed stable for DC and will have close follow up with Dr. Torres Labs (last 24 hrs) Laboratory Tests 08/30/19 05:39: White Blood Count 7.1, Red Blood Count 3.40L, Hemoglobin 10.2L, Hematocrit 32L, Mean Corpuscular Volume 94, Mean Corpuscular Hemoglobin 30, Mean Corpuscular Hemoglobin Concent 32, Red Cell Distribution Width 14.2, Platelet Count 243, Mean Platelet Volume 10.4, Neutrophils (%) (Auto) 58, Lymphocytes (%) (Auto) 24, Monocytes (%) (Auto) 14H, Eosinophils (%) (Auto) 4, Basophils (%) (Auto) 1, Neutrophils # (Auto) 4.1, Lymphocytes # (Auto) 1.7, Monocytes # (Auto) 1.0, Eosinophils # (Auto) 0.3, Basophils # (Auto) 0.0, Sodium Level 139, Potassium Level 4.2, Chloride Level 107, Carbon Dioxide Level 24, Anion Gap 8, Blood Urea Nitrogen 20H, Creatinine 1.01, Estimat Glomerular Filtration Rate 53, BUN/Creatinine Ratio 20, Glucose Level 94, Calcium Level 8.4L, Corrected Calcium 9.0, Total Bilirubin 0.8, Aspartate Amino Transf (AST/SGOT) 43H, Alanine Aminotransferase (ALT/SGPT) 22, Alkaline Phosphatase 41, Total Protein 6.1L, Albumin 3.3 09/02/19 04:40: White Blood Count 7.4, Red Blood Count 3.45L, Hemoglobin 10.3L, Hematocrit 32L, Mean Corpuscular Volume 94, Mean Corpuscular Hemoglobin 30, Mean Corpuscular Hemoglobin Concent 32, Red Cell Distribution Width 14.8H, Platelet Count 316, Mean Platelet Volume 9.8, Neutrophils (%) (Auto) 59, Lymphocytes (%) (Auto) 23, Monocytes (%) (Auto) 13H, Eosinophils (%) (Auto) 4, Basophils (%) (Auto) 1, Neutrophils # (Auto) 4.3, Lymphocytes # (Auto) 1.7, Monocytes # (Auto) 1.0, Eosinophils # (Auto) 0.3, Basophils # (Auto) 0.1 09/02/19 04:45: Sodium Level 139, Potassium Level 4.5, Chloride Level 105, Carbon Dioxide Level 24, Anion Gap 10, Blood Urea Nitrogen 21H, Creatinine 1.10, Estimat Glomerular Filtration Rate 48, BUN/Creatinine Ratio 19, Glucose Level 107H, Calcium Level 8.7, Corrected Calcium 9.3, Total Bilirubin 0.6, Aspartate Amino Transf (AST/SGOT) 41H, Alanine Aminotransferase (ALT/SGPT) 43, Alkaline Phosphatase 43, Total Protein 5.8L, Albumin 3.2 09/09/19 05:25: White Blood Count 6.0, Red Blood Count 3.65L, Hemoglobin 11.1L, Hematocrit 35, Mean Corpuscular Volume 96, Mean Corpuscular Hemoglobin 30, Mean Corpuscular Hemoglobin Concent 32, Red Cell Distribution Width 15.5H, Platelet Count 365, Mean Platelet Volume 10.0, Neutrophils (%) (Auto) 63, Lymphocytes (%) (Auto) 20, Monocytes (%) (Auto) 15H, Eosinophils (%) (Auto) 2, Basophils (%) (Auto) 1, Neutrophils # (Auto) 3.7, Lymphocytes # (Auto) 1.2, Monocytes # (Auto) 0.9, Eosinophils # (Auto) 0.1, Basophils # (Auto) 0.0, Sodium Level 141, Potassium Level 4.8, Chloride Level 109H, Carbon Dioxide Level 22, Anion Gap 10, Blood Urea Nitrogen 19H, Creatinine 0.96, Estimat Glomerular Filtration Rate 56, BUN/Creatinine Ratio 20, Glucose Level 107H, Calcium Level 8.3L, Corrected Calcium 8.9, Total Bilirubin 0.4, Aspartate Amino Transf (AST/SGOT) 18, Alanine Aminotransferase (ALT/SGPT) 22, Alkaline Phosphatase 353H, Total Protein 5.9L, Albumin 3.3 Pending Labs Laboratory Tests 08/30/19 05:39: White Blood Count 7.1, Red Blood Count 3.40, Hemoglobin 10.2, Hematocrit 32, Mean Corpuscular Volume 94, Mean Corpuscular Hemoglobin 30, Mean Corpuscular Hemoglobin Concent 32, Red Cell Distribution Width 14.2, Platelet Count 243, Mean Platelet Volume 10.4, Neutrophils (%) (Auto) 58, Lymphocytes (%) (Auto) 24, Monocytes (%) (Auto) 14, Eosinophils (%) (Auto) 4, Basophils (%) (Auto) 1, Neutrophils # (Auto) 4.1, Lymphocytes # (Auto) 1.7, Monocytes # (Auto) 1.0, Eosinophils # (Auto) 0.3, Basophils # (Auto) 0.0, Sodium Level 139, Potassium Level 4.2, Chloride Level 107, Carbon Dioxide Level 24, Anion Gap 8, Blood Urea Nitrogen 20, Creatinine 1.01, Estimat Glomerular Filtration Rate 53, BUN/Creatinine Ratio 20, Glucose Level 94, Calcium Level 8.4, Corrected Calcium 9.0, Total Bilirubin 0.8, Aspartate Amino Transf (AST/SGOT) 43, Alanine Aminotransferase (ALT/SGPT) 22, Alkaline Phosphatase 41, Total Protein 6.1, Albumin 3.3 09/02/19 04:40: White Blood Count 7.4, Red Blood Count 3.45, Hemoglobin 10.3, Hematocrit 32, Mean Corpuscular Volume 94, Mean Corpuscular Hemoglobin 30, Mean Corpuscular Hemoglobin Concent 32, Red Cell Distribution Width 14.8, Platelet Count 316, Mean Platelet Volume 9.8, Neutrophils (%) (Auto) 59, Lymphocytes (%) (Auto) 23, Monocytes (%) (Auto) 13, Eosinophils (%) (Auto) 4, Basophils (%) (Auto) 1, Neutrophils # (Auto) 4.3, Lymphocytes # (Auto) 1.7, Monocytes # (Auto) 1.0, Eosinophils # (Auto) 0.3, Basophils # (Auto) 0.1 09/02/19 04:45: Sodium Level 139, Potassium Level 4.5, Chloride Level 105, Carbon Dioxide Level 24, Anion Gap 10, Blood Urea Nitrogen 21, Creatinine 1.10, Estimat Glomerular Filtration Rate 48, BUN/Creatinine Ratio 19, Glucose Level 107, Calcium Level 8 .7, Corrected Calcium 9.3, Total Bilirubin 0.6, Aspartate Amino Transf (AST/SGOT) 41, Alanine Aminotransferase (ALT/SGPT) 43, Alkaline Phosphatase 43, Total Protein 5.8, Albumin 3.2 09/09/19 05:25: White Blood Count 6.0, Red Blood Count 3.65, Hemoglobin 11.1, Hematocrit 35, Mean Corpuscular Volume 96, Mean Corpuscular Hemoglobin 30, Mean Corpuscular Hemoglobin Concent 32, Red Cell Distribution Width 15.5, Platelet Count 365, Mean Platelet Volume 10.0, Neutrophils (%) (Auto) 63, Lymphocytes (%) (Auto) 20, Monocytes (%) (Auto) 15, Eosinophils (%) (Auto) 2, Basophils (%) (Auto) 1, Neutrophils # (Auto) 3.7, Lymphocytes # (Auto) 1.2, Monocytes # (Auto) 0.9, Eosinophils # (Auto) 0.1, Basophils # (Auto) 0.0, Sodium Level 141, Potassium Level 4.8, Chloride Level 109, Carbon Dioxide Level 22, Anion Gap 10, Blood Urea Nitrogen 19, Creatinine 0.96, Estimat Glomerular Filtration Rate 56, BUN/Creatinine Ratio 20, Glucose Level 107, Calcium Level 8.3, Corrected Calcium 8.9, Total Bilirubin 0.4, Aspartate Amino Transf (AST/SGOT) 18, Alanine Aminotransferase (ALT/SGPT) 22, Alkaline Phosphatase 353, Total Protein 5.9, Albumin 3.3 Discharge Home Medications: Active Scripts Active Senna-Time S Tablet (Sennosides/Docusate Sodium) 1 Each Tablet 2 Ea PO BID Alprazolam 0.25 Mg Tablet 0.25 Mg PO Q8H PRN Hydrocodon-Acetaminophn 10-325 (Hydrocodone/Acetaminophen) 1 Each Tablet 1 Ea PO Q4H PRN Amlodipine Besylate 10 Mg Tablet 10 Mg PO DAILY Reported Ibuprofen 200 Mg Capsule 400 Mg PO Q8H PRN Acetaminophen 500 Mg Tablet 1,000 Mg PO Q8H PRN Multiple Vitamins (Multivitamin) 1 Each Tablet 1 Tab PO DAILY Enalapril Maleate 10 Mg Tablet 10 Mg PO DAILY Fish Oil 1,000 mg Capsule ([place] 3 Polyunsat Fatty Acids) 1,000 Mg Cap 1,000 Mg PO DAILY Calcium 600 + Vit D Caplet (Calcium Carbonate/Vitamin D3) 1 Each Tablet PO TID Alendronate Sodium 10 Mg Tablet 10 Mg PO DAILY Instructions to patient/family Please see electronic discharge instructions given to patient. Diagnosis/Problems Diagnosis/Problems (1) Fracture of left femur Status: Acute (2) Constipation (3) Hypertension Status: Chronic Qualifiers: Qualified Codes: I10 - Essential (primary) hypertension (4) Postoperative anemia Status: Acute Clinical Quality Measures DVT/VTE Risk/Contraindication: Risk Factor Score Per Nursin RFS Level Per Nursing on Admit: 4+=Very High REGIS KEE DO Sep 11, 2019 08:49 POS
[2019-09-11 11:00] VITALS: BP 134/76
[2019-09-11] MEDS: HYDROcodone/APAP 10 MG/325 MG (LORTAB) TAB PO PRN (11:17)
--- NOTE | 2019-09-11 11:31 | Therapy Team Discharge Summary ---
Therapy Discharge Summary Discharge Recommendations Date of Discharge Physical Therapy This patient was admitted to ARU post acute hospital stay due to a left femur fx that had been repaired. Prior to her fall, she was mod indep with all functional mobility. Upon admission to ARU, pt was min assist with transfers, gait and 1 step. Treatment has focused on functional strength and balance training to progress transfers and gait. At last visit, she was mod indep with all bed mobility and transfers as well as gait; she required set up assist with stairs. She has met all goals to a satisfactory level. Will DC from ARU at this time. Occupational Therapy Decreased UE Strength PT Sap Trainer Goals Sap Trainer Goals PT [facility] Goals Time Frame: Sep 24, 2019 Roll Left to Right (QC): 6 (met) Sit to Lying (QC): 6 (met) Lying-Sitting on Side/Bed(QC): 6 (met) Sit to Stand (QC): 6 (net) Chair/Miv-pl-Rfhqo Xfer(QC): 6 (met) Car Transfer (QC): 6 (met) Does the Patient Walk: Yes Distance: 300' Walk 10 feet (QC): 6 (met) Walk 10ft-Uneven Surface(QC): 6 (met) Walk 50ft with 2 Turns (QC): 6 (met) Walk 150 ft (QC): 6 (met) Gait Assistive Device: FWW # of Steps: 4 1 Step (curb) (QC): 6 (scored a 5) 4 Steps (QC): 6 (scored a 5) 12 Steps (QC): 10 Picking up an Object (QC): 5 OT Sap Trainer Goals Sap Trainer Goals Time Frame: Sep 17, 2019 Eating (QC): 6 Oral Hygiene (QC): 6 Shower/Bathe Self (QC): 6 Upper Body Dressing (QC): 6 Lower Body Dressing (QC): 6 On/Off Footwear (QC): 6 Toileting Hygiene (QC): 6 Toilet/Commode Transfer (QC): 6 Additional Goals: 1-Demonstrate ADL Tasks, 2-Verbalize Understanding, 3- ImproveStrength/Anand 1=Demonstrate adherence to instructed precautions during ADL tasks. 2=Patient will verbalize/demonstrate understanding of assistive devices/modifications for ADL. 3=Patient will improve strength/tolerance for activity to enable patient to perform ADL's. JACOB BRITTON PT Sep 11, 2019 11:31 POS
--- NOTE | 2019-09-11 11:57 | Therapy Team Discharge Summary ---
Therapy Discharge Summary Discharge Recommendations Date of Discharge Occupational Therapy Pt admitted to ARU following left femur fracture, s/p TFN. On admission pt required max assist with LE dressing and toileting. Skilled OT intervention focused on ADL training, transfers, strengthening, and safety education. Pt progressed with therapy and by discharge is completing eating and oral hygiene with modified independence. Bathing and dressing completed with set up. Pt met goals for eating and grooming goals. Pt discharge home. D/c ARU OT at this time. Decreased UE Strength PT Residential Goals Registered Nurse Goals PT Residential Goals Time Frame: Sep 24, 2019 Roll Left to Right (QC): 6 (met) Sit to Lying (QC): 6 (met) Lying-Sitting on Side/Bed(QC): 6 (met) Sit to Stand (QC): 6 (net) Chair/Kgi-ny-Zxwiv Xfer(QC): 6 (met) Car Transfer (QC): 6 (met) Does the Patient Walk: Yes Distance: 300' Walk 10 feet (QC): 6 (met) Walk 10ft-Uneven Surface(QC): 6 (met) Walk 50ft with 2 Turns (QC): 6 (met) Walk 150 ft (QC): 6 (met) Gait Assistive Device: FWW # of Steps: 4 1 Step (curb) (QC): 6 (scored a 5) 4 Steps (QC): 6 (scored a 5) 12 Steps (QC): 10 Picking up an Object (QC): 5 OT Registered Nurse Goals Registered Nurse Goals Time Frame: Sep 17, 2019 Eating (QC): 6 Oral Hygiene (QC): 6 Shower/Bathe Self (QC): 6 Upper Body Dressing (QC): 6 Lower Body Dressing (QC): 6 On/Off Footwear (QC): 6 Toileting Hygiene (QC): 6 Toilet/Commode Transfer (QC): 6 Additional Goals: 1-Demonstrate ADL Tasks, 2-Verbalize Understanding, 3- ImproveStrength/Anand 1=Demonstrate adherence to instructed precautions during ADL tasks. 2=Patient will verbalize/demonstrate understanding of assistive devices/modifications for ADL. 3=Patient will improve strength/tolerance for activity to enable patient to perform ADL's. MARY YORK OT Sep 11, 2019 11:57 POS
--- NOTE | 2019-09-11 12:00 | NUR ---
provided prayer and Communion.
== END 2019-09-11 11:00 | disposition home health service (06) | DRG 561 ==
PROVIDERS: ADMIT Internal Medicine; ATTEND Internal Medicine
DX: S72.302D Unspecified fracture of shaft of left femur, subsequent encounter for closed fracture with routine healing (principal); D64.9 Anemia, unspecified; K59.09 Other constipation; I10 Essential (primary) hypertension; K21.9 Gastro-esophageal reflux disease without esophagitis; H54.3 Unqualified visual loss, both eyes; W19.XXXD Unspecified fall, subsequent encounter
CPT/HCPCS: 36415; 73552; 80053; 85025

== ENCOUNTER → 2019-09-25 | Outpatient (CLI) | payer MEDICARE ==
[~2019-09-25] MED LIST changes: +ALPR0.254 PO; +HYDR-3820 PO; +SENN-20 PO
--- NOTE | 2019-09-25 10:24 | Diagnostic Imaging Report ---
INDICATION: Follow-up left femur fracture. TIME OF EXAM: 9:21 a.m. COMPARISON: Correlation is made with prior exam from 09/09/2019. FINDINGS: Intramedullary alida and compression screw transfix the left femur and hip. The fracture involving the mid shaft of the left femur is again noted. There is moderate amount of callus formation identified on today's study consistent with some healing, although fracture line does remain visible. Alignment is anatomic. Alignment at the knee and hip is normal. IMPRESSION: Moderate callus formation but fracture line does remain partially visible. Dictated by: Dictated on workstation # [id number]
== END ==
LOC: ORTHO 08:43
PROVIDERS: ATTEND Orthopaedic Surgery
DX: S72.92XD Unspecified fracture of left femur, subsequent encounter for closed fracture with routine healing (principal)
CPT/HCPCS: 73552

== ENCOUNTER → 2019-10-16 | Outpatient (CLI) | payer MEDICARE ==
--- NOTE | 2019-10-16 12:59 | Diagnostic Imaging Report ---
INDICATION: Follow-up femoral fracture. COMPARISON: 09/25/2019 FINDINGS: Four radiographic views of the left femur were obtained and again show postsurgical changes of previous ORIF. Long intramedullary alida traverses the course of the left femoral shaft. This intersects a screw which traverses the left femoral head and neck. Distal anchor screw is also noted. Also again noted is partially healed mid shaft fracture. There is surrounding heterotopic ossification consistent with partial healing/callus formation. Overall, appearance is stable compared to prior exam. No new acute fracture or dislocation is seen. No unexpected radiopaque foreign bodies are identified. IMPRESSION: 1. Stable postsurgical changes of the left femur with redemonstration of known partially healed left femoral shaft fracture. Dictated by: Dictated on workstation # [id number]
== END ==
LOC: ORTHO 08:46
PROVIDERS: ATTEND Orthopaedic Surgery
DX: S72.322D Displaced transverse fracture of shaft of left femur, subsequent encounter for closed fracture with routine healing (principal); Z98.890 Other specified postprocedural states
CPT/HCPCS: 73552

== ENCOUNTER 2019-11-08 14:49 | Outpatient (RCR) | payer MEDICARE ==
[~2019-11-08 14:49] MED LIST changes: -ACET-77 PO; +ACET-78 PO; -ALEN10TA5 PO; +ALEN10TA6 PO; -ENAL5TAB PO; +ENLP5T PO
== END 2019-11-29 13:33 | disposition home or self-care (01) ==
PROVIDERS: ATTEND Orthopaedic Surgery
DX: S72.92XD Unspecified fracture of left femur, subsequent encounter for closed fracture with routine healing (principal); M54.5 Low back pain; R29.898 Other symptoms and signs involving the musculoskeletal system

== ENCOUNTER → 2019-11-13 | Outpatient (CLI) | payer MEDICARE ==
[~2019-11-13] MED LIST changes: +ACET-77 PO; -ACET-78 PO; +ALEN10TA5 PO; -ALEN10TA6 PO; +ENAL5TAB PO; -ENLP5T PO
--- NOTE | 2019-11-13 09:43 | Diagnostic Imaging Report ---
INDICATION: Left femur fracture, follow-up. TIME OF EXAM: 9:09 a.m. COMPARISON: Correlation is made with prior radiographs from 10/16/2019. FINDINGS: Intramedullary alida and compression screw transfix mid shaft femur fracture. Moderate callus formation is again noted. Fracture line does remain partly visible. Alignment is anatomic. IMPRESSION: ORIF mid shaft left femur fracture. Fracture line does remain partly visible. Dictated by: Dictated on workstation # [id number]
== END ==
LOC: ORTHO 08:50
PROVIDERS: ATTEND Orthopaedic Surgery
DX: S72.322D Displaced transverse fracture of shaft of left femur, subsequent encounter for closed fracture with routine healing (principal)
CPT/HCPCS: 73552

== ENCOUNTER → 2020-06-19 | Outpatient (CLI) | payer MEDICARE ==
[~2020-06-19] MED LIST changes: -ACET-77 PO; +ACET-78 PO; +ACHYD1T PO; -ALEN10TA5 PO; +ALEN10TA8 PO; -ENAL5TAB PO; +ENLP5T PO; -HYDR-3820 PO
--- NOTE | 2020-06-19 11:06 | Diagnostic Imaging Report ---
INDICATION: Routine screening. Comparison is made with prior mammogram from 06/11/2019 and 06/01/2018. 2-D and 3-D bilateral screening mammography was performed with CAD. Both breasts are heterogeneously dense, limiting the sensitivity of mammography. There are benign calcifications scattered throughout both breasts. There is a new cluster microcalcifications in the upper and outer aspect of the right breast anterior depth. Additional views are recommended. No new mass is identified. Axillae are unremarkable. IMPRESSION: BI-RADS Category 0 Right breast calcifications. Additional views are recommended. ACR BI-RADS Category 0: Incomplete. (Needs additional imaging evaluation). Result letter will be mailed to the patient. Note: At least 10% of breast cancer is not imaged by mammography. Dictated by: Dictated on workstation # [id number]
== END ==
LOC: RAD 08:35
PROVIDERS: ATTEND Family Medicine
DX: Z12.31 Encounter for screening mammogram for malignant neoplasm of breast (principal)
CPT/HCPCS: 77063; 77067

== ENCOUNTER → 2020-06-25 | Outpatient (CLI) | payer MEDICARE ==
--- NOTE | 2020-06-25 14:54 | Diagnostic Imaging Report ---
INDICATION: Right breast calcifications. The patient presents for additional views. CORRELATION is made with recent screening exam from 06/19/2020 as well as prior mammograms dating back to 2016. Unilateral right 2-D and 3-D diagnostic mammography was performed including magnification CC and ML views as well as conventional 90 degree lateral views. There is a cluster of microcalcifications in the upper and outer aspects of the right breast anterior depth. These are predominantly round and fairly benign-looking but are tightly clustered. In addition, they are new since the prior study. No associated soft tissue mass is detected. IMPRESSION: New cluster of indeterminate microcalcifications in the upper and outer right breast anterior depth. Tissue sampling is recommended. These would be amenable to stereotactic biopsy approach. Dictated by: Dictated on workstation # [id number]
== END ==
LOC: RAD 13:26
PROVIDERS: ATTEND Family Medicine
DX: R92.0 Mammographic microcalcification found on diagnostic imaging of breast (principal)
CPT/HCPCS: 77065; G0279

== ENCOUNTER → 2020-07-01 | Outpatient (CLI) | payer MEDICARE ==
[~2020-07-01] MED LIST changes: +LIDOCAINE 1% INJ 20 ML 20 ML VIAL INJ ONE
== END ==
LOC: RAD 09:45
PROVIDERS: ATTEND Family Medicine
DX: R92.0 Mammographic microcalcification found on diagnostic imaging of breast (principal)

== ENCOUNTER → 2020-12-31 | Outpatient (CLI) | payer MEDICARE ==
[~2020-12-31] MED LIST changes: +ALPR.25T PO; -ALPR0.254 PO; +AMLO-250 PO; +AMLO-251 PO; -AMLO10TA7 PO; -AMLO5TAB9 PO; -ENAL10TA PO; +ENAL10TA16 PO; -LIDOCAINE 1% INJ 20 ML 20 ML VIAL INJ ONE
--- NOTE | 2020-12-31 13:42 | Diagnostic Imaging Report ---
INDICATION: Six-month follow-up right breast calcifications. CORRELATION is made with prior mammogram 06/19/2020. 2-D and 3-D unilateral right diagnostic mammography was performed. There are benign calcifications in the right breast. The area of clustered microcalcifications in the upper outer right breast are again noted. These appear to be more dense and coarse on today's study and likely benign. No associated soft tissue mass is identified. No spiculated mass is seen. Right axilla is unremarkable. IMPRESSION: BI-RADS Category 3 Probable benign cluster of microcalcifications upper outer right breast. Continued 6 month follow up is recommended to confirm stability. ACR BI-RADS Category 3: Probably benign findings. Result letter will be mailed to the patient. Note: At least 10% of breast cancer is not imaged by mammography. Dictated by: Dictated on workstation # [id number]
== END ==
LOC: RAD 13:15
PROVIDERS: ATTEND Family Medicine
DX: R92.1 Mammographic calcification found on diagnostic imaging of breast (principal)
CPT/HCPCS: 77065; G0279

== ENCOUNTER → 2021-06-30 | Outpatient (CLI) | payer MEDICARE ==
--- NOTE | 2021-06-30 13:46 | Diagnostic Imaging Report ---
INDICATION: Right breast calcifications. Patient presents for followup. COMPARISON: 06/19/2020 and 06/11/2019. TECHNIQUE: 2D and 3D bilateral diagnostic mammography was performed with CAD. FINDINGS: Both breasts remain heterogeneously dense, limiting the sensitivity of mammography. Calcifications in both breasts are stable and appear benign. No malignant-appearing microcalcifications are seen. No mass is detected. The axillae are unremarkable. IMPRESSION: No mammographic features suspicious for malignancy are identified. The patient may return to routine annual screening mammography. ACR BI-RADS Category 2: Benign findings. Result letter will be mailed to the patient. Note: At least 10% of breast cancer is not imaged by mammography. Dictated by: Dictated on workstation # [id number]
== END ==
LOC: RAD 13:45
PROVIDERS: ATTEND Family Medicine
DX: R92.1 Mammographic calcification found on diagnostic imaging of breast (principal)
CPT/HCPCS: 77066; G0279; 77062

== ENCOUNTER → 2021-08-30 | Outpatient (CLI) | payer MEDICARE ==
--- NOTE | 2021-08-30 15:59 | Diagnostic Imaging Report ---
INDICATION: Recent fall. Back pain. COMPARISON: 07/25/2017. FINDINGS: Frontal and lateral radiographic views of the lumbar spine were obtained. Static alignment is preserved. There is no significant presley or retrolisthesis. There is no evidence of jumped facets. Vertebral body heights of the lumbar spine are maintained. There is no acute fracture of the lumbar spine. Note, however, is made of multilevel compression deformities involving T10, T11, and T12. T10 and T12 vertebral body height loss is new when compared to 07/25/2017 but is otherwise age-indeterminate. Multilevel degenerative changes are also noted and consist primarily of moderate multilevel facet arthropathy and mild multilevel intervertebral disc height loss. There is also extensive calcified aortic atherosclerosis. Moderate air and stool are also seen within the colon. IMPRESSION: 1. No new acute fracture or dislocation in the lumbar spine. 2. Compression deformities of T10, T11, and T12 as above. Correlation with point tenderness is recommended. If there is pain in this area, further evaluation with MRI would be recommended. Dictated by: Dictated on workstation # [id number]
== END ==
LOC: RAD 15:26
PROVIDERS: ATTEND Family Medicine
DX: M47.816 Spondylosis without myelopathy or radiculopathy, lumbar region (principal); M51.36 Other intervertebral disc degeneration, lumbar region; M43.8X4 Other specified deforming dorsopathies, thoracic region; I70.0 Atherosclerosis of aorta
CPT/HCPCS: 72100

== ENCOUNTER 2021-11-04 11:19 | Outpatient (RCR) | payer MEDICARE, OTHER | END 2021-11-05 | disposition home or self-care (01) | PROVIDERS: ATTEND Family Medicine | DX: M54.50 Low back pain, unspecified (principal); R53.1 Weakness; Z91.81 History of falling; M85.88 Other specified disorders of bone density and structure, other site; I10 Essential (primary) hypertension; Z98.890 Other specified postprocedural states; Z87.81 Personal history of (healed) traumatic fracture ==

== ENCOUNTER 2021-11-26 09:59 | Outpatient (RCR) | payer MEDICARE, OTHER | END 2021-11-26 10:30 | disposition home or self-care (01) | PROVIDERS: ATTEND Family Medicine | DX: M54.50 Low back pain, unspecified (principal); R53.1 Weakness; I10 Essential (primary) hypertension; Z91.81 History of falling ==

== ENCOUNTER → 2022-01-05 | Outpatient (RCR) | payer MEDICARE, OTHER | END | disposition home or self-care (01) | LOC: CR3 12-06 13:00 | PROVIDERS: ATTEND Family Medicine | DX: Z29.8 Encounter for other specified prophylactic measures (principal) ==

== ENCOUNTER 2022-03-02 16:34 | Outpatient (RCR) | payer MEDICARE, OTHER | END 2022-03-05 | disposition home or self-care (01) | LOC: CR3 16:34 | PROVIDERS: ATTEND Family Medicine | DX: Z29.8 Encounter for other specified prophylactic measures (principal) ==

== ENCOUNTER 2022-05-04 14:28 | Outpatient (RCR) | payer MEDICARE, OTHER | END 2022-05-05 | disposition home or self-care (01) | LOC: CR3 14:28 | PROVIDERS: ATTEND Family Medicine | DX: Z29.8 Encounter for other specified prophylactic measures (principal) ==

== ENCOUNTER 2022-05-06 16:25 | Outpatient (RCR) | payer MEDICARE, OTHER | END 2022-07-05 | disposition home or self-care (01) | LOC: CR3 16:25 | PROVIDERS: ATTEND Family Medicine | DX: Z29.8 Encounter for other specified prophylactic measures (principal) ==

== ENCOUNTER → 2022-07-06 | Outpatient (RCR) | payer MEDICARE, OTHER | END | disposition home or self-care (01) | PROVIDERS: ATTEND Family Medicine | DX: M54.6 Pain in thoracic spine (principal); M54.50 Low back pain, unspecified; I10 Essential (primary) hypertension ==

== ENCOUNTER → 2022-07-12 | Outpatient (CLI) | payer MEDICARE, OTHER ==
--- NOTE | 2022-07-12 11:17 | Diagnostic Imaging Report ---
INDICATION: Routine screening. Comparison is made with prior mammogram of 06/30/2021. 2-D and 3-D bilateral screening mammography was performed with CAD. Both breasts are heterogeneously dense, limiting the sensitivity of mammography. There are benign calcifications bilaterally. No mass or malignant-appearing microcalcifications are seen. Axillae are unremarkable. IMPRESSION: No mammographic features suspicious for malignancy are identified. ACR BI-RADS Category 2: Benign findings. Result letter will be mailed to the patient. Note: At least 10% of breast cancer is not imaged by mammography. BI-RADS Category 2 Dictated by: Dictated on workstation # [id number]
== END ==
LOC: RAD 09:24
PROVIDERS: ATTEND Family Medicine
DX: Z12.31 Encounter for screening mammogram for malignant neoplasm of breast (principal)
CPT/HCPCS: 77063; 77067

== ENCOUNTER 2022-08-05 10:38 | Outpatient (RCR) | payer MEDICARE, OTHER | END 2022-08-05 16:40 | disposition home or self-care (01) | PROVIDERS: ATTEND Family Medicine | DX: M54.6 Pain in thoracic spine (principal); M54.50 Low back pain, unspecified; I10 Essential (primary) hypertension ==

== ENCOUNTER 2023-05-05 15:27 | Inpatient (IN) | payer MEDICARE, OTHER ==
[~2023-05-05] VITALS: Ht 160 cm; Wt 72.4 kg
[~2023-05-05 15:27] MED LIST changes: +ENAL-66 PO; -ENAL10TA16 PO; +ENLP10T PO; -ENLP5T PO
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
--- NOTE | 2023-05-05 17:09 | Diagnostic Imaging Report ---
INDICATION: Fall. Right knee pain. FINDINGS: There are tricompartmental osteoarthritic changes present within the right knee with tricompartmental joint space loss and osteophyte formation. This appears most advanced within the patellofemoral compartment. There is no evidence of cortical disruption or findings to suggest an acute fracture. There is no depression of the tibial plateaus. There is no identified joint effusion or hemarthrosis. IMPRESSION: 1. 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 Dictated by: Dictated on workstation # [id number]
--- NOTE | 2023-05-05 17:09 | Diagnostic Imaging Report ---
INDICATION: Right hip pain. EXAMINATION: AP pelvis and AP and oblique views of the right hip were obtained. COMPARISON: There are no previous studies for comparison. FINDINGS: There are fractures of the right inferior and superior pubic rami which appear to be either acute or subacute. Correlate with timing of injury. Previous hardware in the left femoral neck and proximal shaft is noted with old fracture deformity. IMPRESSION: Fractures of the right inferior and superior pubic rami are noted which appear comminuted and are indeterminate as may be acute or subacute. Postop changes in the left hip. Dictated by: Dictated on workstation # [id number]
[2023-05-05 18:49] LABS: BILIRUBIN,URINE NEGATIVE (NEGATIVE); CLARITY,URINE CLEAR; COLOR,URINE YELLOW; GLUCOSE, URINE (UA) NEGATIVE (NEGATIVE); KETONES,URINE NEGATIVE (NEGATIVE); LEUKOCYTE ESTERASE ,URINE NEGATIVE (NEGATIVE); NITRITE,URINE NEGATIVE (NEGATIVE); PH,URINE 5.5 (5-9); PROTEIN,URINE NEGATIVE (NEGATIVE)
[2023-05-05 18:50] LABS: BASOPHILS # (AUTO) 0.1 10^3/uL (0.0-0.1); BASOPHILS % (AUTO) 0 % (0-10); EOSINOPHILS % (AUTO) 0 % (0-10); HEMATOCRIT 45 % (35-52); HEMOGLOBIN 14.4 g/dL (11.5-16.0); LYMPHOCYTES % (AUTO) 6 % (12-44); MEAN CORPUSCULAR HEMOGLOBIN 30 pg (25-34); MEAN CORPUSCULAR HGB CONC 32 g/dL (32-36); MEAN CORPUSCULAR VOLUME 93 fL (80-99); MEAN PLATELET VOLUME 10.4 fL (9.0-12.2); MONOCYTES % (AUTO) 6 % (0-12); NEUTROPHILS # (AUTO) 14.5 10^3/uL (1.8-7.8); NEUTROPHILS % (AUTO) 87 % (42-75); PLATELET COUNT 215 10^3/uL (130-400); WHITE BLOOD COUNT 16.8 10^3/uL (4.3-11.0)
[2023-05-05 19:00] LABS: AMORPHOUS SEDIMENT,UR FEW AMOR URATES /LPF; BACTERIA,URINE NEGATIVE /HPF
[2023-05-05 19:09] LABS: BILIRUBIN,TOTAL 0.5 MG/DL (0.1-1.0); CALCIUM 9.8 MG/DL (8.5-10.1); CREATININE SERUM 1.38 MG/DL (0.60-1.30); POTASSIUM 4.2 MMOL/L (3.6-5.0); TOTAL PROTEIN 7.1 GM/DL (6.4-8.2)
[2023-05-05 19:11] LABS: BAND NEUTROPHILS 7 %; EOSINOPHILS % (MANUAL) 1 %; LYMPHOCYTES % (MANUAL) 11 %; MONOCYTES % (MANUAL) 7 %; NEUTROPHILS % (MANUAL) 74 %
[2023-05-05 20:36] VITALS: BP 151/77
[2023-05-05] MEDS ORDERED: diphenhydrAMINE 50 MG/ML INJ (BENADRYL) IVP PRN (20:45)
[2023-05-05] MEDS ORDERED: ANTACID SUSP 30 ML UDC (MYLANTA) PO PRN (20:45)
[2023-05-05] MEDS ORDERED: HYDROmorphone 2 MG/ML VIAL (DILAUDID) IV PRN (20:45)
[2023-05-05] MEDS ORDERED: ONDANSETRON 4 MG/2 ML (SDV) Z0FRAN IV PRN (20:45)
[2023-05-05] MEDS ORDERED: LACTULOSE SYRUP 10GM/15ML (ENULOSE) 30ML UDC PO PRN (20:45)
[2023-05-05] MEDS ORDERED: diphenhydrAMINE 25 MG TAB (BENADRYL) PO PRN (20:45)
[2023-05-05] MEDS ORDERED: ONDANSETRON 4 MG (ZOFRAN) ORAL DISSOLVE TAB PO PRN (20:45)
[2023-05-05] MEDS ORDERED: ALPRAZolam 1 MG (XANAX) TAB PO PRN (20:45)
[2023-05-05] MEDS ORDERED: MELATONIN 3 MG TABLET PO PRN (20:45)
[2023-05-05] MEDS ORDERED: polyethylene glycoL POWDER 17 GM (MIRALAX) PACK PO PRN (20:45)
[2023-05-05] MEDS ORDERED: ACETAMINOPHEN 325 MG TABLET PO PRN (20:45)
[2023-05-05] MEDS ORDERED: MILK OF MAGNESIA 400 MG/5 ML 30 ML UDC PO PRN (20:45)
[2023-05-05] MEDS ORDERED: BISACODYL 10 MG SUPP (DULCOLAX) PR PRN (20:45)
[2023-05-05] MEDS: SENNOSIDES 8.6 MG (SENOKOT) TAB PO SCH (21:11)
[2023-05-05] MEDS: DOCUSATE SODIUM 100 MG (COLACE) CAP PO SCH (21:11)
[2023-05-05] MEDS: NS IV 1000 ML 1,000 ML IV SCH (22:18)
[2023-05-05] MEDS: ENOXAPARIN 40 MG/0.4 ML (LOVENOX) SYR SC SCH (22:18)
[2023-05-05 22:45] VITALS: BP 151/77
[2023-05-05] MEDS ORDERED: RT-ALBUTEROL SULF 2.5 MG/3 ML PRE-MIX VIAL INH PRN (23:00)
[2023-05-06] VITALS (7 sets, daily range): BP systolic 133–168; BP diastolic 63–81
[2023-05-06 05:50] LABS: BASOPHILS % (AUTO) 0 % (0-10); EOSINOPHILS # (AUTO) 0.4 10^3/uL (0.0-0.3); EOSINOPHILS % (AUTO) 4 % (0-10); HEMATOCRIT 39 % (35-52); HEMOGLOBIN 12.8 g/dL (11.5-16.0); LYMPHOCYTES # (AUTO) 1.2 10^3/uL (1.0-4.0); LYMPHOCYTES % (AUTO) 13 % (12-44); MEAN CORPUSCULAR HEMOGLOBIN 30 pg (25-34); MEAN CORPUSCULAR HGB CONC 33 g/dL (32-36); MEAN CORPUSCULAR VOLUME 91 fL (80-99); MEAN PLATELET VOLUME 10.6 fL (9.0-12.2); MONOCYTES # (AUTO) 1.2 10^3/uL (0.0-1.0); MONOCYTES % (AUTO) 12 % (0-12); NEUTROPHILS # (AUTO) 6.9 10^3/uL (1.8-7.8); NEUTROPHILS % (AUTO) 71 % (42-75); PLATELET COUNT 163 10^3/uL (130-400); WHITE BLOOD COUNT 9.8 10^3/uL (4.3-11.0)
[2023-05-06 06:23] LABS: ALBUMIN 3.4 GM/DL (3.2-4.5); BILIRUBIN,TOTAL 0.8 MG/DL (0.1-1.0); CALCIUM 8.8 MG/DL (8.5-10.1); CREATININE SERUM 1.07 MG/DL (0.60-1.30); POTASSIUM 4.1 MMOL/L (3.6-5.0); TOTAL PROTEIN 6.1 GM/DL (6.4-8.2)
--- NOTE | 2023-05-06 06:42 | History & Physical ---
History of Present Illness HPI/Chief Complaint Chief complaint: Pubic rami fractures HPI: This is an 82-year-old female of Dr. Torres who suffered a fall at the [facility] when she missed a step. She presented to the ER which showed bilateral pubic rami fractures. Currently she has been able to get up but her transfers are very difficult for her. Bowel regimen will be maintained while taking narcotics to prevent narcotic bowel. Source: patient Exam Limitations: no limitations Date Seen 05/06/23 Time Seen by a Provider: 11:00 Attending Physician Ramsey Torres MD PCP Admitting Physician: Luz Maria Kee DO Attending Physician: Luz Maria Kee DO Referring Physician Date of Admission May 05, 2023 at 20:35 Home Medications & Allergies Home Medications Reviewed patient Home Medication Reconciliation performed by pharmacy medication reconciliations crystal growing technician and/or nursing. Patients Allergies have been reviewed. Allergies Allergies Coded Allergies No Known Drug Allergies (Wffkzkkq85/24/18) Past Efmuqzz-Lnpzmz-Gnmyja Hx Past Med/Social Hx: Reviewed Nursing Past Med/Soc Hx, Reviewed and Corrections made Patient Social History Marrital Status: single Employed/Student: retired Alcohol Use: Denies Use Smoking Status: Never a Smoker 2nd Hand Smoke Exposure: No Recent Hopitalizations: No Immunizations Up To Date Date of Influenza Vaccine: Jul 07, 2019 Seasonal Allergies Seasonal Allergies: Yes (MILD) Past Medical History Surgeries: Hysterectomy Currently Using CPAP: No Currently Using BIPAP: No Cardiac: Hypertension Reproductive: No Sexually Transmitted Disease: No HIV/AIDS: No Gastrointestinal: Gastroesophageal Reflux Musculoskeletal: Fractures Loss of Vision: Bilateral Hearing Impairment: Denies History of Blood Disorders: No Adverse Reaction to Blood [place]: No (N/A) Family History Reviewed Nursing Family Hx Review of Systems Constitutional: see HPI, malaise, weakness EENTM: no symptoms reported Respiratory: no symptoms reported Cardiovascular: no symptoms reported Gastrointestinal: no symptoms reported Genitourinary: no symptoms reported Musculoskeletal: back pain, joint pain, muscle pain, muscle stiffness, muscle cramps Skin: no symptoms reported Psychiatric/Neurological: No Symptoms Reported All Other Systems Reviewed Negative Unless Noted: Yes Physical Exam Physical Exam Vital Signs Vital Signs - First Documented 05/05/23 05/05/23 15:32 22:45 Temp 36.3 Pulse 100 Resp 16 B/P (MAP) 120/69 (86) Pulse Ox 95 O2 Delivery Room Air FiO2 21 Capillary Refill : Less Than 3 Seconds Height, Weight, BMI Height: 5'2.00" Weight: 176lbs. 0.0oz. 79.302221gl; 28.28 BMI Method: General Appearance: No Apparent Distress, WD/WN, Chronically ill Eyes: Bilateral Eye Normal Inspection, Bilateral Eye PERRL HEENT: PERRL/EOMI, Normal ENT Inspection, Pharynx Normal Neck: Full Range of Motion, Normal Inspection, Non Tender, Supple, Carotid Bruit Respiratory: Chest Non Tender, Lungs Clear, Normal Breath Sounds, No Accessory Muscle Use, No Respiratory Distress Cardiovascular: Regular Rate, Rhythm, No Edema, No Gallop, No JVD, No Murmur, Normal Peripheral Pulses Gastrointestinal: Normal Bowel Sounds, No Organomegaly, No Pulsatile Mass, Non Tender, Soft Back: Normal Inspection, No CVA Tenderness, No Vertebral Tenderness Extremity: Normal Capillary Refill, Normal Inspection, Normal Range of Motion (Except legs causing pelvis pain), Non Tender, No Calf Tenderness, No Pedal Edema Neurologic/Psychiatric: Alert, Oriented x3, No Motor/Sensory Deficits, Normal Mood/Affect Skin: Normal Color, Warm/Dry Lymphatic: No Adenopathy Results Results/Procedures Labs Laboratory Tests 05/05/23 18:40 05/06/23 05:23 Patient resulted labs reviewed. Assessment/Plan Admission Diagnosis Assessment: Pubic rami fractures following a fall Unable to ambulate Hypertension Osteoporosis? Plan: Pain control Mercer catheter Unable to ambulate needs criteria for inpatient Admission Status: Inpatient Order (span 2 midnights) Reason for Inpatient Admission: Inability to ambulate due to bilateral pubic rami fractures LUZ MARIA KEE DO May 06, 2023 06:42
[2023-05-06] MEDS: DOCUSATE SODIUM 100 MG (COLACE) CAP PO SCH ×2 (09:54→19:21)
[2023-05-06] MEDS: SENNOSIDES 8.6 MG (SENOKOT) TAB PO SCH ×2 (09:55→19:22)
[2023-05-06] MEDS: NS IV 1000 ML 1,000 ML IV SCH (11:43)
--- NOTE | 2023-05-06 12:24 | Physical Therapy Evaluation ---
PT Evaluation-General Medical Diagnosis Admission Date May 05, 2023 at 20:35 Medical Diagnosis: sup. & inf. pubic rami fracture Onset Date: May 05, 2023 Therapy Diagnosis Therapy Diagnosis: sup. & inf. pubic rami fracture Height/Weight Height (Feet): 5 Height (Inches): 2.00 Weight (Pounds): 176 Weight (Ounces): 0.0 Precautions Precautions/Isolations: Fall Prevention, Standard Precautions Weight Bear Status Right Lower Extremity: Right Weight Bearing/Tolerated Left Lower Extremity: Left Weight Bearing/Tolerated Referral Physician: Dr. Saldana Reason for Referral: Evaluation/Treatment Medical History Pertinent Medical History: HTN Current History ED via EMS secondary to fall down steps at [facility] Social History Home: Single Level Current Living Status: Alone Entry Into Home: Stairs With Railing PT Steps Into Home: 1 Prior Prior Level of Function SCALE: Activities may be completed with or without assistive devices. 5-Vxrvqlrozd-ybzbwtz completes the activity by him/herself with no assistance from a helper. 5-Set-up or Clean-up Assistance-helper sets up or cleans up; patient completes activity. [place] assists only prior to or following the activity. 4-Supervision or Touching Assistance-helper provides verbal cues and/or touching/steadying and/or contact guard assistance as patient completes activity. Assistance may be provided throughout the activity or intermittently. 3-Partial/Moderate Assistance-helper does LESS THAN HALF the effort. [place] lift s, holds or supports trunk or limbs, but provides less than half the effort. 2-Substantial/Maximal Assistance-helper does MORE THAN HALF the effort. [place] lifts or holds trunk or limbs and provides more than half the effort. 3-Rvqgljzxm-osghwz does ALL the effort. Patient does none of the effort to complete the activity. Or, the assistance of 2 or more helpers is required for the patient to complete the activity. If activity was not attempted, code reason: 7-Patient Refused. 9-Not Applicable-not attempted and the patient did not perform the activity before the current illness, exacerbation or injury. 10-Not Attempted due to Environmental Limitations-(lack of equipment, weather restraints, etc.). 88-Not Attempted due to Medical Conditions or Safety Concerns. Bed Mobility: 6 Transfers (B,C,W/C): 6 Gait: 6 Stairs: 6 Prior Devices Use: Other-see list below (Cane) PT Evaluation-Current Subjective Pt supine in bed upon arrival to room, agreeable to PT treatment. States she has little pain, "but I know it is there." rates 2/10 Pt/Family Goals return home Objective Patient Orientation: Person, Place, Time, Situation Attachments: Mercer Catheter, IV ROM/Strength ROM Lower Extremities decreased R hip AROM in all planes due to pain Strength Lower Extremities grossly 3/5 R hip L hip 4/5 Integumentary/Posture Integumentary refer to nursing notes Bladder Incontinence: Mercer Cath Posture mildly kyphotic Neuromuscular (Tone, Coordination, Reflexes) intact Transfers Roll Left to Right (QC): 3 Sit to Lying (QC): 2 Lying to Sitting/Side of Bed(Q: 2 Sit to Stand (QC): 2 Assistance to bring legs out of bed and back into bed. Gait Comments/Gait Description Pt hesitant to shift weight onto the RLE to take a step with the L foot. Able to progress R foot without difficulty Balance Sitting Static: Normal Sitting Dynamic: Normal Standing Static: Fair Standing Dynamic: Fair Assessment/Needs Pt is a 82 year old woman s/p pubic rami fracture. She has decreased ROM and decreased strength which impact her gait, mobility and increase her risk of falls. Pt would benefit from skilled PT to address limitations and ensure safety upon DC from hospital. Rehab Potential: Good PT Smoke Inspector Goals Smoke Inspector Goals PT Alf Goals Time Frame: May 20, 2023 Roll Left & Right (QC): 6 Sit to Lying (QC): 6 Lying-Sitting on Side/Bed(QC): 6 Sit to Stand (QC): 6 Walk 150 ft (QC): 4 PT Plan Problem List Problem List: Activity Tolerance, Functional Strength, Safety, Balance, Gait, Transfer, Bed Mobility, ROM Treatment/Plan Treatment Plan: Continue Plan of Care Treatment Plan: Bed Mobility, Education, Functional Activity Anand, Functional Strength, Gait, Safety, Therapeutic Exercise, Transfers Treatment Duration: May 20, 2023 Frequency: 6 times per week Estimated Hrs Per Day: .25 hour per day Patient and/or Family Agrees t: Yes Time Time In: 1147 Time Out: 1209 DATE: May 06, 2023 Total Billed Treatment Time: 20 Total Billed Treatment 1 visit PRAMOD WU PT May 06, 2023 12:24
[2023-05-06] MEDS ORDERED: amLODIPine 10 MG (NORVASC) TAB PO NR (12:30)
[2023-05-06] MEDS: ENOXAPARIN 40 MG/0.4 ML (LOVENOX) SYR SC SCH (20:56)
[2023-05-07 03:24] VITALS: BP 136/63
[2023-05-07 05:57] LABS: BASOPHILS # (AUTO) 0.1 10^3/uL (0.0-0.1); BASOPHILS % (AUTO) 1 % (0-10); EOSINOPHILS # (AUTO) 0.5 10^3/uL (0.0-0.3); EOSINOPHILS % (AUTO) 5 % (0-10); HEMATOCRIT 37 % (35-52); HEMOGLOBIN 12.2 g/dL (11.5-16.0); LYMPHOCYTES # (AUTO) 1.6 10^3/uL (1.0-4.0); LYMPHOCYTES % (AUTO) 17 % (12-44); MEAN CORPUSCULAR HEMOGLOBIN 31 pg (25-34); MEAN CORPUSCULAR HGB CONC 33 g/dL (32-36); MEAN CORPUSCULAR VOLUME 92 fL (80-99); MEAN PLATELET VOLUME 10.8 fL (9.0-12.2); MONOCYTES # (AUTO) 1.2 10^3/uL (0.0-1.0); MONOCYTES % (AUTO) 12 % (0-12); NEUTROPHILS # (AUTO) 6.4 10^3/uL (1.8-7.8); NEUTROPHILS % (AUTO) 65 % (42-75); PLATELET COUNT 149 10^3/uL (130-400); WHITE BLOOD COUNT 9.8 10^3/uL (4.3-11.0)
[2023-05-07 06:09] LABS: ALBUMIN 3.3 GM/DL (3.2-4.5)
[2023-05-07 06:10] LABS: POTASSIUM 4.1 MMOL/L (3.6-5.0)
[2023-05-07 06:11] LABS: CALCIUM 8.3 MG/DL (8.5-10.1)
[2023-05-07 06:12] LABS: TOTAL PROTEIN 6.1 GM/DL (6.4-8.2)
[2023-05-07 06:14] LABS: BILIRUBIN,TOTAL 0.7 MG/DL (0.1-1.0)
[2023-05-07 06:16] LABS: CREATININE SERUM 0.99 MG/DL (0.60-1.30)
--- NOTE | 2023-05-07 07:21 | Progress Note ---
Subjective Date Seen by a Provider: May 07, 2023 Time Seen by a Provider: 11:00 Subjective/Events-last exam Patient doing a lot better Denies any new issues Bowels are moving Maintaining Laxatives Pain is controlled Catheter still in place Likely will need inpatient rehab to help with transfers and ultimately return back home Review of Systems General: Fatigue, Malaise Objective Exam Last Set of Vital Signs Vital Signs Date Time Temp Pulse Resp B/P (MAP) Pulse Ox O2 Delivery O2 Flow Rate FiO2 05/07/23 03:24 36.3 84 18 136/63 (87) 97 Room Air 05/05/23 22:45 21 Capillary Refill : Less Than 3 Seconds I&O Intake and Output 05/07/23 00:00 Intake Total 2430 ml Output Total 1225 ml Balance 1205 ml Intake Oral 1360 ml IV Total 1070 ml Output Urine Total 1225 ml # Bowel Movements 1 General: Alert, Oriented X3, Cooperative, No Acute Distress Lungs: Clear to Auscultation, Normal Air Movement Heart: Regular Rate, Normal S1, Normal S2, No Murmurs Psych/Mental Status: Mental Status NL, Mood NL Results Lab Laboratory Tests 05/07/23 05:16: White Blood Count 9.8, Red Blood Count 4.00, Hemoglobin 12.2, Hematocrit 37, Mean Corpuscular Volume 92, Mean Corpuscular Hemoglobin 31, Mean Corpuscular Hemoglobin Concent 33, Red Cell Distribution Width 14.4, Platelet Count 149, Mean Platelet Volume 10.8, Immature Granulocyte % (Auto) 0, Neutrophils (%) (Auto) 65, Lymphocytes (%) (Auto) 17, Monocytes (%) (Auto) 12, Eosinophils (%) (Auto) 5, Basophils (%) (Auto) 1, Neutrophils # (Auto) 6.4, Lymphocytes # (Auto) 1.6, Monocytes # (Auto) 1.2H, Eosinophils # (Auto) 0.5H, Basophils # (Auto) 0.1, Immature Granulocyte # (Auto) 0.0, Sodium Level 140, Potassium Level 4.1, Chloride Level 111H, Carbon Dioxide Level 21, Anion Gap 8, Blood Urea Nitrogen 22H, Creatinine 0.99, Estimat Glomerular Filtration Rate 57, BUN/Creatinine Ratio 22, Glucose Level 99, Calcium Level 8.3L, Corrected Calcium 8.9, Total Bilirubin 0.7, Aspartate Amino Transf (AST/SGOT) 19, Alanine Aminotransferase (ALT/SGPT) 15, Alkaline Phosphatase 52, Total Protein 6.1L, Albumin 3.3 Assessment/Plan Assessment/Plan Assess & Plan/Chief Complaint Assessment: Pubic rami fractures following a fall Unable to ambulate Hypertension Osteoporosis? Plan: Pain control Mercer catheter Unable to ambulate needs criteria for inpatient PT and OT Inpatient rehab REGIS KEE DO May 07, 2023 07:21
[2023-05-07 07:34] VITALS: BP 151/90
[2023-05-07] MEDS: amLODIPine 10 MG (NORVASC) TAB PO SCH (09:16)
[2023-05-07] MEDS: DOCUSATE SODIUM 100 MG (COLACE) CAP PO SCH ×2 (09:20→21:11)
[2023-05-07] MEDS: SENNOSIDES 8.6 MG (SENOKOT) TAB PO SCH ×2 (09:20→21:11)
[2023-05-07 11:31] VITALS: BP 123/62
[2023-05-07 16:35] VITALS: BP 131/78
[2023-05-07 19:36] VITALS: BP 108/70
[2023-05-07] MEDS: ENOXAPARIN 40 MG/0.4 ML (LOVENOX) SYR SC SCH (21:11)
[2023-05-07 23:25] VITALS: BP 133/70
[2023-05-08] VITALS (7 sets, daily range): BP systolic 127–159; BP diastolic 68–87
[2023-05-08 05:59] LABS: BASOPHILS # (AUTO) 0.1 10^3/uL (0.0-0.1); BASOPHILS % (AUTO) 1 % (0-10); EOSINOPHILS # (AUTO) 0.2 10^3/uL (0.0-0.3); EOSINOPHILS % (AUTO) 2 % (0-10); HEMATOCRIT 37 % (35-52); HEMOGLOBIN 12.3 g/dL (11.5-16.0); LYMPHOCYTES # (AUTO) 1.3 10^3/uL (1.0-4.0); LYMPHOCYTES % (AUTO) 12 % (12-44); MEAN CORPUSCULAR HEMOGLOBIN 31 pg (25-34); MEAN CORPUSCULAR HGB CONC 34 g/dL (32-36); MEAN CORPUSCULAR VOLUME 91 fL (80-99); MEAN PLATELET VOLUME 10.7 fL (9.0-12.2); MONOCYTES # (AUTO) 1.2 10^3/uL (0.0-1.0); MONOCYTES % (AUTO) 11 % (0-12); NEUTROPHILS # (AUTO) 7.8 10^3/uL (1.8-7.8); NEUTROPHILS % (AUTO) 74 % (42-75); PLATELET COUNT 152 10^3/uL (130-400); WHITE BLOOD COUNT 10.6 10^3/uL (4.3-11.0)
[2023-05-08 06:15] LABS: ALBUMIN 3.3 GM/DL (3.2-4.5)
[2023-05-08 06:16] LABS: POTASSIUM 4.1 MMOL/L (3.6-5.0)
[2023-05-08 06:17] LABS: CALCIUM 8.5 MG/DL (8.5-10.1)
[2023-05-08 06:18] LABS: TOTAL PROTEIN 6.2 GM/DL (6.4-8.2)
[2023-05-08 06:20] LABS: BILIRUBIN,TOTAL 0.7 MG/DL (0.1-1.0)
[2023-05-08 06:21] LABS: CREATININE SERUM 1.06 MG/DL (0.60-1.30)
[2023-05-08] MEDS: SENNOSIDES 8.6 MG (SENOKOT) TAB PO SCH ×2 (08:27→19:43)
[2023-05-08] MEDS: DOCUSATE SODIUM 100 MG (COLACE) CAP PO SCH ×2 (08:27→19:43)
[2023-05-08] MEDS: amLODIPine 10 MG (NORVASC) TAB PO SCH (08:28)
[2023-05-08] MEDS ORDERED: AMLO-250 PO (10:00)
[2023-05-08] MEDS ORDERED: MELO15TA39 PO (10:00)
[2023-05-08] MEDS ORDERED: LISI10TA25 PO (10:00)
[2023-05-08] MEDS ORDERED: CETI10TA17 PO (10:00)
[2023-05-08] MEDS ORDERED: ZINC50TA51 PO (10:01)
[2023-05-08] MEDS ORDERED: CALC-823 PO (10:01)
[2023-05-08] MEDS ORDERED: ASCO500T17 PO (10:02)
[2023-05-08] MEDS ORDERED: FAMO-274 PO (10:02)
--- NOTE | 2023-05-08 11:07 | Progress Note ---
Subjective Date Seen by a Provider: May 08, 2023 Time Seen by a Provider: 11:00 Subjective/Events-last exam Patient doing a lot better Transfers are slow Lives alone at home Inpatient rehab candidate Review of Systems General: Fatigue, Malaise Musculoskeletal: back pain Objective Exam Last Set of Vital Signs Vital Signs Date Time Temp Pulse Resp B/P (MAP) Pulse Ox O2 Delivery O2 Flow Rate FiO2 05/08/23 08:30 Room Air 05/08/23 07:53 36.3 100 19 136/87 (103) 94 05/08/23 04:12 21 Capillary Refill : Less Than 3 Seconds I&O Intake and Output 05/08/23 00:00 Intake Total 1150 ml Output Total 1850 ml Balance -700 ml Intake Oral 1150 ml Output Urine Total 1850 ml General: Alert, Oriented X3, Cooperative, No Acute Distress Lungs: Clear to Auscultation, Normal Air Movement Heart: Regular Rate, Normal S1, Normal S2, No Murmurs Psych/Mental Status: Mental Status NL, Mood NL Results Lab Laboratory Tests 05/08/23 05:41: White Blood Count 10.6, Red Blood Count 4.00, Hemoglobin 12.3, Hematocrit 37, Mean Corpuscular Volume 91, Mean Corpuscular Hemoglobin 31, Mean Corpuscular Hemoglobin Concent 34, Red Cell Distribution Width 14.2, Platelet Count 152, Mean Platelet Volume 10.7, Immature Granulocyte % (Auto) 0, Neutrophils (%) (Auto) 74, Lymphocytes (%) (Auto) 12, Monocytes (%) (Auto) 11, Eosinophils (%) (Auto) 2, Basophils (%) (Auto) 1, Neutrophils # (Auto) 7.8, Lymphocytes # (Auto) 1.3, Monocytes # (Auto) 1.2H, Eosinophils # (Auto) 0.2, Basophils # (Auto) 0.1, Immature Granulocyte # (Auto) 0.0, Sodium Level 140, Potassium Level 4.1, Chloride Level 111H, Carbon Dioxide Level 22, Anion Gap 7, Blood Urea Nitrogen 20H, Creatinine 1.06, Estimat Glomerular Filtration Rate 53, BUN/Creatinine Ratio 19, Glucose Level 119H, Calcium Level 8.5, Corrected Calcium 9.1, Total Bilirubin 0.7, Aspartate Amino Transf (AST/SGOT) 16, Alanine Aminotransferase (ALT/SGPT) 15, Alkaline Phosphatase 46, Total Protein 6.2L, Albumin 3.3 Assessment/Plan Assessment/Plan Assess & Plan/Chief Complaint Assessment: Pubic rami fractures following a fall Unable to ambulate Hypertension Osteoporosis? Plan: Pain control Mercer catheter Unable to ambulate needs criteria for inpatient PT and OT Inpatient rehab REGIS KEE DO May 08, 2023 11:07
--- NOTE | 2023-05-08 11:19 | Physical Therapy Daily Note ---
PT Daily Note-Current Subjective Pt found laying in bed upon entry. Agreed to PT. States that she is not having much pain pre-treatment. Rates pain 2-3/10 post-treatment but states that it is very minor. Pain Section J - Health Conditions 1. Rarely or not at all 2. Occasionally 3. Frequently 4. Almost constantly 8. Unable to answer Pain Effect on Sleep: 1 Pain Interference with Therapy: 1 Pain Interference w/Day-to-Day: 1 Mental Status Patient Orientation: Person, Place Attachments: Mercer Catheter, Other-See Comments BLE compression devices Transfers SCALE: Activities may be completed with or without assistive devices. 4-Yafmytlfqu-navrjrr completes the activity by him/herself with no assistance from a helper. 5-Set-up or Clean-up Assistance-helper sets up or cleans up; patient completes activity. [place] assists only prior to or following the activity. 4-Supervision or Touching Assistance-helper provides verbal cues and/or touching/steadying and/or contact guard assistance as patient completes activity. Assistance may be provided throughout the activity or intermittently. 3-Partial/Moderate Assistance-helper does LESS THAN HALF the effort. [place] lifts, holds or supports trunk or limbs, but provides less than half the effort. 2-Substantial/Maximal Assistance-helper does MORE THAN HALF the effort. [place] lifts or holds trunk or limbs and provides more than half the effort. 3-Gcufikwxc-uuranq does ALL the effort. Patient does none of the effort to complete the activity. Or, the assistance of 2 or more helpers is required for the patient to complete the activity. If activity was not attempted, code reason: 7-Patient Refused. 9-Not Applicable-not attempted and the patient did not perform the activity before the current illness, exacerbation or injury. 10-Not Attempted due to Environmental Limitations-(lack of equipment, weather restraints, etc.). 88-Not Attempted due to Medical Conditions or Safety Concerns. Sit to Lying (QC): 3 Lying to Sitting/Side of Bed(Q: 3 Sit to Stand (QC): 3 Pt sit to lying and lying to sitting transfer /c MIN LE lifting and lowering assistance. MIN lifting assistance required to complete sit to stand transfer. Pt able to stand for up to 2 minutes before requiring a seated rest break. Weight Bearing Right Lower Extremity: Right Weight Bearing/Tolerated Left Lower Extremity: Left Weight Bearing/Tolerated Gait Training Does the Patient Walk?: No and Walking Goal IS indicated Assessment Current Status: Fair Progress Pt completes bed mobility /c MIN assist for LE lifting and lowering. Pt very slow to complete all transfers. MIN lifting assistance required for sit to stand transfers. Pt able to stand at edge of bed for up to 2 minutes before requiring a seated rest break. Ambulation attempted but pt unable to complete due to increased R hip pain. Reports increased R knee pain post-treatment. Continue to progress per POC to improve strength, endurance, and functional ability. PT Detention Goals Broadcast Engineer Goals PT Detention Goals Time Frame: May 20, 2023 Roll Left & Right (QC): 6 Sit to Lying (QC): 6 Lying-Sitting on Side/Bed(QC): 6 Sit to Stand (QC): 6 Walk 150 ft (QC): 4 PT Plan Treatment/Plan Treatment Plan: Continue Plan of Care Treatment Plan: Bed Mobility, Education, Functional Activity Anand, Functional Strength, Gait, Safety, Therapeutic Exercise, Transfers Treatment Duration: May 20, 2023 Frequency: 6 times per week Estimated Hrs Per Day: .25 hour per day Patient and/or Family Agrees t: Yes Time Time In: 903 Time Out: 924 DATE: May 08, 2023 Total Billed Treatment Time: 21 Total Billed Treatment 1 visit FA x 1 MARIA DEL CARMEN BENEDICT PTA May 08, 2023 11:19
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
[2023-05-08] MEDS: CALCIUM CARBONATE 500 MG (TUMS) TAB.CHEW PO PRN (19:43)
[2023-05-08] MEDS: ENOXAPARIN 40 MG/0.4 ML (LOVENOX) SYR SC SCH (19:43)
[2023-05-09 00:26] VITALS: BP 122/79
[2023-05-09 05:35] LABS: BASOPHILS # (AUTO) 0.1 10^3/uL (0.0-0.1); BASOPHILS % (AUTO) 1 % (0-10); EOSINOPHILS # (AUTO) 0.2 10^3/uL (0.0-0.3); EOSINOPHILS % (AUTO) 2 % (0-10); HEMATOCRIT 36 % (35-52); HEMOGLOBIN 12.2 g/dL (11.5-16.0); LYMPHOCYTES # (AUTO) 1.6 10^3/uL (1.0-4.0); LYMPHOCYTES % (AUTO) 16 % (12-44); MEAN CORPUSCULAR HEMOGLOBIN 30 pg (25-34); MEAN CORPUSCULAR HGB CONC 34 g/dL (32-36); MEAN CORPUSCULAR VOLUME 91 fL (80-99); MEAN PLATELET VOLUME 11.4 fL (9.0-12.2); MONOCYTES # (AUTO) 1.1 10^3/uL (0.0-1.0); MONOCYTES % (AUTO) 10 % (0-12); NEUTROPHILS # (AUTO) 7.3 10^3/uL (1.8-7.8); NEUTROPHILS % (AUTO) 71 % (42-75); PLATELET COUNT 226 10^3/uL (130-400); WHITE BLOOD COUNT 10.2 10^3/uL (4.3-11.0)
[2023-05-09 05:56] LABS: ALBUMIN 3.2 GM/DL (3.2-4.5); POTASSIUM 3.9 MMOL/L (3.6-5.0)
[2023-05-09 05:57] LABS: CALCIUM 8.6 MG/DL (8.5-10.1)
[2023-05-09 05:59] LABS: TOTAL PROTEIN 6.1 GM/DL (6.4-8.2)
[2023-05-09 06:00] LABS: BILIRUBIN,TOTAL 0.6 MG/DL (0.1-1.0)
[2023-05-09 06:02] LABS: CREATININE SERUM 0.89 MG/DL (0.60-1.30)
[2023-05-09 07:07] VITALS: BP 149/71
--- NOTE | 2023-05-09 09:06 | Physical Therapy Daily Note ---
PT Daily Note-Current Subjective States that she is doing better today than yesterday. Pain Section J - Health Conditions 1. Rarely or not at all 2. Occasionally 3. Frequently 4. Almost constantly 8. Unable to answer Pain Effect on Sleep: 1 Pain Interference with Therapy: 1 Pain Interference w/Day-to-Day: 1 Transfers SCALE: Activities may be completed with or without assistive devices. 9-Nfxtrcotja-dyutspb completes the activity by him/herself with no assistance from a helper. 5-Set-up or Clean-up Assistance-helper sets up or cleans up; patient completes activity. [place] assists only prior to or following the activity. 4-Supervision or Touching Assistance-helper provides verbal cues and/or touching/steadying and/or contact guard assistance as patient completes activity. Assistance may be provided throughout the activity or intermittently. 3-Partial/Moderate Assistance-helper does LESS THAN HALF the effort. [place] lifts, holds or supports trunk or limbs, but provides less than half the effort. 2-Substantial/Maximal Assistance-helper does MORE THAN HALF the effort. [place] lifts or holds trunk or limbs and provides more than half the effort. 5-Zkrqcvmmv-cvqdyn does ALL the effort. Patient does none of the effort to complete the activity. Or, the assistance of 2 or more helpers is required for the patient to complete the activity. If activity was not attempted, code reason: 7-Patient Refused. 9-Not Applicable-not attempted and the patient did not perform the activity be fore the current illness, exacerbation or injury. 10-Not Attempted due to Environmental Limitations-(lack of equipment, weather restraints, etc.). 88-Not Attempted due to Medical Conditions or Safety Concerns. Sit to Stand (QC): 3 Patient able to perform sit to stand transfer times 4. Weight Bearing Right Lower Extremity: Right Weight Bearing/Tolerated Left Lower Extremity: Left Weight Bearing/Tolerated Assessment Current Status: Excellent Progress Patient was fatigued from transfers earlier in the morning so she was not able to take steps. PT Brick Cleaner Goals Prison Goals PT Prison Goals Time Frame: May 20, 2023 Roll Left & Right (QC): 6 Sit to Lying (QC): 6 Lying-Sitting on Side/Bed(QC): 6 Sit to Stand (QC): 6 Walk 150 ft (QC): 4 PT Plan Treatment/Plan Treatment Plan: Continue Plan of Care Treatment Plan: Bed Mobility, Education, Functional Activity Anand, Functional Strength, Gait, Safety, Therapeutic Exercise, Transfers Treatment Duration: May 20, 2023 Frequency: 6 times per week Estimated Hrs Per Day: .25 hour per day Patient and/or Family Agrees t: Yes Time Time In: 0845 Time Out: 0900 DATE: May 09, 2023 Total Billed Treatment Time: 15 Total Billed Treatment 1, FA x 15' PANDA CHERRY PT May 09, 2023 09:06
--- NOTE | 2023-05-09 09:13 | Progress Note ---
Subjective Date Seen by a Provider: May 09, 2023 Time Seen by a Provider: 11:00 Subjective/Events-last exam Patient doing a lot better Transferring better Assist by 1 now and transfers Pain is an issue still Bowels are moving Review of Systems Musculoskeletal: back pain, leg pain Objective Exam Last Set of Vital Signs Vital Signs Date Time Temp Pulse Resp B/P (MAP) Pulse Ox O2 Delivery O2 Flow Rate FiO2 05/09/23 07:07 36.7 84 18 149/71 (97) 95 Room Air 05/08/23 18:39 21 Capillary Refill : Less Than 3 Seconds I&O Intake and Output 05/09/23 00:00 Intake Total 1740 ml Output Total 975 ml Balance 765 ml Intake Oral 1740 ml Output Urine Total 975 ml # Bowel Movements 3 General: Alert, Oriented X3, Cooperative, No Acute Distress Lungs: Clear to Auscultation, Normal Air Movement Heart: Regular Rate, Normal S1, Normal S2, No Murmurs Psych/Mental Status: Mental Status NL, Mood NL Results Lab Laboratory Tests 05/09/23 05:01: White Blood Count 10.2, Red Blood Count 4.01, Hemoglobin 12.2, Hematocrit 36, Mean Corpuscular Volume 91, Mean Corpuscular Hemoglobin 30, Mean Corpuscular Hemoglobin Concent 34, Red Cell Distribution Width 14.2, Platelet Count 226, Me an Platelet Volume 11.4, Immature Granulocyte % (Auto) 0, Neutrophils (%) (Auto) 71, Lymphocytes (%) (Auto) 16, Monocytes (%) (Auto) 10, Eosinophils (%) (Auto) 2, Basophils (%) (Auto) 1, Neutrophils # (Auto) 7.3, Lymphocytes # (Auto) 1.6, Monocytes # (Auto) 1.1H, Eosinophils # (Auto) 0.2, Basophils # (Auto) 0.1, Immature Granulocyte # (Auto) 0.0, Sodium Level 138, Potassium Level 3.9, Chloride Level 109H, Carbon Dioxide Level 21, Anion Gap 8, Blood Urea Nitrogen 18, Creatinine 0.89, Estimat Glomerular Filtration Rate 65, BUN/Creatinine Ratio 20, Glucose Level 111H, Calcium Level 8.6, Corrected Calcium 9.2, Total Bilirubin 0.6, Aspartate Amino Transf (AST/SGOT) 17, Alanine Aminotransferase (ALT/SGPT) 15, Alkaline Phosphatase 48, Total Protein 6.1L, Albumin 3.2 Assessment/Plan Assessment/Plan Assess & Plan/Chief Complaint Assessment: Pubic rami fractures following a fall Unable to ambulate Hypertension Osteoporosis? Plan: Pain control Mercer catheter Unable to ambulate needs criteria for inpatient PT and OT Inpatient rehab REGIS KEE DO May 09, 2023 09:13
[2023-05-09] MEDS: SENNOSIDES 8.6 MG (SENOKOT) TAB PO SCH ×2 (10:06→19:43)
[2023-05-09] MEDS: DOCUSATE SODIUM 100 MG (COLACE) CAP PO SCH ×2 (10:07→19:43)
[2023-05-09] MEDS: amLODIPine 10 MG (NORVASC) TAB PO SCH (10:08)
[2023-05-09 15:42] VITALS: BP 145/83
[2023-05-09] MEDS: ENOXAPARIN 40 MG/0.4 ML (LOVENOX) SYR SC SCH (19:43)
[2023-05-09] MEDS: CALCIUM CARBONATE 500 MG (TUMS) TAB.CHEW PO PRN (20:59)
[2023-05-09 23:57] VITALS: BP 157/71
[2023-05-10 07:38] VITALS: BP 178/77
[2023-05-10] MEDS: DOCUSATE SODIUM 100 MG (COLACE) CAP PO SCH (08:35)
[2023-05-10] MEDS: SENNOSIDES 8.6 MG (SENOKOT) TAB PO SCH (08:35)
[2023-05-10] MEDS: amLODIPine 10 MG (NORVASC) TAB PO SCH (08:36)
[2023-05-10 11:05] VITALS: BP 178/77
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
== END 2023-05-10 11:05 | DRG 536 ==
LOC: EDUNIT# 15:27 → ER 15:28 → 4TH 19:47 → OBSVTOIN 20:35
PROVIDERS: ADMIT Internal Medicine; ATTEND Internal Medicine
DX: S32.591A Other specified fracture of right pubis, initial encounter for closed fracture (principal); W18.30XA Fall on same level, unspecified, initial encounter; K21.9 Gastro-esophageal reflux disease without esophagitis; I10 Essential (primary) hypertension; M81.0 Age-related osteoporosis without current pathological fracture
CPT/HCPCS: 36415; 73562; 80053; 81000; 85007; 85025; 85027; 94664; 94760

== ENCOUNTER 2023-05-10 10:05 | Inpatient (IN) | payer MEDICARE, OTHER ==
[~2023-05-10] VITALS: Ht 160 cm; Wt 72.5 kg
[~2023-05-10 10:05] MED LIST changes: +ASCO500T17 PO; +CALC-823 PO; +CETI10TA17 PO; +FAMO-274 PO; +LISI10TA25 PO; +MELO15TA39 PO; +ZINC50TA51 PO
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
[2023-05-10 11:44] VITALS: BP 146/68
[2023-05-10] MEDS ORDERED: ANTACID SUSP 30 ML UDC (MYLANTA) PO PRN (11:45)
[2023-05-10] MEDS ORDERED: diphenhydrAMINE 25 MG TAB (BENADRYL) PO PRN (11:45)
[2023-05-10] MEDS ORDERED: FLEET ENEMA ADULT 1 EA BTL PR PRN (11:45)
[2023-05-10] MEDS ORDERED: DOCUSATE SODIUM 100 MG (COLACE) CAP PO PRN (11:45)
[2023-05-10] MEDS ORDERED: HYDROmorphone 2 MG/ML VIAL (DILAUDID) IV PRN (11:45)
[2023-05-10] MEDS ORDERED: CALCIUM CARBONATE 500 MG (TUMS) TAB.CHEW PO PRN (11:45)
[2023-05-10] MEDS ORDERED: LACTULOSE SYRUP 10GM/15ML (ENULOSE) 30ML UDC PO PRN ×2 (11:45)
[2023-05-10] MEDS ORDERED: ONDANSETRON 4 MG (ZOFRAN) ORAL DISSOLVE TAB PO PRN ×2 (11:45)
[2023-05-10] MEDS ORDERED: ALPRAZolam 1 MG (XANAX) TAB PO PRN (11:45)
[2023-05-10] MEDS ORDERED: MELATONIN 3 MG TABLET PO PRN ×2 (11:45)
[2023-05-10] MEDS ORDERED: ACETAMINOPHEN 325 MG TABLET PO PRN ×2 (11:45)
[2023-05-10] MEDS ORDERED: BISACODYL 10 MG SUPP (DULCOLAX) PR PRN ×2 (11:45)
[2023-05-10] MEDS ORDERED: ALPRAZolam 0.25 MG (XANAX) TAB PO PRN (11:45)
[2023-05-10] MEDS ORDERED: guaiFENesin/CODEINE (ROBITUSSIN AC) 10ML UDC PO PRN (11:45)
[2023-05-10] MEDS ORDERED: MILK OF MAGNESIA 400 MG/5 ML 30 ML UDC PO PRN (11:45)
[2023-05-10] MEDS ORDERED: ONDANSETRON 4 MG/2 ML (SDV) Z0FRAN IV PRN (11:45)
[2023-05-10] MEDS ORDERED: diphenhydrAMINE 50 MG/ML INJ (BENADRYL) IVP PRN (11:45)
[2023-05-10] MEDS ORDERED: polyethylene glycoL POWDER 17 GM (MIRALAX) PACK PO PRN (11:45)
[2023-05-10] MEDS ORDERED: LOPERAMIDE 2 MG (IMODIUM) TABLET PO PRN (11:45)
[2023-05-10] MEDS ORDERED: ALPRAZolam 0.5 MG (XANAX) TAB PO PRN (12:15)
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
[2023-05-10 14:56] VITALS: BP 146/68
--- NOTE | 2023-05-10 16:09 | Physical Therapy Daily Note ---
PT Daily Note-Current Subjective Pt sitting in w/c in room upon arrival. Pt agrees to PT/OT co-treat due to skill of 2 clinicians needed for pt's decreased strength, coordination of UE & LE during transfers as well as decrease in balance. PT focused on w/c mobility, transfers & bed mobility while OT focused on ADLs and coordinating UE w/LE during transfers. Pain Section J - Health Conditions 1. Rarely or not at all 2. Occasionally 3. Frequently 4. Almost constantly 8. Unable to answer Pain Effect on Sleep: 1 Pain Interference with Therapy: 2 Pain Interference w/Day-to-Day: 1 Mental Status Patient Orientation: Person, Place, Time, Situation Transfers SCALE: Activities may be completed with or without assistive devices. 6-Ipnnqowisv-wanrkqj completes the activity by him/herself with no assistance from a helper. 5-Set-up or Clean-up Assistance-helper sets up or cleans up; patient completes activity. [place] assists only prior to or following the activity. 4-Supervision or Touching Assistance-helper provides verbal cues and/or touching/steadying and/or contact guard assistance as patient completes activity. Assistance may be provided throughout the activity or intermittently. 3-Partial/Moderate Assistance-helper does LESS THAN HALF the effort. [place] lifts, holds or supports trunk or limbs, but provides less than half the effort. 2-Substantial/Maximal Assistance-helper does MORE THAN HALF the effort. [place] lifts or holds trunk or limbs and provides more than half the effort. 7-Armdkejpn-lzbilq does ALL the effort. Patient does none of the effort to complete the activity. Or, the assistance of 2 or more helpers is required for the patient to complete the activity. If activity was not attempted, code reason: 7-Patient Refused. 9-Not Applicable-not attempted and the patient did not perform the activity before the current illness, exacerbation or injury. 10-Not Attempted due to Environmental Limitations-(lack of equipment, weather restraints, etc.). 88-Not Attempted due to Medical Conditions or Safety Concerns. Sit to Stand (QC): 3 Chair/Bko-qy-Bgkdv Xfer(QC): 3 Weight Bearing Right Lower Extremity: Right Weight Bearing/Tolerated Left Lower Extremity: Left Weight Bearing/Tolerated Gait Training Does the Patient Walk?: Yes Distance: 10' Walk 10 feet (QC): 3 Gait Persons Needed: 1 Gait Assistive Device: FWW Wheelchair Training Does the Pt Use a Wheelchair?: Yes Type of Wheelchair: Manual Treatments Pt works on w/c mobility in [facility] before returning to room to take pain med before amb. to shower & doffing clothing. See OT note for showering specifics. Pt dries self & dons clothing before propelling w/c to EOB for SPT. Pt lays Supine for RT tx. All needs met, call light in hand. Assessment Current Status: Fair Progress Pt is nervous during tx and tx limited by pain. PT Legal Entity Controller Goals Alf Goals PT Legal Entity Controller Goals Time Frame: May 24, 2023 Roll Left & Right (QC): 6 (Pt will be Mod I with functional mobility with the FWW. ) Sit to Lying (QC): 6 (Pt will be Mod I with functional mobility with the FWW. ) Lying-Sitting on Side/Bed(QC): 6 (Pt will be Mod I with functional mobility with the FWW. ) Sit to Stand (QC): 6 (Pt will be Mod I with functional mobility with the FWW. ) Chair/Ysk-wj-Ettic Xfer(QC): 6 (Pt will be Mod I with functional mobility with the FWW. ) Toilet Transfer (QC): 6 (Pt will be Mod I with functional mobility with the FWW. ) Car Transfer (QC): 6 (Pt will be Mod I with functional mobility with the FWW. ) Does the Patient Walk: Yes Walk 10 feet (QC): 6 (Pt will be Mod I with functional mobility with the FWW. ) Walk 50ft with 2 Turns (QC): 6 (Pt will be Mod I with functional mobility with the FWW. ) Walk 150 ft (QC): 6 (Pt will be Mod I with functional mobility with the FWW. ) Walking 10ft on Uneven Surface: 6 (Pt will be Mod I with functional mobility with the FWW. ) 1 Step (curb) (QC): 4 (Pt will be SBA for stairs ) 4 Steps (QC): 4 (Pt will be SBA for stairs ) 12 Steps (QC): 4 (Pt will be SBA for stairs ) Picking up an Object (QC): 6 (Pt will be Mod I with functional mobility with the FWW. ) Does the Pt use WC or Scooter?: Yes Wheel 50 feet with 2 turns (QC: 6 (Pt will be Mod I with functional mobility with the FWW. ) Type: Manual Wheel 150 feet: 6 (Pt will be Mod I with functional mobility with the FWW. ) Type: Manual PT Plan Problem List Problem List: Activity Tolerance, Functional Strength, Gait, Transfer Treatment/Plan Treatment Plan: Continue Plan of Care Treatment Plan: Bed Mobility, Concurrent Therapy, Education, Functional Activity Anand, Functional Strength, Group Therapy, Gait, Safety, Therapeutic Exercise, Transfers Treatment Duration: May 24, 2023 Frequency: At least 5 of 7 days/Wk (IRF) Estimated Hrs Per Day: 1.5 hours per day Patient and/or Family Agrees t: Yes Safety Risks/Education Patient Education: Gait Training, Transfer Techniques, Correct Positioning, Safety Issues Teaching Recipient: Patient Teaching Methods: Discussion Response to Teaching: Verbalize Understanding Time Time In: 1350 Time Out: 1505 DATE: May 10, 2023 Total Billed Treatment Time: 75 Total Billed Treatment 1, WC (20m) & FA x4 (55m) LORENA HANSON PTA May 10, 2023 16:09
--- NOTE | 2023-05-10 16:42 | Occupational Ther Daily Note ---
OT Current Status-Daily Note Subjective SIMMONS took over care from OT. Pt alert and cooperative in wheelchair in room upon arrival, Pt agreed to PT/OT cotx ([id number]). ADL-Treatment Pt agrees to PT/OT co-treat due to skill of 2 clinicians needed to increase strength, safety during transfers, increase mobility required for daily functional tasks. PT focused on w/c mobility, transfers & bed mobility while OT focused on ADLs, and B UE placement during transfers. Pt completed wheelchair mobility around ARU with a recovery break required before beginning shower. Pt transferred out of wheelchair to stand with FWW, Min/Mod, pt then ambulated with FWW, Tanner to shower bench. Pt showered with verbal cues required for sequencing, needing assistance with shampoo bottle. Pt dried self and was set up for upper body dressing. Pt transferred out of shower and into wheelchair with Min/Mod assist. Pt attempted to vanda footwear, pt fatigued quickly and due to pain, pt refused to continue with donning socks, so therapist assisted. Pt donned brief with verbal cues and min A. Pt sat wheelchair level to complete grooming at sink. Pt propelled self into room, transferred onto bed with Mod A. Pt fatigued quickly after shower. Pt was left in care of RT, call light and phone within reach, all needs met. Therapy Code Descriptions/Definitions Functional [place] Measure: 0=Not Assessed/NA 4=Minimal Assistance 1=Total Assistance 5=Supervision or Setup 2=Maximal Assistance 6=Modified [place] 3=Moderate Assistance 7=Complete IndependenceSCALE: Activities may be completed with or without assistive devices. 5-Talegugcgz-iennmoc completes the activity by him/herself with no assistance from a helper. 5-Set-up or Clean-up Assistance-helper sets up or cleans up; patient completes activity. [place] assists only prior to or following the activity. 4-Supervision or Touching Assistance-helper provides verbal cues and/or touching/steadying and/or contact guard assistance as patient completes activity. Assistance may be provided throughout the activity or intermittently. 3-Partial/Moderate Assistance-helper does LESS THAN HALF the effort. [place] lifts, holds or supports trunk or limbs, but provides less than half the effort. 2-Substantial/Maximal Assistance-helper does MORE THAN HALF the effort. [place] lifts or holds trunk or limbs and provides more than half the effort. 6-Vtoppzbbm-syjtnq does ALL the effort. Patient does none of the effort to complete the activity. Or, the assistance of 2 or more helpers is required for the patient to complete the activity. If activity was not attempted, code reason: 7-Patient Refused. 9-Not Applicable-not attempted and the patient did not perform the activity before the current illness, exacerbation or injury. 10-Not Attempted due to Environmental Limitations-(lack of equipment, weather restraints, etc.). 88-Not Attempted due to Medical Conditions or Safety Concerns. Education OT Patient Education: Energy conservation, Progress toward Goal/Update tx plan, Purpose of tx/functional activities, Reviewed precautions, Rehab process Teaching Recipient: Patient Teaching Methods: Discussion Response to Teaching: Verbalize Understanding OT Short Term Goals Short Term Goals Time Frame: May 15, 2023 Eatin Oral hygiene: 5 (stand) Toileting hygiene: 5 OT Supervisor Steno Pool Goals [facility] Goals Acute change in mental status: 0 Inattention: 0 (Normal distraction w/ communication during tasks) Disorganized thinkin Altered level of consciousness: 0 1=Demonstrate adherence to instructed precautions during ADL tasks. 2=Patient will verbalize/demonstrate understanding of assistive devices/modifications for ADL. 3=Patient will improve strength/tolerance for activity to enable patient to perform ADL's. OT Education/Plan Problem List/Assessment Assessment: Decreased Activ Tolerance, Decreased Safety Aware, Decreased UE Strength Discharge Recommendations Plan/Recommendations: Continue POC Equpiment Recommendations-D/C: Cafeteria Team Leader Treatment Plan/Plan of Care Patient would benefit from OT for education, treatment and training to promote independence in ADL's, mobility, safety and/or upper extremity function for ADL's. Plan of Care: ADL Retraining, Caregiver Training, Concurrent Therapy, Functional Mobility, Group Exercise/Act as Ind, UE Funct Exercise/Act, UE Neuromus Re-Ed/Coord Treatment Duration: May 19, 2023 Frequency: At least 5 of 7 days/Wk (IRF) Rehab Potential: Good Time Start Time: 13:50 Stop Time: 15:05 DATE: May 10, 2023 Total Time Billed (hr/min): 75 Billed Treatment Time 1 visit ADL 4 (55) FA (20) Cotx ([id number]) (75min total) Shanta Tompkins COTA May 10, 2023 16:41
[2023-05-10 19:43] VITALS: BP 132/77
[2023-05-10] MEDS: SENNOSIDES 8.6 MG (SENOKOT) TAB PO SCH (19:45)
[2023-05-10] MEDS: polyethylene glycoL POWDER 17 GM (MIRALAX) PACK PO SCH (19:45)
[2023-05-10] MEDS: DOCUSATE SODIUM 100 MG (COLACE) CAP PO SCH (19:45)
[2023-05-10] MEDS: ENOXAPARIN 40 MG/0.4 ML (LOVENOX) SYR SC SCH (20:42)
[2023-05-10] MEDS ORDERED: SENNA W/DOCUSATE (SENOKOT S) TABLET PO SCH (21:00)
[2023-05-10] MEDS ORDERED: DOCUSATE SODIUM 100 MG (COLACE) CAP PO SCH (21:00)
[2023-05-10] MEDS: CALCIUM CARBONATE 500 MG (TUMS) TAB.CHEW PO PRN (22:04)
--- NOTE | 2023-05-11 05:42 | PM&R Progress Note ---
Subjective HPI/CC On Admission Date Seen by Provider: May 11, 2023 Time Seen by Provider: 12:00 Subjective/Events-last exam 05/11/2023: Patient doing a lot better Pain is improving Transfers are better No falls Taking pain medication as needed We will check urine for infection since she is incontinent Review of Systems General: Fatigue, Malaise Musculoskeletal: back pain Objective Exam Vital Signs Vital Signs Date Time Temp Pulse Resp B/P (MAP) Pulse Ox O2 Delivery O2 Flow Rate FiO2 05/11/23 20:42 36.6 90 20 119/73 (88) 95 Room Air Capillary Refill : General Appearance: No Apparent Distress, WD/WN, Chronically ill HEENT: PERRL/EOMI, Normal ENT Inspection, Pharynx Normal Neck: Full Range of Motion, Normal Inspection, Non Tender, Supple, Carotid Bruit Respiratory: Chest Non Tender, Lungs Clear, Normal Breath Sounds, No Accessory Muscle Use, No Respiratory Distress Cardiovascular: Regular Rate, Rhythm, No Edema, No Gallop, No JVD, No Murmur, Normal Peripheral Pulses Gastrointestinal: Normal Bowel Sounds, No Organomegaly, No Pulsatile Mass, Non Tender, Soft Back: Normal Inspection, No CVA Tenderness, No Vertebral Tenderness Extremity: Normal Capillary Refill, Normal Inspection, Normal Range of Motion ( except legs due to pelvic pain), Non Tender, No Calf Tenderness, No Pedal Edema Neurologic/Psychiatric: Alert, Oriented x3, No Motor/Sensory Deficits, Normal Mood/Affect Skin: Normal Color, Warm/Dry Lymphatic: No Adenopathy Results/Procedures Lab Laboratory Tests 05/11/23 05:15 Patient resulted labs reviewed. FIM Transfers Therapy Code Descriptions/Definitions Functional [place] Measure: 0=Not Assessed/NA 4=Minimal Assistance 1=Total Assistance 5=Supervision or Setup 2=Maximal Assistance 6=Modified [place] 3=Moderate Assistance 7=Complete IndependenceSCALE: Activities may be completed with or without assistive devices. 3-Vvwkobmnll-ewhjzbv completes the activity by him/herself with no assistance from a helper. 5-Set-up or Clean-up Assistance-helper sets up or cleans up; patient completes activity. [place] assists only prior to or following the activity. 4-Supervision or Touching Assistance-helper provides verbal cues and/or touching/steadying and/or contact guard assistance as patient completes activity. Assistance may be provided throughout the activity or intermittently. 3-Partial/Moderate Assistance-helper does LESS THAN HALF the effort. [place] lifts, holds or supports trunk or limbs, but provides less than half the effort. 2-Substantial/Maximal Assistance-helper does MORE THAN HALF the effort. [place] lifts or holds trunk or limbs and provides more than half the effort. 2-Ihstiyhma-vehjlj does ALL the effort. Patient does none of the effort to complete the activity. Or, the assistance of 2 or more helpers is required for the patient to complete the activity. If activity was not attempted, code reason: 7-Patient Refused. 9-Not Applicable-not attempted and the patient did not perform the activity before the current illness, exacerbation or injury. 10-Not Attempted due to Environmental Limitations-(lack of equipment, weather restraints, etc.). 88-Not Attempted due to Medical Conditions or Safety Concerns. Roll Left to Right (QC): 3 Sit to Lying (QC): 3 Sit to Stand (QC): 3 Chair/Lhq-cc-Qsvwn Xfer(QC): 3 Car Transfer (QC): 88 Gait Training Does the Patient Walk?: Yes Distance: 10' Walk 10 feet (QC): 3 Walk 50 ft with 2 Turns(QC): 88 Walk 150 ft (QC): 88 Walking 10ft/uneven surface-QC: 88 Gait Persons Needed: 1 Gait Assistive Device: FWW Wheelchair Training Does the Pt Use a Wheelchair?: Yes Wheel 50 ft with 2 turns (QC): 4 Wheel 150 ft (QC): 4 Type of Wheelchair: Manual Stair Training 1 Step (curb) (QC): 88 4 Steps (QC): 88 12 Steps (QC): 88 Balance Picking up an Object (QC): 4 ADL-Treatment Eating (QC): 6 Oral Hygiene (QC): 5 (sitting) Shower/Bathe Self (QC): 4 (sitting on bench) Upper Body Dressing (QC): 5 Lower Body Dressing (QC): 3 On/Off Footwear (QC): 2 Toileting Hygiene (QC): 4 Assessment/Plan Assessment and Plan Assess & Plan/Chief Complaint Assessment: Pubic rami fractures with complete disruption of the pelvic ring following a fall Unable to ambulate Hypertension Osteoporosis Plan: PT OT Fall risk Pain control Home meds 05/11/2023: Check urine for infection Pain control (1) Pelvic fracture (2) Pubic ramus fracture REGIS KEE DO May 11, 2023 05:42
--- NOTE | 2023-05-11 05:43 | Individualized Plan of Care ---
Individualized Plan of Care Rehab Nursing IPOC Order Admission Date May 10, 2023 at 11:09 Current Orders Orders Admission Arrival Bed Request (05/10/23 11:09) Admission Order(Inpt,Obs,Sdc) (05/10/23 11:41) Vital Signs: Per Unit Policy ( 08,16,00 (05/10/23 11:41) Matti Medina ,21 (05/10/23 11:41) Sequential Compression Device [id number] (05/10/23 11:41) Train Operations Supervisor-Inpt Rehab Con (05/10/23 11:41) Rehab Nursing Orders-Ipoc (05/10/23 11:41) Physical Therapy Rehab Orders (05/10/23 11:41) Occupational Therapy Rehab Ord (05/10/23 11:41) Speech Therapy Rehab Orders (05/10/23 11:41) Cbc With Automated Diff (05/11/23 06:00) Comprehensive Metabolic Panel (05/11/23 06:00) Precautions (Aru) (05/10/23 11:41) Weekly Weight WEEK (05/10/23 11:41) Rehab-Intensity Of Therapy (05/10/23 11:41) Initiate Admission Nursing Pro .admission (05/10/23 11:41) Alprazolam Tablet (Xanax Tablet) (05/10/23 11:45) Calcium Carbonate Chew Tablet (Antacid C (05/10/23 11:45) Diphenhydramine Tablet (Benadryl Tablet) (05/10/23 11:45) Docusate Sodium Capsule (Colace Capsule) (05/10/23 21:00) Docusate Sodium Capsule (Colace Capsule) (05/10/23 11:45) Bisacodyl Suppository (Dulcolax Supposit (05/10/23 11:45) Lactulose Oral Solution (Enulose Oral So (05/10/23 11:45) Na Phos/Na Biphos Enema (Fleet Enema Fran (05/10/23 11:45) Guaifenesin/Codeine Syrup (Robitussin Ac (05/10/23 11:45) Loperamide Tablet (Imodium Tablet) (05/10/23 11:45) Melatonin Tablet (Melatonin Tablet) (05/10/23 11:45) Polyethylene Glycol Powder Pkt (Miralax (05/10/23 21:00) Ondansetron Oral Dissolve Tab (Zofran (05/10/23 11:45) Senna S Tablet (Senokot S Tablet) (05/10/23 21:00) Acetaminophen Tablet/Caplet (Tylenol T (05/10/23 11:45) Initiate Admission Nursing Pro .admission (05/10/23 11:41) Code/Resuscitation (05/10/23 11:43) Incentive Spirometry (Nursing) Q2H (05/10/23 11:43) General/Regular (05/10/23 Lunch) Alprazolam Tablet (Xanax Tablet) (05/10/23 11:45) Diphenhydramine Injection (Benadryl Inje (05/10/23 11:45) Diphenhydramine Tablet (Benadryl Tablet) (05/10/23 11:45) Docusate Sodium Capsule (Colace Capsule) (05/10/23 21:00) Bisacodyl Suppository (Dulcolax Supposit (05/10/23 11:45) Lactulose Oral Solution (Enulose Oral So (05/10/23 11:45) Hydrocodone/Apap 10/325 Tablet (Lortab 1 (05/10/23 11:45) Hydromorphone Injection (Dilaudid Inject (05/10/23 11:45) Enoxaparin Injection (Lovenox Injection) (05/10/23 20:00) Melatonin Tablet (Melatonin Tablet) (05/10/23 11:45) Magnesium Hydroxide Oral Susp (Mom Oral (05/10/23 11:45) Polyethylene Glycol Powder Pkt (Miralax (05/10/23 11:45) Antacid Suspension (Mylanta Suspension (05/10/23 11:45) Sennosides Tablet (Senokot Tablet) (05/10/23 21:00) Calcium Carbonate Chew Tablet (Antacid C (05/10/23 11:45) Acetaminophen Tablet/Caplet (Tylenol T (05/10/23 11:45) Ondansetron Injection (Zofran Injectio (05/10/23 11:45) Ondansetron Oral Dissolve Tab (Zofran (05/10/23 11:45) Amlodipine Tablet (Norvasc Tablet) (05/11/23 09:00) Oxycodone Immediate Rel Tablet (Oxyir Ta (05/10/23 11:45) Incentive Spirometry Initial (05/10/23 11:43) Mat Initiate Protocol (05/10/23 11:43) Incentive Spirometry (Nursing) Q2H (05/10/23 11:43) Alprazolam Tablet (Xanax Tablet) (05/10/23 12:15) Patient Visit (05/10/23 ) Pt Eval Moderate Complexity (05/10/23 ) Patient Visit (05/10/23 ) Wheelchair Mgmt/Propulsn 15min (05/10/23 ) Functional Activities, Ea 15 (05/10/23 ) Urinalysis (05/11/23 14:00) Straight Cath (Urinary) (05/11/23 11:47) Loratadine Tablet (Claritin Tablet) (05/11/23 12:00) Urine Culture (05/11/23 15:40) Patient Visit (05/11/23 ) Gait Training, Ea 15 Min (05/11/23 ) Exercise Therap, Ea 15 Min (05/11/23 ) Patient Visit (05/11/23 ) Speech Sound Lang Comp (05/11/23 ) Rehab Nursing Orders: Ongoing Assess. of Function Status, Bladder Management, Bladder Scan, Bladder Training, Bowel Management, Bowel Training, Disease Management & Educaiton, DVT Prophylaxis, Fall Prevention, Fluid/Electroly te/Nutrition Mgmt, Infection Prevention, Medication Management & Education, Management of Risks & Complications, Management of Skin Intergrity, Nutrition Management, Pain Management, Patient/Family Support, Safety Management, Swallow Precautions Intensity of Therapy to be met Patient to be seen: Min.3h per day/5 of 7d PT IPOC Problem List: Activity Tolerance, Functional Strength, Gait, Transfer Treatment Plan: Continue Plan of Care Bed Mobility, Concurrent Therapy, Education, Functional Activity Anand, Functional Strength, Group Therapy, Gait, Safety, Therapeutic Exercise, Transfers Treatment Duration: May 24, 2023 Frequency: At least 5 of 7 days/Wk (IRF) Estimated Hrs Per Day: 1.5 hours per day OT IPOC Problems: Decreased Activ Tolerance, Decreased Safety Aware, Decreased UE Strength OT Treatment, Training and Edu: Yes Plan of Care: ADL Retraining, Caregiver Training, Concurrent Therapy, Functional Mobility, Group Exercise/Act as Ind, UE Funct Exercise/Act, UE Neuromus Re-Ed/Coord Treatment Duration: May 19, 2023 Frequency: At least 5 of 7 days/Wk (IRF) Estimated Hrs Per Day: .[address] IPOC Speech Therapy Treatment Plan: Discontinue ST Treatment Duration: May 11, 2023 Frequency: Modified Program (IRF) Estimated Hrs Per Day: Other Train Operations Supervisor/Case Mgmt Train Operations Supervisor/Case Managemen: Discharge Planning Dietitian/Hoop Punch And Coiler Operator Dietitian/Hoop Punch And Coiler Operator to monitor nutritional status and make changes and/or recommendations as needed and work with speech pathology on dietary upgrades as the occur. Physician IPOC Medical Issues being managed closely and that require the 24 hour availability of a physician: Recent fall with pelvic fracture with complete ring disruption will require aggressive management to try to prevent pneumonia and urinary infections will monitor for decompensation. Medical Issues: Bowel/Bladder Function, DVT Prophylaxis, Falls Precautions, Fluid/Electrolyte/Nutrition Balance, Infection Protection, Pain Management Brief Synthesis of Preadmission Screen, Post-Admission Evaluation, and Therapy Evaluations: PT and OT will focus on regaining function with use of assistive devices in order to offload from painful pelvic fracture while increasing stamina and ambulation and increasing independence in ADLs Medical Prognosis: Good Anticipated Length of Stay: 7 days REGIS KEE DO May 11, 2023 05:42
[2023-05-11 05:46] LABS: BASOPHILS # (AUTO) 0.1 10^3/uL (0.0-0.1); BASOPHILS % (AUTO) 1 % (0-10); EOSINOPHILS # (AUTO) 0.3 10^3/uL (0.0-0.3); EOSINOPHILS % (AUTO) 3 % (0-10); HEMATOCRIT 38 % (35-52); HEMOGLOBIN 12.3 g/dL (11.5-16.0); LYMPHOCYTES # (AUTO) 1.5 10^3/uL (1.0-4.0); LYMPHOCYTES % (AUTO) 17 % (12-44); MEAN CORPUSCULAR HEMOGLOBIN 30 pg (25-34); MEAN CORPUSCULAR HGB CONC 33 g/dL (32-36); MEAN CORPUSCULAR VOLUME 92 fL (80-99); MEAN PLATELET VOLUME 10.3 fL (9.0-12.2); MONOCYTES # (AUTO) 1.1 10^3/uL (0.0-1.0); MONOCYTES % (AUTO) 12 % (0-12); NEUTROPHILS # (AUTO) 5.7 10^3/uL (1.8-7.8); NEUTROPHILS % (AUTO) 67 % (42-75); PLATELET COUNT 196 10^3/uL (130-400); WHITE BLOOD COUNT 8.6 10^3/uL (4.3-11.0)
[2023-05-11 06:02] LABS: ALBUMIN 3.3 GM/DL (3.2-4.5); POTASSIUM 5.1 MMOL/L (3.6-5.0)
[2023-05-11 06:03] LABS: CALCIUM 8.9 MG/DL (8.5-10.1)
[2023-05-11 06:04] LABS: TOTAL PROTEIN 6.2 GM/DL (6.4-8.2)
[2023-05-11 06:06] LABS: BILIRUBIN,TOTAL 0.6 MG/DL (0.1-1.0)
[2023-05-11 06:08] LABS: CREATININE SERUM 0.97 MG/DL (0.60-1.30)
[2023-05-11 08:00] VITALS: BP 177/72
[2023-05-11] MEDS: DOCUSATE SODIUM 100 MG (COLACE) CAP PO SCH ×2 (08:02→20:12)
[2023-05-11] MEDS: amLODIPine 10 MG (NORVASC) TAB PO SCH (08:02)
[2023-05-11] MEDS: polyethylene glycoL POWDER 17 GM (MIRALAX) PACK PO SCH ×2 (08:04→20:24)
[2023-05-11] MEDS: SENNOSIDES 8.6 MG (SENOKOT) TAB PO SCH ×2 (09:02→20:12)
[2023-05-11 09:05] VITALS: BP 144/65
[2023-05-11] MEDS: CALCIUM CARBONATE 500 MG (TUMS) TAB.CHEW PO PRN (10:42)
--- NOTE | 2023-05-11 11:19 | Physical Therapy Daily Note ---
PT Daily Note-Current Subjective pt in bed upon arrival and willing for therapy. pt reports 2/10 pain when laying, 7-8/10 pain when standing and 4/10 pain in sitting after ambulating this day. pt was left in bed with call light and all needs met after therapy session this day. nursing is aware of pain levels. Pain Section J - Health Conditions 1. Rarely or not at all 2. Occasionally 3. Frequently 4. Almost constantly 8. Unable to answer Pain Effect on Sleep: 1 Pain Interference with Therapy: 2 Pain Interference w/Day-to-Day: 1 Mental Status Patient Orientation: Person, Place, Time, Situation Transfers SCALE: Activities may be completed with or without assistive devices. 9-Dinhhlletl-kkcovha completes the activity by him/herself with no assistance from a helper. 5-Set-up or Clean-up Assistance-helper sets up or cleans up; patient completes activity. [place] assists only prior to or following the activity. 4-Supervision or Touching Assistance-helper provides verbal cues and/or touching/steadying and/or contact guard assistance as patient completes activity. Assistance may be provided throughout the activity or intermittently. 3-Partial/Moderate Assistance-helper does LESS THAN HALF the effort. [place] lifts, holds or supports trunk or limbs, but provides less than half the effort. 2-Substantial/Maximal Assistance-helper does MORE THAN HALF the effort. [place] lifts or holds trunk or limbs and provides more than half the effort. 3-Qusbpzbcn-vsnrqf does ALL the effort. Patient does none of the effort to complete the activity. Or, the assistance of 2 or more helpers is required for the patient to complete the activity. If activity was not attempted, code reason: 7-Patient Refused. 9-Not Applicable-not attempted and the patient did not perform the activity before the current illness, exacerbation or injury. 10-Not Attempted due to Environmental Limitations-(lack of equipment, weather restraints, etc.). 88-Not Attempted due to Medical Conditions or Safety Concerns. Sit to Lying (QC): 3 Lying to Sitting/Side of Bed(Q: 4 Sit to Stand (QC): 5 Weight Bearing Right Lower Extremity: Right Weight Bearing/Tolerated Left Lower Extremity: Left Weight Bearing/Tolerated Gait Training Walk 10 feet (QC): 4 Exercises Seated Therapy Exercises: Ankle pumps, Sit to stand, Long arc quads, Chair press-ups, Hip flexion, Hamstring Curls, Glut set Treatments PT is able to preform bed mobility with VC for sequencing and sit to stand with SBA/CGA this day. pt is able to preform stand pivot transfers with CGA and extra time for right foot to move with weight shifting. pt is able to exicute ambulation in // bars x 2 with CGA and step to gait pattern with extra time secondary to pain. pt does require assistance to get legs into bed this day. Assessment Current Status: Good Progress PT Petroleum Refining Firer Goals Pet[employer]ining Firer Goals PT Usp Goals Time Frame: May 24, 2023 Roll Left & Right (QC): 6 (Pt will be Mod I with functional mobility with the FWW. ) Sit to Lying (QC): 6 (Pt will be Mod I with functional mobility with the FWW. ) Lying-Sitting on Side/Bed(QC): 6 (Pt will be Mod I with functional mobility with the FWW. ) Sit to Stand (QC): 6 (Pt will be Mod I with functional mobility with the FWW. ) Chair/Req-ql-Axoah Xfer(QC): 6 (Pt will be Mod I with functional mobility with the FWW. ) Toilet Transfer (QC): 6 (Pt will be Mod I with functional mobility with the FWW. ) Car Transfer (QC): 6 (Pt will be Mod I with functional mobility with the FWW. ) Does the Patient Walk: Yes Walk 10 feet (QC): 6 (Pt will be Mod I with functional mobility with the FWW. ) Walk 50ft with 2 Turns (QC): 6 (Pt will be Mod I with functional mobility with the FWW. ) Walk 150 ft (QC): 6 (Pt will be Mod I with functional mobility with the FWW. ) Walking 10ft on Uneven Surface: 6 (Pt will be Mod I with functional mobility with the FWW. ) 1 Step (curb) (QC): 4 (Pt will be SBA for stairs ) 4 Steps (QC): 4 (Pt will be SBA for stairs ) 12 Steps (QC): 4 (Pt will be SBA for stairs ) Picking up an Object (QC): 6 (Pt will be Mod I with functional mobility with the FWW. ) Does the Pt use WC or Scooter?: Yes Wheel 50 feet with 2 turns (QC: 6 (Pt will be Mod I with functional mobility with the FWW. ) Type: Manual Wheel 150 feet: 6 (Pt will be Mod I with functional mobility with the FWW. ) Type: Manual PT Plan Treatment/Plan Treatment Plan: Continue Plan of Care Treatment Plan: Bed Mobility, Concurrent Therapy, Education, Functional Activity Anand, Functional Strength, Group Therapy, Gait, Safety, Therapeutic Exercise, Transfers Treatment Duration: May 24, 2023 Frequency: At least 5 of 7 days/Wk (IRF) Estimated Hrs Per Day: 1.5 hours per day Patient and/or Family Agrees t: Yes Time Time In: 0800 Time Out: 0900 DATE: May 11, 2023 Total Billed Treatment Time: 60 Total Billed Treatment 1 GT x 2 EX x 2 Umm Juares SYSTEMS TEST TECHNICIAN May 11, 2023 11:19
[2023-05-11] MEDS: LORATADINE (CLARITIN) 10 MG TAB PO SCH (12:10)
--- NOTE | 2023-05-11 13:30 | Occupational Ther Daily Note ---
OT Current Status-Daily Note Subjective Pt sitting in chair upon arrival, alert and cooperative. agreed to OT Mental Status/Objective Patient Orientation: Person, Place, Time, Situation ADL-Treatment Pt educated on AE including sockaid, mold washer, and shoehorn. Pt mentioned having all AE at home from previous surgery, so ready for when she goes home. Therapist will continue to educate on that and work towards getting pt to use them independently, and decrease pain. Therapy Code Descriptions/Definitions Functional [place] Measure: 0=Not Assessed/NA 4=Minimal Assistance 1=Total Assistance 5=Supervision or Setup 2=Maximal Assistance 6=Modified [place] 3=Moderate Assistance 7=Complete IndependenceSCALE: Activities may be completed with or without assistive devices. 7-Meaespvsmr-acvfjwx completes the activity by him/herself with no assistance from a helper. 5-Set-up or Clean-up Assistance-helper sets up or cleans up; patient completes activity. [place] assists only prior to or following the activity. 4-Supervision or Touching Assistance-helper provides verbal cues and/or touching/steadying and/or contact guard assistance as patient completes activity. Assistance may be provided throughout the activity or intermittently. 3-Partial/Moderate Assistance-helper does LESS THAN HALF the effort. [place] lifts, holds or supports trunk or limbs, but provides less than half the effort. 2-Substantial/Maximal Assistance-helper does MORE THAN HALF the effort. [place] lifts or holds trunk or limbs and provides more than half the effort. 8-Fxqltxhlq-xggwkk does ALL the effort. Patient does none of the effort to complete the activity. Or, the assistance of 2 or more helpers is required for the patient to complete the activity. If activity was not attempted, code reason: 7-Patient Refused. 9-Not Applicable-not attempted and the patient did not perform the activity before the current illness, exacerbation or injury. 10-Not Attempted due to Environmental Limitations-(lack of equipment, weather restraints, etc.). 88-Not Attempted due to Medical Conditions or Safety Concerns. Education Teaching Recipient: Patient Teaching Methods: Demonstration, Discussion Response to Teaching: Verbalize Understanding OT Short Term Goals Short Term Goals Time Frame: May 15, 2023 Eatin Oral hygiene: 5 (stand) Toileting hygiene: 5 OT [facility] Goals [place] Guide Goals Acute change in mental status: 0 Inattention: 0 (Normal distraction w/ communication during tasks) Disorganized thinkin Altered level of consciousness: 0 1=Demonstrate adherence to instructed precautions during ADL tasks. 2=Patient will verbalize/demonstrate understanding of assistive devices/modifications for ADL. 3=Patient will improve strength/tolerance for activity to enable patient to perform ADL's. OT Education/Plan Problem List/Assessment Assessment: Decreased Activ Tolerance, Decreased Safety Aware, Decreased UE Strength Discharge Recommendations Plan/Recommendations: Continue POC Treatment Plan/Plan of Care Patient would benefit from OT for education, treatment and training to promote independence in ADL's, mobility, safety and/or upper extremity function for ADL's. Plan of Care: ADL Retraining, Caregiver Training, Concurrent Therapy, Functional Mobility, Group Exercise/Act as Ind, UE Funct Exercise/Act, UE Neuromus Re-Ed/Coord Treatment Duration: May 19, 2023 Frequency: At least 5 of 7 days/Wk (IRF) Rehab Potential: Good Time Start Time: 13:15 Stop Time: 13:25 DATE: May 11, 2023 Total Time Billed (hr/min): 10 Billed Treatment Time 1 visit FA (10) Shanta Tompkins COTA May 11, 2023 13:30
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
--- NOTE | 2023-05-11 15:04 | Physical Therapy Daily Note ---
PT Daily Note-Current Subjective pt in room in recliner upon arrival and willing for therapy. pt reports 2/10 pain. pt was left in recliner with call light and all needs met after therapy this day. Pain Section J - Health Conditions 1. Rarely or not at all 2. Occasionally 3. Frequently 4. Almost constantly 8. Unable to answer Pain Effect on Sleep: 1 Pain Interference with Therapy: 2 Pain Interference w/Day-to-Day: 1 Mental Status Patient Orientation: Person, Place, Time, Situation Transfers SCALE: Activities may be completed with or without assistive devices. 7-Coeophqszb-lfczoso completes the activity by him/herself with no assistance from a helper. 5-Set-up or Clean-up Assistance-helper sets up or cleans up; patient completes activity. [place] assists only prior to or following the activity. 4-Supervision or Touching Assistance-helper provides verbal cues and/or touching/steadying and/or contact guard assistance as patient completes activity. Assistance may be provided throughout the activity or intermittently. 3-Partial/Moderate Assistance-helper does LESS THAN HALF the effort. [place] lifts, holds or supports trunk or limbs, but provides less than half the effort. 2-Substantial/Maximal Assistance-helper does MORE THAN HALF the effort. [place] lifts or holds trunk or limbs and provides more than half the effort. 8-Ihwkvvuwu-jibtfx does ALL the effort. Patient does none of the effort to complete the activity. Or, the assistance of 2 or more helpers is required for the patient to complete the activity. If activity was not attempted, code reason: 7-Patient Refused. 9-Not Applicable-not attempted and the patient did not perform the activity before the current illness, exacerbation or injury. 10-Not Attempted due to Environmental Limitations-(lack of equipment, weather restraints, etc.). 88-Not Attempted due to Medical Conditions or Safety Concerns. Weight Bearing Right Lower Extremity: Right Weight Bearing/Tolerated Left Lower Extremity: Left Weight Bearing/Tolerated Exercises Seated Therapy Exercises: Ankle pumps, Sit to stand, Long arc quads, Hip flexion, Kicking activity, Hamstring Curls, Hip abd/add, Glut set Treatments Pt is able to preform sitting ther ex in all planes of motion with 1 lb ankle weights for added resistance. pt is able to execute 3 sets of 15 each with multiple redirection to stay on task as pt gets to talking. pt does require rest in between each set secondary to increased pain. Assessment Current Status: Good Progress PT Sample Driller Goals Sample Driller Goals PT Fdc Goals Time Frame: May 24, 2023 Roll Left & Right (QC): 6 (Pt will be Mod I with functional mobility with the FWW. ) Sit to Lying (QC): 6 (Pt will be Mod I with functional mobility with the FWW. ) Lying-Sitting on Side/Bed(QC): 6 (Pt will be Mod I with functional mobility with the FWW. ) Sit to Stand (QC): 6 (Pt will be Mod I with functional mobility with the FWW. ) Chair/Trt-dd-Nnauf Xfer(QC): 6 (Pt will be Mod I with functional mobility with the FWW. ) Toilet Transfer (QC): 6 (Pt will be Mod I with functional mobility with the FWW. ) Car Transfer (QC): 6 (Pt will be Mod I with functional mobility with the FWW. ) Does the Patient Walk: Yes Walk 10 feet (QC): 6 (Pt will be Mod I with functional mobility with the FWW. ) Walk 50ft with 2 Turns (QC): 6 (Pt will be Mod I with functional mobility with the FWW. ) Walk 150 ft (QC): 6 (Pt will be Mod I with functional mobility with the FWW. ) Walking 10ft on Uneven Surface: 6 (Pt will be Mod I with functional mobility with the FWW. ) 1 Step (curb) (QC): 4 (Pt will be SBA for stairs ) 4 Steps (QC): 4 (Pt will be SBA for stairs ) 12 Steps (QC): 4 (Pt will be SBA for stairs ) Picking up an Object (QC): 6 (Pt will be Mod I with functional mobility with the FWW. ) Does the Pt use WC or Scooter?: Yes Wheel 50 feet with 2 turns (QC: 6 (Pt will be Mod I with functional mobility with the FWW. ) Type: Manual Wheel 150 feet: 6 (Pt will be Mod I with functional mobility with the FWW. ) Type: Manual PT Plan Treatment/Plan Treatment Plan: Continue Plan of Care Treatment Plan: Bed Mobility, Concurrent Therapy, Education, Functional Activity Anand, Functional Strength, Group Therapy, Gait, Safety, Therapeutic Exercise, Transfers Treatment Duration: May 24, 2023 Frequency: At least 5 of 7 days/Wk (IRF) Estimated Hrs Per Day: 1.5 hours per day Patient and/or Family Agrees t: Yes Time Time In: 1130 Time Out: 1200 DATE: May 11, 2023 Total Billed Treatment Time: 30 Total Billed Treatment 1 ex x 2 Umm Juares MEDIA STRATEGIST May 11, 2023 15:04
--- NOTE | 2023-05-11 15:13 | Occupational Ther Daily Note ---
OT Current Status-Daily Note Subjective Pt alert and cooperative, lying in bed upon arrival, agreed to OT. ADL-Treatment Pt sat EOB with Tanner getting legs over and off the bed to push and sit up. Pt mo d sit to stand transfer with FWW, to commode. Pt urinated only. Pt completed sponge bath while seated with set up assist. Pt also completed upper body dressing, with set up assist. Pt also doffed brief independently, donned brief with AE, set up assist, as well as lower body dressing with AE, and moderate verbal cues. Pt stood with FWW, Tanner off commode, Pt was able to hike brief and pants up over hips with therapist CGA. Pt then ambulated into the bathroom with FWW, CGA. Pt completed oral hygiene, and grooming while standing with CGA, and FWW. Pt ambulated back to chair in room, FWW, CGA. Increased time due to pain when pt is up moving and requiring multiple rest breaks. Pt was left in chair in room, will educate on AE, and begin working on introducing that next session. All needs met, call light and phone within reach. Therapy Code Descriptions/Definitions Functional [place] Measure: 0=Not Assessed/NA 4=Minimal Assistance 1=Total Assistance 5=Supervision or Setup 2=Maximal Assistance 6=Modified [place] 3=Moderate Assistance 7=Complete IndependenceSCALE: Activities may be completed with or without assistive devices. 5-Hatuuxgcpu-xroxtvd completes the activity by him/herself with no assistance from a helper. 5-Set-up or Clean-up Assistance-helper sets up or cleans up; patient completes activity. [place] assists only prior to or following the activity. 4-Supervision or Touching Assistance-helper provides verbal cues and/or touching/steadying and/or contact guard assistance as patient completes activity. Assistance may be provided throughout the activity or intermittently. 3-Partial/Moderate Assistance-helper does LESS THAN HALF the effort. [place] lifts, holds or supports trunk or limbs, but provides less than half the effort. 2-Substantial/Maximal Assistance-helper does MORE THAN HALF the effort. [place] lifts or holds trunk or limbs and provides more than half the effort. 3-Igamfuigu-iwqefw does ALL the effort. Patient does none of the effort to complete the activity. Or, the assistance of 2 or more helpers is required for the patient to complete the activity. If activity was not attempted, code reason: 7-Patient Refused. 9-Not Applicable-not attempted and the patient did not perform the activity before the current illness, exacerbation or injury. 10-Not Attempted due to Environmental Limitations-(lack of equipment, weather restraints, etc.). 88-Not Attempted due to Medical Conditions or Safety Concerns. Oral Hygiene (QC): 4 (CGA) Upper Body Dressing (QC): 5 Lower Body Dressing (QC): 4 (required V/C as well as used AE) Education OT Patient Education: Correct positioning, Energy conservation, Exercise program, Modified ADL techniques, Progress toward Goal/Update tx plan, Purpose of tx/functional activities, Transfer techniques, Use of adapted equipment Teaching Recipient: Patient Teaching Methods: Demonstration, Discussion OT Short Term Goals Short Term Goals Time Frame: May 15, 2023 Eatin Oral hygiene: 5 (stand) Toileting hygiene: 5 OT Supervisor [employer] Goals Supervisor [employer] Goals Acute change in mental status: 0 Inattention: 0 (Normal distraction w/ communication during tasks) Disorganized thinkin Altered level of consciousness: 0 1=Demonstrate adherence to instructed precautions during ADL tasks. 2=Patient will verbalize/demonstrate understanding of assistive devices/modifications for ADL. 3=Patient will improve strength/tolerance for activity to enable patient to perform ADL's. OT Education/Plan Problem List/Assessment Assessment: Decreased Activ Tolerance, Decreased Safety Aware, Decreased UE Strength Discharge Recommendations Plan/Recommendations: Continue POC Treatment Plan/Plan of Care Patient would benefit from OT for education, treatment and training to promote independence in ADL's, mobility, safety and/or upper extremity function for ADL's. Plan of Care: ADL Retraining, Caregiver Training, Concurrent Therapy, Functional Mobility, Group Exercise/Act as Ind, UE Funct Exercise/Act, UE Neuromus Re-Ed/Coord Treatment Duration: May 19, 2023 Frequency: At least 5 of 7 days/Wk (IRF) Rehab Potential: Good Time Start Time: 10:00 Stop Time: 11:00 DATE: May 11, 2023 Total Time Billed (hr/min): 60 Billed Treatment Time 1 visit ADL 4 (60) Shanta Tompkins COTA May 11, 2023 15:13
[2023-05-11 15:53] LABS: BILIRUBIN,URINE NEGATIVE (NEGATIVE); CLARITY,URINE CLEAR; COLOR,URINE YELLOW; GLUCOSE, URINE (UA) NEGATIVE (NEGATIVE); KETONES,URINE NEGATIVE (NEGATIVE); LEUKOCYTE ESTERASE ,URINE 1+ (NEGATIVE); NITRITE,URINE NEGATIVE (NEGATIVE); PROTEIN,URINE NEGATIVE (NEGATIVE)
[2023-05-11 16:07] LABS: BACTERIA,URINE MODERATE /HPF; SQUAMOUS EPITHELIAL CELL,UR 0-2 /HPF
[2023-05-11] MEDS: ENOXAPARIN 40 MG/0.4 ML (LOVENOX) SYR SC SCH (20:12)
[2023-05-11 20:42] VITALS: BP 119/73
--- NOTE | 2023-05-12 05:58 | PM&R Progress Note ---
Subjective HPI/CC On Admission Date Seen by Provider: May 12, 2023 Time Seen by Provider: 12:00 Subjective/Events-last exam 05/12/2023: Much improved No falls Pain improved BM+ 05/11/2023: Patient doing a lot better Pain is improving Transfers are better No falls Taking pain medication as needed We will check urine for infection since she is incontinent Review of Systems General: Fatigue, Malaise Objective Exam Vital Signs Vital Signs Date Time Temp Pulse Resp B/P (MAP) Pulse Ox O2 Delivery O2 Flow Rate FiO2 05/12/23 21:00 Room Air 05/12/23 19:14 36.3 97 20 117/63 (81) 94 Capillary Refill : General Appearance: No Apparent Distress, WD/WN, Chronically ill HEENT: PERRL/EOMI, Normal ENT Inspection, Pharynx Normal Neck: Full Range of Motion, Normal Inspection, Non Tender, Supple, Carotid Bruit Respiratory: Chest Non Tender, Lungs Clear, Normal Breath Sounds, No Accessory Muscle Use, No Respiratory Distress Cardiovascular: Regular Rate, Rhythm, No Edema, No Gallop, No JVD, No Murmur, Normal Peripheral Pulses Gastrointestinal: Normal Bowel Sounds, No Organomegaly, No Pulsatile Mass, Non Tender, Soft Back: Normal Inspection, No CVA Tenderness, No Vertebral Tenderness Extremity: Normal Capillary Refill, Normal Inspection, Normal Range of Motion (except legs due to pelvic pain), Non Tender, No Calf Tenderness, No Pedal Edema Neurologic/Psychiatric: Alert, Oriented x3, No Motor/Sensory Deficits, Normal Mood/Affect Skin: Normal Color, Warm/Dry Lymphatic: No Adenopathy Results/Procedures Lab Patient resulted labs reviewed. FIM Transfers Therapy Code Descriptions/Definitions Functional [place] Measure: 0=Not Assessed/NA 4=Minimal Assistance 1=Total Assistance 5=Supervision or Setup 2=Maximal Assistance 6=Modified [place] 3=Moderate Assistance 7=Complete IndependenceSCALE: Activities may be completed with or without assistive devices. 7-Amddfrwobn-bqlftfx completes the activity by him/herself with no assistance from a helper. 5-Set-up or Clean-up Assistance-helper sets up or cleans up; patient completes activity. [place] assists only prior to or following the activity. 4-Supervision or Touching Assistance-helper provides verbal cues and/or touching/steadying and/or contact guard assistance as patient completes activity. Assistance may be provided throughout the activity or intermittently. 3-Partial/Moderate Assistance-helper does LESS THAN HALF the effort. [place] lifts, holds or supports trunk or limbs, but provides less than half the effort. 2-Substantial/Maximal Assistance-helper does MORE THAN HALF the effort. [place] lifts or holds trunk or limbs and provides more than half the effort. 0-Ammwqqijm-lxxqre does ALL the effort. Patient does none of the effort to complete the activity. Or, the assistance of 2 or more helpers is required for the patient to complete the activity. If activity was not attempted, code reason: 7-Patient Refused. 9-Not Applicable-not attempted and the patient did not perform the activity before the current illness, exacerbation or injury. 10-Not Attempted due to Environmental Limitations-(lack of equipment, weather restraints, etc.). 88-Not Attempted due to Medical Conditions or Safety Concerns. Roll Left to Right (QC): 3 Sit to Lying (QC): 3 Sit to Stand (QC): 5 Chair/Xip-do-Djkrs Xfer(QC): 3 Car Transfer (QC): 88 Gait Training Does the Patient Walk?: Yes Distance: 10' Walk 10 feet (QC): 4 Walk 50 ft with 2 Turns(QC): 88 Walk 150 ft (QC): 88 Walking 10ft/uneven surface-QC: 88 Gait Persons Needed: 1 Gait Assistive Device: FWW Wheelchair Training Does the Pt Use a Wheelchair?: Yes Wheel 50 ft with 2 turns (QC): 4 Wheel 150 ft (QC): 4 Type of Wheelchair: Manual Stair Training 1 Step (curb) (QC): 88 4 Steps (QC): 88 12 Steps (QC): 88 Balance Picking up an Object (QC): 4 ADL-Treatment Eating (QC): 6 Oral Hygiene (QC): 4 (CGA) Shower/Bathe Self (QC): 4 (sitting on bench) Upper Body Dressing (QC): 5 Lower Body Dressing (QC): 4 (required V/C as well as used AE) On/Off Footwear (QC): 2 Toileting Hygiene (QC): 4 Assessment/Plan Assessment and Plan Assess & Plan/Chief Complaint Assessment: Pubic rami fractures with complete disruption of the pelvic ring following a fall Unable to ambulate Hypertension Osteoporosis Plan: PT OT Fall risk Pain control Home meds 05/11/2023: Check urine for infection Pain control 05/12/2023: Slow recovery Continue pain meds (1) Pelvic fracture (2) Pubic ramus fracture REGIS KEE DO May 12, 2023 05:58
[2023-05-12 08:00] VITALS: BP 125/60
[2023-05-12 08:12] VITALS: BP 152/72
[2023-05-12] MEDS: amLODIPine 10 MG (NORVASC) TAB PO SCH (08:18)
[2023-05-12] MEDS: SENNOSIDES 8.6 MG (SENOKOT) TAB PO SCH ×2 (08:18→20:43)
[2023-05-12] MEDS: LORATADINE (CLARITIN) 10 MG TAB PO SCH (08:18)
[2023-05-12] MEDS: DOCUSATE SODIUM 100 MG (COLACE) CAP PO SCH ×2 (08:18→20:43)
[2023-05-12] MEDS: polyethylene glycoL POWDER 17 GM (MIRALAX) PACK PO SCH ×2 (08:20→21:00)
--- NOTE | 2023-05-12 10:49 | Speech Therapy Daily Note ---
Speech Daily Progress Note Subjective Date Seen by Provider: May 12, 2023 Time Seen by Provider: 08:30 Pt sitting up in recliner when FARMWORKER GENERAL enters room. Pt pleasant and cooperative throughout session. Pain Numeric Pain Scale: 3 Location: Right Location Body Site: Thigh Objective Pt completes writing a check for a bill and filling out a check book register with 100% accuracy independently. Pt completes medication management with 100% accuracy independently. Assessment Assessment Current Status: Excellent Progress Treatment Plan Discontinue ST, Goals Met Speech Short Term Goals Short Term Goals Short Term Goals Assess medication management and finance management. Speech Halfway Goals Halfway Goals Pt will perform cognitive tasks with 80% accuracy or greater independently. Speech-Plan Patient/Family Goals Patient/Family Goals: Pt's goal is to return home independently. Treatment Plan Speech Therapy Treatment Plan: Discontinue ST, Goals Met Treatment Duration: May 11, 2023 Frequency: Modified Program (IRF) Estimated Hrs Per Day: Other Rehab Potential: Good Pt/Family Agrees to Plan: Yes Safety Risks/Education Teaching Recipient: Patient Teaching Methods: Discussion Response to Teaching: Verbalize Understanding Education Topics Provided: Pt educated on purpose of therapy tasks and recommendation to d/c from speech therapy. Pt receptive and verbalized understanding. Time Speech Therapy Time In: 08:30 Speech Therapy Time Out: 09:00 DATE: May 12, 2023 Total Billed Time: 30 Billed Treatment Time S/L Lalo Porter Speech Therapy May 12, 2023 10:49
--- NOTE | 2023-05-12 11:14 | Physical Therapy Daily Note ---
PT Daily Note-Current Subjective Pt was in therapy gym and willing for therapy. pt reports 5/10 pain when preforming ther-ex and a 1/10 pain when resting. pt reports not sleeping well but after the 2nd pain med a 3 a.m. pt was left in recliner with call light and all needs met this day. Pain Section J - Health Conditions 1. Rarely or not at all 2. Occasionally 3. Frequently 4. Almost constantly 8. Unable to answer Pain Effect on Sleep: 1 Pain Interference with Therapy: 2 Pain Interference w/Day-to-Day: 1 Mental Status Patient Orientation: Person, Place, Time, Situation Transfers SCALE: Activities may be completed with or without assistive devices. 6-Ijwsvtmzye-safwjsr completes the activity by him/herself with no assistance from a helper. 5-Set-up or Clean-up Assistance-helper sets up or cleans up; patient completes activity. [place] assists only prior to or following the activity. 4-Supervision or Touching Assistance-helper provides verbal cues and/or touching/steadying and/or contact guard assistance as patient completes activity. Assistance may be provided throughout the activity or intermittently. 3-Partial/Moderate Assistance-helper does LESS THAN HALF the effort. [place] lifts, holds or supports trunk or limbs, but provides less than half the effort. 2-Substantial/Maximal Assistance-helper does MORE THAN HALF the effort. [place] lifts or holds trunk or limbs and provides more than half the effort. 2-Wmbtzooey-psesta does ALL the effort. Patient does none of the effort to complete the activity. Or, the assistance of 2 or more helpers is required for the patient to complete the activity. If activity was not attempted, code reason: 7-Patient Refused. 9-Not Applicable-not attempted and the patient did not perform the activity before the current illness, exacerbation or injury. 10-Not Attempted due to Environmental Limitations-(lack of equipment, weather restraints, etc.). 88-Not Attempted due to Medical Conditions or Safety Concerns. Weight Bearing Right Lower Extremity: Right Weight Bearing/Tolerated Left Lower Extremity: Left Weight Bearing/Tolerated Exercises Seated Therapy Exercises: Ankle pumps, Sit to stand, Long arc quads, Chair press-ups, Hip flexion, Hamstring Curls, Glut set Treatments pt is able to preform sitting ther-ex with 1 lb ankle weight for 3 sets of 15 this day in all planes of motion available and with rest in between each set. pt is able to ambulate // bars x 2 with CGA and VC for weight shifting. Assessment Current Status: Good Progress PT Residential Goals Residential Goals PT Surgical Technology Instructor Goals Time Frame: May 24, 2023 Roll Left & Right (QC): 6 (Pt will be Mod I with functional mobility with the FWW. ) Sit to Lying (QC): 6 (Pt will be Mod I with functional mobility with the FWW. ) Lying-Sitting on Side/Bed(QC): 6 (Pt will be Mod I with functional mobility with the FWW. ) Sit to Stand (QC): 6 (Pt will be Mod I with functional mobility with the FWW. ) Chair/Uap-im-Zithq Xfer(QC): 6 (Pt will be Mod I with functional mobility with the FWW. ) Toilet Transfer (QC): 6 (Pt will be Mod I with functional mobility with the FWW. ) Car Transfer (QC): 6 (Pt will be Mod I with functional mobility with the FWW. ) Does the Patient Walk: Yes Walk 10 feet (QC): 6 (Pt will be Mod I with functional mobility with the FWW. ) Walk 50ft with 2 Turns (QC): 6 (Pt will be Mod I with functional mobility with the FWW. ) Walk 150 ft (QC): 6 (Pt will be Mod I with functional mobility with the FWW. ) Walking 10ft on Uneven Surface: 6 (Pt will be Mod I with functional mobility with the FWW. ) 1 Step (curb) (QC): 4 (Pt will be SBA for stairs ) 4 Steps (QC): 4 (Pt will be SBA for stairs ) 12 Steps (QC): 4 (Pt will be SBA for stairs ) Picking up an Object (QC): 6 (Pt will be Mod I with functional mobility with the FWW. ) Does the Pt use WC or Scooter?: Yes Wheel 50 feet with 2 turns (QC: 6 (Pt will be Mod I with functional mobility with the FWW. ) Type: Manual Wheel 150 feet: 6 (Pt will be Mod I with functional mobility with the FWW. ) Type: Manual PT Plan Treatment/Plan Treatment Plan: Continue Plan of Care Treatment Plan: Bed Mobility, Concurrent Therapy, Education, Functional Activity Anand, Functional Strength, Group Therapy, Gait, Safety, Therapeutic Exercise, Transfers Treatment Duration: May 24, 2023 Frequency: At least 5 of 7 days/Wk (IRF) Estimated Hrs Per Day: 1.5 hours per day Patient and/or Family Agrees t: Yes Time Time In: 1100 Time Out: 1200 DATE: May 12, 2023 Total Billed Treatment Time: 60 Total Billed Treatment 1 EX x 3 GT Umm Juares CITY DRIVER May 12, 2023 11:14
--- NOTE | 2023-05-12 13:27 | Physical Therapy Daily Note ---
PT Daily Note-Current Subjective PT in room in recliner and willing for therapy. pt reports no pain at this time. pt was left in recliner with call light and all needs met after therapy session. Pain Section J - Health Conditions 1. Rarely or not at all 2. Occasionally 3. Frequently 4. Almost constantly 8. Unable to answer Pain Effect on Sleep: 1 Pain Interference with Therapy: 2 Pain Interference w/Day-to-Day: 1 Transfers SCALE: Activities may be completed with or without assistive devices. 0-Ifpfdtstoe-sutdffj completes the activity by him/herself with no assistance from a helper. 5-Set-up or Clean-up Assistance-helper sets up or cleans up; patient completes activity. [place] assists only prior to or following the activity. 4-Supervision or Touching Assistance-helper provides verbal cues and/or touching/steadying and/or contact guard assistance as patient completes activity. Assistance may be provided throughout the activity or intermittently. 3-Partial/Moderate Assistance-helper does LESS THAN HALF the effort. [place] lifts, holds or supports trunk or limbs, but provides less than half the effort. 2-Substantial/Maximal Assistance-helper does MORE THAN HALF the effort. [place] lifts or holds trunk or limbs and provides more than half the effort. 0-Vsdziycvt-gkdsfl does ALL the effort. Patient does none of the effort to complete the activity. Or, the assistance of 2 or more helpers is required for the patient to complete the activity. If activity was not attempted, code reason: 7-Patient Refused. 9-Not Applicable-not attempted and the patient did not perform the activity before the current illness, exacerbation or injury. 10-Not Attempted due to Environmental Limitations-(lack of equipment, weather restraints, etc.). 88-Not Attempted due to Medical Conditions or Safety Concerns. Weight Bearing Right Lower Extremity: Right Weight Bearing/Tolerated Left Lower Extremity: Left Weight Bearing/Tolerated Treatments Pt is able to preform sitting there-ex in all planes of motion available for 2 sets of 15 with 1lb ankle weights for added resistance. pt requires VC to stay on task. Assessment Current Status: Good Progress PT Shoelace Tipping Machine Operator Goals Shoelace Tipping Machine Operator Goals PT Usp Goals Time Frame: May 24, 2023 Roll Left & Right (QC): 6 (Pt will be Mod I with functional mobility with the FWW. ) Sit to Lying (QC): 6 (Pt will be Mod I with functional mobility with the FWW. ) Lying-Sitting on Side/Bed(QC): 6 (Pt will be Mod I with functional mobility with the FWW. ) Sit to Stand (QC): 6 (Pt will be Mod I with functional mobility with the FWW. ) Chair/Aea-vg-Wrrmw Xfer(QC): 6 (Pt will be Mod I with functional mobility with the FWW. ) Toilet Transfer (QC): 6 (Pt will be Mod I with functional mobility with the FWW. ) Car Transfer (QC): 6 (Pt will be Mod I with functional mobility with the FWW. ) Does the Patient Walk: Yes Walk 10 feet (QC): 6 (Pt will be Mod I with functional mobility with the FWW. ) Walk 50ft with 2 Turns (QC): 6 (Pt will be Mod I with functional mobility with the FWW. ) Walk 150 ft (QC): 6 (Pt will be Mod I with functional mobility with the FWW. ) Walking 10ft on Uneven Surface: 6 (Pt will be Mod I with functional mobility with the FWW. ) 1 Step (curb) (QC): 4 (Pt will be SBA for stairs ) 4 Steps (QC): 4 (Pt will be SBA for stairs ) 12 Steps (QC): 4 (Pt will be SBA for stairs ) Picking up an Object (QC): 6 (Pt will be Mod I with functional mobility with the FWW. ) Does the Pt use WC or Scooter?: Yes Wheel 50 feet with 2 turns (QC: 6 (Pt will be Mod I with functional mobility with the FWW. ) Type: Manual Wheel 150 feet: 6 (Pt will be Mod I with functional mobility with the FWW. ) Type: Manual PT Plan Treatment/Plan Treatment Plan: Continue Plan of Care Treatment Plan: Bed Mobility, Concurrent Therapy, Education, Functional Activity Anand, Functional Strength, Group Therapy, Gait, Safety, Therapeutic Exercise, Transfers Treatment Duration: May 24, 2023 Frequency: At least 5 of 7 days/Wk (IRF) Estimated Hrs Per Day: 1.5 hours per day Patient and/or Family Agrees t: Yes Time Time In: 1300 Time Out: 1310 DATE: May 12, 2023 Total Billed Treatment Time: 15 Total Billed Treatment 1 ex Umm Juares [employer]PER[employer] May 12, 2023 13:27
--- NOTE | 2023-05-12 13:57 | Occupational Ther Daily Note ---
OT Current Status-Daily Note Subjective Pt sitting in chair, upon arrival, agreed to OT, alert and cooperative. No pain mentioned ADL-Treatment Pt completed Felx bar theraband exercises using yellow, medium resistance tube. Pt completed 8 reps 2 sets. Pt was educated on HEP exercises, and handout given and left with pt. Therapist demonstrated all exercises to pt and pt verbalized understanding. Therapist will continue to work towards strengthening BUEs required for daily functional tasks. Pt was left in chair in room, all needs met. Therapy Code Descriptions/Definitions Functional [place] Measure: 0=Not Assessed/NA 4=Minimal Assistance 1=Total Assistance 5=Supervision or Setup 2=Maximal Assistance 6=Modified [place] 3=Moderate Assistance 7=Complete IndependenceSCALE: Activities may be completed with or without assistive devices. 5-Dcaekdtpby-vqgfafw completes the activity by him/herself with no assistance from a helper. 5-Set-up or Clean-up Assistance-helper sets up or cleans up; patient completes activity. [place] assists only prior to or following the activity. 4-Supervision or Touching Assistance-helper provides verbal cues and/or touching/steadying and/or contact guard assistance as patient completes activity. Assistance may be provided throughout the activity or intermittently. 3-Partial/Moderate Assistance-helper does LESS THAN HALF the effort. [place] lifts, holds or supports trunk or limbs, but provides less than half the effort. 2-Substantial/Maximal Assistance-helper does MORE THAN HALF the effort. [place] lifts or holds trunk or limbs and provides more than half the effort. 7-Kfihzvzca-rclwty does ALL the effort. Patient does none of the effort to complete the activity. Or, the assistance of 2 or more helpers is required for the patient to complete the activity. If activity was not attempted, code reason: 7-Patient Refused. 9-Not Applicable-not attempted and the patient did not perform the activity before the current illness, exacerbation or injury. 10-Not Attempted due to Environmental Limitations-(lack of equipment, weather restraints, etc.). 88-Not Attempted due to Medical Conditions or Safety Concerns. Education OT Patient Education: Correct positioning, Energy conservation, Exercise program, Home exercise program, Progress toward Goal/Update tx plan, Purpose of tx/functional activities Teaching Recipient: Patient Teaching Methods: Demonstration, Discussion Response to Teaching: Verbalize Understanding, Return Demonstration OT Short Term Goals Short Term Goals Time Frame: May 15, 2023 Eatin Oral hygiene: 5 (stand) Toileting hygiene: 5 OT Automobile Leasing Supervisor Goals Fpc Goals Acute change in mental status: 0 Inattention: 0 (Normal distraction w/ communication during tasks) Disorganized thinkin Altered level of consciousness: 0 1=Demonstrate adherence to instructed precautions during ADL tasks. 2=Patient will verbalize/demonstrate understanding of assistive devices/modifications for ADL. 3=Patient will improve strength/tolerance for activity to enable patient to perform ADL's. OT Education/Plan Problem List/Assessment Assessment: Decreased Activ Tolerance, Decreased Safety Aware, Decreased UE Strength Discharge Recommendations Plan/Recommendations: Continue POC Treatment Plan/Plan of Care Patient would benefit from OT for education, treatment and training to promote independence in ADL's, mobility, safety and/or upper extremity function for ADL's. Plan of Care: ADL Retraining, Caregiver Training, Concurrent Therapy, Functional Mobility, Group Exercise/Act as Ind, UE Funct Exercise/Act, UE Neuromus Re-Ed/Coord Treatment Duration: May 19, 2023 Frequency: At least 5 of 7 days/Wk (IRF) Estimated Hrs Per Day: .5 hour per day Rehab Potential: Good Time Start Time: 13:20 Stop Time: 13:35 DATE: May 12, 2023 Total Time Billed (hr/min): 15 Billed Treatment Time 1 visit EX (15) Shanta Tompkins COTA May 12, 2023 13:57
--- NOTE | 2023-05-12 14:15 | Occupational Ther Daily Note ---
OT Current Status-Daily Note Subjective Pt sitting in chair upon arrival. Pt alert and cooperative, agreed to OT. Pt requested to use the commode. Pain rated about 5/10, nursing notified. ADL-Treatment Pt stood from chair, to transfer to commode with CGA. Pt completed toileting with CGA. Pt then doffed clothing with close SBA while seated. Pt completed upper body dressing with set up assist using AE, while seated, pt was able to hike up over buttocks, with therapist CGA, using FWW. Pt completed upper body dressing with set up assist, while seated. Pt completed footwear with [place] and verbal cues required using AE. Pt completed sponge bath with set up assist, while seated. Pt ambulated to wheelchair in room, using FWW, CGA. Pt then propelled self in wheelchair to therapy gym from room Independent. Pt completed 15 min on arm bike with 25 diallo resistance. Pt was left in care of WOOD COATER, in therapy gym, all needs met. Therapy Code Descriptions/Definitions Functional [place] Measure: 0=Not Assessed/NA 4=Minimal Assistance 1=Total Assistance 5=Supervision or Setup 2=Maximal Assistance 6=Modified [place] 3=Moderate Assistance 7=Complete IndependenceSCALE: Activities may be completed with or without assistive devices. 4-Htsloruexh-msvnxah completes the activity by him/herself with no assistance from a helper. 5-Set-up or Clean-up Assistance-helper sets up or cleans up; patient completes activity. [place] assists only prior to or following the activity. 4-Supervision or Touching Assistance-helper provides verbal cues and/or touching/steadying and/or contact guard assistance as patient completes activity. Assistance may be provided throughout the activity or intermittently. 3-Partial/Moderate Assistance-helper does LESS THAN HALF the effort. [place] lifts, holds or supports trunk or limbs, but provides less than half the effort. 2-Substantial/Maximal Assistance-helper does MORE THAN HALF the effort. [place] lifts or holds trunk or limbs and provides more than half the effort. 4-Giahamnls-laizwh does ALL the effort. Patient does none of the effort to complete the activity. Or, the assistance of 2 or more helpers is required for the patient to complete the activity. If activity was not attempted, code reason: 7-Patient Refused. 9-Not Applicable-not attempted and the patient did not perform the activity before the current illness, exacerbation or injury. 10-Not Attempted due to Environmental Limitations-(lack of equipment, weather restraints, etc.). 88-Not Attempted due to Medical Conditions or Safety Concerns. Upper Body Dressing (QC): 5 (while seated) Lower Body Dressing (QC): 4 On/Off Footwear: 4 Toileting Hygiene (QC): 4 Education OT Patient Education: Correct positioning, Energy conservation Teaching Recipient: Patient Teaching Methods: Discussion Response to Teaching: Verbalize Understanding OT Short Term Goals Short Term Goals Time Frame: May 15, 2023 Eatin Oral hygiene: 5 (stand) Toileting hygiene: 5 OT Shelter Goals Boat Wrapper Goals Acute change in mental status: 0 Inattention: 0 (Normal distraction w/ communication during tasks) Disorganized thinkin Altered level of consciousness: 0 1=Demonstrate adherence to instructed precautions during ADL tasks. 2=Patient will verbalize/demonstrate understanding of assistive devices/modifications for ADL. 3=Patient will improve strength/tolerance for activity to enable patient to perform ADL's. OT Education/Plan Problem List/Assessment Assessment: Decreased Activ Tolerance, Decreased Safety Aware, Decreased UE Strength Discharge Recommendations Plan/Recommendations: Continue POC Treatment Plan/Plan of Care Patient would benefit from OT for education, treatment and training to promote independence in ADL's, mobility, safety and/or upper extremity function for ADL's. Plan of Care: ADL Retraining, Caregiver Training, Concurrent Therapy, Functional Mobility, Group Exercise/Act as Ind, UE Funct Exercise/Act, UE Neuromus Re-Ed/Coord Treatment Duration: May 19, 2023 Frequency: At least 5 of 7 days/Wk (IRF) Estimated Hrs Per Day: .5 hour per day Rehab Potential: Good Time Start Time: 10:00 Stop Time: 11:00 DATE: May 12, 2023 Total Time Billed (hr/min): 60 Billed Treatment Time 1 visit ADL 3 (45) EX 1 (15) Shanta Tompkins COTA May 12, 2023 14:14
[2023-05-12] MEDS: CALCIUM CARBONATE 500 MG (TUMS) TAB.CHEW PO PRN (18:03)
[2023-05-12 19:14] VITALS: BP 117/63
[2023-05-12] MEDS: ENOXAPARIN 40 MG/0.4 ML (LOVENOX) SYR SC SCH (20:43)
--- NOTE | 2023-05-13 07:25 | PM&R Progress Note ---
Subjective HPI/CC On Admission Date Seen by Provider: May 13, 2023 Time Seen by Provider: 12:00 Subjective/Events-last exam 05/13/2023: Patient progressively improving Bowels are moving No pain when she is not moving Bowel regimen maintained 05/12/2023: Much improved No falls Pain improved BM+ 05/11/2023: Patient doing a lot better Pain is improving Transfers are better No falls Taking pain medication as needed We will check urine for infection since she is incontinent Review of Systems General: Fatigue, Malaise Objective Exam Vital Signs Vital Signs Date Time Temp Pulse Resp B/P (MAP) Pulse Ox O2 Delivery O2 Flow Rate FiO2 05/13/23 19:52 36.0 85 18 125/61 (82) 96 Room Air 05/13/23 10:56 21 05/13/23 10:09 0.00 Capillary Refill : General Appearance: No Apparent Distress, WD/WN, Chronically ill HEENT: PERRL/EOMI, Normal ENT Inspection, Pharynx Normal Neck: Full Range of Motion, Normal Inspection, Non Tender, Supple, Carotid Bruit Respiratory: Chest Non Tender, Lungs Clear, Normal Breath Sounds, No Accessory Muscle Use, No Respiratory Distress Cardiovascular: Regular Rate, Rhythm, No Edema, No Gallop, No JVD, No Murmur, Normal Peripheral Pulses Gastrointestinal: Normal Bowel Sounds, No Organomegaly, No Pulsatile Mass, Non Tender, Soft Back: Normal Inspection, No CVA Tenderness, No Vertebral Tenderness Extremity: Normal Capillary Refill, Normal Inspection, Normal Range of Motion (except legs due to pelvic pain), Non Tender, No Calf Tenderness, No Pedal Edema Neurologic/Psychiatric: Alert, Oriented x3, No Motor/Sensory Deficits, Normal Mood/Affect Skin: Normal Color, Warm/Dry Lymphatic: No Adenopathy Results/Procedures Lab Patient resulted labs reviewed. FIM Transfers Therapy Code Descriptions/Definitions Functional [place] Measure: 0=Not Assessed/NA 4=Minimal Assistance 1=Total Assistance 5=Supervision or Setup 2=Maximal Assistance 6=Modified [place] 3=Moderate Assistance 7=Complete IndependenceSCALE: Activities may be completed with or without assistive devices. 5-Tirrhdvvfd-xvlvvwd completes the activity by him/herself with no assistance from a helper. 5-Set-up or Clean-up Assistance-helper sets up or cleans up; patient completes activity. [place] assists only prior to or following the activity. 4-Supervision or Touching Assistance-helper provides verbal cues and/or touching/steadying and/or contact guard assistance as patient completes activity. Assistance may be provided throughout the activity or intermittently. 3-Partial/Moderate Assistance-helper does LESS THAN HALF the effort. [place] lifts, holds or supports trunk or limbs, but provides less than half the effort. 2-Substantial/Maximal Assistance-helper does MORE THAN HALF the effort. [place] lifts or holds trunk or limbs and provides more than half the effort. 2-Lajrnktjs-yrhssw does ALL the effort. Patient does none of the effort to complete the activity. Or, the assistance of 2 or more helpers is required for the patient to complete the activity. If activity was not attempted, code reason: 7-Patient Refused. 9-Not Applicable-not attempted and the patient did not perform the activity before the current illness, exacerbation or injury. 10-Not Attempted due to Environmental Limitations-(lack of equipment, weather restraints, etc.). 88-Not Attempted due to Medical Conditions or Safety Concerns. Roll Left to Right (QC): 3 Sit to Lying (QC): 3 Sit to Stand (QC): 5 Chair/Kfy-cm-Yrnqc Xfer(QC): 3 Car Transfer (QC): 88 Gait Training Does the Patient Walk?: Yes Distance: 10' Walk 10 feet (QC): 4 Walk 50 ft with 2 Turns(QC): 88 Walk 150 ft (QC): 88 Walking 10ft/uneven surface-QC: 88 Gait Persons Needed: 1 Gait Assistive Device: FWW Wheelchair Training Does the Pt Use a Wheelchair?: Yes Wheel 50 ft with 2 turns (QC): 4 Wheel 150 ft (QC): 4 Type of Wheelchair: Manual Stair Training 1 Step (curb) (QC): 88 4 Steps (QC): 88 12 Steps (QC): 88 Balance Picking up an Object (QC): 4 ADL-Treatment Eating (QC): 6 Oral Hygiene (QC): 4 (CGA) Shower/Bathe Self (QC): 4 (sitting on bench) Upper Body Dressing (QC): 5 (while seated) Lower Body Dressing (QC): 4 On/Off Footwear (QC): 4 Toileting Hygiene (QC): 4 Assessment/Plan Assessment and Plan Assess & Plan/Chief Complaint Assessment: Pubic rami fractures with complete disruption of the pelvic ring following a fall Unable to ambulate Hypertension Osteoporosis DVT prophylaxis with Lovenox Plan: PT OT Fall risk Pain control Home meds 05/11/2023: Check urine for infection Pain control 05/12/2023: Slow recovery Continue pain meds 05/13/2023: Supportive care Monitor closely (1) Pelvic fracture (2) Pubic ramus fracture REGIS KEE DO May 13, 2023 07:25
[2023-05-13 07:51] VITALS: BP 158/75
[2023-05-13] MEDS: amLODIPine 10 MG (NORVASC) TAB PO SCH (08:20)
[2023-05-13] MEDS: LORATADINE (CLARITIN) 10 MG TAB PO SCH (08:20)
[2023-05-13] MEDS: polyethylene glycoL POWDER 17 GM (MIRALAX) PACK PO SCH ×2 (08:21→08:48)
[2023-05-13] MEDS: SENNOSIDES 8.6 MG (SENOKOT) TAB PO SCH ×2 (08:21→20:11)
[2023-05-13] MEDS: DOCUSATE SODIUM 100 MG (COLACE) CAP PO SCH ×2 (08:21→20:12)
[2023-05-13 10:56] VITALS: BP 158/75
[2023-05-13] MEDS: CALCIUM CARBONATE 500 MG (TUMS) TAB.CHEW PO PRN (15:39)
[2023-05-13] MEDS: AMOXICILLIN 500 MG (POLYMOX) CAP PO SCH ×2 (15:50→20:11)
[2023-05-13 19:52] VITALS: BP 125/61
[2023-05-13] MEDS: ENOXAPARIN 40 MG/0.4 ML (LOVENOX) SYR SC SCH (20:11)
--- NOTE | 2023-05-14 07:21 | PM&R Progress Note ---
Subjective HPI/CC On Admission Date Seen by Provider: May 14, 2023 Time Seen by Provider: 12:00 Subjective/Events-last exam 05/14/2023: No major issues Pain controlled Only uses pain pills twice daily BM+ 05/13/2023: Patient progressively improving Bowels are moving No pain when she is not moving Bowel regimen maintained 05/12/2023: Much improved No falls Pain improved BM+ 05/11/2023: Patient doing a lot better Pain is improving Transfers are better No falls Taking pain medication as needed We will check urine for infection since she is incontinent Review of Systems General: Fatigue, Malaise Musculoskeletal: leg pain Objective Exam Vital Signs Vital Signs Date Time Temp Pulse Resp B/P (MAP) Pulse Ox O2 Delivery O2 Flow Rate FiO2 05/14/23 08:51 Room Air 05/14/23 08:49 36.4 85 20 139/78 (98) 96 05/13/23 10:56 21 05/13/23 10:09 0.00 Capillary Refill : General Appearance: No Apparent Distress, WD/WN, Chronically ill HEENT: PERRL/EOMI, Normal ENT Inspection, Pharynx Normal Neck: Full Range of Motion, Normal Inspection, Non Tender, Supple, Carotid Bruit Respiratory: Chest Non Tender, Lungs Clear, Normal Breath Sounds, No Accessory Muscle Use, No Respiratory Distress Cardiovascular: Regular Rate, Rhythm, No Edema, No Gallop, No JVD, No Murmur, Normal Peripheral Pulses Gastrointestinal: Normal Bowel Sounds, No Organomegaly, No Pulsatile Mass, Non Tender, Soft Back: Normal Inspection, No CVA Tenderness, No Vertebral Tenderness Extremity: Normal Capillary Refill, Normal Inspection, Normal Range of Motion (except legs due to pelvic pain), Non Tender, No Calf Tenderness, No Pedal Edema Neurologic/Psychiatric: Alert, Oriented x3, No Motor/Sensory Deficits, Normal Mood/Affect Skin: Normal Color, Warm/Dry Lymphatic: No Adenopathy Results/Procedures Lab Patient resulted labs reviewed. FIM Transfers Therapy Code Descriptions/Definitions Functional [place] Measure: 0=Not Assessed/NA 4=Minimal Assistance 1=Total Assistance 5=Supervision or Setup 2=Maximal Assistance 6=Modified [place] 3=Moderate Assistance 7=Complete IndependenceSCALE: Activities may be completed with or without assistive devices. 1-Emznmgilln-yuqshbe completes the activity by him/herself with no assistance from a helper. 5-Set-up or Clean-up Assistance-helper sets up or cleans up; patient completes activity. [place] assists only prior to or following the activity. 4-Supervision or Touching Assistance-helper provides verbal cues and/or touching/steadying and/or contact guard assistance as patient completes activity. Assistance may be provided throughout the activity or intermittently. 3-Partial/Moderate Assistance-helper does LESS THAN HALF the effort. [place] lifts, holds or supports trunk or limbs, but provides less than half the effort. 2-Substantial/Maximal Assistance-helper does MORE THAN HALF the effort. [place] lifts or holds trunk or limbs and provides more than half the effort. 7-Rokinptnc-ausbly does ALL the effort. Patient does none of the effort to complete the activity. Or, the assistance of 2 or more helpers is required for the patient to complete the activity. If activity was not attempted, code reason: 7-Patient Refused. 9-Not Applicable-not attempted and the patient did not perform the activity before the current illness, exacerbation or injury. 10-Not Attempted due to Environmental Limitations-(lack of equipment, weather restraints, etc.). 88-Not Attempted due to Medical Conditions or Safety Concerns. Roll Left to Right (QC): 3 Sit to Lying (QC): 3 Sit to Stand (QC): 5 Chair/Ccw-mj-[place]myah Xfer(QC): 3 Car Transfer (QC): 88 Gait Training Does the Patient Walk?: Yes Distance: 10' Walk 10 feet (QC): 4 Walk 50 ft with 2 Turns(QC): 88 Walk 150 ft (QC): 88 Walking 10ft/uneven surface-QC: 88 Gait Persons Needed: 1 Gait Assistive Device: FWW Wheelchair Training Does the Pt Use a Wheelchair?: Yes Wheel 50 ft with 2 turns (QC): 4 Wheel 150 ft (QC): 4 Type of Wheelchair: Manual Stair Training 1 Step (curb) (QC): 88 4 Steps (QC): 88 12 Steps (QC): 88 Balance Picking up an Object (QC): 4 ADL-Treatment Eating (QC): 6 Oral Hygiene (QC): 4 (CGA) Shower/Bathe Self (QC): 4 (sitting on bench) Upper Body Dressing (QC): 5 (while seated) Lower Body Dressing (QC): 4 On/Off Footwear (QC): 4 Toileting Hygiene (QC): 4 Assessment/Plan Assessment and Plan Assess & Plan/Chief Complaint Assessment: Pubic rami fractures with complete disruption of the pelvic ring following a fall Unable to ambulate Hypertension Osteoporosis DVT prophylaxis with Lovenox Plan: PT OT Fall risk Pain control Home meds 05/11/2023: Check urine for infection Pain control 05/12/2023: Slow recovery Continue pain meds 05/13/2023: Supportive care Monitor closely 05/14/2023: Monitor closely Labs tomorrow (1) Pelvic fracture (2) Pubic ramus fracture REGIS KEE DO May 14, 2023 07:21
[2023-05-14] MEDS: DOCUSATE SODIUM 100 MG (COLACE) CAP PO SCH ×2 (08:46→21:32)
[2023-05-14] MEDS: SENNOSIDES 8.6 MG (SENOKOT) TAB PO SCH ×2 (08:46→21:32)
[2023-05-14] MEDS: amLODIPine 10 MG (NORVASC) TAB PO SCH (08:47)
[2023-05-14] MEDS: LORATADINE (CLARITIN) 10 MG TAB PO SCH (08:47)
[2023-05-14] MEDS: AMOXICILLIN 500 MG (POLYMOX) CAP PO SCH ×3 (08:47→21:21)
[2023-05-14 08:49] VITALS: BP 139/78
[2023-05-14] MEDS: polyethylene glycoL POWDER 17 GM (MIRALAX) PACK PO SCH ×2 (08:55→21:32)
[2023-05-14 19:23] VITALS: BP 126/62
[2023-05-14] MEDS: ENOXAPARIN 40 MG/0.4 ML (LOVENOX) SYR SC SCH (21:21)
[2023-05-14] MEDS: CALCIUM CARBONATE 500 MG (TUMS) TAB.CHEW PO PRN (21:30)
[2023-05-15 05:59] LABS: BASOPHILS # (AUTO) 0.1 10^3/uL (0.0-0.1); BASOPHILS % (AUTO) 1 % (0-10); EOSINOPHILS # (AUTO) 0.3 10^3/uL (0.0-0.3); EOSINOPHILS % (AUTO) 3 % (0-10); HEMATOCRIT 40 % (35-52); LYMPHOCYTES # (AUTO) 2.2 10^3/uL (1.0-4.0); LYMPHOCYTES % (AUTO) 25 % (12-44); MEAN CORPUSCULAR HEMOGLOBIN 30 pg (25-34); MEAN CORPUSCULAR HGB CONC 33 g/dL (32-36); MEAN CORPUSCULAR VOLUME 92 fL (80-99); MEAN PLATELET VOLUME 10.3 fL (9.0-12.2); MONOCYTES % (AUTO) 12 % (0-12); NEUTROPHILS # (AUTO) 5.1 10^3/uL (1.8-7.8); NEUTROPHILS % (AUTO) 59 % (42-75); PLATELET COUNT 321 10^3/uL (130-400); WHITE BLOOD COUNT 8.8 10^3/uL (4.3-11.0)
[2023-05-15 06:22] LABS: ALBUMIN 3.5 GM/DL (3.2-4.5); BILIRUBIN,TOTAL 0.5 MG/DL (0.1-1.0); CALCIUM 9.2 MG/DL (8.5-10.1); CREATININE SERUM 1.12 MG/DL (0.60-1.30); POTASSIUM 4.6 MMOL/L (3.6-5.0); TOTAL PROTEIN 6.5 GM/DL (6.4-8.2)
[2023-05-15 08:00] VITALS: BP 160/70
[2023-05-15] MEDS: AMOXICILLIN 500 MG (POLYMOX) CAP PO SCH ×3 (08:06→20:39)
[2023-05-15] MEDS: DOCUSATE SODIUM 100 MG (COLACE) CAP PO SCH ×2 (08:07→21:01)
[2023-05-15] MEDS: LORATADINE (CLARITIN) 10 MG TAB PO SCH (08:07)
[2023-05-15] MEDS: polyethylene glycoL POWDER 17 GM (MIRALAX) PACK PO SCH ×2 (08:07→21:01)
[2023-05-15] MEDS: amLODIPine 10 MG (NORVASC) TAB PO SCH (08:08)
[2023-05-15] MEDS: SENNOSIDES 8.6 MG (SENOKOT) TAB PO SCH ×2 (08:08→21:01)
--- NOTE | 2023-05-15 11:37 | Occupational Ther Daily Note ---
OT Current Status-Daily Note Subjective Pt sitting in chair upon arrival, alert and cooperative, agreed to therapy at this time. Pt rated pain at 5/10 when bearing weight through R hip. ADL-Treatment Pt ambulated with FWW, CGA to shower bench in room. Pt doffed all clothing while sitting on bench, with therapist SBA for safety. Pt completed shower with SBA for safety when standing, pt stood 1 time to clean buttocks. Pt completed rest of shower seated. Pt dried self off and completed upper body dressing with set up assist. Pt then transferred out of the shower with Min A to stand and using FWW, ambulated and sat on chair in bathroom practicing energy conservation techniques. Using AE, pt completed lower body dressing and footwear with set up assist. Pt then stood and hiked brief and pants over buttocks with CAG by therapist, also using FWW for standing balance. Pt ambulated to sink in bathroom with CGA and FWW. Pt stood to complete oral hygiene and grooming at sink with therapist SBA for safety. Pt ambulated to chair in room using FWW, CGA. Pt sat in chair in room and completed fine motor coordination, dexterity task, requiring pt took manipulate and place object into a specific area, using theraputty medium resistance, to address hand and finger strengthening, as well. Pt was left in room, sitting up in chair, all needs met, call light and phone within reach. Therapy Code Descriptions/Definitions Functional [place] Measure: 0=Not Assessed/NA 4=Minimal Assistance 1=Total Assistance 5=Supervision or Setup 2=Maximal Assistance 6=Modified [place] 3=Moderate Assistance 7=Complete IndependenceSCALE: Activities may be completed with or without assistive devices. 4-Qepdufenxn-cybglqr completes the activity by him/herself with no assistance from a helper. 5-Set-up or Clean-up Assistance-helper sets up or cleans up; patient completes activity. [place] assists only prior to or following the activity. 4-Supervision or Touching Assistance-helper provides verbal cues and/or touching/steadying and/or contact guard assistance as patient completes activity. Assistance may be provided throughout the activity or intermittently. 3-Partial/Moderate Assistance-helper does LESS THAN HALF the effort. [place] lifts, holds or supports trunk or limbs, but provides less than half the effort. 2-Substantial/Maximal Assistance-helper does MORE THAN HALF the effort. [place] lifts or holds trunk or limbs and provides more than half the effort. 2-Wzozaimer-xcffjq does ALL the effort. Patient does none of the effort to complete the activity. Or, the assistance of 2 or more helpers is required for the patient to complete the activity. If activity was not attempted, code reason: 7-Patient Refused. 9-Not Applicable-not attempted and the patient did not perform the activity before the current illness, exacerbation or injury. 10-Not Attempted due to Environmental Limitations-(lack of equipment, weather restraints, etc.). 88-Not Attempted due to Medical Conditions or Safety Concerns. Eating (QC): 6 Oral Hygiene (QC): 4 (SBA) Upper Body Dressing (QC): 5 Lower Body Dressing (QC): 4 (SBA for safety) On/Off Footwear: 5 (seated) Education OT Patient Education: Energy conservation, Exercise program, Home exercise program, Modified ADL techniques, Progress toward Goal/Update tx plan, Purpose of tx/functional activities, Safety issues, Transfer techniques, Use of adapted equipment Teaching Recipient: Patient Teaching Methods: Demonstration, Discussion Response to Teaching: Verbalize Understanding OT Short Term Goals Short Term Goals Time Frame: May 15, 2023 Eatin Oral hygiene: 5 (stand) Toileting hygiene: 5 OT Service Order Dispatcher Goals Service Order Dispatcher Goals Acute change in mental status: 0 Inattention: 0 (Normal distraction w/ communication during tasks) Disorganized thinkin Altered level of consciousness: 0 1=Demonstrate adherence to instructed precautions during ADL tasks. 2=Patient will verbalize/demonstrate understanding of assistive devices/modifications for ADL. 3=Patient will improve strength/tolerance for activity to enable patient to perform ADL's. OT Education/Plan Problem List/Assessment Assessment: Decreased Activ Tolerance, Decreased Safety Aware, Decreased UE Strength Discharge Recommendations Plan/Recommendations: Continue POC Treatment Plan/Plan of Care Patient would benefit from OT for education, treatment and training to promote independence in ADL's, mobility, safety and/or upper extremity function for ADL's. Plan of Care: ADL Retraining, Caregiver Training, Concurrent Therapy, Functional Mobility, Group Exercise/Act as Ind, UE Funct Exercise/Act, UE Neuromus Re-Ed/Coord Treatment Duration: May 19, 2023 Frequency: At least 5 of 7 days/Wk (IRF) Estimated Hrs Per Day: .5 hour per day Rehab Potential: Good Time Start Time: 10:30 Stop Time: 12:00 DATE: May 15, 2023 Total Time Billed (hr/min): 90 Billed Treatment Time 1 visit ADL 5 (75) EX 1 (15) Shanta Tompkins COTA May 15, 2023 11:37
--- NOTE | 2023-05-15 11:49 | Physical Therapy Daily Note ---
PT Daily Note-Current Subjective pt is in recliner upon arrival and willing for therapy. pt reports 4/10 pain this day pt was left in room with call light and all needs met Pain Section J - Health Conditions 1. Rarely or not at all 2. Occasionally 3. Frequently 4. Almost constantly 8. Unable to answer Pain Effect on Sleep: 1 Pain Interference with Therapy: 2 Pain Interference w/Day-to-Day: 1 Mental Status Patient Orientation: Person, Place, Time, Situation Transfers SCALE: Activities may be completed with or without assistive devices. 0-Ielckqeulo-sznwqhf completes the activity by him/herself with no assistance from a helper. 5-Set-up or Clean-up Assistance-helper sets up or cleans up; patient completes activity. [place] assists only prior to or following the activity. 4-Supervision or Touching Assistance-helper provides verbal cues and/or touching/steadying and/or contact guard assistance as patient completes activity. Assistance may be provided throughout the activity or intermittently. 3-Partial/Moderate Assistance-helper does LESS THAN HALF the effort. [place] lifts, holds or supports trunk or limbs, but provides less than half the effort. 2-Substantial/Maximal Assistance-helper does MORE THAN HALF the effort. [place] lifts or holds trunk or limbs and provides more than half the effort. 2-Uusucpvsr-tabzgk does ALL the effort. Patient does none of the effort to complete the activity. Or, the assistance of 2 or more helpers is required for the patient to complete the activity. If activity was not attempted, code reason: 7-Patient Refused. 9-Not Applicable-not attempted and the patient did not perform the activity before the current illness, exacerbation or injury. 10-Not Attempted due to Environmental Limitations-(lack of equipment, weather restraints, etc.). 88-Not Attempted due to Medical Conditions or Safety Concerns. Weight Bearing Right Lower Extremity: Right Weight Bearing/Tolerated Left Lower Extremity: Left Weight Bearing/Tolerated Exercises NuStep Minutes: 15 NuStep Workload: 1 Treatments PT is able to ambulate with SBA and WC follow behind for a total of 165 ft with RW. pt ambulated 56ft, then 65 ft then 44 ft with rest breaks secondary to pain and fatigue in between. pt is able to preform nu-step for a total of 15 mins at level one with ret at 11 mins and is able to finish to 15 mins after rest. pt is able to preform sitting there-ex in all plains of motion available with 2lb ankle weights for increased resistance. for 2 sets of 10 each. Assessment Current Status: Good Progress PT Half-Way Goals Cat Sitter Goals PT Cat Sitter Goals Time Frame: May 24, 2023 Roll Left & Right (QC): 6 (Pt will be Mod I with functional mobility with the FWW. ) Sit to Lying (QC): 6 (Pt will be Mod I with functional mobility with the FWW. ) Lying-Sitting on Side/Bed(QC): 6 (Pt will be Mod I with functional mobility with the FWW. ) Sit to Stand (QC): 6 (Pt will be Mod I with functional mobility with the FWW. ) Chair/Vmf-ak-Ukcwt Xfer(QC): 6 (Pt will be Mod I with functional mobility with the FWW. ) Toilet Transfer (QC): 6 (Pt will be Mod I with functional mobility with the FWW. ) Car Transfer (QC): 6 (Pt will be Mod I with functional mobility with the FWW. ) Does the Patient Walk: Yes Walk 10 feet (QC): 6 (Pt will be Mod I with functional mobility with the FWW. ) Walk 50ft with 2 Turns (QC): 6 (Pt will be Mod I with functional mobility with the FWW. ) Walk 150 ft (QC): 6 (Pt will be Mod I with functional mobility with the FWW. ) Walking 10ft on Uneven Surface: 6 (Pt will be Mod I with functional mobility with the FWW. ) 1 Step (curb) (QC): 4 (Pt will be SBA for stairs ) 4 Steps (QC): 4 (Pt will be SBA for stairs ) 12 Steps (QC): 4 (Pt will be SBA for stairs ) Picking up an Object (QC): 6 (Pt will be Mod I with functional mobility with the FWW. ) Does the Pt use WC or Scooter?: Yes Wheel 50 feet with 2 turns (QC: 6 (Pt will be Mod I with functional mobility with the FWW. ) Type: Manual Wheel 150 feet: 6 (Pt will be Mod I with functional mobility with the FWW. ) Type: Manual PT Plan Treatment/Plan Treatment Plan: Continue Plan of Care Treatment Plan: Bed Mobility, Concurrent Therapy, Education, Functional A ctivity Anand, Functional Strength, Group Therapy, Gait, Safety, Therapeutic Exercise, Transfers Treatment Duration: May 24, 2023 Frequency: At least 5 of 7 days/Wk (IRF) Estimated Hrs Per Day: 1.5 hours per day Patient and/or Family Agrees t: Yes Time Time In: 0900 Time Out: 1030 DATE: May 15, 2023 Total Billed Treatment Time: 90 Total Billed Treatment 1 GT x 3 EX x 3 Umm Juares BRAIDED BAND ASSEMBLER May 15, 2023 11:49
--- NOTE | 2023-05-15 12:49 | PM&R Progress Note ---
Subjective HPI/CC On Admission Date Seen by Provider: May 15, 2023 Time Seen by Provider: 12:50 Subjective/Events-last exam 05/15/2023: Patient doing a lot better Discharge is planned for Monday Pain is controlled Bowels are moving Labs are stable 05/14/2023: No major issues Pain controlled Only uses pain pills twice daily BM+ 05/13/2023: Patient progressively improving Bowels are moving No pain when she is not moving Bowel regimen maintained 05/12/2023: Much improved No falls Pain improved BM+ 05/11/2023: Patient doing a lot better Pain is improving Transfers are better No falls Taking pain medication as needed We will check urine for infection since she is incontinent Review of Systems General: Fatigue, Malaise Musculoskeletal: leg pain Objective Exam Vital Signs Vital Signs Date Time Temp Pulse Resp B/P (MAP) Pulse Ox O2 Delivery O2 Flow Rate FiO2 05/15/23 19:32 36.6 97 20 112/78 (89) 94 Room Air 05/14/23 21:44 0.00 05/13/23 10:56 21 Capillary Refill : General Appearance: No Apparent Distress, WD/WN, Chronically ill HEENT: PERRL/EOMI, Normal ENT Inspection, Pharynx Normal Neck: Full Range of Motion, Normal Inspection, Non Tender, Supple, Carotid Bruit Respiratory: Chest Non Tender, Lungs Clear, Normal Breath Sounds, No Accessory Muscle Use, No Respiratory Distress Cardiovascular: Regular Rate, Rhythm, No Edema, No Gallop, No JVD, No Murmur, Normal Peripheral Pulses Gastrointestinal: Normal Bowel Sounds, No Organomegaly, No Pulsatile Mass, Non Tender, Soft Back: Normal Inspection, No CVA Tenderness, No Vertebral Tenderness Extremity: Normal Capillary Refill, Normal Inspection, Normal Range of Motion, Non Tender, No Calf Tenderness, No Pedal Edema Neurologic/Psychiatric: Alert, Oriented x3, No Motor/Sensory Deficits, Normal Mood/Affect Skin: Normal Color, Warm/Dry Lymphatic: No Adenopathy Results/Procedures Lab Laboratory Tests 05/15/23 05:03 Patient resulted labs reviewed. FIM Transfers Therapy Code Descriptions/Definitions Functional [place] Measure: 0=Not Assessed/NA 4=Minimal Assistance 1=Total Assistance 5=Supervision or Setup 2=Maximal Assistance 6=Modified [place] 3=Moderate Assistance 7=Complete IndependenceSCALE: Activities may be completed with or without assistive devices. 0-Prueqkzukl-tcqerih completes the activity by him/herself with no assistance from a helper. 5-Set-up or Clean-up Assistance-helper sets up or cleans up; patient completes activity. [place] assists only prior to or following the activity. 4-Supervision or Touching Assistance-helper provides verbal cues and/or touching/steadying and/or contact guard assistance as patient completes activity. Assistance may be provided throughout the activity or intermittently. 3-Partial/Moderate Assistance-helper does LESS THAN HALF the effort. [place] lifts, holds or supports trunk or limbs, but provides less than half the effort. 2-Substantial/Maximal Assistance-helper does MORE THAN HALF the effort. [place] lifts or holds trunk or limbs and provides more than half the effort. 8-Fviyyserb-qtugnh does ALL the effort. Patient does none of the effort to complete the activity. Or, the assistance of 2 or more helpers is required for the patient to complete the activity. If activity was not attempted, code reason: 7-Patient Refused. 9-Not Applicable-not attempted and the patient did not perform the activity before the current illness, exacerbation or injury. 10-Not Attempted due to Environmental Limitations-(lack of equipment, weather restraints, etc.). 88-Not Attempted due to Medical Conditions or Safety Concerns. Roll Left to Right (QC): 3 Sit to Lying (QC): 3 Sit to Stand (QC): 5 Chair/Pqx-tc-Zebdm Xfer(QC): 3 Car Transfer (QC): 88 Gait Training Does the Patient Walk?: Yes Distance: 10' Walk 10 feet (QC): 4 Walk 50 ft with 2 Turns(QC): 88 Walk 150 ft (QC): 88 Walking 10ft/uneven surface-QC: 88 Gait Persons Needed: 1 Gait Assistive Device: FWW Wheelchair Training Does the Pt Use a Wheelchair?: Yes Wheel 50 ft with 2 turns (QC): 4 Wheel 150 ft (QC): 4 Type of Wheelchair: Manual Stair Training 1 Step (curb) (QC): 88 4 Steps (QC): 88 12 Steps (QC): 88 Balance Picking up an Object (QC): 4 ADL-Treatment Eating (QC): 6 Oral Hygiene (QC): 4 (CGA) Shower/Bathe Self (QC): 4 (sitting on bench) Upper Body Dressing (QC): 5 (while seated) Lower Body Dressing (QC): 4 On/Off Footwear (QC): 4 Toileting Hygiene (QC): 4 Assessment/Plan Assessment and Plan Assess & Plan/Chief Complaint Assessment: Pubic rami fractures with complete disruption of the pelvic ring following a fall Unable to ambulate Hypertension Osteoporosis DVT prophylaxis with Lovenox Plan: PT OT Fall risk Pain control Home meds 05/11/2023: Check urine for infection Pain control 05/12/2023: Slow recovery Continue pain meds 05/13/2023: Supportive care Monitor closely 05/14/2023: Monitor closely Labs tomorrow 05/15/2023: Pain control Discharge plan for Monday (1) Pelvic fracture (2) Pubic ramus fracture REGIS KEE DO May 15, 2023 12:49
[2023-05-15 19:32] VITALS: BP 112/78
[2023-05-15] MEDS: CALCIUM CARBONATE 500 MG (TUMS) TAB.CHEW PO PRN (20:37)
[2023-05-15] MEDS: ENOXAPARIN 40 MG/0.4 ML (LOVENOX) SYR SC SCH (20:39)
[2023-05-15] MEDS: diphenhydrAMINE 25 MG TAB (BENADRYL) PO PRN (20:39)
--- NOTE | 2023-05-16 05:26 | PM&R Progress Note ---
Subjective HPI/CC On Admission Date Seen by Provider: May 16, 2023 Time Seen by Provider: 10:00 Subjective/Events-last exam 05/16/2023: Doing well DC Sat in order to get full day of therapy on Monday No falls 05/15/2023: Patient doing a lot better Discharge is planned for Monday Pain is controlled Bowels are moving Labs are stable 05/14/2023: No major issues Pain controlled Only uses pain pills twice daily BM+ 05/13/2023: Patient progressively improving Bowels are moving No pain when she is not moving Bowel regimen maintained 05/12/2023: Much improved No falls Pain improved BM+ 05/11/2023: Patient doing a lot better Pain is improving Transfers are better No falls Taking pain medication as needed We will check urine for infection since she is incontinent Review of Systems General: Fatigue, Malaise Musculoskeletal: leg pain Objective Exam Vital Signs Vital Signs Date Time Temp Pulse Resp B/P (MAP) Pulse Ox O2 Delivery O2 Flow Rate FiO2 05/16/23 13:45 95 Room Air 0.00 05/16/23 13:41 36.2 80 21 05/16/23 07:49 16 143/66 (91) Capillary Refill : General Appearance: No Apparent Distress, WD/WN, Chronically ill HEENT: PERRL/EOMI, Normal ENT Inspection, Pharynx Normal Neck: Full Range of Motion, Normal Inspection, Non Tender, Supple, Carotid Bruit Respiratory: Chest Non Tender, Lungs Clear, Normal Breath Sounds, No Accessory Muscle Use, No Respiratory Distress Cardiovascular: Regular Rate, Rhythm, No Edema, No Gallop, No JVD, No Murmur, Normal Peripheral Pulses Gastrointestinal: Normal Bowel Sounds, No Organomegaly, No Pulsatile Mass, Non Tender, Soft Back: Normal Inspection, No CVA Tenderness, No Vertebral Tenderness Extremity: Normal Capillary Refill, Normal Inspection, Normal Range of Motion, Non Tender, No Calf Tenderness, No Pedal Edema Neurologic/Psychiatric: Alert, Oriented x3, No Motor/Sensory Deficits, Normal Mood/Affect Skin: Normal Color, Warm/Dry Lymphatic: No Adenopathy Results/Procedures Lab Patient resulted labs reviewed. FIM Transfers Therapy Code Descriptions/Definitions Functional [place] Measure: 0=Not Assessed/NA 4=Minimal Assistance 1=Total Assistance 5=Supervision or Setup 2=Maximal Assistance 6=Modified [place] 3=Moderate Assistance 7=Complete IndependenceSCALE: Activities may be completed with or without assistive devices. 3-Tiskexbtbo-jaiubny completes the activity by him/herself with no assistance from a helper. 5-Set-up or Clean-up Assistance-helper sets up or cleans up; patient completes activity. [place] assists only prior to or following the activity. 4-Supervision or Touching Assistance-helper provides verbal cues and/or touching/steadying and/or contact guard assistance as patient completes activity. Assistance may be provided throughout the activity or intermittently. 3-Partial/Moderate Assistance-helper does LESS THAN HALF the effort. [place] lifts, holds or supports trunk or limbs, but provides less than half the effort. 2-Substantial/Maximal Assistance-helper does MORE THAN HALF the effort. [place] lifts or holds trunk or limbs and provides more than half the effort. 3-Ixsgvdecw-xidmvk does ALL the effort. Patient does none of the effort to complete the activity. Or, the assistance of 2 or more helpers is required for the patient to complete the activity. If activity was not attempted, code reason: 7-Patient Refused. 9-Not Applicable-not attempted and the patient did not perform the activity before the current illness, exacerbation or injury. 10-Not Attempted due to Environmental Limitations-(lack of equipment, weather restraints, etc.). 88-Not Attempted due to Medical Conditions or Safety Concerns. Roll Left to Right (QC): 3 Sit to Lying (QC): 3 Sit to Stand (QC): 5 Chair/Gne-dc-Ioszh Xfer(QC): 3 Car Transfer (QC): 88 Gait Training Does the Patient Walk?: Yes Distance: 10' Walk 10 feet (QC): 4 Walk 50 ft with 2 Turns(QC): 88 Walk 150 ft (QC): 88 Walking 10ft/uneven surface-QC: 88 Gait Persons Needed: 1 Gait Assistive Device: FWW Wheelchair Training Does the Pt Use a Wheelchair?: Yes Wheel 50 ft with 2 turns (QC): 4 Wheel 150 ft (QC): 4 Type of Wheelchair: Manual Stair Training 1 Step (curb) (QC): 88 4 Steps (QC): 88 12 Steps (QC): 88 Balance Picking up an Object (QC): 4 ADL-Treatment Eating (QC): 6 Oral Hygiene (QC): 4 (SBA) Shower/Bathe Self (QC): 4 (sitting on bench) Upper Body Dressing (QC): 5 Lower Body Dressing (QC): 4 (SBA for safety) On/Off Footwear (QC): 5 (seated) Toileting Hygiene (QC): 4 Assessment/Plan Assessment and Plan Assess & Plan/Chief Complaint Assessment: Pubic rami fractures with complete disruption of the pelvic ring following a fall Unable to ambulate Hypertension Osteoporosis DVT prophylaxis with Lovenox Plan: PT OT Fall risk Pain control Home meds 05/11/2023: Check urine for infection Pain control 05/12/2023: Slow recovery Continue pain meds 05/13/2023: Supportive care Monitor closely 05/14/2023: Monitor closely Labs tomorrow 05/15/2023: Pain control Discharge plan for Monday05/16/2023: Monitor closely (1) Pelvic fracture (2) Pubic ramus fracture REGIS KEE DO May 16, 2023 05:26
[2023-05-16 07:49] VITALS: BP 143/66
[2023-05-16] MEDS: DOCUSATE SODIUM 100 MG (COLACE) CAP PO SCH ×2 (08:04→21:02)
[2023-05-16] MEDS: AMOXICILLIN 500 MG (POLYMOX) CAP PO SCH ×3 (08:04→21:01)
[2023-05-16] MEDS: SENNOSIDES 8.6 MG (SENOKOT) TAB PO SCH ×2 (08:04→21:01)
[2023-05-16] MEDS: LORATADINE (CLARITIN) 10 MG TAB PO SCH (08:06)
[2023-05-16] MEDS: amLODIPine 10 MG (NORVASC) TAB PO SCH (08:07)
[2023-05-16] MEDS: polyethylene glycoL POWDER 17 GM (MIRALAX) PACK PO SCH ×2 (08:07→21:02)
--- NOTE | 2023-05-16 11:59 | Physical Therapy Daily Note ---
PT Daily Note-Current Subjective Pt in recliner and good for therapy. pt reports 2/10 pain when resting, 4/10 when ambulating and 2/10 after therapy this day. pt was left in recliner with call light and all needs met after therapy. pt did state she is nervous about going home by herself in case when needed help or had an accident. Pain Section J - Health Conditions 1. Rarely or not at all 2. Occasionally 3. Frequently 4. Almost constantly 8. Unable to answer Pain Effect on Sleep: 1 Pain Interference with Therapy: 2 Pain Interference w/Day-to-Day: 1 Transfers SCALE: Activities may be completed with or without assistive devices. 4-Pdqapzwyoi-mtvvaem completes the activity by him/herself with no assistance from a helper. 5-Set-up or Clean-up Assistance-helper sets up or cleans up; patient completes activity. [place] assists only prior to or following the activity. 4-Supervision or Touching Assistance-helper provides verbal cues and/or touching/steadying and/or contact guard assistance as patient completes activity. Assistance may be provided throughout the activity or intermittently. 3-Partial/Moderate Assistance-helper does LESS THAN HALF the effort. [place] lifts, holds or supports trunk or limbs, but provides less than half the effort. 2-Substantial/Maximal Assistance-helper does MORE THAN HALF the effort. [place] lifts or holds trunk or limbs and provides more than half the effort. 2-Jnqotimud-tqcjce does ALL the effort. Patient does none of the effort to complete the activity. Or, the assistance of 2 or more helpers is required for the patient to complete the activity. If activity was not attempted, code reason: 7-Patient Refused. 9-Not Applicable-not attempted and the patient did not perform the activity before the current illness, exacerbation or injury. 10-Not Attempted due to Environmental Limitations-(lack of equipment, weather restraints, etc.). 88-Not Attempted due to Medical Conditions or Safety Concerns. Roll Left & Right (QC): 6 Sit to Lying (QC): 6 Lying to Sitting/Side of Bed(Q: 6 Sit to Stand (QC): 4 Chair/Auk-ee-Vmyds Xfer(QC): 4 Toilet Transfer (QC): 4 Car Transfer (QC): 4 Weight Bearing Right Lower Extremity: Right Weight Bearing/Tolerated Left Lower Extremity: Left Weight Bearing/Tolerated Gait Training Walk 10 feet (QC): 4 Walk 50 ft with 2 Turns(QC): 4 Walk 150 ft (QC): 4 Walking 10ft/uneven surface-QC: 4 Gait Assistive Device: Walker Standard Wheelchair Training Wheel 50 ft with 2 turns (QC): 09 Wheel 150 ft (QC): 09 Stair Training 1 Step (curb) (QC): 4 4 Steps (QC): 4 12 Steps (QC): 09 Balance Picking up an Object (QC): 6 Exercises Seated Therapy Exercises: Ankle pumps, Sit to stand, Long arc quads, Hip flexion, Hamstring Curls, Hip abd/add, Glut set Treatments PT preformed car transfers and 6 stairs with CGA and 10% VC for safety. pt is able to preform Nu-step for 20 mins at level one indicating an increase in endurance. pt is able to preform 2 sets of 10 sitting there-ex with red thera band in all planes of motion available. with rest in between each set. pt preformed toilet transfer with SBA. Assessment Current Status: Good Progress PT Fdc Goals Fdc Goals PT Wharf Operator Goals Time Frame: May 24, 2023 Roll Left & Right (QC): 6 (Pt will be Mod I with functional mobility with the FWW. ) Sit to Lying (QC): 6 (Pt will be Mod I with functional mobility with the FWW. ) Lying-Sitting on Side/Bed(QC): 6 (Pt will be Mod I with functional mobility with the FWW. ) Sit to Stand (QC): 6 (Pt will be Mod I with functional mobility with the FWW. ) Chair/Oir-xa-Gnajs Xfer(QC): 6 (Pt will be Mod I with functional mobility with the FWW. ) Toilet Transfer (QC): 6 (Pt will be Mod I with functional mobility with the FWW. ) Car Transfer (QC): 6 (Pt will be Mod I with functional mobility with the FWW. ) Does the Patient Walk: Yes Walk 10 feet (QC): 6 (Pt will be Mod I with functional mobility with the FWW. ) Walk 50ft with 2 Turns (QC): 6 (Pt will be Mod I with functional mobility with the FWW. ) Walk 150 ft (QC): 6 (Pt will be Mod I with functional mobility with the FWW. ) Walking 10ft on Uneven Surface: 6 (Pt will be Mod I with functional mobility with the FWW. ) 1 Step (curb) (QC): 4 (Pt will be SBA for stairs ) 4 Steps (QC): 4 (Pt will be SBA for stairs ) 12 Steps (QC): 4 (Pt will be SBA for stairs ) Picking up an Object (QC): 6 (Pt will be Mod I with functional mobility with the FWW. ) Does the Pt use WC or Scooter?: Yes Wheel 50 feet with 2 turns (QC: 6 (Pt will be Mod I with functional mobility with the FWW. ) Type: Manual Wheel 150 feet: 6 (Pt will be Mod I with functional mobility with the FWW. ) Type: Manual PT Plan Treatment/Plan Treatment Plan: Continue Plan of Care Treatment Plan: Bed Mobility, Concurrent Therapy, Education, Functional Activity Anand, Functional Strength, Group Therapy, Gait, Safety, Therapeutic Exercise, Transfers Treatment Duration: May 24, 2023 Frequency: At least 5 of 7 days/Wk (IRF) Estimated Hrs Per Day: 1.5 hours per day Patient and/or Family Agrees t: Yes Time Time In: 1000 Time Out: 1130 DATE: May 16, 2023 Total Billed Treatment Time: 90 Total Billed Treatment 1 FA x 2 EX x 4 Umm Juares PTA May 16, 2023 11:59
--- NOTE | 2023-05-16 12:13 | Occupational Ther Daily Note ---
OT Current Status-Daily Note Subjective Pt sitting in chair upon arrival, agreed to therapy, alert and cooperative. No pain mentioned ADL-Treatment While seated pt completed footwear, with set up assist using sock aide. Pt was able to place tennis shoes onto feet using shoe horn, and required multiple verbal cues to loosen shoe laces to be able to place foot into shoe. After 2 times of therapist giving demonstration and skilled instruction, pt was able to complete L shoe with set up assist. Pt was educated on AE recommendations, pt verbalized that pt had shoe horn, sock aid and store clerk cashier at home. Pt requested to use the restroom. Pt stood from chair with FWW, CGA to ambulated into the bathroom. Pt completed toileting with SBA. Pt was able to ambulated back to chair in room with CGA. Pt required multiple verbal cues to keep walker close. Pt then sat back down in chair in room with SBA. Pt was left sitting in chair in room, all needs met, nursing in room, call light and phone with in reach. Therapy Code Descriptions/Definitions Functional [place] Measure: 0=Not Assessed/NA 4=Minimal Assistance 1=Total Assistance 5=Supervision or Setup 2=Maximal Assistance 6=Modified [place] 3=Moderate Assistance 7=Complete IndependenceSCALE: Activities may be completed with or without assistive devices. 8-Wtkdnyxxrx-quzfsdc completes the activity by him/herself with no assistance from a helper. 5-Set-up or Clean-up Assistance-helper sets up or cleans up; patient completes activity. [place] assists only prior to or following the activity. 4-Supervision or Touching Assistance-helper provides verbal cues and/or touchin g/steadying and/or contact guard assistance as patient completes activity. Assistance may be provided throughout the activity or intermittently. 3-Partial/Moderate Assistance-helper does LESS THAN HALF the effort. [place] lifts, holds or supports trunk or limbs, but provides less than half the effort. 2-Substantial/Maximal Assistance-helper does MORE THAN HALF the effort. [place] lifts or holds trunk or limbs and provides more than half the effort. 6-Qrfgfiuth-zxywxc does ALL the effort. Patient does none of the effort to complete the activity. Or, the assistance of 2 or more helpers is required for the patient to complete the activity. If activity was not attempted, code reason: 7-Patient Refused. 9-Not Applicable-not attempted and the patient did not perform the activity before the current illness, exacerbation or injury. 10-Not Attempted due to Environmental Limitations-(lack of equipment, weather restraints, etc.). 88-Not Attempted due to Medical Conditions or Safety Concerns. Eating (QC): 6 On/Off Footwear: 5 Toileting Hygiene (QC): 4 Education OT Patient Education: Correct positioning, Exercise program, Modified ADL techniques, Progress toward Goal/Update tx plan, Purpose of tx/functional activities, Safety issues, Use of adapted equipment Teaching Recipient: Patient Teaching Methods: Demonstration, Discussion Response to Teaching: Verbalize Understanding, Return Demonstration OT Short Term Goals Short Term Goals Time Frame: May 15, 2023 Eatin Oral hygiene: 5 (stand) Toileting hygiene: 5 OT [facility] Goals Pit Inspector Goals Acute change in mental status: 0 Inattention: 0 (Normal distraction w/ communication during tasks) Disorganized thinkin Altered level of consciousness: 0 1=Demonstrate adherence to instructed precautions during ADL tasks. 2=Patient will verbalize/demonstrate understanding of assistive devices/modifications for ADL. 3=Patient will improve strength/tolerance for activity to enable patient to perform ADL's. OT Education/Plan Problem List/Assessment Assessment: Decreased Activ Tolerance, Decreased UE Strength Discharge Recommendations Plan/Recommendations: Continue POC Treatment Plan/Plan of Care Patient would benefit from OT for education, treatment and training to promote independence in ADL's, mobility, safety and/or upper extremity function for ADL's. Plan of Care: ADL Retraining, Caregiver Training, Concurrent Therapy, Functional Mobility, Group Exercise/Act as Ind, UE Funct Exercise/Act, UE Neuromus Re-Ed/Coord Treatment Duration: May 19, 2023 Frequency: At least 5 of 7 days/Wk (IRF) Estimated Hrs Per Day: .5 hour per day Rehab Potential: Good Time Start Time: 11:30 Stop Time: 12:15 DATE: May 16, 2023 Total Time Billed (hr/min): 75 Billed Treatment Time 1 visit ADL 5 (75) Shanta Tompkins COTA May 16, 2023 12:13
--- NOTE | 2023-05-16 13:21 | Occupational Ther Daily Note ---
OT Current Status-Daily Note Subjective Pt sitting in chair upon arrival, alert and cooperative. No pain at this time. Mental Status/Objective Patient Orientation: Person, Place ADL-Treatment Pt sitting in chair, completed fine motor coordination activity, focusing on dexterity, and finger/hand strengthening, required for daily functional use. Pt then completed close pin activity with 1# wts on wrist, involving reaching, sitting balance and wrist strengthening. Pt then completed BUE using flexbars yellow (6lb) light/medium wt. Pt did well and completed various exercises with them 8-10 reps 2 sets. Pt requested to use the restroom, pt ambulated to toilet in room, using FWW, CGA. Pt voided and completed toilet hygiene with CGA. Pt ambulated back chair in room, and was let sitting in chair, light and phone within reach, pt needs met at this time. Therapy Code Descriptions/Definitions Functional [place] Measure: 0=Not Assessed/NA 4=Minimal Assistance 1=Total Assistance 5=Supervision or Setup 2=Maximal Assistance 6=Modified [place] 3=Moderate Assistance 7=Complete IndependenceSCALE: Activities may be completed with or without assistive devices. 8-Aanrwowjzs-vmkqybv completes the activity by him/herself with no assistance from a helper. 5-Set-up or Clean-up Assistance-helper sets up or cleans up; patient completes activity. [place] assists only prior to or following the activity. 4-Supervision or Touching Assistance-helper provides verbal cues and/or touching/steadying and/or contact guard assistance as patient completes activity. Assistance may be provided throughout the activity or intermittently. 3-Partial/Moderate Assistance-helper does LESS THAN HALF the effort. [place] lifts, holds or supports trunk or limbs, but provides less than half the effort. 2-Substantial/Maximal Assistance-helper does MORE THAN HALF the effort. [place] lifts or holds trunk or limbs and provides more than half the effort. 7-Cbmoabamn-thahzm does ALL the effort. Patient does none of the effort to complete the activity. Or, the assistance of 2 or more helpers is required for the patient to complete the activity. If activity was not attempted, code reason: 7-Patient Refused. 9-Not Applicable-not attempted and the patient did not perform the activity before the current illness, exacerbation or injury. 10-Not Attempted due to Environmental Limitations-(lack of equipment, weather restraints, etc.). 88-Not Attempted due to Medical Conditions or Safety Concerns. Education OT Patient Education: Energy conservation, Exercise program, Modified ADL techniques, Progress toward Goal/Update tx plan, Purpose of tx/functional activities, Transfer techniques Teaching Recipient: Patient Teaching Methods: Demonstration, Discussion Response to Teaching: Verbalize Understanding OT Short Term Goals Short Term Goals Time Frame: May 15, 2023 Eatin Oral hygiene: 5 (stand) Toileting hygiene: 5 OT [facility] Goals Lithographic Proofer Goals Acute change in mental status: 0 Inattention: 0 (Normal distraction w/ communication during tasks) Disorganized thinkin Altered level of consciousness: 0 1=Demonstrate adherence to instructed precautions during ADL tasks. 2=Patient will verbalize/demonstrate understanding of assistive devices/modifications for ADL. 3=Patient will improve strength/tolerance for activity to enable patient to perform ADL's. OT Education/Plan Problem List/Assessment Assessment: Decreased Activ Tolerance Discharge Recommendations Plan/Recommendations: Continue POC Treatment Plan/Plan of Care Patient would benefit from OT for education, treatment and training to promote independence in ADL's, mobility, safety and/or upper extremity function for ADL's. Plan of Care: ADL Retraining, Caregiver Training, Concurrent Therapy, Functional Mobility, Group Exercise/Act as Ind, UE Funct Exercise/Act, UE Neuromus Re-Ed/Coord Treatment Duration: May 19, 2023 Frequency: At least 5 of 7 days/Wk (IRF) Estimated Hrs Per Day: .5 hour per day Rehab Potential: Good Time Start Time: 13:00 Stop Time: 13:45 DATE: May 16, 2023 Total Time Billed (hr/min): 45 Billed Treatment Time 1 visit ADL 1 (15) EX 2 (30) Shanta Tompkins COTA May 16, 2023 13:21
[2023-05-16 13:41] VITALS: BP 143/66
[2023-05-16 19:59] VITALS: BP 130/76
[2023-05-16] MEDS: ENOXAPARIN 40 MG/0.4 ML (LOVENOX) SYR SC SCH (21:01)
[2023-05-16] MEDS: CALCIUM CARBONATE 500 MG (TUMS) TAB.CHEW PO PRN (21:10)
[2023-05-16] MEDS: diphenhydrAMINE 25 MG TAB (BENADRYL) PO PRN (21:10)
--- NOTE | 2023-05-17 05:39 | PM&R Progress Note ---
Subjective HPI/CC On Admission Date Seen by Provider: May 17, 2023 Time Seen by Provider: 12:00 Subjective/Events-last exam 05/17/2023: Patient doing well Gaining more confidence Improved mobility Pain is under control 05/16/2023: Doing well DC Sat in order to get full day of therapy on Monday No falls 05/15/2023: Patient doing a lot better Discharge is planned for Monday Pain is controlled Bowels are moving Labs are stable 05/14/2023: No major issues Pain controlled Only uses pain pills twice daily BM+ 05/13/2023: Patient progressively improving Bowels are moving No pain when she is not moving Bowel regimen maintained 05/12/2023: Much improved No falls Pain improved BM+ 05/11/2023: Patient doing a lot better Pain is improving Transfers are better No falls Taking pain medication as needed We will check urine for infection since she is incontinent Review of Systems General: Fatigue, Malaise Objective Exam Vital Signs Vital Signs Date Time Temp Pulse Resp B/P (MAP) Pulse Ox O2 Delivery O2 Flow Rate FiO2 05/17/23 19:23 36.4 87 20 143/65 (91) 96 Room Air 05/16/23 13:45 0.00 05/16/23 13:41 21 Capillary Refill : General Appearance: No Apparent Distress, WD/WN, Chronically ill HEENT: PERRL/EOMI, Normal ENT Inspection, Pharynx Normal Neck: Full Range of Motion, Normal Inspection, Non Tender, Supple, Carotid Bruit Respiratory: Chest Non Tender, Lungs Clear, Normal Breath Sounds, No Accessory Muscle Use, No Respiratory Distress Cardiovascular: Regular Rate, Rhythm, No Edema, No Gallop, No JVD, No Murmur, Normal Peripheral Pulses Gastrointestinal: Normal Bowel Sounds, No Organomegaly, No Pulsatile Mass, Non Tender, Soft Back: Normal Inspection, No CVA Tenderness, No Vertebral Tenderness Extremity: Normal Capillary Refill, Normal Inspection, Normal Range of Motion, Non Tender, No Calf Tenderness, No Pedal Edema Neurologic/Psychiatric: Alert, Oriented x3, No Motor/Sensory Deficits, Normal Mood/Affect Skin: Normal Color, Warm/Dry Lymphatic: No Adenopathy Results/Procedures Lab Patient resulted labs reviewed. FIM Transfers Therapy Code Descriptions/Definitions Functional [place] Measure: 0=Not Assessed/NA 4=Minimal Assistance 1=Total Assistance 5=Supervision or Setup 2=Maximal Assistance 6=Modified [place] 3=Moderate Assistance 7=Complete IndependenceSCALE: Activities may be completed with or without assistive devices. 1-Biztsjlthc-amdytnd completes the activity by him/herself with no assistance from a helper. 5-Set-up or Clean-up Assistance-helper sets up or cleans up; patient completes activity. [place] assists only prior to or following the activity. 4-Supervision or Touching Assistance-helper provides verbal cues and/or touching/steadying and/or contact guard assistance as patient completes activity. Assistance may be provided throughout the activity or intermittently. 3-Partial/Moderate Assistance-helper does LESS THAN HALF the effort. [place] lifts, holds or supports trunk or limbs, but provides less than half the effort. 2-Substantial/Maximal Assistance-helper does MORE THAN HALF the effort. [place] lifts or holds trunk or limbs and provides more than half the effort. 2-Gcccfozqb-dkrimi does ALL the effort. Patient does none of the effort to complete the activity. Or, the assistance of 2 or more helpers is required for the patient to complete the activity. If activity was not attempted, code reason: 7-Patient Refused. 9-Not Applicable-not attempted and the patient did not perform the activity before the current illness, exacerbation or injury. 10-Not Attempted due to Environmental Limitations-(lack of equipment, weather restraints, etc.). 88-Not Attempted due to Medical Conditions or Safety Concerns. Roll Left to Right (QC): 6 Sit to Lying (QC): 6 Sit to Stand (QC): 4 Chair/Ovp-sq-Uwslw Xfer(QC): 4 Car Transfer (QC): 4 Gait Training Does the Patient Walk?: Yes Distance: 10' Walk 10 feet (QC): 4 Walk 50 ft with 2 Turns(QC): 4 Walk 150 ft (QC): 4 Walking 10ft/uneven surface-QC: 4 Gait Persons Needed: 1 Gait Assistive Device: Walker Standard Wheelchair Training Does the Pt Use a Wheelchair?: Yes Wheel 50 ft with 2 turns (QC): 09 Wheel 150 ft (QC): 09 Type of Wheelchair: Manual Stair Training 1 Step (curb) (QC): 4 4 Steps (QC): 4 12 Steps (QC): 09 Balance Picking up an Object (QC): 6 ADL-Treatment Eating (QC): 6 Oral Hygiene (QC): 4 (SBA) Shower/Bathe Self (QC): 4 (sitting on bench) Upper Body Dressing (QC): 5 Lower Body Dressing (QC): 4 (SBA for safety) On/Off Footwear (QC): 5 Toileting Hygiene (QC): 4 Assessment/Plan Assessment and Plan Assess & Plan/Chief Complaint Assessment: Pubic rami fractures with complete disruption of the pelvic ring following a fall Unable to ambulate Hypertension Osteoporosis DVT prophylaxis with Lovenox Plan: PT OT Fall risk Pain control Home meds 05/11/2023: Check urine for infection Pain control 05/12/2023: Slow recovery Continue pain meds 05/13/2023: Supportive care Monitor closely 05/14/2023: Monitor closely Labs tomorrow 05/15/2023: Pain control Discharge plan for Monday05/16/2023: Monitor closely 05/17/2023: Supportive care Discharge on Monday (1) Pelvic fracture (2) Pubic ramus fracture REGIS KEE DO May 17, 2023 05:39
[2023-05-17 08:00] VITALS: BP 155/85
--- NOTE | 2023-05-17 08:58 | Physical Therapy Daily Note ---
PT Daily Note-Current Subjective PT in recliner upon arrival and good for therapy. pt stated 7/10 pain after exercising nursing is aware and administered a pian pill. pt was left in recliner after therapy session with call light and all needs met. Pain Section J - Health Conditions 1. Rarely or not at all 2. Occasionally 3. Frequently 4. Almost constantly 8. Unable to answer Pain Effect on Sleep: 0 Pain Interference with Therapy: 2 Pain Interference w/Day-to-Day: 1 Mental Status Patient Orientation: Person, Place, Time, Situation Transfers SCALE: Activities may be completed with or without assistive devices. 7-Sreisenaaa-eabtsvm completes the activity by him/herself with no assistance from a helper. 5-Set-up or Clean-up Assistance-helper sets up or cleans up; patient completes activity. [place] assists only prior to or following the activity. 4-Supervision or Touching Assistance-helper provides verbal cues and/or touching/steadying and/or contact guard assistance as patient completes activity. Assistance may be provided throughout the activity or intermittently. 3-Partial/Moderate Assistance-helper does LESS THAN HALF the effort. [place] lifts, holds or supports trunk or limbs, but provides less than half the effort. 2-Substantial/Maximal Assistance-helper does MORE THAN HALF the effort. [place] lifts or holds trunk or limbs and provides more than half the effort. 4-Zqrsgxeiq-kccgwy does ALL the effort. Patient does none of the effort to com plete the activity. Or, the assistance of 2 or more helpers is required for the patient to complete the activity. If activity was not attempted, code reason: 7-Patient Refused. 9-Not Applicable-not attempted and the patient did not perform the activity before the current illness, exacerbation or injury. 10-Not Attempted due to Environmental Limitations-(lack of equipment, weather restraints, etc.). 88-Not Attempted due to Medical Conditions or Safety Concerns. Sit to Stand (QC): 5 Chair/Ndg-lb-[place] Xfer(QC): 5 Weight Bearing Right Lower Extremity: Right Weight Bearing/Tolerated Left Lower Extremity: Left Weight Bearing/Tolerated Gait Training Walk 10 feet (QC): 5 Walk 50 ft with 2 Turns(QC): 5 Walk 150 ft (QC): 5 Exercises Seated Therapy Exercises: Sit to stand, Long arc quads, Hip flexion, Hamstring Curls, Hip abd/add, Glut set Treatments Pt is able to ambulate 50 ft with RW and SBA. pt is then able to execute Nu-step for 23 mins at level one showing an increase in endurance. pt is able to ambulate 150ft with RW and CGA with a slightly slower emily this day secondary to pain. PT is able to preform sitting there-ex in all planes of motion availab le for 3 sets of 15 with 1 lb ankle weight for added resistance. pt does requires small rest after each set. Assessment Current Status: Good Progress PT It Trainer Goals Retirement Goals PT Retirement Goals Time Frame: May 24, 2023 Roll Left & Right (QC): 6 (Pt will be Mod I with functional mobility with the FWW. ) Sit to Lying (QC): 6 (Pt will be Mod I with functional mobility with the FWW. ) Lying-Sitting on Side/Bed(QC): 6 (Pt will be Mod I with functional mobility with the FWW. ) Sit to Stand (QC): 6 (Pt will be Mod I with functional mobility with the FWW. ) Chair/Abf-un-[place]vbon Xfer(QC): 6 (Pt will be Mod I with functional mobility with the FWW. ) Toilet Transfer (QC): 6 (Pt will be Mod I with functional mobility with the FWW. ) Car Transfer (QC): 6 (Pt will be Mod I with functional mobility with the FWW. ) Does the Patient Walk: Yes Walk 10 feet (QC): 6 (Pt will be Mod I with functional mobility with the FWW. ) Walk 50ft with 2 Turns (QC): 6 (Pt will be Mod I with functional mobility with the FWW. ) Walk 150 ft (QC): 6 (Pt will be Mod I with functional mobility with the FWW. ) Walking 10ft on Uneven Surface: 6 (Pt will be Mod I with functional mobility with the FWW. ) 1 Step (curb) (QC): 4 (Pt will be SBA for stairs ) 4 Steps (QC): 4 (Pt will be SBA for stairs ) 12 Steps (QC): 4 (Pt will be SBA for stairs ) Picking up an Object (QC): 6 (Pt will be Mod I with functional mobility with the FWW. ) Does the Pt use WC or Scooter?: Yes Wheel 50 feet with 2 turns (QC: 6 (Pt will be Mod I with functional mobility with the FWW. ) Type: Manual Wheel 150 feet: 6 (Pt will be Mod I with functional mobility with the FWW. ) Type: Manual PT Plan Treatment/Plan Treatment Plan: Continue Plan of Care Treatment Plan: Bed Mobility, Concurrent Therapy, Education, Functional Activity Anand, Functional Strength, Group Therapy, Gait, Safety, Therapeutic Exercise, Transfers Treatment Duration: May 24, 2023 Frequency: At least 5 of 7 days/Wk (IRF) Estimated Hrs Per Day: 1.5 hours per day Patient and/or Family Agrees t: Yes Time Time In: 0800 Time Out: 0900 DATE: May 17, 2023 Total Billed Treatment Time: 60 Total Billed Treatment 1 ex X 2 gt X 2 Umm Juares PIN DRAFTER May 17, 2023 08:58
[2023-05-17] MEDS: AMOXICILLIN 500 MG (POLYMOX) CAP PO SCH ×3 (09:21→20:48)
[2023-05-17] MEDS: SENNOSIDES 8.6 MG (SENOKOT) TAB PO SCH ×2 (09:21→20:47)
[2023-05-17] MEDS: DOCUSATE SODIUM 100 MG (COLACE) CAP PO SCH ×2 (09:21→20:47)
[2023-05-17] MEDS: polyethylene glycoL POWDER 17 GM (MIRALAX) PACK PO SCH ×2 (09:21→20:48)
[2023-05-17] MEDS: amLODIPine 10 MG (NORVASC) TAB PO SCH (09:21)
[2023-05-17] MEDS: LORATADINE (CLARITIN) 10 MG TAB PO SCH (09:21)
--- NOTE | 2023-05-17 10:52 | Occupational Ther Daily Note ---
OT Current Status-Daily Note Subjective Pt sitting in chair upon arrival, alert and cooperative, no pain mentioned at this time. ADL-Treatment Pt ambulated to bathroom in room, using FWW, SBA. Pt transferred to toilet and completed toileting, toilet hygiene SBA. Pt then ambulated to shower bench and completed shower, supervision when standing. Pt then dried self off and completed upperbod dressing with set up assist. Pt transferred out of shower and into a chair in bathroom using grab bars and fww, CGA. Pt completed lower body dressing SBA pt using AE while seated. Pt then ambulated to sink in bathroom with FWW, SBA. Pt completed oral hygiene and grooming while standing at sink, SBA. Pt completed footwear using AE set up assist. Therapist did vanda pts compression socks on for pt. Increased time due to slow ambulated. Pt ambulated to chair back in room with FWW, SBA. Pt was left in chair in room, all needs met at this time, call light and phone within reach. Therapy Code Descriptions/Definitions Functional [place] Measure: 0=Not Assessed/NA 4=Minimal Assistance 1=Total Assistance 5=Supervision or Setup 2=Maximal Assistance 6=Modified [place] 3=Moderate Assistance 7=Complete IndependenceSCALE: Activities may be completed with or without assistive devices. 3-Zcxbvbtucm-lnhmmws completes the activity by him/herself with no assistance from a helper. 5-Set-up or Clean-up Assistance-helper sets up or cleans up; patient completes activity. [place] assists only prior to or following the activity. 4-Supervision or Touching Assistance-helper provides verbal cues and/or touching/steadying and/or contact guard assistance as patient completes activity. Assistance may be provided throughout the activity or intermittently. 3-Partial/Moderate Assistance-helper does LESS THAN HALF the effort. [place] lifts, holds or supports trunk or limbs, but provides less than half the effort. 2-Substantial/Maximal Assistance-helper does MORE THAN HALF the effort. [place] lifts or holds trunk or limbs and provides more than half the effort. 4-Tlvlezbdk-ctosvp does ALL the effort. Patient does none of the effort to complete the activity. Or, the assistance of 2 or more helpers is required for the patient to complete the activity. If activity was not attempted, code reason: 7-Patient Refused. 9-Not Applicable-not attempted and the patient did not perform the activity bef ore the current illness, exacerbation or injury. 10-Not Attempted due to Environmental Limitations-(lack of equipment, weather r estraints, etc.). 88-Not Attempted due to Medical Conditions or Safety Concerns. Eating (QC): 6 Oral Hygiene (QC): 6 Bathing Location: L Arm, R Arm, L Upper Leg, R Upper Leg, L Lower Leg (in cluding foot), R Lower Leg (including foot), Chest, Abdomen, Buttocks, Perineal Area Shower/Bathe Self (QC): 4 (supervison when standing) Upper Body Dressing (QC): 5 Lower Body Dressing (QC): 4 On/Off Footwear: 5 (using AE) Toileting Hygiene (QC): 4 Toilet Transfer (QC): 4 Education OT Patient Education: Correct positioning, Energy conservation, Progress toward Goal/Update tx plan, Purpose of tx/functional activities, Use of adapted equipment Teaching Recipient: Patient Teaching Methods: Discussion Response to Teaching: Verbalize Understanding OT Short Term Goals Short Term Goals Time Frame: May 15, 2023 Eatin Oral hygiene: 5 (stand) Toileting hygiene: 5 OT Tax Processor Goals Tax Processor Goals Acute change in mental status: 0 Inattention: 0 (Normal distraction w/ communication during tasks) Disorganized thinkin Altered level of consciousness: 0 1=Demonstrate adherence to instructed precautions during ADL tasks. 2=Patient will verbalize/demonstrate understanding of assistive devices/modifications for ADL. 3=Patient will improve strength/tolerance for activity to enable patient to perform ADL's. OT Education/Plan Problem List/Assessment Assessment: Decreased Activ Tolerance, Decreased Safety Aware, Decreased UE Strength Discharge Recommendations Plan/Recommendations: Continue POC Treatment Plan/Plan of Care Patient would benefit from OT for education, treatment and training to promote independence in ADL's, mobility, safety and/or upper extremity function for ADL's. Plan of Care: ADL Retraining, Caregiver Training, Concurrent Therapy, Functional Mobility, Group Exercise/Act as Ind, UE Funct Exercise/Act, UE Neuromus Re-Ed/Coord Treatment Duration: May 19, 2023 Frequency: At least 5 of 7 days/Wk (IRF) Estimated Hrs Per Day: .5 hour per day Rehab Potential: Good Time Start Time: 10:00 Stop Time: 11:00 DATE: May 17, 2023 Total Time Billed (hr/min): 60 Billed Treatment Time 1 visit ADL 4 (60) Shanta Tompkins COTA May 17, 2023 10:52
[2023-05-17] MEDS: CALCIUM CARBONATE 500 MG (TUMS) TAB.CHEW PO PRN ×2 (11:20→20:52)
--- NOTE | 2023-05-17 13:42 | Physical Therapy Daily Note ---
PT Daily Note-Current Subjective Pt in recliner upon entering and good for therapy. pt reports 2/10 pain before during and after therapy. pt was left in recliner after therapy with call light and all needs met this day. Pain Section J - Health Conditions 1. Rarely or not at all 2. Occasionally 3. Frequently 4. Almost constantly 8. Unable to answer Pain Effect on Sleep: 0 Pain Interference with Therapy: 2 Pain Interference w/Day-to-Day: 1 Mental Status Patient Orientation: Person, Place, Time, Situation Transfers SCALE: Activities may be completed with or without assistive devices. 3-Fvhhqdvizv-kqxkizg completes the activity by him/herself with no assistance from a helper. 5-Set-up or Clean-up Assistance-helper sets up or cleans up; patient completes activity. [place] assists only prior to or following the activity. 4-Supervision or Touching Assistance-helper provides verbal cues and/or touching/steadying and/or contact guard assistance as patient completes activity. Assistance may be provided throughout the activity or intermittently. 3-Partial/Moderate Assistance-helper does LESS THAN HALF the effort. [place] lifts, holds or supports trunk or limbs, but provides less than half the effort. 2-Substantial/Maximal Assistance-helper does MORE THAN HALF the effort. [place] lifts or holds trunk or limbs and provides more than half the effort. 3-Uzkkredsr-mbrdcw does ALL the effort. Patient does none of the effort to complete the activity. Or, the assistance of 2 or more helpers is required for the patient to complete the activity. If activity was not attempted, code reason: 7-Patient Refused. 9-Not Applicable-not attempted and the patient did not perform the activity before the current illness, exacerbation or injury. 10-Not Attempted due to Environmental Limitations-(lack of equipment, weather restraints, etc.). 88-Not Attempted due to Medical Conditions or Safety Concerns. Sit to Stand (QC): 5 Weight Bearing Right Lower Extremity: Right Weight Bearing/Tolerated Left Lower Extremity: Left Weight Bearing/Tolerated Exercises Seated Therapy Exercises: Ankle pumps, Sit to stand Treatments pt preforms 3 sit to stand with SBA but did require to get the walker for her and put it in place as walker was out of reach of pt at this time. pt then executed sitting ther ex in all planes of motion for a total of 2 sets of 20 ea ch with rest in between each set for aprox 1 min. pt does requires VC to stay on task. PT Lacquer Sprayer Goals Residential Goals PT Residential Goals Time Frame: May 24, 2023 Roll Left & Right (QC): 6 (Pt will be Mod I with functional mobility with the FWW. ) Sit to Lying (QC): 6 (Pt will be Mod I with functional mobility with the FWW. ) Lying-Sitting on Side/Bed(QC): 6 (Pt will be Mod I with functional mobility with the FWW. ) Sit to Stand (QC): 6 (Pt will be Mod I with functional mobility with the FWW. ) Chair/Ujb-wt-Odylv Xfer(QC): 6 (Pt will be Mod I with functional mobility with the FWW. ) Toilet Transfer (QC): 6 (Pt will be Mod I with functional mobility with the FWW. ) Car Transfer (QC): 6 (Pt will be Mod I with functional mobility with the FWW. ) Does the Patient Walk: Yes Walk 10 feet (QC): 6 (Pt will be Mod I with functional mobility with the FWW. ) Walk 50ft with 2 Turns (QC): 6 (Pt will be Mod I with functional mobility with the FWW. ) Walk 150 ft (QC): 6 (Pt will be Mod I with functional mobility with the FWW. ) Walking 10ft on Uneven Surface: 6 (Pt will be Mod I with functional mobility with the FWW. ) 1 Step (curb) (QC): 4 (Pt will be SBA for stairs ) 4 Steps (QC): 4 (Pt will be SBA for stairs ) 12 Steps (QC): 4 (Pt will be SBA for stairs ) Picking up an Object (QC): 6 (Pt will be Mod I with functional mobility with the FWW. ) Does the Pt use WC or Scooter?: Yes Wheel 50 feet with 2 turns (QC: 6 (Pt will be Mod I with functional mobility with the FWW. ) Type: Manual Wheel 150 feet: 6 (Pt will be Mod I with functional mobility with the FWW. ) Type: Manual PT Plan Treatment/Plan Treatment Plan: Continue Plan of Care Treatment Plan: Bed Mobility, Concurrent Therapy, Education, Functional Activity Anand, Functional Strength, Group Therapy, Gait, Safety, Therapeutic Exercise, Transfers Treatment Duration: May 24, 2023 Frequency: At least 5 of 7 days/Wk (IRF) Estimated Hrs Per Day: 1.5 hours per day Patient and/or Family Agrees t: Yes Time Time In: 1300 Time Out: 1330 DATE: May 17, 2023 Total Billed Treatment Time: 30 Total Billed Treatment 1 EX x 2 Umm Juares CROSSING TENDER May 17, 2023 13:42
--- NOTE | 2023-05-17 14:30 | Occupational Ther Daily Note ---
OT Current Status-Daily Note Subjective Pt sitting in recliner upon arrival, pt agreed to OT, alert and cooperative. ADL-Treatment Pt ambulated with FWW, SBA to bathroom, completed toileting with SBA. Pt the ambulated to sink and washed hands and then ambulated back to room. Pt sat in chair in room, and nrsing in room, to give meds. Pt then completed BUE HEP exercises, using red theraband (medium resistance), 8 reps 2 sets. Pt was educated on HEP and home use and how to adjust resistance as needed. Pt was left in chair with in call light within reach, all needs met at this time. Therapy Code Descriptions/Definitions Functional [place] Measure: 0=Not Assessed/NA 4=Minimal Assistance 1=Total Assistance 5=Supervision or Setup 2=Maximal Assistance 6=Modified [place] 3=Moderate Assistance 7=Complete IndependenceSCALE: Activities may be completed with or without assistive devices. 4-Vwipsnpamf-tqxxwmq completes the activity by him/herself with no assistance from a helper. 5-Set-up or Clean-up Assistance-helper sets up or cleans up; patient completes activity. [place] assists only prior to or following the activity. 4-Supervision or Touching Assistance-helper provides verbal cues and/or touching/steadying and/or contact guard assistance as patient completes activity. Assistance may be provided throughout the activity or intermittently. 3-Partial/Moderate Assistance-helper does LESS THAN HALF the effort. [place] lifts, holds or supports trunk or limbs, but provides less than half the effort. 2-Substantial/Maximal Assistance-helper does MORE THAN HALF the effort. [place] lifts or holds trunk or limbs and provides more than half the effort. 9-Pfsldqlkq-itlmyx does ALL the effort. Patient does none of the effort to complete the activity. Or, the assistance of 2 or more helpers is required for the patient to complete the activity. If activity was not attempted, code reason: 7-Patient Refused. 9-Not Applicable-not attempted and the patient did not perform the activity before the current illness, exacerbation or injury. 10-Not Attempted due to Environmental Limitations-(lack of equipment, weather restraints, etc.). 88-Not Attempted due to Medical Conditions or Safety Concerns. Education OT Patient Education: Home exercise program, Progress toward Goal/Update tx plan, Purpose of tx/functional activities Teaching Recipient: Patient Teaching Methods: Demonstration, Handout, Discussion Response to Teaching: Verbalize Understanding, Return Demonstration OT Short Term Goals Short Term Goals Time Frame: May 15, 2023 Eatin Oral hygiene: 5 (stand) Toileting hygiene: 5 OT Software Testing Specialist Goals Software Testing Specialist Goals Acute change in mental status: 0 Inattention: 0 (Normal distraction w/ communication during tasks) Disorganized thinkin Altered level of consciousness: 0 1=Demonstrate adherence to instructed precautions during ADL tasks. 2=Patient will verbalize/demonstrate understanding of assistive devices/modifications for ADL. 3=Patient will improve strength/tolerance for activity to enable patient to perform ADL's. OT Education/Plan Problem List/Assessment Assessment: Decreased Activ Tolerance, Decreased UE Strength Discharge Recommendations Plan/Recommendations: Continue POC Treatment Plan/Plan of Care Patient would benefit from OT for education, treatment and training to promote independence in ADL's, mobility, safety and/or upper extremity function for ADL's. Plan of Care: ADL Retraining, Caregiver Training, Concurrent Therapy, Functional Mobility, Group Exercise/Act as Ind, UE Funct Exercise/Act, UE Neuromus Re-Ed/Coord Treatment Duration: May 19, 2023 Frequency: At least 5 of 7 days/Wk (IRF) Estimated Hrs Per Day: .5 hour per day Rehab Potential: Good Time Start Time: 13:30 Stop Time: 14:00 DATE: May 18, 2023 Total Time Billed (hr/min): 30 Billed Treatment Time 1 visit EX 2 (30) Shanta Tompkins COTA May 17, 2023 14:30
[2023-05-17 19:23] VITALS: BP 143/65
[2023-05-17] MEDS: ENOXAPARIN 40 MG/0.4 ML (LOVENOX) SYR SC SCH (20:48)
[2023-05-17] MEDS: diphenhydrAMINE 25 MG TAB (BENADRYL) PO PRN (20:52)
--- NOTE | 2023-05-18 06:00 | PM&R Progress Note ---
Subjective HPI/CC On Admission Date Seen by Provider: May 18, 2023 Time Seen by Provider: 12:00 Subjective/Events-last exam 05/18/2023: Much improved Will DC Monday No falls Pain improved 05/17/2023: Patient doing well Gaining more confidence Improved mobility Pain is under control 05/16/2023: Doing well DC Sat in order to get full day of therapy on Monday No falls 05/15/2023: Patient doing a lot better Discharge is planned for Monday Pain is controlled Bowels are moving Labs are stable 05/14/2023: No major issues Pain controlled Only uses pain pills twice daily BM+ 05/13/2023: Patient progressively improving Bowels are moving No pain when she is not moving Bowel regimen maintained 05/12/2023: Much improved No falls Pain improved BM+ 05/11/2023: Patient doing a lot better Pain is improving Transfers are better No falls Taking pain medication as needed We will check urine for infection since she is incontinent Review of Systems General: Fatigue, Malaise Objective Exam Vital Signs Vital Signs Date Time Temp Pulse Resp B/P (MAP) Pulse Ox O2 Delivery O2 Flow Rate FiO2 05/18/23 19:30 36.0 80 18 126/60 (82) 95 Room Air 05/16/23 13:45 0.00 05/16/23 13:41 21 Capillary Refill : General Appearance: No Apparent Distress, WD/WN, Chronically ill HEENT: PERRL/EOMI, Normal ENT Inspection, Pharynx Normal Neck: Full Range of Motion, Normal Inspection, Non Tender, Supple, Carotid Brui t Respiratory: Chest Non Tender, Lungs Clear, Normal Breath Sounds, No Accessory Muscle Use, No Respiratory Distress Cardiovascular: Regular Rate, Rhythm, No Edema, No Gallop, No JVD, No Murmur, Normal Peripheral Pulses Gastrointestinal: Normal Bowel Sounds, No Organomegaly, No Pulsatile Mass, Non Tender, Soft Back: Normal Inspection, No CVA Tenderness, No Vertebral Tenderness Extremity: Normal Capillary Refill, Normal Inspection, Normal Range of Motion, Non Tender, No Calf Tenderness, No Pedal Edema Neurologic/Psychiatric: Alert, Oriented x3, No Motor/Sensory Deficits, Normal Mood/Affect Skin: Normal Color, Warm/Dry Lymphatic: No Adenopathy Results/Procedures Lab Patient resulted labs reviewed. FIM Transfers Therapy Code Descriptions/Definitions Functional [place] Measure: 0=Not Assessed/NA 4=Minimal Assistance 1=Total Assistance 5=Supervision or Setup 2=Maximal Assistance 6=Modified [place] 3=Moderate Assistance 7=Complete IndependenceSCALE: Activities may be completed with or without assistive devices. 3-Wclsdrbxth-tuhbrdj completes the activity by him/herself with no assistance from a helper. 5-Set-up or Clean-up Assistance-helper sets up or cleans up; patient completes activity. [place] assists only prior to or following the activity. 4-Supervision or Touching Assistance-helper provides verbal cues and/or touching/steadying and/or contact guard assistance as patient completes activity. Assistance may be provided throughout the activity or intermittently. 3-Partial/Moderate Assistance-helper does LESS THAN HALF the effort. [place] lif ts, holds or supports trunk or limbs, but provides less than half the effort. 2-Substantial/Maximal Assistance-helper does MORE THAN HALF the effort. [place] lifts or holds trunk or limbs and provides more than half the effort. 3-Lclqfszao-klkaij does ALL the effort. Patient does none of the effort to complete the activity. Or, the assistance of 2 or more helpers is required for the patient to complete the activity. If activity was not attempted, code reason: 7-Patient Refused. 9-Not Applicable-not attempted and the patient did not perform the activity before the current illness, exacerbation or injury. 10-Not Attempted due to Environmental Limitations-(lack of equipment, weather restraints, etc.). 88-Not Attempted due to Medical Conditions or Safety Concerns. Roll Left to Right (QC): 6 Sit to Lying (QC): 6 Sit to Stand (QC): 5 Chair/Nck-gr-Qeyqr Xfer(QC): 5 Car Transfer (QC): 4 Gait Training Does the Patient Walk?: Yes Distance: 10' Walk 10 feet (QC): 5 Walk 50 ft with 2 Turns(QC): 5 Walk 150 ft (QC): 5 Walking 10ft/uneven surface-QC: 4 Gait Persons Needed: 1 Gait Assistive Device: Walker Standard Wheelchair Training Does the Pt Use a Wheelchair?: Yes Wheel 50 ft with 2 turns (QC): 09 Wheel 150 ft (QC): 09 Type of Wheelchair: Manual Stair Training 1 Step (curb) (QC): 4 4 Steps (QC): 4 12 Steps (QC): 09 Balance Picking up an Object (QC): 6 ADL-Treatment Eating (QC): 6 Oral Hygiene (QC): 6 Bathing Location: L Arm, R Arm, L Upper Leg, R Upper Leg, L Lower Leg (including foot), R Lower Leg (including foot), Chest, Abdomen, Buttocks, Perineal Area Shower/Bathe Self (QC): 4 (supervison when standing) Upper Body Dressing (QC): 5 Lower Body Dressing (QC): 4 On/Off Footwear (QC): 5 (using AE) Toileting Hygiene (QC): 4 Toilet Transfer (QC): 4 Assessment/Plan Assessment and Plan Assess & Plan/Chief Complaint Assessment: Pubic rami fractures with complete disruption of the pelvic ring following a fall Unable to ambulate Hypertension Osteoporosis DVT prophylaxis with Lovenox Plan: PT OT Fall risk Pain control Home meds 05/11/2023: Check urine for infection Pain control 05/12/2023: Slow recovery Continue pain meds 05/13/2023: Supportive care Monitor closely 05/14/2023: Monitor closely Labs tomorrow 05/15/2023: Pain control Discharge plan for Monday05/16/2023: Monitor closely 05/17/2023: Supportive care Discharge on Monday05/18/2023: Monitor closely Pain controlled (1) Pelvic fracture (2) Pubic ramus fracture REGIS KEE DO May 18, 2023 06:00
--- NOTE | 2023-05-18 07:57 | Physical Therapy Daily Note ---
PT Daily Note-Current Subjective PT in recliner and good for therapy. Pt states 5-6/10 pain after preforming curb. Nursing previously administered pain pill 20 mins prior. after therapy pt stated pain 4/10 when sitting in recliner. pt left in recliner with call light, agency service coordinator and all needs met after therapy session. Pain Section J - Health Conditions 1. Rarely or not at all 2. Occasionally 3. Frequently 4. Almost constantly 8. Unable to answer Pain Effect on Sleep: 0 Pain Interference with Therapy: 1 Pain Interference w/Day-to-Day: 1 Mental Status Patient Orientation: Person, Place, Time, Situation Transfers SCALE: Activities may be completed with or without assistive devices. 0-Ybsfrlhvco-cistmkz completes the activity by him/herself with no assistance from a helper. 5-Set-up or Clean-up Assistance-helper sets up or cleans up; patient completes activity. [place] assists only prior to or following the activity. 4-Supervision or Touching Assistance-helper provides verbal cues and/or touching/steadying and/or contact guard assistance as patient completes activity. Assistance may be provided throughout the activity or intermittently. 3-Partial/Moderate Assistance-helper does LESS THAN HALF the effort. [place] lifts, holds or supports trunk or limbs, but provides less than half the effort. 2-Substantial/Maximal Assistance-helper does MORE THAN HALF the effort. [place] lifts or holds trunk or limbs and provides more than half the effort. 3-Asrsphdxt-zsomhd does ALL the effort. Patient does none of the effort to complete the activity. Or, the assistance of 2 or more helpers is required for the patient to complete the activity. If activity was not attempted, code reason: 7-Patient Refused. 9-Not Applicable-not attempted and the patient did not perform the activity before the current illness, exacerbation or injury. 10-Not Attempted due to Environmental Limitations-(lack of equipment, weather restraints, etc.). 88-Not Attempted due to Medical Conditions or Safety Concerns. Sit to Stand (QC): 5 Chair/Ppd-tb-Bpxgw Xfer(QC): 5 Toilet Transfer (QC): 6 Weight Bearing Right Lower Extremity: Right Weight Bearing/Tolerated Left Lower Extremity: Left Weight Bearing/Tolerated Gait Training Walk 10 feet (QC): 6 Walk 50 ft with 2 Turns(QC): 6 Stair Training 1 Step (curb) (QC): 5 4 Steps (QC): 5 Exercises NuStep Minutes: 20 NuStep Workload: 2 Treatments Pt is able to ambulate 50ft with RW and SBA secondary to pt fatiguing quickly. Pt is able to preform Nu-step at an increased level from 1 to 2 for 20 mins indicating increased strength and endurance. Pt is able to preform curb step up with RW and SBA with VC for safety and sequencing but no LOB noted. pt is able to ambulate 100ft x 2 with RW and 1 rest break after the 1st 100ft secondary to fatigue and slight increase in pain. Pt preform chair transfers with independence from sit to stand x 4 this day. Assessment Current Status: Good Progress PT Senior Payroll Manager Goals Detention Goals PT Detention Goals Time Frame: May 24, 2023 Roll Left & Right (QC): 6 (Pt will be Mod I with functional mobility with the FWW. ) Sit to Lying (QC): 6 (Pt will be Mod I with functional mobility with the FWW. ) Lying-Sitting on Side/Bed(QC): 6 (Pt will be Mod I with functional mobility with the FWW. ) Sit to Stand (QC): 6 (Pt will be Mod I with functional mobility with the FWW. ) Chair/Wav-gu-Qigso Xfer(QC): 6 (Pt will be Mod I with functional mobility with the FWW. ) Toilet Transfer (QC): 6 (Pt will be Mod I with functional mobility with the FWW. ) Car Transfer (QC): 6 (Pt will be Mod I with functional mobility with the FWW. ) Does the Patient Walk: Yes Walk 10 feet (QC): 6 (Pt will be Mod I with functional mobility with the FWW. ) Walk 50ft with 2 Turns (QC): 6 (Pt will be Mod I with functional mobility with the FWW. ) Walk 150 ft (QC): 6 (Pt will be Mod I with functional mobility with the FWW. ) Walking 10ft on Uneven Surface: 6 (Pt will be Mod I with functional mobility with the FWW. ) 1 Step (curb) (QC): 4 (Pt will be SBA for stairs ) 4 Steps (QC): 4 (Pt will be SBA for stairs ) 12 Steps (QC): 4 (Pt will be SBA for stairs ) Picking up an Object (QC): 6 (Pt will be Mod I with functional mobility with the FWW. ) Does the Pt use WC or Scooter?: Yes Wheel 50 feet with 2 turns (QC: 6 (Pt will be Mod I with functional mobility with the FWW. ) Type: Manual Wheel 150 feet: 6 (Pt will be Mod I with functional mobility with the FWW. ) Type: Manual PT Plan Treatment/Plan Treatment Plan: Continue Plan of Care Treatment Plan: Bed Mobility, Concurrent Therapy, Education, Functional Activity Anand, Functional Strength, Group Therapy, Gait, Safety, Therapeutic Exercise, Transfers Treatment Duration: May 24, 2023 Frequency: At least 5 of 7 days/Wk (IRF) Estimated Hrs Per Day: 1.5 hours per day Patient and/or Family Agrees t: Yes Safety Risks/Education Patient Education: Gait Training, Safety Issues Teaching Methods: Demonstration Time Time In: 0800 Time Out: 0900 DATE: May 18, 2023 Total Billed Treatment Time: 60 Total Billed Treatment 1 GT x 2 FA x 1 EX x 1 Umm Juares COMMUNITY HEALTH CONSULTANT May 18, 2023 07:57
[2023-05-18 08:00] VITALS: BP 133/71
[2023-05-18] MEDS: AMOXICILLIN 500 MG (POLYMOX) CAP PO SCH ×3 (08:21→21:08)
[2023-05-18] MEDS: LORATADINE (CLARITIN) 10 MG TAB PO SCH (08:21)
[2023-05-18] MEDS: SENNOSIDES 8.6 MG (SENOKOT) TAB PO SCH ×2 (08:21→21:00)
[2023-05-18] MEDS: amLODIPine 10 MG (NORVASC) TAB PO SCH (08:21)
[2023-05-18] MEDS: DOCUSATE SODIUM 100 MG (COLACE) CAP PO SCH ×2 (08:21→21:08)
[2023-05-18] MEDS: polyethylene glycoL POWDER 17 GM (MIRALAX) PACK PO SCH ×2 (09:58→21:00)
--- NOTE | 2023-05-18 10:32 | Occupational Ther Daily Note ---
OT Current Status-Daily Note Subjective Pt sitting in chair upon arrival, alert and cooperative, agreed to therapy. Mental Status/Objective Patient Orientation: Person, Place, Time ADL-Treatment Pt stood from chair with SBA, pt then ambulated with FWW SBA to toilet in bathroom. Pt completed toilet hygiene, with supervision, Pt then completed sponge bath while sitting on toilet, with set up assist. Pt requested to put s dilan clothes back on so, pt completed upper body and lower body dressing with set up assist while using AE. Pt then ambulated with FWW, to sink to completed oral hygiene and grooming with SBA. Pt then ambulated to therapy gym, with FWPaulette SBA. Pt completed arm bike 10 mins at 22 diallo with 1 recovery break required. Pt then worked on standing balance activity while reaching across midline for rings on the ROM arc. Pt also stood at table in therapy gym to complete a fine motor coordination, dexterity, and strengthening, retrieving small objects inside theraputty and placing them into a cup across the table, also working on dynamic standing balance required for ADLs. Pt then ambulated back to room with FWPaulette SBA. Pt was left in room, sitting in chair, all needs met at this time, call light in reach. Therapy Code Descriptions/Definitions Functional [place] Measure: 0=Not Assessed/NA 4=Minimal Assistance 1=Total Assistance 5=Supervision or Setup 2=Maximal Assistance 6=Modified [place] 3=Moderate Assistance 7=Complete IndependenceSCALE: Activities may be completed with or without assistive devices. 3-Kkacvdqgci-eesstls completes the activity by him/herself with no assistance from a helper. 5-Set-up or Clean-up Assistance-helper sets up or cleans up; patient completes activity. [place] assists only prior to or following the activity. 4-Supervision or Touching Assistance-helper provides verbal cues and/or to uching/steadying and/or contact guard assistance as patient completes activity. Assistance may be provided throughout the activity or intermittently. 3-Partial/Moderate Assistance-helper does LESS THAN HALF the effort. [place] lifts, holds or supports trunk or limbs, but provides less than half the effort. 2-Substantial/Maximal Assistance-helper does MORE THAN HALF the effort. [place] lifts or holds trunk or limbs and provides more than half the effort. 2-Xnarbufpv-opfdkg does ALL the effort. Patient does none of the effort to complete the activity. Or, the assistance of 2 or more helpers is required for the patient to complete the activity. If activity was not attempted, code reason: 7-Patient Refused. 9-Not Applicable-not attempted and the patient did not perform the activity before the current illness, exacerbation or injury. 10-Not Attempted due to Environmental Limitations-(lack of equipment, weather restraints, etc.). 88-Not Attempted due to Medical Conditions or Safety Concerns. Eating (QC): 6 Oral Hygiene (QC): 4 Shower/Bathe Self (QC): 5 Upper Body Dressing (QC): 5 Lower Body Dressing (QC): 5 On/Off Footwear: 5 Toileting Hygiene (QC): 4 Education OT Patient Education: Energy conservation, Exercise program, Modified ADL techniques, Progress toward Goal/Update tx plan, Purpose of tx/functional activities, Use of adapted equipment Teaching Recipient: Patient Teaching Methods: Discussion Response to Teaching: Verbalize Understanding OT Short Term Goals Short Term Goals Time Frame: May 15, 2023 Eatin Oral hygiene: 5 (stand) Toileting hygiene: 5 OT Fpc Goals Pan Reclaim Processor Goals Acute change in mental status: 0 Inattention: 0 (Normal distraction w/ communication during tasks) Disorganized thinkin Altered level of consciousness: 0 1=Demonstrate adherence to instructed precautions during ADL tasks. 2=Patient will verbalize/demonstrate understanding of assistive devices/modifications for ADL. 3=Patient will improve strength/tolerance for activity to enable patient to perform ADL's. OT Education/Plan Problem List/Assessment Assessment: Decreased Activ Tolerance, Decreased UE Strength Discharge Recommendations Plan/Recommendations: Continue POC Treatment Plan/Plan of Care Patient would benefit from OT for education, treatment and training to promote independence in ADL's, mobility, safety and/or upper extremity function for ADL's. Plan of Care: ADL Retraining, Caregiver Training, Concurrent Therapy, Functiona l Mobility, Group Exercise/Act as Ind, UE Funct Exercise/Act, UE Neuromus Re- Ed/Coord Treatment Duration: May 19, 2023 Frequency: At least 5 of 7 days/Wk (IRF) Estimated Hrs Per Day: .5 hour per day Rehab Potential: Good Time Start Time: 10:00 Stop Time: 11:00 DATE: May 18, 2023 Total Time Billed (hr/min): 60 Billed Treatment Time 1 visit ADL 2 (30) EX (30) Shanta Tompkins COTA May 18, 2023 10:32
--- NOTE | 2023-05-18 14:58 | Therapy Group Daily Note ---
Therapy Daily Group Note Patient Education Topic Exercises Exercises LE Seated Exercise, UE Exercise Session Ratio (pt:therapist): 3:1 Goal of Session: UE/LE Strengthing Goal Met for this Session: Yes Pt Benefit of Group: Contributions to Others, F/U Use of Strategies @Home, Increased Functional Safety, Increased Functional Strength, Improved Cognition, Recognition of Peers, Socialization Other/Notes pt was ambulated with RW and SBA to Pt/OT group consisted of introduction, socialization, upper and lower ther-ex and focused on benefits of exercise. Start Time: 13:00 Stop Time: 14:15 Total Billed Treatment Time: 75 Total Billed Treatment 1 GRP Umm Juares STUDENT OFFICER May 18, 2023 14:58
[2023-05-18 19:30] VITALS: BP 126/60
[2023-05-18] MEDS: diphenhydrAMINE 25 MG TAB (BENADRYL) PO PRN (21:08)
[2023-05-18] MEDS: ENOXAPARIN 40 MG/0.4 ML (LOVENOX) SYR SC SCH (21:08)
[2023-05-18] MEDS: CALCIUM CARBONATE 500 MG (TUMS) TAB.CHEW PO PRN (21:33)
[2023-05-19 08:00] VITALS: BP 144/71
[2023-05-19] MEDS: LORATADINE (CLARITIN) 10 MG TAB PO SCH (08:32)
[2023-05-19] MEDS: AMOXICILLIN 500 MG (POLYMOX) CAP PO SCH (08:32)
[2023-05-19] MEDS: amLODIPine 10 MG (NORVASC) TAB PO SCH (08:32)
--- NOTE | 2023-05-19 09:34 | Physical Therapy Daily Note ---
PT Daily Note-Current Subjective Pt in recliner in room upon arrival and willing for therapy. PT states only pain when sitting on the nu step seat. pt pain goes away when off machine. pt was in recliner after therapy session with call light and all needs mets. Pain Section J - Health Conditions 1. Rarely or not at all 2. Occasionally 3. Frequently 4. Almost constantly 8. Unable to answer Pain Effect on Sleep: 0 Pain Interference with Therapy: 1 Pain Interference w/Day-to-Day: 1 Mental Status Patient Orientation: Person, Place, Time, Situation Transfers SCALE: Activities may be completed with or without assistive devices. 9-Jnufkbhkjq-evmanxi completes the activity by him/herself with no assistance from a helper. 5-Set-up or Clean-up Assistance-helper sets up or cleans up; patient completes activity. [place] assists only prior to or following the activity. 4-Supervision or Touching Assistance-helper provides verbal cues and/or touching/steadying and/or contact guard assistance as patient completes activity. Assistance may be provided throughout the activity or intermittently. 3-Partial/Moderate Assistance-helper does LESS THAN HALF the effort. [place] lifts, holds or supports trunk or limbs, but provides less than half the effort. 2-Substantial/Maximal Assistance-helper does MORE THAN HALF the effort. [place] lifts or holds trunk or limbs and provides more than half the effort. 1-Dhuvhnhns-rejmjz does ALL the effort. Patient does none of the effort to complete the activity. Or, the assistance of 2 or more helpers is required for the patient to complete the activity. If activity was not attempted, code reason: 7-Patient Refused. 9-Not Applicable-not attempted and the patient did not perform the activity before the current illness, exacerbation or injury. 10-Not Attempted due to Environmental Limitations-(lack of equipment, weather restraints, etc.). 88-Not Attempted due to Medical Conditions or Safety Concerns. Roll Left & Right (QC): 6 Sit to Lying (QC): 6 Lying to Sitting/Side of Bed(Q: 6 Sit to Stand (QC): 6 Chair/Xjz-ie-Woomi Xfer(QC): 6 Toilet Transfer (QC): 6 Car Transfer (QC): 6 Weight Bearing Right Lower Extremity: Right Weight Bearing/Tolerated Left Lower Extremity: Left Weight Bearing/Tolerated Gait Training Walk 10 feet (QC): 6 Walk 50 ft with 2 Turns(QC): 6 Walk 150 ft (QC): 6 Walking 10ft/uneven surface-QC: 6 Wheelchair Training Wheel 50 ft with 2 turns (QC): 09 Wheel 150 ft (QC): 09 Stair Training 1 Step (curb) (QC): 6 4 Steps (QC): 6 12 Steps (QC): 6 Balance Picking up an Object (QC): 6 Exercises NuStep Minutes: 20 NuStep Workload: 1 Treatments Pt is able to preform all QC's minus WC mobility with not applicable with independence. No VC for set up necessary for any safety or sequencing. pt is able to self correct and is able to determine resting points when getting fatigued and rests and then is able to resume activity. Pt is able to ambulate 200ft with RW and independence. pt does require rest after secondary to slight pain increase. pain does dissipate after resting and pt is able to resume. Assessment Current Status: Good Progress PT [facility] Goals Head Baggage Porter Goals PT Head Baggage Porter Goals Time Frame: May 24, 2023 Roll Left & Right (QC): 6 (Pt will be Mod I with functional mobility with the FWW. ) Sit to Lying (QC): 6 (Pt will be Mod I with functional mobility with the FWW. ) Lying-Sitting on Side/Bed(QC): 6 (Pt will be Mod I with functional mobility with the FWW. ) Sit to Stand (QC): 6 (Pt will be Mod I with functional mobility with the FWW. ) Chair/Buz-zn-Pjqri Xfer(QC): 6 (Pt will be Mod I with functional mobility with the FWW. ) Toilet Transfer (QC): 6 (Pt will be Mod I with functional mobility with the FWW. ) Car Transfer (QC): 6 (Pt will be Mod I with functional mobility with the FWW. ) Does the Patient Walk: Yes Walk 10 feet (QC): 6 (Pt will be Mod I with functional mobility with the FWW. ) Walk 50ft with 2 Turns (QC): 6 (Pt will be Mod I with functional mobility with the FWW. ) Walk 150 ft (QC): 6 (Pt will be Mod I with functional mobility with the FWW. ) Walking 10ft on Uneven Surface: 6 (Pt will be Mod I with functional mobility with the FWW. ) 1 Step (curb) (QC): 4 (Pt will be SBA for stairs ) 4 Steps (QC): 4 (Pt will be SBA for stairs ) 12 Steps (QC): 4 (Pt will be SBA for stairs ) Picking up an Object (QC): 6 (Pt will be Mod I with functional mobility with the FWW. ) Does the Pt use WC or Scooter?: Yes Wheel 50 feet with 2 turns (QC: 6 (Pt will be Mod I with functional mobility with the FWW. ) Type: Manual Wheel 150 feet: 6 (Pt will be Mod I with functional mobility with the FWW. ) Type: Manual PT Plan Treatment/Plan Treatment Plan: Continue Plan of Care Treatment Plan: Bed Mobility, Concurrent Therapy, Education, Functional Activity Anand, Functional Strength, Group Therapy, Gait, Safety, Therapeutic Exercise, Transfers Treatment Duration: May 24, 2023 Frequency: At least 5 of 7 days/Wk (IRF) Estimated Hrs Per Day: 1.5 hours per day Patient and/or Family Agrees t: Yes Time Time In: 0800 Time Out: 929 DATE: May 19, 2023 Total Billed Treatment Time: 90 Total Billed Treatment 1 FA x 4 GT x 2 Umm Juares PTA May 19, 2023 09:33
[2023-05-19] MEDS: SENNOSIDES 8.6 MG (SENOKOT) TAB PO SCH ×2 (10:15→21:15)
[2023-05-19] MEDS: polyethylene glycoL POWDER 17 GM (MIRALAX) PACK PO SCH ×2 (10:15→21:15)
[2023-05-19] MEDS: DOCUSATE SODIUM 100 MG (COLACE) CAP PO SCH ×2 (10:15→21:17)
--- NOTE | 2023-05-19 12:53 | PM&R Progress Note ---
Subjective HPI/CC On Admission Date Seen by Provider: May 19, 2023 Time Seen by Provider: 12:30 Subjective/Events-last exam 05/19/2023: Much improved status DC tomorrow Sent all meds in 05/18/2023: Much improved Will DC Monday No falls Pain improved 05/17/2023: Patient doing well Gaining more confidence Improved mobility Pain is under control 05/16/2023: Doing well DC Sat in order to get full day of therapy on Monday No falls 05/15/2023: Patient doing a lot better Discharge is planned for Monday Pain is controlled Bowels are moving Labs are stable 05/14/2023: No major issues Pain controlled Only uses pain pills twice daily BM+ 05/13/2023: Patient progressively improving Bowels are moving No pain when she is not moving Bowel regimen maintained 05/12/2023: Much improved No falls Pain improved BM+ 05/11/2023: Patient doing a lot better Pain is improving Transfers are better No falls Taking pain medication as needed We will check urine for infection since she is incontinent Review of Systems General: Fatigue, Malaise Objective Exam Vital Signs Vital Signs Date Time Temp Pulse Resp B/P (MAP) Pulse Ox O2 Delivery O2 Flow Rate FiO2 05/19/23 20:03 36.3 84 16 125/78 (94) 95 Room Air 05/16/23 13:45 0.00 05/16/23 13:41 21 Capillary Refill : General Appearance: No Apparent Distress, WD/WN, Chronically ill HEENT: PERRL/EOMI, Normal ENT Inspection, Pharynx Normal Neck: Full Range of Motion, Normal Inspection, Non Tender, Supple, Carotid Bruit Respiratory: Chest Non Tender, Lungs Clear, Normal Breath Sounds, No Accessory Muscle Use, No Respiratory Distress Cardiovascular: Regular Rate, Rhythm, No Edema, No Gallop, No JVD, No Murmur, Normal Peripheral Pulses Gastrointestinal: Normal Bowel Sounds, No Organomegaly, No Pulsatile Mass, Non Tender, Soft Back: Normal Inspection, No CVA Tenderness, No Vertebral Tenderness Extremity: Normal Capillary Refill, Normal Inspection, Normal Range of Motion, Non Tender, No Calf Tenderness, No Pedal Edema Neurologic/Psychiatric: Alert, Oriented x3, No Motor/Sensory Deficits, Normal Mood/Affect Skin: Normal Color, Warm/Dry Lymphatic: No Adenopathy Results/Procedures Lab Patient resulted labs reviewed. FIM Transfers Therapy Code Descriptions/Definitions Functional [place] Measure: 0=Not Assessed/NA 4=Minimal Assistance 1=Total Assistance 5=Supervision or Setup 2=Maximal Assistance 6=Modified [place] 3=Moderate Assistance 7=Complete IndependenceSCALE: Activities may be completed with or without assistive devices. 3-Ulpfafccmi-jwekkev completes the activity by him/herself with no assistance from a helper. 5-Set-up or Clean-up Assistance-helper sets up or cleans up; patient completes activity. [place] assists only prior to or following the activity. 4-Supervision or Touching Assistance-helper provides verbal cues and/or touching/steadying and/or contact guard assistance as patient completes activity. Assistance may be provided throughout the activity or intermittently. 3-Partial/Moderate Assistance-helper does LESS THAN HALF the effort. [place] lifts, holds or supports trunk or limbs, but provides less than half the effort. 2-Substantial/Maximal Assistance-helper does MORE THAN HALF the effort. [place] lifts or holds trunk or limbs and provides more than half the effort. 5-Yiuplwthf-olzvmv does ALL the effort. Patient does none of the effort to complete the activity. Or, the assistance of 2 or more helpers is required for the patient to complete the activity. If activity was not attempted, code reason: 7-Patient Refused. 9-Not Applicable-not attempted and the patient did not perform the activity before the current illness, exacerbation or injury. 10-Not Attempted due to Environmental Limitations-(lack of equipment, weather restraints, etc.). 88-Not Attempted due to Medical Conditions or Safety Concerns. Roll Left to Right (QC): 6 Sit to Lying (QC): 6 Sit to Stand (QC): 6 Chair/Gyc-yo-Ubvtw Xfer(QC): 6 Car Transfer (QC): 6 Gait Training Does the Patient Walk?: Yes Distance: 10' Walk 10 feet (QC): 6 Walk 50 ft with 2 Turns(QC): 6 Walk 150 ft (QC): 6 Walking 10ft/uneven surface-QC: 6 Gait Persons Needed: 1 Gait Assistive Device: Walker Standard Wheelchair Training Does the Pt Use a Wheelchair?: Yes Wheel 50 ft with 2 turns (QC): 09 Wheel 150 ft (QC): 09 Type of Wheelchair: Manual Stair Training 1 Step (curb) (QC): 6 4 Steps (QC): 6 12 Steps (QC): 6 Balance Picking up an Object (QC): 6 ADL-Treatment Eating (QC): 6 Oral Hygiene (QC): 4 Bathing Location: L Arm, R Arm, L Upper Leg, R Upper Leg, L Lower Leg (including foot), R Lower Leg (including foot), Chest, Abdomen, Buttocks, Perineal Area Shower/Bathe Self (QC): 5 Upper Body Dressing (QC): 5 Lower Body Dressing (QC): 5 On/Off Footwear (QC): 5 Toileting Hygiene (QC): 4 Toilet Transfer (QC): 4 Assessment/Plan Assessment and Plan Assess & Plan/Chief Complaint Assessment: Pubic rami fractures with complete disruption of the pelvic ring following a fall Unable to ambulate Hypertension Osteoporosis DVT prophylaxis with Lovenox Plan: PT OT Fall risk Pain control Home meds 05/11/2023: Check urine for infection Pain control 05/12/2023: Slow recovery Continue pain meds 05/13/2023: Supportive care Monitor closely 05/14/2023: Monitor closely Labs tomorrow 05/15/2023: Pain control Discharge plan for Monday05/16/2023: Monitor closely 05/17/2023: Supportive care Discharge on Monday05/18/2023: Monitor closely Pain controlled 05/19/2023: BM regimen and pain meds sent in (1) Pelvic fracture (2) Pubic ramus fracture REGIS KEE DO May 19, 2023 12:53
[2023-05-19] MEDS ORDERED: ACHYD1T PO (12:56)
--- NOTE | 2023-05-19 12:58 | D/C HH Face to Face Order ---
D/C Face to Face Orders Reconcile Patient Problems Problems Reviewed?: Yes Instructions for Patient Via [facility], Patient Instructions/FollowUp: PCP 1 week Physician to follow Patient: Melissa Discharge Diet for Home: No Restrictions Patient Problems: Debility Patient Data-Allergies,Ht & Wt Patient Allergies: Coded Allergies: No Known Drug Allergies (Verified , 08/29/18) Height (Feet): 5 Height (Inches): 2.00 Weight (Pounds): 176 Weight (Ounces): 0.0 Home Health Need/Face to Face Date of Face to Face: May 19, 2023 Clinical Findings: Generalized weakness and fatigue, Muscle weakness I have seen Pt acsq-uk-tefp: Yes Discharged To: Home Diagnosis/Conditions: pelvic fx Patient is Homebound due to: [place] fall risk due to instabilty, Muscle weakness Homebound Status Due to the above stated illness, injury or surgical procedure (medical condition or diagnosis) and associated clinical findings, the patient is homebound because of his/her inability to leave home except with aid of a supportive device and/or person AND leaving the home requires a considerable and taxing effort or is medically contraindicated. Pt req the following assistanc: Walker Home Health Nursing Orders Home Health Services Order: Nursing Services, Mechanical Project Engineer-Evaluate & Treat, Physical Therapy-Evaluate & Treat Certify Stmt I certify that this patient is under my care and that I, a nurse practitioner or a physician; a freezer assistant working with me, had a face to face encounter that - meets the physician face to face encounter requirements with this patient as dated. REGIS KEE DO May 19, 2023 12:58
[2023-05-19] MEDS ORDERED: LACT20SO2 PO (12:59)
[2023-05-19] MEDS ORDERED: SENN-341 PO (12:59)
--- NOTE | 2023-05-19 13:01 | Occupational Ther Daily Note ---
OT Current Status-Daily Note Subjective Pt alert and cooperative, agreed to therapy, sitting in chair in room upon arrival. ADL-Treatment Pt ambulated to toilet in bathroom with FWW, independently. Pt completed toilet hygiene set up. Pt then ambulated to shower bench with FWW. Pt completed shower bathed self with set up assist. Pt then dried self off and completed upper and lower body dressing with set up assist using AE. Pt then completed footwear usin g AE, set up assist. Pt then ambulated to sink in bathroom with FWW, Independent. Pt completed oral hygiene set up assist. Pt then ambulated to therapy gym wit FWW. To address function endurance, and strengthen needed for daily function, completed arm bike for 15 mins at 20 diallo, required 1 recovery break. Pt then completed BUE exercises, using 2 # wts to work on strengthening BUE required for ADLs, daily function. Pt then ambulated with FWW back to room. Pt sat in chair and therapist educated pt on leg floor broker if needed for home use. Therapy Code Descriptions/Definitions Functional [place] Measure: 0=Not Assessed/NA 4=Minimal Assistance 1=Total Assistance 5=Supervision or Setup 2=Maximal Assistance 6=Modified [place] 3=Moderate Assistance 7=Complete IndependenceSCALE: Activities may be completed with or without assistive devices. 2-Lpwmbinmgn-nporoje completes the activity by him/herself with no assistance from a helper. 5-Set-up or Clean-up Assistance-helper sets up or cleans up; patient completes activity. [place] assists only prior to or following the activity. 4-Supervision or Touching Assistance-helper provides verbal cues and/or touching/steadying and/or contact guard assistance as patient completes activity. Assistance may be provided throughout the activity or intermittently. 3-Partial/Moderate Assistance-helper does LESS THAN HALF the effort. [place] lifts, holds or supports trunk or limbs, but provides less than half the effort. 2-Substantial/Maximal Assistance-helper does MORE THAN HALF the effort. [place] lifts or holds trunk or limbs and provides more than half the effort. 6-Dzsuxxiaq-tigilw does ALL the effort. Patient does none of the effort to complete the activity. Or, the assistance of 2 or more helpers is required for the patient to complete the activity. If activity was not attempted, code reason: 7-Patient Refused. 9-Not Applicable-not attempted and the patient did not perform the activity before the current illness, exacerbation or injury. 10-Not Attempted due to Environmental Limitations-(lack of equipment, weather restraints, etc.). 88-Not Attempted due to Medical Conditions or Safety Concerns. Eating (QC): 6 Oral Hygiene (QC): 5 Shower/Bathe Self (QC): 5 Upper Body Dressing (QC): 5 Lower Body Dressing (QC): 5 On/Off Footwear: 5 (using AE) Toileting Hygiene (QC): 5 Education OT Patient Education: Exercise program, Home exercise program, Progress toward Goal/Update tx plan, Purpose of tx/functional activities, Use of adapted equipment Teaching Recipient: Patient Teaching Methods: Handout, Discussion Response to Teaching: Verbalize Understanding BIMS CAM BIMS Expression of Ideas and Wants: Without Difficulty Understanding Verbal Content: Understands Brief Interview/Mental Status: Yes IRF OLAYINKA BIMS: IRF [place] BIMS Response (Comments) Value Repitition of Three Words Three 3 Recalls Socks No, Could Not Recall 0 Recalls Blue Yes, After Cueing (Color) 1 Recalls Bed Yes, After Cueing 1 Year Correct 3 Month Accurate Within 5 Days 2 Day Correct 1 Total 11 Patient Normally Able to Recal: Current Session, Location of own room, Staff Names and faces, That he/she in a hsp Should Staff Asses. Mental St.: No Memory/Recall Ability: Current Season, Location of Own Room, Staff Names and Faces, That He/She in Hospitall OT Short Term Goals Short Term Goals Time Frame: May 15, 2023 Eatin Oral hygiene: 5 (stand) Toileting hygiene: 5 OT Care Home Goals Television Service Engineer Goals Acute change in mental status: 0 Inattention: 0 (Normal distraction w/ communication during tasks) Disorganized thinkin Altered level of consciousness: 0 Eating (QC): 6 (met) Oral Hygiene (QC): 5 (met) Toileting Hygiene (QC): 5 (met) Shower/Bathe Self (QC): 5 (met) Upper Body Dressing (QC): 6 (notmet) Lower Body Dressing (QC): 5 (met) On/Off Footwear (QC): 5 (met) 1=Demonstrate adherence to instructed precautions during ADL tasks. 2=Patient will verbalize/demonstrate understanding of assistive devices/modifications for ADL. 3=Patient will improve strength/tolerance for activity to enable patient to perform ADL's. OT Education/Plan Problem List/Assessment Assessment: Decreased Activ Tolerance, Decreased UE Strength Discharge Recommendations Plan/Recommendations: Continue POC Treatment Plan/Plan of Care Patient would benefit from OT for education, treatment and training to promote independence in ADL's, mobility, safety and/or upper extremity function for ADL's. Plan of Care: ADL Retraining, Caregiver Training, Concurrent Therapy, Functional Mobility, Group Exercise/Act as Ind, UE Funct Exercise/Act, UE Neuromus Re-Ed/Coord Treatment Duration: May 19, 2023 Frequency: At least 5 of 7 days/Wk (IRF) Estimated Hrs Per Day: .5 hour per day Rehab Potential: Good Time Start Time: 10:30 Stop Time: 12:00 DATE: May 19, 2023 Total Time Billed (hr/min): 90 Billed Treatment Time 1 visit ADL 4 (60) EX 2 (30) Shanta Tompkins COTA May 19, 2023 13:01
--- NOTE | 2023-05-19 14:46 | Therapy Team Discharge Summary ---
Therapy Discharge Summary Discharge Recommendations Date of Discharge Physical Therapy Roll Left to Right (QC): 6 Sit to Lying (QC): 6 Lying to Sitting/Side of Bed(Q: 6 Sit to Stand (QC): 6 Chair/Olb-se-Xvhwj Xfer(QC): 6 Toilet Transfer (QC): 6 Car Transfer (QC): 6 Does the Patient Walk: Yes Mode of Locomotion: Both Anticipated Mode of Locomotion: Walk Walk 10 feet (QC): 6 Walk 50 ft with 2 Turns(QC): 6 Walk 150 ft (QC): 6 Walking 10ft on uneven surface: 6 Distance: 15ft Gait Assistive Device: [place] Standard Does the Pt Use a Wheelchair: Yes Wheel 50 ft with 2 turns (QC): 09 Wheel 150 ft (QC): 09 Type of Wheelchair: Manual 1 Step (curb) (QC): 6 4 Steps (QC): 6 12 Steps (QC): 6 Walking Assistive Device: Walker Balance Sitting Static: Good Balance Sitting Dynamic: Good Balance-Standing Static: Good Picking up an Object (QC): 6 Occupational Therapy Decreased Activ Tolerance, Decreased UE Strength Eating (QC): 6 Oral Hygiene (QC): 5 Shower/Bathe Self (QC): 5 Upper Body Dressing (QC): 5 Lower Body Dressing (QC): 5 On/Off Footwear (QC): 5 (using AE) Toileting Hygiene (QC): 5 PT Poll Clerk Goals Poll Clerk Goals PT Mcc Goals Time Frame: May 24, 2023 Roll Left to Right (QC): 6 (Pt will be Mod I with functional mobility with the FWW. ) Sit to Lying (QC): 6 (Pt will be Mod I with functional mobility with the FWW. ) Lying-Sitting on Side/Bed(QC): 6 (Pt will be Mod I with functional mobility with the FWW. ) Sit to Stand (QC): 6 (Pt will be Mod I with functional mobility with the FWW. ) Chair/Qrq-ob-Dblsj Xfer(QC): 6 (Pt will be Mod I with functional mobility with the FWW. ) Toilet/Commode Transfer (QC): 6 (Pt will be Mod I with functional mobility with the FWW. ) Car Transfer (QC): 6 (Pt will be Mod I with functional mobility with the FWW. ) Does the Patient Walk: Yes Walk 10 feet (QC): 6 (Pt will be Mod I with functional mobility with the FWW. ) Walk 10ft-Uneven Surface(QC): 6 (Pt will be Mod I with functional mobility with the FWW. ) Walk 50ft with 2 Turns (QC): 6 (Pt will be Mod I with functional mobility with the FWW. ) Walk 150 ft (QC): 6 (Pt will be Mod I with functional mobility with the FWW. ) Does the Pt use WC or Scooter?: Yes Wheel 50 feet with 2 turns (QC: 6 (Pt will be Mod I with functional mobility with the FWW. ) Type: Manual Wheel 150 feet: 6 (Pt will be Mod I with functional mobility with the FWW. ) Type: Manual 1 Step (curb) (QC): 4 (Pt will be SBA for stairs ) 4 Steps (QC): 4 (Pt will be SBA for stairs ) 12 Steps (QC): 4 (Pt will be SBA for stairs ) Picking up an Object (QC): 6 (Pt will be Mod I with functional mobility with the FWW. ) OT Mcc Goals Mcc Goals Acute change in mental status: 0 Inattention: 0 (Normal distraction w/ communication during tasks) Disorganized thinkin Altered level of consciousness: 0 Eating (QC): 6 (met) Oral Hygiene (QC): 5 (met) Toileting Hygiene (QC): 5 (met) Shower/Bathe Self (QC): 5 (met) Upper Body Dressing (QC): 6 (notmet) Lower Body Dressing (QC): 5 (met) On/Off Footwear (QC): 5 (met) 1=Demonstrate adherence to instructed precautions during ADL tasks. 2=Patient will verbalize/demonstrate understanding of assistive devices/modifications for ADL. 3=Patient will improve strength/tolerance for activity to enable patient to pe rform ADL's. Speech Poll Clerk Goals Poll Clerk Goals Pt will perform cognitive tasks with 80% accuracy or greater independently. MET ESTELLA HENRIQUEZ May 19, 2023 14:46
[2023-05-19] MEDS: CALCIUM CARBONATE 500 MG (TUMS) TAB.CHEW PO PRN (15:27)
[2023-05-19 20:03] VITALS: BP 125/78
[2023-05-19] MEDS: ENOXAPARIN 40 MG/0.4 ML (LOVENOX) SYR SC SCH (21:17)
--- NOTE | 2023-05-20 07:08 | Discharge Summary ---
Diagnosis/Chief Complaint Date of Admission May 10, 2023 at 11:09 Date of Discharge Discharge Date: May 20, 2023 Discharge Diagnosis Assessment: Pubic rami fractures with complete disruption of the pelvic ring following a fall Unable to ambulate Hypertension Osteoporosis DVT prophylaxis with Lovenox Plan: PT OT Fall risk Pain control Home meds 05/11/2023: Check urine for infection Pain control 05/12/2023: Slow recovery Continue pain meds 05/13/2023: Supportive care Monitor closely 05/14/2023: Monitor closely Labs tomorrow 05/15/2023: Pain control Discharge plan for Monday05/16/2023: Monitor closely 05/17/2023: Supportive care Discharge on Monday05/18/2023: Monitor closely Pain controlled 05/19/2023: BM regimen and pain meds sent in (1) Pelvic fracture (2) Pubic ramus fracture Discharge Summary Discharge Physical Examination Allergies: Coded Allergies: No Known Drug Allergies (Verified , 08/29/18) Vitals & I&Os Vital Signs Date Time Temp Pulse Resp B/P (MAP) Pulse Ox O2 Delivery O2 Flow Rate FiO2 05/20/23 12:00 36.2 98 16 136/86 97 Room Air 0.00 05/16/23 13:41 21 General Appearance: Alert, Oriented X3, Cooperative Respiratory: Clear to Auscultation Cardiovascular: Regular Rate Psych/Mental Status: Mental Status NL Hospital Course Was the Problem List Reviewed?: Yes Uneventful with long course after she was moved from [facility] to [facility] for pelvic fracture. Lengthy course with aggressive rehab resulted in near baseline function. Bowels were moving and labs and vitals remained stable. Overall she had no decline in function and was able to DC home with friend and HH. Labs (last 24 hrs) Laboratory Tests 05/10/23 11:09: Lab Scanned Report Referred Lab Report 05/11/23 05:15: White Blood Count 8.6, Red Blood Count 4.07, Hemoglobin 12.3, Hematocrit 38, Mean Corpuscular Volume 92, Mean Corpuscular Hemoglobin 30, Mean Corpuscular Hemoglobin Concent 33, Red Cell Distribution Width 14.3, Platelet Count 196, Mean Platelet Volume 10.3, Immature Granulocyte % (Auto) 0, Neutrophils (%) (Auto) 67, Lymphocytes (%) (Auto) 17, Monocytes (%) (Auto) 12, Eosinophils (%) (Auto) 3, Basophils (%) (Auto) 1, Neutrophils # (Auto) 5.7, Lymphocytes # (Auto) 1.5, Monocytes # (Auto) 1.1H, Eosinophils # (Auto) 0.3, Basophils # (Auto) 0.1, Immature Granulocyte # (Auto) 0.0, Sodium Level 136, Potassium Level 5.1H, Chloride Level 106, Carbon Dioxide Level 23, Anion Gap 7, Blood Urea Nitrogen 22H, Creatinine 0.97, Estimat Glomerular Filtration Rate 59, BUN/Creatinine Ratio 23, Glucose Level 99, Calcium Level 8.9, Corrected Calcium 9.5, Total Bilirubin 0.6, Aspartate Amino Transf (AST/SGOT) 21, Alanine Aminotransferase (ALT/SGPT) 19, Alkaline Phosphatase 51, Total Protein 6.2L, Albumin 3.3 05/11/23 15:40: Urine Color YELLOW, Urine Clarity CLEAR, Urine pH 6.0, Urine Specific Adell 1.010L, Urine Protein NEGATIVE, Urine Glucose (UA) NEGATIVE, Urine Ketones NEGATIVE, Urine Nitrite NEGATIVE, Urine Bilirubin NEGATIVE, Urine Urobilinogen 0.2, Urine Leukocyte Esterase 1+H, Urine RBC (Auto) 1+H, Urine RBC 2-5H, Urine WBC 5-10H, Urine Squamous Epithelial Cells 0-2, Urine Crystals NONE, Urine Bacteria MODERATEH, Urine Casts NONE, Urine Mucus NEGATIVE, Urine Culture Indicated YES 05/15/23 05:03: White Blood Count 8.8, Red Blood Count 4.31, Hemoglobin 13.0, Hematocrit 40, Mean Corpuscular Volume 92, Mean Corpuscular Hemoglobin 30, Mean Corpuscular Hemoglobin Concent 33, Red Cell Distribution Width 14.3, Platelet Count 321, Mean Platelet Volume 10.3, Immature Granulocyte % (Auto) 1, Neutrophils (%) (Auto) 59, Lymphocytes (%) (Auto) 25, Monocytes (%) (Auto) 12, Eosinophils (%) (Auto) 3, Basophils (%) (Auto) 1, Neutrophils # (Auto) 5.1, Lymphocytes # (Auto) 2.2, Monocytes # (Auto) 1.0, Eosinophils # (Auto) 0.3, Basophils # (Auto) 0.1, Immature Granulocyte # (Auto) 0.1, Sodium Level 139, Potassium Level 4.6, Chloride Level 104, Carbon Dioxide Level 26, Anion Gap 9, Blood Urea Nitrogen 23H, Creatinine 1.12, Estimat Glomerular Filtration Rate 49, BUN/Creatinine Ratio 21, Glucose Level 88, Calcium Level 9.2, Corrected Calcium 9.6, Total Bilirubin 0.5, Aspartate Amino Transf (AST/SGOT) 22, Alanine Aminotransferase (ALT/SGPT) 38, Alkaline Phosphatase 128, Total Protein 6.5, Albumin 3.5 Microbiology 05/11/23 Urine Culture - Final, Complete Escherichia coli Escherichia coli#2 Pending Labs Microbiology Date/Time Source Procedure Growth Status 05/11/23 15:40 Urine Straight Cath, In/Out Urine Culture - Final Escherichia coli Escherichia coli#2 Complete Laboratory Tests 05/10/23 11:09: Lab Scanned Report Referred Lab Report 05/11/23 05:15: White Blood Count 8.6, Red Blood Count 4.07, Hemoglobin 12.3, Hematocrit 38, Mean Corpuscular Volume 92, Mean Corpuscular Hemoglobin 30, Mean Corpuscular Hemoglobin Concent 33, Red Cell Distribution Width 14.3, Platelet Count 196, Mean Platelet Volume 10.3, Immature Granulocyte % (Auto) 0, Neutrophils (%) (Auto) 67, Lymphocytes (%) (Auto) 17, Monocytes (%) (Auto) 12, Eosinophils (%) (Auto) 3, Basophils (%) (Auto) 1, Neutrophils # (Auto) 5.7, Lymphocytes # (Auto) 1.5, Monocytes # (Auto) 1.1, Eosinophils # (Auto) 0.3, Basophils # (Auto) 0.1, Immature Granulocyte # (Auto) 0.0, Sodium Level 136, Potassium Level 5.1, Chloride Level 106, Carbon Dioxide Level 23, Anion Gap 7, Blood Urea Nitrogen 22, Creatinine 0.97, Estimat Glomerular Filtration Rate 59, BUN/Creatinine Ratio 23, Glucose Level 99, Calcium Level 8.9, Corrected Calcium 9.5, Total Bilirubin 0.6, Aspartate Amino Transf (AST/SGOT) 21, Alanine Aminotransferase (ALT/SGPT) 19, Alkaline Phosphatase 51, Total Protein 6.2, Albumin 3.3 05/11/23 15:40: Urine Color YELLOW, Urine Clarity CLEAR, Urine pH 6.0, Urine Specific Adell 1.010, Urine Protein NEGATIVE, Urine Glucose (UA) NEGATIVE, Urine Ketones NEGATIVE, Urine Nitrite NEGATIVE, Urine Bilirubin NEGATIVE, Urine Urobilinogen 0.2, Urine Leukocyte Esterase 1+, Urine RBC (Auto) 1+, Urine RBC 2-5, Urine WBC 5-10, Urine Squamous Epithelial Cells 0-2, Urine Crystals NONE, Urine Bacteria MODERATE, Urine Casts NONE, Urine Mucus NEGATIVE, Urine Culture Indicated YES 05/15/23 05:03: White Blood Count 8.8, Red Blood Count 4.31, Hemoglobin 13.0, Hematocrit 40, Mean Corpuscular Volume 92, Mean Corpuscular Hemoglobin 30, Mean Corpuscular Hemoglobin Concent 33, Red Cell Distribution Width 14.3, Platelet Count 321, Mean Platelet Volume 10.3, Immature Granulocyte % (Auto) 1, Neutrophils (%) (Auto) 59, Lymphocytes (%) (Auto) 25, Monocytes (%) (Auto) 12, Eosinophils (%) (Auto) 3, Basophils (%) (Auto) 1, Neutrophils # (Auto) 5.1, Lymphocytes # (Auto) 2.2, Monocytes # (Auto) 1.0, Eosinophils # (Auto) 0.3, Basophils # (Auto) 0.1, Immature Granulocyte # (Auto) 0.1, Sodium Level 139, Potassium Level 4.6, Chloride Level 104, Carbon Dioxide Level 26, Anion Gap 9, Blood Urea Nitrogen 23, Creatinine 1.12, Estimat Glomerular Filtration Rate 49, BUN/Creatinine Ratio 21, Glucose Level 88, Calcium Level 9.2, Corrected Calcium 9.6, Total Bilirubin 0.5, Aspartate Amino Transf (AST/SGOT) 22, Alanine Aminotransferase (ALT/SGPT) 38, Alkaline Phosphatase 128, Total Protein 6.5, Albumin 3.5 Discharge Home Medications: Active Scripts Active Lactulose 20 Gram/30 Ml Solution 20 Gm PO BID PRN Senna Lax (Sennosides) 8.6 Mg Tablet 8.6 Mg PO BID HYDROcodone/APAP 10/325 TABLET (Acetaminophen/Hydrocodone Bitart) 1 Ea Tab 1 Ea PO Q8H PRN Reported Zantac-360 (Famotidine) (Famotidine) 10 Mg Tablet 10 Mg PO DAILY Vitamin C (Ascorbic Acid) 500 Mg Tablet 500 Mg PO DAILY Zinc (Zinc Amino Acid Chelate) 50 Mg Tablet 50 Mg PO DAILY Calcium (Calcium Carbonate) 500 Mg Calcium (1250 Mg) Tablet 500 Mg PO DAILY Cetirizine HCl 10 Mg Tablet 10 Mg PO DAILY Amlodipine Besylate 5 Mg Tablet 5 Mg PO DAILY Lisinopril 10 Mg Tablet 10 Mg PO DAILY Meloxicam 15 Mg Tablet 15 Mg PO DAILY Multiple Vitamins (Multivitamin) 1 Each Tablet 1 Tab PO DAILY Calcium 600 + Vit D Caplet (Calcium Carbonate/Vitamin D3) 600 Mg Calcium-10 Mcg (400 Unit) Tablet 1 Ea PO TID Alendronate Sodium 10 Mg Tablet 10 Mg PO DAILY Instructions to patient/family Please see electronic discharge instructions given to patient. Diagnosis/Problems Diagnosis/Problems (1) Pelvic fracture (2) Pubic ramus fracture REGIS KEE DO May 20, 2023 07:07
[2023-05-20 07:46] VITALS: BP 136/86
[2023-05-20] MEDS: LORATADINE (CLARITIN) 10 MG TAB PO SCH (09:21)
[2023-05-20] MEDS: DOCUSATE SODIUM 100 MG (COLACE) CAP PO SCH (09:21)
[2023-05-20] MEDS: SENNOSIDES 8.6 MG (SENOKOT) TAB PO SCH (09:21)
[2023-05-20] MEDS: amLODIPine 10 MG (NORVASC) TAB PO SCH (09:21)
[2023-05-20] MEDS: polyethylene glycoL POWDER 17 GM (MIRALAX) PACK PO SCH (09:22)
[2023-05-20 12:00] VITALS: BP 136/86
--- NOTE | 2023-05-22 08:22 | Therapy Team Discharge Summary ---
Therapy Discharge Summary Discharge Recommendations Date of Discharge May 20, 2023 at 11:25 Therapy D/C Recommendations: Home w/ Family Support, Physical Therapy Home Care Physical Therapy Pt had a fall going down zoroastrianism stairs and pelvic pain on 05/05/23; ED on 05/05/23; admitted to ARU on 05/10/23 with pelvis fracture. At [facility], pt reports she was Ind with the FWW outside of the home. Pt reports she didn't always use a FWW in the home. Upon PT eval, pt was Min A for bed mobility and functional transfers, and pt was only able to ambulate 10ft with the FWW. PT focused on B LE strengthening, endurance, walking, balance/safety, functional mobility, and Ind. Pt progressed well with PT and met all set goals. Pt d/c from ARU on 05/20/23 to home with services; D/C from PT at this time. Roll Left to Right (QC): 6 Sit to Lying (QC): 6 Lying to Sitting/Side of Bed(Q: 6 Sit to Stand (QC): 6 Chair/Ukg-vj-Cyojz Xfer(QC): 6 Toilet Transfer (QC): 6 Car Transfer (QC): 6 Does the Patient Walk: Yes Mode of Locomotion: Walk Anticipated Mode of Locomotion: Walk Walk 10 feet (QC): 6 Walk 50 ft with 2 Turns(QC): 6 Walk 150 ft (QC): 6 Walking 10ft on uneven surface: 6 Distance: 200ft Gait Assistive Device: FWW Does the Pt Use a Wheelchair: No Wheel 50 ft with 2 turns (QC): 09 Wheel 150 ft (QC): 09 Type of Wheelchair: N/A 1 Step (curb) (QC): 6 4 Steps (QC): 6 12 Steps (QC): 6 Walking Assistive Device: Walker Balance Sitting Static: Good Balance Sitting Dynamic: Good Balance-Standing Static: Good Picking up an Object (QC): 6 Occupational Therapy Decreased Activ Tolerance, Decreased UE Strength Eating (QC): 6 Oral Hygiene (QC): 5 Shower/Bathe Self (QC): 5 Upper Body Dressing (QC): 5 Lower Body Dressing (QC): 5 On/Off Footwear (QC): 5 (using AE) Toileting Hygiene (QC): 5 PT Research Associate Quality Control Qc Goals Research Associate Quality Control Qc Goals PT Research Associate Quality Control Qc Goals Time Frame: May 24, 2023 Roll Left to Right (QC): 6 (Pt will be Mod I with functional mobility with the FWW. ) Sit to Lying (QC): 6 (Pt will be Mod I with functional mobility with the FWW. ) Lying-Sitting on Side/Bed(QC): 6 (Pt will be Mod I with functional mobility with the FWW. ) Sit to Stand (QC): 6 (Pt will be Mod I with functional mobility with the FWW. ) Chair/Lmz-kj-Ihsqs Xfer(QC): 6 (Pt will be Mod I with functional mobility with the FWW. ) Toilet/Commode Transfer (QC): 6 (Pt will be Mod I with functional mobility with the FWW. ) Car Transfer (QC): 6 (Pt will be Mod I with functional mobility with the FWW. ) Does the Patient Walk: Yes Walk 10 feet (QC): 6 (Pt will be Mod I with functional mobility with the FWW. ) Walk 10ft-Uneven Surface(QC): 6 (Pt will be Mod I with functional mobility with the FWW. ) Walk 50ft with 2 Turns (QC): 6 (Pt will be Mod I with functional mobility with the FWW. ) Walk 150 ft (QC): 6 (Pt will be Mod I with functional mobility with the FWW. ) Does the Pt use WC or Scooter?: Yes Wheel 50 feet with 2 turns (QC: 6 (Pt will be Mod I with functional mobility with the FWW. ) Type: Manual Wheel 150 feet: 6 (Pt will be Mod I with functional mobility with the FWW. ) Type: Manual 1 Step (curb) (QC): 4 (Pt will be SBA for stairs ) 4 Steps (QC): 4 (Pt will be SBA for stairs ) 12 Steps (QC): 4 (Pt will be SBA for stairs ) Picking up an Object (QC): 6 (Pt will be Mod I with functional mobility with the FWW. ) OT Research Associate Quality Control Qc Goals Intermediate Goals Acute change in mental status: 0 Inattention: 0 (Normal distraction w/ communication during tasks) Disorganized thinkin Altered level of consciousness: 0 Eating (QC): 6 (met) Oral Hygiene (QC): 5 (met) Toileting Hygiene (QC): 5 (met) Shower/Bathe Self (QC): 5 (met) Upper Body Dressing (QC): 6 (notmet) Lower Body Dressing (QC): 5 (met) On/Off Footwear (QC): 5 (met) 1=Demonstrate adherence to instructed precautions during ADL tasks. 2=Patient will verbalize/demonstrate understanding of assistive devices/modifications for ADL. 3=Patient will improve strength/tolerance for activity to enable patient to perform ADL's. Speech Research Associate Quality Control Qc Goals Research Associate Quality Control Qc Goals Pt will perform cognitive tasks with 80% accuracy or greater independently. MET FILEMON ACUÑA PT May 22, 2023 08:22
--- NOTE | 2023-05-22 14:01 | Therapy Team Discharge Summary ---
Therapy Discharge Summary Discharge Recommendations Date of Discharge May 20, 2023 at 11:25 Therapy D/C Recommendations: Home w/ Family Support, Physical Therapy Home Care Physical Therapy Roll Left to Right (QC): 6 Sit to Lying (QC): 6 Lying to Sitting/Side of Bed(Q: 6 Sit to Stand (QC): 6 Chair/Ubk-uz-Fcrar Xfer(QC): 6 Toilet Transfer (QC): 6 Car Transfer (QC): 6 Does the Patient Walk: Yes Mode of Locomotion: Walk Anticipated Mode of Locomotion: Walk Walk 10 feet (QC): 6 Walk 50 ft with 2 Turns(QC): 6 Walk 150 ft (QC): 6 Walking 10ft on uneven surface: 6 Distance: 200ft Gait Assistive Device: FWW Does the Pt Use a Wheelchair: No Wheel 50 ft with 2 turns (QC): 09 Wheel 150 ft (QC): 09 Type of Wheelchair: N/A 1 Step (curb) (QC): 6 4 Steps (QC): 6 12 Steps (QC): 6 Walking Assistive Device: Walker Balance Sitting Static: Good Balance Sitting Dynamic: Good Balance-Standing Static: Good Picking up an Object (QC): 6 Occupational Therapy Pt had a fall going down taoism stairs and pelvic pain on 05/05/23; ED on 05/05/23; admitted to ARU on 05/10/23 with pelvis fracture. At [facility], pt reports she was Ind with the FWW outside of the home. Pt reports she didn't always use a FWW in the home. Upon OT eval, pt was Min A for functional transfers. OT focused on B UE strengthening, endurance, safety, functional mobility, and Ind. Pt progressed well with OT and met all set goals. Pt d/c from ARU on 05/20/23 to home with HH services; Decreased Activ Tolerance, Decreased UE Strength Eating (QC): 6 Oral Hygiene (QC): 5 Shower/Bathe Self (QC): 5 Upper Body Dressing (QC): 5 Lower Body Dressing (QC): 5 On/Off Footwear (QC): 5 (using AE) Toileting Hygiene (QC): 5 PT Snf Goals Feed Management Advisor Goals PT Snf Goals Time Frame: May 24, 2023 Roll Left to Right (QC): 6 (Pt will be Mod I with functional mobility with the FWW. ) Sit to Lying (QC): 6 (Pt will be Mod I with functional mobility with the FWW. ) Lying-Sitting on Side/Bed(QC): 6 (Pt will be Mod I with functional mobility with the FWW. ) Sit to Stand (QC): 6 (Pt will be Mod I with functional mobility with the FWW. ) Chair/Ewq-ef-Jbjmw Xfer(QC): 6 (Pt will be Mod I with functional mobility with the FWW. ) Toilet/Commode Transfer (QC): 6 (Pt will be Mod I with functional mobility with the FWW. ) Car Transfer (QC): 6 (Pt will be Mod I with functional mobility with the FWW. ) Does the Patient Walk: Yes Walk 10 feet (QC): 6 (Pt will be Mod I with functional mobility with the FWW. ) Walk 10ft-Uneven Surface(QC): 6 (Pt will be Mod I with functional mobility with the FWW. ) Walk 50ft with 2 Turns (QC): 6 (Pt will be Mod I with functional mobility with the FWW. ) Walk 150 ft (QC): 6 (Pt will be Mod I with functional mobility with the FWW. ) Does the Pt use WC or Scooter?: Yes Wheel 50 feet with 2 turns (QC: 6 (Pt will be Mod I with functional mobility with the FWW. ) Type: Manual Wheel 150 feet: 6 (Pt will be Mod I with functional mobility with the FWW. ) Type: Manual 1 Step (curb) (QC): 4 (Pt will be SBA for stairs ) 4 Steps (QC): 4 (Pt will be SBA for stairs ) 12 Steps (QC): 4 (Pt will be SBA for stairs ) Picking up an Object (QC): 6 (Pt will be Mod I with functional mobility with the FWW. ) OT Feed Management Advisor Goals Snf Goals Acute change in mental status: 0 Inattention: 0 (Normal distraction w/ communication during tasks) Disorganized thinkin Altered level of consciousness: 0 Eating (QC): 6 (met) Oral Hygiene (QC): 5 (met) Toileting Hygiene (QC): 5 (met) Shower/Bathe Self (QC): 5 (met) Upper Body Dressing (QC): 6 (notmet) Lower Body Dressing (QC): 5 (met) On/Off Footwear (QC): 5 (met) 1=Demonstrate adherence to instructed precautions during ADL tasks. 2=Patient will verbalize/demonstrate understanding of assistive devices/modif ications for ADL. 3=Patient will improve strength/tolerance for activity to enable patient to perform ADL's. Speech Snf Goals Snf Goals Pt will perform cognitive tasks with 80% accuracy or greater independently. MET YULIANA SAM OT May 22, 2023 14:01
== END 2023-05-20 11:25 | disposition home health service (06) | DRG 561 ==
PROVIDERS: ADMIT Internal Medicine; ATTEND Internal Medicine
DX: S32.810D Multiple fractures of pelvis with stable disruption of pelvic ring, subsequent encounter for fracture with routine healing (principal); M81.0 Age-related osteoporosis without current pathological fracture; I10 Essential (primary) hypertension; R32 Unspecified urinary incontinence; K21.9 Gastro-esophageal reflux disease without esophagitis; H54.3 Unqualified visual loss, both eyes; J30.2 Other seasonal allergic rhinitis; Z66 Do not resuscitate; Z79.899 Other long term (current) drug therapy; W10.9XXD Fall (on) (from) unspecified stairs and steps, subsequent encounter; Y92.22 Religious institution as the place of occurrence of the external cause
CPT/HCPCS: 36415; 80053; 81000; 85025; 87077; 87088; 87186; 94664; 94760

== ENCOUNTER → 2023-07-28 | Outpatient (CLI) | payer MEDICARE, OTHER ==
[~2023-07-28] MED LIST changes: +LACT20SO2 PO; +SENN-341 PO
--- NOTE | 2023-07-28 13:02 | Diagnostic Imaging Report ---
Indication: Routine screening. Comparison is made prior mammograms 07/12/2022 and 06/30/2021. 2-D and 3-D bilateral screening mammography was performed with CAD. Both breasts are heterogeneously dense, limiting the sensitivity of mammography. The parenchymal pattern is stable. There are scattered benign calcifications. No mass or malignant-appearing microcalcifications are seen. Axillae are unremarkable. IMPRESSION: BI-RADS Category 2 No mammographic features suspicious for malignancy are identified. ACR BI-RADS Category 2: Benign findings. Result letter will be mailed to the patient. Note: At least 10% of breast cancer is not imaged by mammography. Dictated by: Dictated on workstation # [id number]
== END ==
LOC: RAD 09:45
PROVIDERS: ATTEND Family Medicine
DX: Z12.31 Encounter for screening mammogram for malignant neoplasm of breast (principal)
CPT/HCPCS: 77063; 77067